=== PATIENT | female | born 1955 | race Caucasian/White ===

== ENCOUNTER → 2018-03-01 08:18 | Outpatient (CLI) | payer OTHER, SELFPAY ==
[2018-03-01 10:29] LABS: AST(SGOT) 24 U/L (15-37); Alanine Aminotransfer ALT/SGPT 36 U/L (13-56); Albumin, Serum 3.8 g/dL (3.2-5.0); Alkaline Phosphatase 94 U/L (45-117); Bilirubin, Direct 0.05 mg/dL (0.00-0.30); Cholesterol 176 mg/dL (200); Globulin 3.2 g/dL (2.2-4.2); High Density Lipoprotein 58 mg/dL; Triglycerides 163 mg/dL; Very Low Density Lipoprotein 33 mg/dL (5-40)
== END ==
PROVIDERS: Internal Medicine Cardiovascular Disease; Family Provider Internal Medicine; PCP Internal Medicine; Visit Provider Internal Medicine
DX: E78.00 Pure hypercholesterolemia, unspecified (principal)
CPT/HCPCS: 36415; 80061; 80076

== ENCOUNTER → 2018-07-09 13:35 | Outpatient (CLI) | payer OTHER, SELFPAY ==
--- NOTE | 2018-07-09 13:37 | BI_ITS ---
MAMMOGRAPHY - BILATERAL SCREENING REASON FOR EXAM: Female, 62 years old. Routine annual screening examination. PERTINENT HISTORY: Non-contributory. TECHNIQUE: Digital bilateral breast landry (3D mammographic acquisition) in the CC and MLO projections. 2-D mediolateral oblique (MLO) and craniocaudad (CC) views of both breasts were obtained. CAD: Full Field Digital Mammography with Computer Added Detection was performed. COMPARISON: Comparison is made with prior study dated July 08, 2017 and February 13, 2015. FINDINGS: Breast Composition: The breasts are almost entirely fatty. There are no dominant masses or suspicious calcifications. Stable appearance of the small bilateral scattered nodular densities. No other significant abnormalities are identified. There has been no significant change since the prior study. BI/SCREENING MAMM (CAD), BILAT IMPRESSION: Stable bilateral screening mammogram. Yearly follow-up mammogram recommended. (A) ASSESSMENT CATEGORY: BIRADS Category 2: Benign. A letter regarding these results will be sent to the patient by the facility within 30 days. Approximately 10% of breast cancers are not detected by mammography. A normal mammogram should not delay biopsy of a clinically suspicious abnormality. [id number] Electronically Signed: Ulysses Gonzalez MD at 15:40 EDT Tel [phone], Service support ,
== END ==
PROVIDERS: Family Provider Internal Medicine; PCP Internal Medicine; Visit Provider Internal Medicine
DX: Z12.31 Encounter for screening mammogram for malignant neoplasm of breast (principal)
CPT/HCPCS: 77063; 77067

== ENCOUNTER → 2019-07-13 07:28 | Outpatient (CLI) | payer OTHER, SELFPAY ==
--- NOTE | 2019-07-13 07:31 | BI_ITS ---
MAMMOGRAPHY - BILATERAL SCREENING REASON FOR EXAM: Female, 63 years old. Routine annual screening examination. PERTINENT HISTORY: Non-contributory. TECHNIQUE: Digital bilateral breast roberto (3D mammographic acquisition) in the CC and MLO projections. 2-D mediolateral oblique (MLO) and craniocaudad (CC) views of both breasts were obtained. CAD: Full Field Digital Mammography with Computer Added Detection was performed. COMPARISON: Comparison is made with prior study dated July 09, 2018 and July 08, 2017. FINDINGS: Breast Composition: The breasts are almost entirely fatty. There are no dominant masses or suspicious calcifications. No other significant abnormalities are identified. There has been no significant change since the prior study. BI/SCREEN MAMM (CAD) W/ROBERTO BILAT IMPRESSION: Stable bilateral screening mammogram. Yearly follow-up mammogram recommended. (A) ASSESSMENT CATEGORY: BIRADS Category 1: Negative. A letter regarding these results will be sent to the patient by the facility within 30 days. Approximately 10% of breast cancers are not detected by mammography. A normal mammogram should not delay biopsy of a clinically suspicious abnormality. [id number] Electronically Signed: Ulysses Gonzalez, at 8:59 EDT , Service support ,
== END ==
PROVIDERS: Family Provider Internal Medicine; PCP Internal Medicine; Referring Provider Internal Medicine; Visit Provider Internal Medicine
DX: Z12.31 Encounter for screening mammogram for malignant neoplasm of breast (principal)
CPT/HCPCS: 77063; 77067

== ENCOUNTER → 2019-08-15 12:16 | Outpatient (CLI) | payer OTHER, SELFPAY ==
[2019-08-15 13:30] LABS: Red Blood Cells-Urine 0 SEEN /hpf (0-5)
[2019-08-15 13:52] LABS: Color, Urine Yellow (Yellow); Glucose, Dipstick Normal (Normal); Ketone-Dipstick 5 mg/dl (Negative); Leukocyte Esterase-Dipstick 25 /ul (Negative); Nitrite-Dipstick Negative (Negative); Occult Blood-Urine Negative /ul (Negative); Protein-Dipstick Negative (Negative); Urine Bilirubin Dipstick Negative (Negative); Urine Clarity Sl. Cloudy (Clear); Urine Urobilinogen Normal (Normal)
[2019-08-15 13:54] LABS: Absolute Lymphocyte Count 1.25 X10^3/uL (0.83-4.51); Basophil# 0.03 X10^3/uL; Basophil% 0.6 % (0-1); Eosinophil# 0.22 X10^3/uL; Eosinophils% 4.3 % (0-5); Hematocrit 41.8 % (37-47); Hemoglobin 13.2 g/dL (12.0-15.0); Lymphocyte # 1.25 X10^3/ul (4.0); Lymphocyte % 24.7 % (19-41); Mean Corp Hgb Conc 31.6 g/dL (32-36); Mean Corpuscular Hgb 27.2 pg (27.0-32.0); Mean Corpuscular Volume 86.2 fL (81-99); Monocyte# 0.53 X10^3/uL; Monocyte% 10.5 % (0-10); NRBC Flagged by Analyzer 0 % (0-5); Neutrophil # 3.01 X10^3/uL (2.7-7.7); Neutrophil % 59.5 % (47-70); Platelet Count 201 K/mm3 (150-450); RBC Distribution Width CV 13.8 % (11.6-14.6); Red Blood Count 4.85 M/mm3 (4.2-5.4); White Blood Count 5.1 K/mm3 (4.4-11.0)
[2019-08-15 14:04] LABS: Bacteria 1+ /hpf (None Seen); Mucous, Urine 1+ /hpf (<or=2+); Squamous Epithelial Cells - UA 0-5 SEEN /hpf (5-10); White Blood Cells 0-5 SEEN /hpf (0-5)
[2019-08-15 14:11] LABS: ALB/GLOB Ratio 1.5 RATIO (0.9-2.4); AST(SGOT) 21 U/L (15-37); Alanine Aminotransfer ALT/SGPT 30 U/L (13-56); Alkaline Phosphatase 91 U/L (45-117); Anion Gap 5 (5-15); BUN 11 mg/dL (7-18); BUN/Creat Ratio 17.2 RATIO (10-20); Calcium,Total 9.5 mg/dL (8.5-10.1); Chloride 107 mmol/L (98-107); Creatinine, Serum 0.64 mg/dL (0.55-1.02); EST Glomerular Filtration Rate 100 mL/min (>60); Est Glom Filt Rate - Afr Amer 120 mL/min (>60); Estradiol < 11.0 pg/mL; Globulin 2.7 g/dL (2.2-4.2); Glucose 86 mg/dL (74-106); Potassium 4.1 mmol/L (3.5-5.1); Protein, Total 6.7 g/dL (6.4-8.2); Sodium Level 141 mmol/L (136-145)
[2019-08-15 14:13] LABS: Progesterone Level 0.16 ng/mL (See Comment)
[2019-08-15 14:16] LABS: Microalbumin,Random Urine 18.6 mg/L (NO RANGE EST.); Microalbumin:Creatinine Ratio 9.7 mg/g CRE (<30 mg/g CRE)
== END ==
PROVIDERS: Family Provider Internal Medicine; PCP Internal Medicine; Referring Provider Internal Medicine; Visit Provider Internal Medicine
DX: R60.0 Localized edema (principal); N95.1 Menopausal and female climacteric states; R73.09 Other abnormal glucose
CPT/HCPCS: 80053; 81001; 82043; 82570; 82670; 84144; 84403; 85025

== ENCOUNTER → 2019-10-25 08:20 | Outpatient (CLI) | payer OTHER, SELFPAY ==
--- NOTE | 2019-10-25 08:30 | BD_ITS ---
STUDY: DUAL ENERGY X-RAY ABSORPTIOMETRY / DXA REASON FOR EXAM: Female, 64 years old. 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 COMPARISON: Comparison is made with prior study dated July 16, 2017. FINDINGS: Lumbar Spine (L1-L4): g/cm2 (0.881) / T-score (-2.7) / Z-score (-1.1) Findings are suggestive of osteoporosis with a high fracture risk. Left Femur Total: g/cm2 (0.966) / T-score (-0.3) / Z-score (0.8) Left Femoral Neck: g/cm2 (0.855) / T-score (-1.3) / Z-score (0.1) Right Femur Total: g/cm2 (0.934) / T-score (-0.6) / Z-score (0.6) Right Femoral Neck: g/cm2 (0.849) / T-score (-1.4) / Z-score (0.1) The T-Scores on the most recent prior examination were: Lumbar Spine (L1-L4): There has been improvement of bone density since the previous examination. Left Femur Total: which represents a worsening of 0.2%. Right Femur Total: which represents a worsening of 3.6%. BD/Dexa Bone Density Study IMPRESSION: The patient is considered osteoporotic as outlined below according to World Joce Organization (WHO) criteria with a high fracture risk. There has been worsening of bone density since the previous examination. Reference Information: The T-score is the number of standard deviations above or below the standard which is normal for young adults at their peak bone mineral density. The World Health Organization (WHO) interprets the T-scores as follows: Above -1 Normal bone density Between -1 and -2.5 Osteopenia Equal to / or below -2.5 Osteoporosis As a practical clinical guideline, osteopenia may be graded as follows: Mild -1 through -1.5 Moderate -1.6 through -2.0 Severe -2.1 through -2.4 The Z-score is the number of standard deviations above or below age-matched controls. A Z-score of less than -1.5 would be considered abnormal. References: 1. NIH Osteoporosis and Related Bone Diseases http://www.osteo.org 2. International Society for Clinical Densitometry http://www.iscd.org 3. National Osteoporosis Foundation http://www.nof.org Electronically Signed: Ulysses Gonzalez, at 14:17 EST , Service support ,
== END ==
PROVIDERS: Family Provider Internal Medicine; PCP Internal Medicine; Referring Provider Internal Medicine; Visit Provider Internal Medicine
DX: Z78.0 Asymptomatic menopausal state (principal)
CPT/HCPCS: 77080

== ENCOUNTER → 2019-11-02 07:44 | Outpatient (CLI) | payer SELFPAY ==
--- NOTE | 2019-11-02 07:48 | CT_ITS ---
STUDY: CARDIAC CALCIUM SCORING - CT CHEST REASON FOR EXAM: Female, 64 years old. CORONARY ARTERY SCREENING- high cholestrol. OVER READ ONLY RADIATION DOSAGE (If Supplied By Facility): CTDIvol = ( 12.19 ) mGy, DLP = ( 219.42 ) mGycm TECHNIQUE: Axial non-enhanced images were acquired through the heart for the sole purpose of measuring coronary artery calcium. Individualized dose optimization techniques were used for this CT. COMPARISON: None. FINDINGS: Visualized surrounding anatomy: Normal. Left Main Coronary Artery: 0 Left Anterior Descending Artery: 1.59 Left Circumflex Artery: 0 Right Coronary Artery: 0 Other: Small posterior right lower lobe calcified granuloma. The lungs are otherwise clear. No focal pulmonary consolidation. Total Calcium Score: 1.59 CT/Limited Chest CT w/CCTA IMPRESSION: A Calcium Score of 1.59 places the patient in the approximate 25-50 percentile, based on the PRICE data calculator. Please go to: www.price-nhlbi.org/Calcium/input.aspx , for a description of the calculator. Electronically Signed: Jennifer Wong, at 14:40 EST Tel , Service support ,
[2019-11-02 07:54] VITALS: BP 130/73; PULSE 72; RESP 16; O2SAT 98; BMI 30.1
--- NOTE | 2019-11-03 17:03 | CA.SCORE ---
Calcium Scoring Date of Study:: 11/02/19 Coronary Calcium Scoring: High-resolution Computed Tomographic imaging of the chest was performed on [ ], with particular attention paid to the coronary arteries. Images from the examination were analyzed for the presence and extent of coronary artery calcification , using coronary calcium quantification software. The patient tolerated the procedure well and there were no complications. The results of the coronary calcification analysis are provided below. - Findings Left Main (LM): 0 Left Anterior Descending (LAD): 1.59 Left Circumflex (LCX): 0 Right Coronary Artery (RCA): 0 Total Agatston Score: 1.59 Percentile Rankin Calcium Scoring Interpretation: 1-10 Minimal Plaque burden. Significant coronary artery disease very unlikely.
== END ==
PROVIDERS: Family Provider Internal Medicine; PCP Internal Medicine; Referring Provider Internal Medicine; Visit Provider Internal Medicine
DX: Z13.6 Encounter for screening for cardiovascular disorders (principal)
CPT/HCPCS: 75571; 76380

== ENCOUNTER → 2019-11-09 08:29 | Outpatient (CLI) | payer OTHER, SELFPAY ==
[2019-11-02 07:54] VITALS: BMI 30.1
--- NOTE | 2019-11-09 09:05 | RAD_ITS ---
STUDY: X-RAY - LEFT KNEE REASON FOR EXAM: Pain and swelling. TECHNIQUE: 4 view(s) of the knee. COMPARISON: None. FINDINGS: Normal visualized distal femur. Normal visualized proximal tibia and fibula. Normal proximal tibiofibular articulation. There is mild joint space narrowing of the medial femorotibial compartment. Normal lateral femorotibial compartment. There are very small marginal osteophytes of the patella without joint space narrowing of the patellofemoral articulation. The soft tissue structures are unremarkable. RAD/Knee 4 or More Views IMPRESSION: Mild arthrosis of the medial femorotibial compartment. Electronically Signed: Laurent Piper MD at 9:57 EST Tel , Service support ,
[2019-11-09 10:23] LABS: PTHIN 38.9 pg/mL (18.4-80.1)
[2019-11-09 10:44] LABS: Alkaline Phosphatase 88 U/L (45-117); Phosphorus 3.6 mg/dL (2.5-4.9); Thyroid Stim Hormone (TSH) 2.18 uIU/mL (0.358-3.74)
[2019-11-10 16:08] LABS: PROEL- A/G Ratio 1.4 (0.7-1.7); PROEL- Albumin 3.7 g/dL (2.9-4.4); PROEL- Alpha-1 Globulin 0.2 g/dL (0.0-0.4); PROEL- Alpha-2 Globulin 0.7 g/dL (0.4-1.0); PROEL- Beta Globulin 1.1 g/dL (0.7-1.3); PROEL- Gamma Globulin 0.6 g/dL (0.4-1.8); PROEL- Globulin, Total 2.6 g/dL (2.2-3.9); PROEL- TOTAL PROTEIN 6.3 g/dL (6.0-8.5)
== END ==
PROVIDERS: PCP Internal Medicine; Referring Provider Internal Medicine; Visit Provider Internal Medicine
DX: M25.562 Pain in left knee (principal)
CPT/HCPCS: 36415; 73564; 83970; 84075; 84100; 84165; 84443

== ENCOUNTER → 2019-11-10 10:45 | Outpatient (CLI) | payer OTHER, SELFPAY ==
[2019-11-02 07:54] VITALS: BMI 30.1
[2019-11-14 10:49] LABS: (24 HR) Urine Calcium 273.6 mg/24 HR (42.0-353.0); 24HR UR TOTAL VOLUME 3600 ml; Calcium Urine pH Range 1; Urine Calcium (Random) 7.6 (Not Estab.)
[2019-11-15 10:24] LABS: PROELU- Albumin, Urine 35.9 % (.); PROELU- Alpha-1-Globulin,Ur 5.1 % (.); PROELU- Alpha-2-Globulin,Ur 14.7 % (.); PROELU- Beta Globulin, Ur 17.8 % (.); PROELU- Gamma Globulin, Ur 26.5 % (.); Total Protein, Ur 5.3 mg/dL (Not Estab.)
== END ==
PROVIDERS: PCP Internal Medicine; Referring Provider Internal Medicine; Visit Provider Internal Medicine
DX: M81.0 Age-related osteoporosis without current pathological fracture (principal)
CPT/HCPCS: 81050; 82340; 84166

== ENCOUNTER → 2020-03-15 09:34 | Outpatient (CLI) | payer OTHER, SELFPAY ==
[2019-11-02 07:54] VITALS: BMI 30.1
--- NOTE | 2020-03-15 09:54 | MRI_ITS ---
STUDY: MRI LEFT KNEE REASON FOR EXAM: Medial left knee pain for 4 months from exercising. TECHNIQUE: Standardized fat and water weighted pulse sequences were obtained in all 3 orthogonal planes. COMPARISON: Radiographs 11/09/2019. FINDINGS: There is a very small superficial tear of the inferior articular surface of the posterior horn of the medial meniscus near the free margin (proton density sagittal images 11, 12). 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 Normal medial collateral ligamentous complex (MCL). Normal distal semimembranosus, gracilis and semitendinosus tendons. Normal lateral meniscus. Normal hyaline cartilage of the lateral femorotibial compartment. Normal lateral femoral condyle and tibial plateau. Normal proximal tibiofibular articulation. Normal lateral collateral (fibular) ligament. Normal popliteus tendon. Normal biceps femoris tendon. Normal anterior cruciate ligament (ACL). Normal posterior cruciate ligament (PCL). Normal congruent patellofemoral articulation. There is low to intermediate grade chondromalacia patellae (T2 axial image 8). Normal medial and lateral patellar retinaculum. Normal visualized quadriceps tendon. Normal patellar tendon. Normal Hoffa''s fat pad. There is a very small joint effusion. There is a ganglion cyst adjacent to the origin of the lateral gastrocnemius (T2 sagittal images 24-28) measuring 1.4 cm in transverse dimension. There is mild edema in the anterior subcutis adipose space. The otherwise visualized osseous structures are unremarkable. MRI/Lower Ext Joint Only (Routine) IMPRESSION: Very small superficial medial meniscal tear. 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 Very small joint effusion. Small ganglion cyst adjacent to the origin of the lateral gastrocnemius. Electronically Signed: Laurent Piper MD at 11:35 EDT Tel , Service support ,
== END ==
PROVIDERS: PCP Internal Medicine; Referring Provider Specialist; Visit Provider Specialist
DX: M25.462 Effusion, left knee (principal)
CPT/HCPCS: 73721

== ENCOUNTER → 2020-07-23 08:15 | Outpatient (CLI) | payer OTHER, SELFPAY ==
[2019-11-02 07:54] VITALS: BMI 30.1
--- NOTE | 2020-07-23 08:16 | BI_ITS ---
MAMMOGRAPHY - BILATERAL SCREENING REASON FOR EXAM: Female, 64 years old. Routine annual screening examination. PERTINENT HISTORY: Non-contributory. TECHNIQUE: Digital bilateral breast roberto (3D mammographic acquisition) in the CC and MLO projections. 2-D mediolateral oblique (MLO) and craniocaudad (CC) views of both breasts were obtained. CAD: Full Field Digital Mammography with Computer Added Detection was performed. COMPARISON: 07/13/2019 and 07/09/2018 FINDINGS: Breast Composition: The breasts are almost entirely fatty. There are no dominant masses or suspicious calcifications. No other significant abnormalities are identified. BI/SCREEN MAMM (CAD) W/ROBERTO BILAT IMPRESSION: Stable bilateral screening mammogram. Yearly follow-up mammogram recommended. (A) ASSESSMENT CATEGORY: BIRADS Category 2: Benign. A letter regarding these results will be sent to the patient by the facility within 30 days. Approximately 10% of breast cancers are not detected by mammography. A normal mammogram should not delay biopsy of a clinically suspicious abnormality. [id number] Electronically Signed: Erica Taylor, at 16:35 EDT Tel , Service support ,
== END ==
PROVIDERS: PCP Internal Medicine; Referring Provider Internal Medicine; Visit Provider Internal Medicine
DX: Z12.31 Encounter for screening mammogram for malignant neoplasm of breast (principal)
CPT/HCPCS: 77063; 77067

== ENCOUNTER → 2020-10-30 13:59 | Outpatient (CLI) | payer MEDICARE, BC, SELFPAY ==
[2019-11-02 07:54] VITALS: BMI 30.1
[2020-10-30 14:42] LABS: Absolute Lymphocyte Count 1.34 X10^3/uL (0.83-4.51); Absolute Neutrophil Count 4.5 X10^3/uL (2.0-7.7); Basophil# 0.04 X10^3/uL; Basophil% 0.6 % (0-1); Eosinophil# 0.15 X10^3/uL; Eosinophils% 2.3 % (0-5); Hemoglobin 13.8 g/dL (12.0-15.0); Lymphocyte # 1.34 X10^3/ul (4.0); Lymphocyte % 20.2 % (19-41); Mean Corp Hgb Conc 30.7 g/dL (32-36); Mean Corpuscular Hgb 26.1 pg (27.0-32.0); Mean Corpuscular Volume 85.2 fL (81-99); Mean Platelet Vol. 10.6 fl (6.2-12.0); Monocyte# 0.55 X10^3/uL; Monocyte% 8.3 % (0-10); NRBC Flagged by Analyzer 0 % (0-5); Neutrophil # 4.53 X10^3/uL (2.7-7.7); Neutrophil % 68.3 % (47-70); Platelet Count 224 K/mm3 (150-450); RBC Distribution Width CV 13.7 % (11.6-14.6); RBC Distribution Width SD 42.5 fl (35.1-43.9); Red Blood Count 5.28 M/mm3 (4.2-5.4); White Blood Count 6.6 K/mm3 (4.4-11.0)
[2020-10-30 14:52] LABS: ALB/GLOB Ratio 1.4 RATIO (0.9-2.4); AST(SGOT) 18 U/L (15-37); Alanine Aminotransfer ALT/SGPT 38 U/L (13-56); Albumin, Serum 4.2 g/dL (3.2-5.0); Alkaline Phosphatase 101 U/L (45-117); Anion Gap 7 (5-15); BUN 12 mg/dL (7-18); BUN/Creat Ratio 19.1 RATIO (10-20); Calcium,Total 9.6 mg/dL (8.5-10.1); Chloride 103 mmol/L (98-107); Creatinine, Serum 0.63 mg/dL (0.55-1.02); EST Glomerular Filtration Rate 101 mL/min (>60); Est Glom Filt Rate - Afr Amer 122 mL/min (>60); Globulin 2.9 g/dL (2.2-4.2); Glucose 88 mg/dL (74-106); Potassium 4.3 mmol/L (3.5-5.1); Protein, Total 7.1 g/dL (6.4-8.2); Sodium Level 139 mmol/L (136-145)
== END ==
PROVIDERS: PCP Internal Medicine; Referring Provider Internal Medicine; Visit Provider Internal Medicine
DX: E78.00 Pure hypercholesterolemia, unspecified (principal)
CPT/HCPCS: 80053; 85025

== ENCOUNTER → 2021-03-05 12:35 | Outpatient (CLI) | payer MEDICARE, BC, SELFPAY ==
[2019-11-02 07:54] VITALS: BMI 30.1
[2021-03-05 13:30] LABS: Absolute Lymphocyte Count 1.55 X10^3/uL (0.83-4.51); Absolute Neutrophil Count 2.3 X10^3/uL (2.0-7.7); Basophil# 0.03 X10^3/uL; Basophil% 0.7 % (0-1); Eosinophil# 0.18 X10^3/uL; Hematocrit 42.6 % (37-47); Hemoglobin 13.7 g/dL (12.0-15.0); Lymphocyte # 1.55 X10^3/ul (0.83-4.51); Lymphocyte % 34.8 % (19-41); Mean Corp Hgb Conc 32.2 g/dL (32-36); Mean Corpuscular Hgb 27.6 pg (27.0-32.0); Mean Corpuscular Volume 85.9 fL (81-99); Mean Platelet Vol. 10.9 fl (6.2-12.0); Monocyte# 0.42 X10^3/uL; Monocyte% 9.4 % (0-10); NRBC Flagged by Analyzer 0 % (0-5); Neutrophil # 2.28 X10^3/uL (2.7-7.7); Neutrophil % 51.1 % (47-70); Platelet Count 192 K/mm3 (150-450); RBC Distribution Width CV 13.8 % (11.6-14.6); Red Blood Count 4.96 M/mm3 (4.2-5.4); White Blood Count 4.5 K/mm3 (4.4-11.0)
[2021-03-05 13:48] LABS: ALB/GLOB Ratio 1.5 RATIO (0.9-2.4); AST(SGOT) 19 U/L (15-37); Alanine Aminotransfer ALT/SGPT 39 U/L (13-56); Albumin, Serum 3.8 g/dL (3.2-5.0); Alkaline Phosphatase 82 U/L (45-117); Anion Gap 2 (5-15); BUN 12 mg/dL (7-18); BUN/Creat Ratio 20.3 RATIO (10-20); Calcium,Total 9.4 mg/dL (8.5-10.1); Chloride 108 mmol/L (98-107); Cholesterol 187 mg/dL (200); Creatinine, Serum 0.59 mg/dL (0.55-1.02); EST Glomerular Filtration Rate 108 mL/min (>60); Est Glom Filt Rate - Afr Amer 131 mL/min (>60); Globulin 2.6 g/dL (2.2-4.2); Glucose 96 mg/dL (74-106); High Density Lipoprotein 61 mg/dL; Protein, Total 6.4 g/dL (6.4-8.2); Sodium Level 141 mmol/L (136-145); Triglycerides 160 mg/dL; Very Low Density Lipoprotein 32 mg/dL (5-40)
[2021-03-05 13:54] LABS: Hemoglobin A1c 5.8 % (3.8-5.6)
== END ==
PROVIDERS: PCP Internal Medicine; Referring Provider Internal Medicine; Visit Provider Internal Medicine
DX: R73.09 Other abnormal glucose (principal); E78.00 Pure hypercholesterolemia, unspecified
CPT/HCPCS: 80053; 80061; 82043; 83036; 85025

== ENCOUNTER → 2021-07-25 07:25 | Outpatient (CLI) | payer MEDICARE, BC, SELFPAY ==
[2021-07-25 10:16] LABS: AST(SGOT) 21 U/L (15-37); Alanine Aminotransfer ALT/SGPT 36 U/L (13-56); Albumin, Serum 3.6 g/dL (3.2-5.0); Alkaline Phosphatase 76 U/L (45-117); Globulin 3.3 g/dL (2.2-4.2); Protein, Total 6.9 g/dL (6.4-8.2)
== END ==
PROVIDERS: PCP Internal Medicine; Referring Provider Internal Medicine; Visit Provider Internal Medicine
DX: Z51.81 Encounter for therapeutic drug level monitoring (principal); Z79.899 Other long term (current) drug therapy
CPT/HCPCS: 36415; 80076

== ENCOUNTER → 2021-08-12 07:17 | Outpatient (CLI) | payer MEDICARE, BC, SELFPAY ==
--- NOTE | 2021-08-12 07:18 | BI_ITS ---
MAMMOGRAPHY - BILATERAL SCREENING REASON FOR EXAM: Female, 65 years old. Routine annual screening examination. PERTINENT HISTORY: Non-contributory. TECHNIQUE: Digital bilateral breast roberto (3D mammographic acquisition) in the CC and MLO projections. 2-D mediolateral oblique (MLO) and craniocaudad (CC) views of both breasts were obtained. CAD: Full Field Digital Mammography with Computer Added Detection was performed. COMPARISON: Comparison is made with prior study dated 07/23/2020 and 07/13/2019. FINDINGS: Breast Composition: The breasts are almost entirely fatty. There are no dominant masses or suspicious calcifications. Stable benign-appearing bilateral axillary lymph nodes. No other significant abnormalities are identified. There has been no significant change since the prior study. BI/SCRN MAMM (CAD)W/ROBERTO BILAT IMPRESSION: Stable bilateral screening mammogram. Yearly follow-up mammogram recommended. (A) ASSESSMENT CATEGORY: BIRADS Category 2: Benign. A letter regarding these results will be sent to the patient by the facility within 30 days. Approximately 10% of breast cancers are not detected by mammography. A normal mammogram should not delay biopsy of a clinically suspicious abnormality. [id number] Electronically Signed: Ulysses Gonzalez MD at 8:53 EDT , Service support ,
== END ==
PROVIDERS: PCP Internal Medicine; Referring Provider Internal Medicine; Visit Provider Internal Medicine
DX: Z12.31 Encounter for screening mammogram for malignant neoplasm of breast (principal)
CPT/HCPCS: 77063; 77067

== ENCOUNTER → 2022-06-05 | Outpatient (CLI) | payer MEDICARE, BC, SELFPAY ==
--- NOTE | 2022-06-05 13:31 | RAD_ITS ---
EXAM: XR RIGHT FOOT COMPLETE, 3 OR MORE VIEWS CLINICAL INDICATION: blunt trauma to right foot, mostly great toe and 2nd toe. Having -- Xray of right foot, attention to great toe and 2nd toe TECHNIQUE: Frontal, lateral and oblique views of the right foot. This report was created using [employer] report generation technology. COMPARISON: None. FINDINGS: BONES/JOINTS: Plantar calcaneal spur noted. There appears to be a small avulsion type fracture involving the tuft of the first distal phalanx. Narrowing and bony spurring of the first MTP joint. SOFT TISSUES: Normal. No soft tissue swelling or gas. No radiopaque foreign body. RAD/Foot min 3 Views IMPRESSION: Small avulsion fracture of the first distal phalanx. Electronically Signed: Raghu Granger MD at 16:15 EDT ,
== END | disposition home or self-care (01) ==
LOC: MTRAD 13:28
PROVIDERS: PCP Internal Medicine; Referring Provider Internal Medicine; Visit Provider Internal Medicine
DX: M79.671 Pain in right foot (principal)
CPT/HCPCS: 73630

== ENCOUNTER → 2022-08-19 | Outpatient (CLI) | payer MEDICARE, BC, SELFPAY ==
--- NOTE | 2022-08-19 13:03 | BI_ITS ---
MAMMOGRAPHY - BILATERAL SCREENING REASON FOR EXAM: Female, 66 years old. Routine annual screening examination. PERTINENT HISTORY: Non-contributory. TECHNIQUE: Digital bilateral breast landry (3D mammographic acquisition) in the CC and MLO projections. 2-D mediolateral oblique (MLO) and craniocaudad (CC) views of both breasts were obtained. CAD: Full Field Digital Mammography with Computer Added Detection was performed. COMPARISON: Comparison is made with prior study dated 08/12/2021 and 07/23/2020. FINDINGS: Breast Composition: The breasts are almost entirely fatty. There are no dominant masses or suspicious calcifications. Stable bilateral fat-containing lymph nodes. No other significant abnormalities are identified. There has been no significant change since the prior study. BI/SCREENING MAMM (CAD), BILAT IMPRESSION: Stable bilateral screening mammogram. Yearly follow-up mammogram recommended. (A) ASSESSMENT CATEGORY: BIRADS Category 2: Benign. A letter regarding these results will be sent to the patient by the facility within 30 days. Approximately 10% of breast cancers are not detected by mammography. A normal mammogram should not delay biopsy of a clinically suspicious abnormality. [id number] Electronically Signed: Ulysses Gonzalez MD at 14:10 EDT ,
--- NOTE | 2022-08-19 13:13 | BD_ITS ---
STUDY: DUAL ENERGY X-RAY ABSORPTIOMETRY / DXA REASON FOR EXAM: Female, 66 years old. [id number] TECHNIQUE: Bone Mineral Density (BMD) measurements of lumbar spine and bilateral hips were obtained. COMPARISON: Comparison is made with prior study dated 10/25/2019. FINDINGS: Lumbar Spine (L1-L4): g/cm2 (0.743) / T-score (-2.8) / Z-score (-0.9) Findings are suggestive of osteoporosis with a high fracture risk. Left Femur Total: g/cm2 (0.899) / T-score (-0.4) / Z-score (1.0) Left Femoral Neck: g/cm2 (0.738) / T-score (-1.0) / Z-score (0.6) Right Femur Total: g/cm2 (0.890) / T-score (-0.4) / Z-score (0.9) Right Femoral Neck: g/cm2 (0.712) / T-score (-1.2) / Z-score (0.4) The T-Scores on the most recent prior examination were: Lumbar Spine (L1-L4): There has been worsening of bone density since the previous examination. Left Femur Total: which represents a worsening of 0.2%. Right Femur Total: which represents an improvement of 2.3%. BD/Dexa Bone Density Study IMPRESSION: The patient is considered osteoporotic as outlined below according to World Joce Organization (WHO) criteria with a high fracture risk. There has been worsening of bone density since the previous examination. Reference Information: The T-score is the number of standard deviations above or below the standard which is normal for young adults at their peak bone mineral density. The World Health Organization (WHO) interprets the T-scores as follows: Above -1 Normal bone density Between -1 and -2.5 Osteopenia Equal to / or below -2.5 Osteoporosis As a practical clinical guideline, osteopenia may be graded as follows: Mild -1 through -1.5 Moderate -1.6 through -2.0 Severe -2.1 through -2.4 The Z-score is the number of standard deviations above or below age-matched controls. A Z-score of less than -1.5 would be considered abnormal. References: 1. NIH Osteoporosis and Related Bone Diseases www osteo.org 2. International Society for Clinical Densitometry www iscd.org 3. National Osteoporosis Foundation www nof.org Electronically Signed: Ulysses Gonzalez MD at 13:21 EDT ,
== END | disposition home or self-care (01) ==
LOC: OPBD 13:02
PROVIDERS: PCP Internal Medicine; Referring Provider Internal Medicine; Visit Provider Internal Medicine
DX: Z12.31 Encounter for screening mammogram for malignant neoplasm of breast (principal); M81.0 Age-related osteoporosis without current pathological fracture
CPT/HCPCS: 77067; 77080

== ENCOUNTER → 2022-09-17 | Outpatient (CLI) | payer MEDICARE, BC, SELFPAY ==
--- NOTE | 2022-09-17 12:56 | RAD_ITS ---
STUDY: X-RAY - RIGHT HAND REASON FOR EXAM: Female, 67 years old. pain received injury to pinky finger on right hand -- TECHNIQUE: 3 view(s) of the hand. COMPARISON: 04/30/2021 FINDINGS: Normal radiocarpal articulation. Normal distal radioulnar joint. Normal visualized carpal bones. Normal carpal articulations Normal carpometacarpal articulation of the thumb. Normal second through fifth carpometacarpal joints. Normal metacarpi. Normal metacarpophalangeal joint of the thumb. Normal interphalangeal joint of the thumb. Normal proximal and distal phalanges of the thumb. Normal metacarpophalangeal joints of the second through fifth fingers. Normal proximal and distal interphalangeal joints of the second through fifth fingers. Normal phalanges of the second through fifth fingers. The soft tissue structures are unremarkable. RAD/Hand Min 3 Views IMPRESSION: Normal x-ray examination of the hand. Electronically Signed: Nixon Gregory MD at 18:26 EST ,
== END | disposition home or self-care (01) ==
LOC: MTRAD 12:56
PROVIDERS: PCP Internal Medicine; Referring Provider Internal Medicine; Visit Provider Internal Medicine
DX: S69.91XA Unspecified injury of right wrist, hand and finger(s), initial encounter (principal); M79.644 Pain in right finger(s)
CPT/HCPCS: 73130

== ENCOUNTER 2022-11-18 14:10 | Outpatient (RCR) | payer MEDICARE, BC, SELFPAY ==
--- NOTE | 2022-11-18 16:04 | HP.OTEVAL ---
Patient's Visit Information QUIANA MEJIA is a 67 year old F, referred to Occupational Therapy by Dr. Diane Michel MD, with a diagnosis of pain in right hand.. Date of Evaluation: 11/18/22 Occupational Therapist: Aria Stout, OTR/L, CHT - Subjective This 67 year old female was seen in OT with dx of right hand pain. pt states she has had a injury of mallet finger in her past and following a year she had no difficulty. Pt than was playing football with her grandson end of Aug. she had x-ray following 1st week of sep. due to swelling. Pt than went to see Dr. Michel on 10/08/22 due to continued soreness and swelling. pt is right hand. pt states this limits her use of right hand with ADLs and IADLS. pt would like to return to using her right hand with all ADLs. - Pain right hand 2 Pain Intensity Range: 3 - ROM MP: right +5/90 left 0/ 90 PIP: right +10/75 left LF +5/95 DIP: right -15/40 left LF+5/ 60 ROM Comments: pt demo with a decrease in right LF ROM - Strength Data Entry Processor: right 60 left 65 Lateral Pinch: right 10# left 12# Tripod Pinch: right 14# left 14# - Edema PIP: right LF 5.5 left 5.0 - Sensation Sensation Comments: numbness on volar at times. varies - Quick DASH-Disab of Arm,Shoulder& Hand Quick DASH Score: 4.5450 - Goals Goal:ROM equal to unaffected hand: Yes Goal:No pain with affected hand use: Yes - Rehabilitation General Assessment: pt has been working on AROM since she did see Dr. Michel 10/08/22. and arrived for her OT eval today- she demo limited ROM of right LF. However following paraffin bath pt demo a increase in PIP flexion at 90* a 5* difference from unaffected hand. pt was ed. on ROM using tendon glides and adduction of LF to increase composite fist- pt agreed to cont. with HEP unless she felt limited progress. Rehabilitation Potential: Good - Anticipated Interventions A/AAROM/PROM, Strengthening, Modalities, Home Program - Visit Plan TEXT: Thank you for the opportunity to evaluate your patient. For Medicare and Medicare HMO plans, please review the plan of care and approve it. It will need to be FAXED BACK to us at [phone] for Medicare purposes. Please let me know if there are questions or concerns regarding this plan of care. Physician Signature: Date:
--- NOTE | 2023-01-28 15:14 | HP.OT.NRP ---
QUIANA MEJIA was seen in my office for initial evaluation on 11/18/22. The following Plan of Care was established for this patient: Anticipated Interventions: A/AAROM/PROM, Strengthening, Modalities, Home Program This patient was last seen in our office 11/18/22. Pertinent comments regarding their Occupational therapy will appear below: pt was seen for OT eval only - pt did not schedule further apts and due to time lapse in services pt d/c. At this point I will be discontinuing this patient from occupational therapy. I would be happy to see this patient again in the future if found appropriate by the physician. Thank you! Aria Stout, OTR/L, CHT
== END 2022-11-18 19:00 | disposition home or self-care (01) ==
LOC: OT 14:10
PROVIDERS: PCP Internal Medicine; Referring Provider Orthopaedic Surgery Hand Surgery; Visit Provider Orthopaedic Surgery Hand Surgery
DX: M79.641 Pain in right hand (principal)
CPT/HCPCS: 97110; 97166

== ENCOUNTER → 2023-01-01 | Outpatient (CLI) | payer MEDICARE, BC, SELFPAY ==
[2023-01-01 10:24] LABS: ALB/GLOB Ratio 1.2 RATIO (0.9-2.4); AST(SGOT) 20 U/L (15-37); Alanine Aminotransfer ALT/SGPT 36 U/L (13-56); Albumin, Serum 3.5 g/dL (3.2-5.0); Alkaline Phosphatase 80 U/L (45-117); Anion Gap 8 (5-15); BUN 19 mg/dL (7-18); BUN/Creat Ratio 33.3 RATIO (10-20); Calcium,Total 9.3 mg/dL (8.5-10.1); Chloride 105 mmol/L (98-107); Creatinine, Serum 0.57 mg/dL (0.55-1.02); EST Glomerular Filtration Rate 112 mL/min (>60); Est Glom Filt Rate - Afr Amer 136 mL/min (>60); Globulin 2.9 g/dL (2.2-4.2); Glucose 95 mg/dL (74-106); Magnesium 2.2 mg/dL (1.6-2.6); Phosphorus 3.6 mg/dL (2.5-4.9); Potassium 3.9 mmol/L (3.5-5.1); Protein, Total 6.4 g/dL (6.4-8.2); Sodium Level 140 mmol/L (136-145); Thyroid Stim Hormone (TSH) 1.69 uIU/mL (0.358-3.74)
== END | disposition home or self-care (01) ==
LOC: MTLAB 08:10
PROVIDERS: PCP Internal Medicine
DX: M81.0 Age-related osteoporosis without current pathological fracture (principal); R53.83 Other fatigue
CPT/HCPCS: 36415; 80053; 82306; 83735; 83970; 84100; 84443

== ENCOUNTER → 2023-08-18 | Outpatient (CLI) | payer MEDICARE, BC, SELFPAY ==
[2023-08-18 10:12] LABS: Bacteria 0 SEEN /hpf (None Seen); Red Blood Cells-Urine 0 SEEN /hpf (0-5); White Blood Cells 0 SEEN /hpf (0-5)
[2023-08-18 10:19] LABS: Absolute Lymphocyte Count 1.41 X10^3/uL (0.83-4.51); Absolute Neutrophil Count 2.8 X10^3/uL (2.0-7.7); Basophil# 0.03 X10^3/uL; Basophil% 0.6 % (0-1); Eosinophil# 0.19 X10^3/uL; Eosinophils% 3.8 % (0-5); Hematocrit 42.9 % (37-47); Hemoglobin 13.7 g/dL (12.0-15.0); Lymphocyte # 1.41 X10^3/ul (0.83-4.51); Lymphocyte % 28.4 % (19-41); Mean Corp Hgb Conc 31.9 g/dL (32-36); Mean Corpuscular Hgb 26.7 pg (27.0-32.0); Mean Corpuscular Volume 83.6 fL (81-99); Mean Platelet Vol. 10.9 fl (6.2-12.0); Monocyte# 0.54 X10^3/uL; Monocyte% 10.9 % (0-10); NRBC Flagged by Analyzer 0 % (0-5); Neutrophil # 2.78 X10^3/uL (2.7-7.7); Neutrophil % 56.1 % (47-70); Platelet Count 207 K/mm3 (150-450); RBC Distribution Width CV 13.8 % (11.6-14.6); RBC Distribution Width SD 42.5 fl (35.1-43.9); Red Blood Count 5.13 M/mm3 (4.2-5.4)
[2023-08-18 10:21] LABS: Color, Urine Yellow (Yellow); Glucose, Dipstick Normal (Normal); Ketone-Dipstick Negative (Negative); Leukocyte Esterase-Dipstick 25 /ul (Negative); Nitrite-Dipstick Negative (Negative); Occult Blood-Urine Negative /ul (Negative); Protein-Dipstick 15 mg/dl (Negative); Urine Bilirubin Dipstick Negative (Negative); Urine Clarity Clear (Clear); Urine Urobilinogen Normal (Normal)
[2023-08-18 10:27] LABS: Mucous, Urine 1+ /hpf (<or=2+); Squamous Epithelial Cells - UA 0-5 SEEN /hpf (5-10)
[2023-08-18 10:30] LABS: ALB/GLOB Ratio 1.3 RATIO (0.9-2.4); AST(SGOT) 17 U/L (15-37); Alanine Aminotransfer ALT/SGPT 37 U/L (13-56); Albumin, Serum 3.7 g/dL (3.2-5.0); Alkaline Phosphatase 91 U/L (45-117); Anion Gap 5 (5-15); BUN 16 mg/dL (7-18); Calcium,Total 9.2 mg/dL (8.5-10.1); Chloride 107 mmol/L (98-107); EST Glomerular Filtration Rate 89 mL/min (>60); Est Glom Filt Rate - Afr Amer 108 mL/min (>60); Globulin 2.9 g/dL (2.2-4.2); Glucose 93 mg/dL (74-106); Potassium 4.1 mmol/L (3.5-5.1); Protein, Total 6.6 g/dL (6.4-8.2); Sodium Level 140 mmol/L (136-145)
== END | disposition home or self-care (01) ==
PROVIDERS: PCP Internal Medicine; Referring Provider Internal Medicine; Visit Provider Internal Medicine
DX: R73.09 Other abnormal glucose (principal)
CPT/HCPCS: 80053; 81001; 85025; 87086

== ENCOUNTER → 2023-08-20 | Outpatient (CLI) | payer MEDICARE, BC, SELFPAY ==
--- NOTE | 2023-08-20 08:12 | BI_ITS ---
MAMMOGRAPHY - BILATERAL SCREENING REASON FOR EXAM: Female, 67 years old. Routine annual screening examination. PERTINENT HISTORY: Non-contributory. TECHNIQUE: Digital bilateral breast roberto (3D mammographic acquisition) in the CC and MLO projections. 2-D mediolateral oblique (MLO) and craniocaudad (CC) views of both breasts were obtained. CAD: Full Field Digital Mammography with Computer Added Detection was performed. COMPARISON: Comparison is made with prior study dated August 19, 2022 and August 12, 2021. FINDINGS: Breast Composition: The breasts are almost entirely fatty. There are no dominant masses or suspicious calcifications. Stable bilateral fat-containing axillary lymph nodes. No other significant abnormalities are identified. There has been no significant change since the prior study. BI/SCRN MAMM (CAD)W/ROBERTO BILAT IMPRESSION: Stable bilateral screening mammogram. Yearly follow-up mammogram recommended. (A) ASSESSMENT CATEGORY: BIRADS Category 2: Benign. A letter regarding these results will be sent to the patient by the facility within 30 days. Approximately 10% of breast cancers are not detected by mammography. A normal mammogram should not delay biopsy of a clinically suspicious abnormality. [id number] Electronically Signed: Ulysses Gonzalez MD at 9:02 EDT ,
== END | disposition home or self-care (01) ==
LOC: OPBI 08:10
PROVIDERS: PCP Internal Medicine; Referring Provider Internal Medicine; Visit Provider Internal Medicine
DX: Z12.31 Encounter for screening mammogram for malignant neoplasm of breast (principal)
CPT/HCPCS: 77063; 77067

== ENCOUNTER → 2023-12-21 | Outpatient (CLI) | payer MEDICARE, BC, SELFPAY ==
--- OUTSIDE RECORDS SUMMARY | 2023-12-21 12:14 | XMS RPT_ITS | CCD ---
Author Name Unknown Address [id number] [place] [address] Organization [facility] Care Team Providers Care Garment Sorter Name Role Phone Martha BAZZI, Anaid Franco Unavailable Unavailable Ann, Penny Unavailable Unavailable MD Lakhwinder, Jaime Kamara Unavailable Fast, Elizabeth A Unavailable Manchak, Melinda Unavailable Unavailable Gravius, Ingrid Unavailable Unavailable Unavailable Unavailable ROSE MARY Mera, Chloe Arreaga Unavailable Unavailabl le Mera RN, Chloe Arreaga Unavailable Unavailabl e Seth Penny Unavailable Unavailable Fast, Elizabeth A Unavailable Manchak, Melinda Unavailable Unavailable Gravius, Ingrid Unavailable Unavailable Unavailable Unavailable Roof CANE CUTTER, Gamaliel Harris Unavailable Ann, Penny Unavailable Unavailable Manchak, Melinda Unavailable Unavailable Gravius, Ingrid Unavailable Unavailable Zeke Mcqueen Unavailable Fast DO, Elizabeth A Unavailable Dr. Zeke Mcqueen Unavailable Manchak IMPREGNATING MACHINE OPERATOR, Melinda Unavailable Unavailable Gravius IMPREGNATING MACHINE OPERATOR, Ingrid Unavailable Unavailable Unavailable Unavailable Manchak, Melinda Unavailable Unavailable Gravius, Ingrid Unavailable Unavailable Fast DO, Elizabeth A Unavailable Sidney PACHECO , Gamaliel Huang Unavailable Katie PACHECO, Zaida Arreaga Unavailable Kelsy Vallecillo LPN Unavailable Unavailable Fast DO, Elizabeth A Attending Unavailable Fast DO, Elizabeth A Referring Unavailable Fast DO, Elizabeth A Consulting Unavailable Fast DO, Elizabeth A Primary Care Provider OLIVIAMEGHANA Attending Unavailable ULISESD, MEGHANA Referring Unavailable FAST, ELIZABETH Primary Care Unavailable HILLAWRENCERAND, MEGHANA Attending Unavailable ULISESD, MEGHANA Referring Unavailable FAST, ELIZABETH Primary Care Unavailable FAST, ELIZABETH Attending Unavailable FAST, ELIZABETH Primary Care Unavailable Allergies Allergy Classification Reported Allergen(s) Allergy Type Date of Onset Reaction(s) Facility NEGATED: Highlighted row has been ruled out! (1 source) allergy to substance [facility] Work Phone: NEGATED: Highlighted row has been ruled out! (1 source) drug allergy 8 [facility] Work Phone: Medications Current Medications Medication Drug Class(es) Dates Sig (Normalized) Sig (Original) alendronic acid 70 mg oral tablet (3 sources) Bisphosphonate Start: 01-16-2023 take 1 tablet by mouth in the morning alendronate (Fosamax) 70 MG tablet Indications: Osteoporosis of lumbar spine , Osteopenia of multiple sites Take 1 tablet (70 mg) by mouth every 7 days. Take in morning with full glass of water on an empty stomach. No food, drink, or meds for 30 minutes after. Do not lie down until after first meal of day (to avoid throat irritation). 4 tablet 2 01/16/2023 Active ascorbic acid 500 mg chewable tablet (4 sources) Vitamin C take 2 tablets by mouth once daily Ascorbic Acid (vitamin C) 500 MG tablet Take 1,000 mg by mouth daily. 0 Active aspirin 81 mg delayed release oral tablet (20 sources) Platelet Aggregation Inhibitor, Nonsteroidal Anti-inflammatory Drug take 1 tablet by mouth once daily aspirin 81 MG EC tablet Take 81 mg by mouth daily. 0 Active Completed/Discontinued Medications Medication Drug Class(es) Dates Sig (Normalized) Sig (Original) biotin (20 sources) Biotin qd Active diclofenac sodium 0.01 mg/mg topical gel (20 sources) Nonsteroidal Anti-inflammatory Drug Start: 11-19-2020 End: 08-20-2022 Voltaren 1 % External Gel apply 4 grams to affected frams area up to 4 x a day for 30 days Refills: 2 Ordered: 20-Aug-2022 Melinda Rendon CMA Start : 19-Nov-2020 End : 20-Aug-2022 Inactive Equate Plus (20 sources) Equate Plus qd Active ibandronic acid 150 mg oral tablet (20 sources) Bisphosphonate Start: 09-04-2022 take 1 tablet by mouth every month Boniva 150 MG Oral Tablet 1 (one) Tablet once a month for 90 days Quantity: 3 {Tablet} Refills: 1 Ordered: 04-Sep-2022 Fast DO, Elizabeth A Fast DO, Elizabeth A Start : 04-Sep-2022 Active Problems Active Problems Problem Classification Problem Date Documented Da te Episodic/Chronic Blindness and vision defects (20 sources) Presence of spectacles and contact lenses; Translations: [Wears glasses] 05-18-2018 Episodic Diabetes mellitus without complication (15 sources) High hemoglobin A1c level; Translations: [Elevated hemoglobin A1c] 05-18-2018 Chronic Past or Other Problems Problem Classification Problem Date Documented Da te Episodic/Chronic Heart valve disorders (9 sources) Heart murmur; Translations: [Cardiac murmur, unspecified] Onset: 07-02-2017 07-02-2017 Episodic Other connective tissue disease (20 sources) Enthesopathy of ankle AND/OR tarsus; Translations: [Calcaneal spur] Onset: 08-19-2013 Resolved: 07-07-2017 10-18-2013 Episodic Other connective tissue disease (11 sources) Achilles tendinitis, unspecified leg; Translations: [Achilles tendinitis, unspecified leg] Onset: 08-19-2013 Resolved: 07-07-2017 07-07-2017 Episodic Other connective tissue disease (11 sources) Calcaneal spur; Translations: [Calcaneal spur, unspecified foot] Onset: 08-19-2013 Resolved: 07-07-2017 07-07-2017 Episodic Other non-traumatic joint disorders (16 sources) Ankle instability; Translations: [Other instability, unspecified ankle] Onset: 08-19-2013 Resolved: 07-07-2017 08-22-2013 Episodic Other non-traumatic joint disorders (10 sources) Pain in left knee; Translations: [Left knee pain] 11-07-2019 Unclassified (20 sources) Need for Tdap vaccination (Renamed from Need for diphtheria-tetanus- pertussis (Tdap) vaccine, adult/adolescent) Unclassified (17 sources) Non-smoker; Translations: [Nonsmoker] 05-18-2018 Unclassified (15 sources) Pregnancies (); Translations: [Pregnancies ()] 05-18-2018 Results Test Name Value Interpretation Reference Range Facil ity Vital Signs Date Time Vital Sign Value Performing Clinician Facility 12-18-2022 14:02-0500 Body height 158.2 cm [facility] Schedule [facility] 12-18-2022 14:02-0500 Body mass index (BMI) [Ratio] 34.44 kg/m2 Sb Schedule [facility] 12-18-2022 14:02-0500 Body weight 86.18 kg Sb Schedule [facility] 12-18-2022 14:02-0500 Diastolic blood pressure 76 mm[Hg] [facility] Schedule [facility] 12-18-2022 14:02-0500 Heart rate 66 /min Sb Schedule [facility] 12-18-2022 14:02-0500 Systolic blood pressure 128 mm[Hg] [facility] Schedule [facility] 08-20-2022 08:09-0400 Body height 159.38 cm Melinda Rendon [facility] Comprehensiv e Internal [facility]; [facility] Work Phone: 08-20-2022 08:09-0400 Body mass index (BMI) [Ratio] 32.85 kg/m2 Melinda Rendon [facility]; [facility] Work Phone: 08-20-2022 08:09-0400 Body surface area Derived from formula 1.86 m2 Melinda Rendon [facility]; [facility] Work Phone: 08-20-2022 08:09-0400 Body temperature 98.2 [degF] MelindaGruvIt [facility] Comprehensi ve Internal Medicine; [facility] Work Phone: Encounters Encounter Date Encounter Type Care Provider Facility Start: 02-12-2023 End: 02-13-2023 ambulatory MEGHANA BAKER [facility] Start: 02-12-2023 End: 02-12-2023 Follow-up encounter Meghana Baker PUSHER OPERATOR - WEIGHT TESTER Work Phone: [facility] Therapy at [facility] Procedures Date Procedure Procedure Detail Performing Clinician Start: 11-18-2022 End: 11-18-2022 OT General Evaluation Procedure Note: See Note; NOTES: [facility] Occupational Therapy [facility] [address] [place] [address] / REHABILITATION SERVICES INITIAL EVALUATION MR#: [id number] Acct: [id number] Name: LETTY MEJIA Rep #: [id number] : 1955 67 From: Aria Stout OTR/L, CHT Referring Dr.: Dr. Diane Michel MD Status: REG RCR Insurance: MEDICARE PART A B Eval Date: ANTHEM Patient's Visit Information LETTY MEJIA is a 67 year old F, referred to Occupational Therapy by Dr. Diane Michel MD, with a diagnosis of pain in right hand.. Date of Evaluation: 11/18/22 Occupational Therapist: Aria Stout, GENEVA/L, CHT - Subjective This 67 year old female was seen in OT with dx of right hand pain. pt states she has had a injury of mallet finger in her past and following a year she had no difficulty. Pt than was playing football with her grandson end of Aug. she had x-ray following 1st week of sep. due to swelling. Pt odin went to see Dr. Michel on 10/08/22 due to continued soreness and swelling. pt is right hand. pt states this limits her use of right hand with ADLs and IADLS. pt would like to return to using her right hand with all ADLs. - Pain right hand 2 Pain Intensity Range: 3 - ROM MP: right +5/90 left 0/ 90 PIP: right +10/75 left LF +5/95 DIP: right -15/40 left LF+5/ 60 ROM Comments: pt demo with a decrease in right LF ROM - Strength Asset Protection Specialist: right 60 left 65 Lateral Pinch: right 10# left 12# Tripod Pinch: right 14# left 14# - Edema PIP: right LF 5.5 left 5.0 - Sensation Sensation Comments: numbness on volar at times. varies - Quick DASH-Disab of Arm,Shoulder Hand Quick DASH Score: 4.5450 - Goals Goal:ROM equal to unaffected hand: Yes Goal:No pain with affected hand use: Yes - Rehabilitation General Assessment: pt has been working on AROM since she did see Dr. Michel 10/08/22. and arrived for her OT eval today- she demo limited ROM of right LF. However following paraffin bath pt demo a i ncrease in PIP flexion at 90* a 5* difference from unaffected hand. pt was ed. on ROM using tendon glides and adduction of LF to increase composite fist- pt agreed to cont. with HEP unless she felt limited progress. Rehabilitation Potential: Good - Anticipated Interventions A/AAROM/PROM, Strengthening, Modalities, Home Program - Visit Plan TEXT: Thank you for the opportunity to evaluate your patient. For Medicare and Medicare HMO plans, please review the plan of care and approve it. It will need to be FAXED BACK to us at [phone] for Medicare purposes. Please let me know if there are questions or concerns regarding this plan of care. Physician Signature: ___Date: <Electronically signed by Aria ELKINS CHT> 11/18/22 0192 CC: Dr. Elizabeth Demarco DO; Dr. Diane Michel MD MK Signed For Medicare only, by signing this I certify the plan of care. Physicians Signature Date Elizabeth Demarco DO Work Phone: Start: 09-17-2022 End: 09-17-2022 Hand Min 3 Views Procedure Note: See Note; NOTES: [facility] Imaging Services [address] [place] [address] Hand Min 3 Views MR#: [id number] Acct: [id number] Name: LETTY MEJIA Rep #: [id number] : 1955 F 67 From: Nixon Gregory MD PCP: Dr. Elizabeth Demarco DO Status: REG CLI Study: Hand Min 3 Views Date of Exam: 09/17/22 Exam# [id number] Ordering Dr: Elizabeth Demarco DO STUDY: X-RAY - RIGHT HAND REASON FOR EXAM: Female, 67 years old. pain received injury to pinky finger on right hand -- TECHNIQUE: 3 view(s) of the hand. COMPARISON: 04/30/2021 FINDINGS: Normal radiocarpal articulation. Normal distal radioulnar joint. Normal visualized carpal bones. Normal carpal articulations Normal carpometacarpal articulation of the thumb. Normal second through fifth carpometacarpal joints. Normal metacarpi. Normal metacarpophalangeal joint of the thumb. Normal interphalangeal joint of the thumb. Normal proximal and distal phalanges of the thumb. Normal metacarpophalangeal joints of the second through fifth fingers. Normal proximal and distal interphalangeal joints of the second through fifth fingers. Normal phalanges of the second through fifth fingers. The soft tissue structures are unremarkable. RAD/Hand Min 3 Views IMPRESSION: Normal x-ray examination of the hand. Electronically Signed: Nixon Gregory MD at 18:26 EST , CC: Dr. Elizabeth Demarco DO Physical Meteorologist: Signed Elizabeth Demarco DO Work Phone: Start: 08-19-2022 End: 08-20-2022 Dexa Bone Density Study Procedure Note: See Note; NOTES: [facility] Imaging Services [address] [place], [place] [address] [address] Dexa Bone Density Study MR#: [id number] Acct: [id number] Name: LETTY MEJIA Rep #: [id number] : 1955 F 66 From: Ulysses frausto MD PCP: Dr. Elizabeth Demarco DO Status: [facility] Study: Dexa Bone Density Study Date of Exam: 08/19/22 Exam# [id number] Ordering Dr: Elizabeth Demarco DO STUDY: DUAL ENERGY X-RAY ABSORPTIOMETRY / DXA REASON FOR EXAM: Female, 66 years old. [id number] TECHNIQUE: Bone Mineral Density (BMD) measurements of lumbar spine and bilateral hips were obtained. COMPARISON: Comparison is made with prior study dated 10/25/2019. FINDINGS: Lumbar Spine (L1-L4): g/cm2 (0.743) / T-score (-2.8) / Z-score (-0.9) Findings are suggestive of osteoporosis with a high fracture risk. Left Femur Total: g/cm2 (0.899) / T-score (-0.4) / Z-score (1.0) Left Femoral Neck: g/cm2 (0.738) / T-score (-1.0) / Z-score (0.6) Right Femur Total: g/cm2 (0.890) / T-score (-0.4) / Z-score (0.9) Right Femoral Neck: g/cm2 (0.712) / T-score (-1.2) / Z-score (0.4) The T-Scores on the most recent prior examination were: Lumbar Spine (L1-L4): There has been worsening of bone density since the previous examination. Left Femur Total: which represents a worsening of 0.2%. Right Femur Total: which represents an improvement of 2.3%. BD/Dexa Bone Density Study IMPRESSION: The patient is considered osteoporotic as outlined below according to World Joce Organization (WHO) criteria with a high fracture risk. There has been worsening of bone density since the previous examination. Reference Information: The T-score is the number of standard deviations above or below the standard which is normal for young adults at their peak bone mineral density. The World Health Organization (WHO) interprets the T-scores as follows: Above -1 Normal bone density Between -1 and -2.5 Osteopenia Equal to / or below -2.5 Osteoporosis As a practical clinical guideline, osteopenia may be graded as follows: Mild -1 through -1.5 Moderate -1.6 through -2.0 Severe -2.1 through -2.4 The Z-score is the number of standard deviations above or below age-matched controls. A Z-score of less than -1.5 would be considered abnormal. References: 1. NIH Osteoporosis and Related Bone Diseases www osteo.org 2. International Society for Clinical Densitometry www iscd.org 3. National Osteoporosis Foundation www nof.org Electronically Signed: Ulysses Gonzalez MD at 13:21 EDT Reading Location ID and State: [address] [place] [address] , Service support , CC: Dr. Elizabeth Demarco DO Physical Meteorologist: Signed Elizabeth Demarco DO Work Phone: Start: 08-19-2022 End: 08-19-2022 SCREENING MAMM (CAD), BILAT Procedure Note: See Note; NOTES: [facility] Imaging Services [address] [place] [address] SCREENING MAMM (CAD), BILAT MR#: [id number] Acct: [id number] Name: LETTY MEJIA Rep #: [id number] : 1955 F 66 From: Ulysses frausto MD PCP: Dr. Elizabeth Demarco DO Status: REG CLI Study: SCREENING MAMM (CAD), BILAT Date of Exam: 11/09 Exam# [id number] Ordering Dr: Elizabeth Demarco DO MAMMOGRAPHY - BILATERAL SCREENING REASON FOR EXAM: Female, 66 years old. Routine annual screening examination. PERTINENT HISTORY: Non-contributory. TECHNIQUE: Digital bilateral breast roberto (3D mammographic acquisition) in the CC and MLO projections. 2-D mediolateral oblique (MLO) and craniocaudad (CC) views of both breasts were obtained. CAD: Full Field Digital Mammography with Computer Added Detection was performed. COMPARISON: Comparison is made with prior study dated 08/12/2021 and 07/23/2020. FINDINGS: Breast Composition: The breasts are almost entirely fatty. There are no dominant masses or suspicious calcifications. Stable bilateral fat-containing lymph nodes. No other significant abnormalities are identified. There has been no significant change since the prior study. BI/SCREENING MAMM (CAD), BILAT IMPRESSION: Stable bilateral screening mammogram. Yearly follow-up mammogram recommended. (A) ASSESSMENT CATEGORY: BIRADS Category 2: Benign. A letter regarding these results will be sent to the patient by the facility within 30 days. Approximately 10% of breast cancers are not detected by mammography. A normal mammogram should not delay biopsy of a clinically suspicious abnormality. [id number] Electronically Signed: Ulysses Gonzalez MD at 14:10 EDT Reading Location ID and State: [facility] / [place] , Service support , CC: Dr. Elizabeth Demarco DO Physical Meteorologist: Signed Elizabeth Demarco DO Work Phone: Start: 06-05-2022 End: 06-05-2022 Foot min 3 Views Procedure Note: See Note; NOTES: [facility] Imaging Services [address] [place] [address] Foot min 3 Views MR#: [id number] Acct: [id number] Name: LETTY MEJIA Rep #: [id number] : 1955 F 66 From: Raghu Granger MD PCP: Dr. Elizabeth Demarco DO Status: REG CLI Study: Foot min 3 Views Date of Exam: 06/05/22 Exam# [id number] Ordering Dr: Elizabeth Demarco DO EXAM: XR RIGHT FOOT COMPLETE, 3 OR MORE VIEWS CLINICAL INDICATION: blunt trauma to right foot, mostly great toe and 2nd toe. Having -- Xray of right foot, attention to great toe and 2nd toe TECHNIQUE: Frontal, lateral and oblique views of the right foot. This report was created using [employer] report generation technology. COMPARISON: None. FINDINGS: BONES/JOINTS: Plantar calcaneal spur noted. There appears to be a small avulsion type fracture involving the tuft of the first distal phalanx. Narrowing and bony spurring of the first MTP joint. SOFT TISSUES: Normal. No soft tissue swelling or gas. No radiopaque foreign body. RAD/Foot min 3 Views IMPRESSION: Small avulsion fracture of the first distal phalanx. Electronically Signed: Raghu Granger MD at 16:15 EDT Reading Location ID and State: [address] [place] [address] Tel , Service support , CC: Dr. Elizabeth Demarco DO Physical Meteorologist: Signed Elizabeth Demarco DO Work Phone: Start: 08-12-2021 End: 08-12-2021 SCRN MAMM (CAD)W/ROBERTO BILAT Comments: See Note; NOTES: [facility] Imaging Services [address] [place] [address] SCRN MAMM (CAD)W/ROBERTO BILAT MR#: [id number] Acct: [id number] Name: LETTY MEJIA Rep #: [id number] : 1955 F 65 From: Ulysses frausto MD PCP: Dr. Elizabeth Demarco DO Status: REG CLI Study: SCRN MAMM (CAD)W/ROBERTO BILAT Date of Exam: 07/20 03/08 Exam# [id number] Ordering Dr: Elizabeth Demarco DO MAMMOGRAPHY - BILATERAL SCREENING REASON FOR EXAM: Female, 65 years old. Routine annual screening examination. PERTINENT HISTORY: Non-contributory. TECHNIQUE: Digital bilateral breast roberto (3D mammographic acquisition) in the CC and MLO projections. 2-D mediolateral oblique (MLO) and craniocaudad (CC) views of both breasts were obtained. CAD: Full Field Digital Mammography with Computer Added Detection was performed. COMPARISON: Comparison is made with prior study dated 07/23/2020 and 07/13/2019. FINDINGS: Breast Composition: The breasts are almost entirely fatty. There are no dominant masses or suspicious calcifications. Stable benign-appearing bilateral axillary lymph nodes. No other significant abnormalities are identified. There has been no significant change since the prior study. BI/SCRN MAMM (CAD)W/ROBERTO BILAT IMPRESSION: Stable bilateral screening mammogram. Yearly follow-up mammogram recommended. (A) ASSESSMENT CATEGORY: BIRADS Category 2: Benign. A letter regarding these results will be sent to the patient by the facility within 30 days. Approximately 10% of breast cancers are not detected by mammography. A normal mammogram should not delay biopsy of a clinically suspicious abnormality. [id number] Electronically Signed: Ulysses Gonzalez MD at 8:53 EDT , Service support , CC: Dr. Elizabeth Demarco DO Physical Meteorologist: Signed Elizabeth Demarco DO Work Phone: Start: 04-30-2021 End: 04-30-2021 Hand Min 3 Views Comments: See Note; NOTES: [facility] Radiology [address] [place] [address] Hand Min 3 Views MR#: [id number] Acct: [id number] Name: LETTY MEJIA Rep #: [id number] : 1955 F 65 From: Ulysses frausto MD PCP: Dr. Elizabeth Demarco DO Status: DEP AMB Study: Hand Min 3 Views Date of Exam: 04/30/21 Exam# [id number] Ordering Dr: Elizabeth Demarco DO STUDY: X-RAY - RIGHT HAND REASON FOR EXAM: Female, 65 years old. Injury to the fifth distal interphalangeal joint. TECHNIQUE: 3 view(s) of the hand. COMPARISON: None. FINDINGS: Normal radiocarpal articulation. Normal distal radioulnar joint. Normal visualized carpal bones. Normal carpal articulations Normal carpometacarpal articulation of the thumb. Normal second through fifth carpometacarpal joints. Normal metacarpi. Normal metacarpophalangeal joint of the thumb. Normal interphalangeal joint of the thumb. Normal proximal and distal phalanges of the thumb. Normal metacarpophalangeal joints of the second through fifth fingers. Normal proximal and distal interphalangeal joints of the second through fifth fingers. Nondisplaced avulsion fracture along the dorsal aspect of the proximal portion of the distal phalanx of the fifth digit. Soft tissue swelling. RAD/Hand Min 3 Views IMPRESSION: Nondisplaced avulsion fracture along the dorsal proximal aspect of the distal phalanx of the fifth digit. Electronically Signed: Ulysses Gonzalez MD at 14:24 EDT , Service support , CC: Dr. Elizabeth Demarco DO Physical Meteorologist: Signed Elizabeth Demarco DO Work Phone: Start: 03-12-2021 End: 03-12-2021 No Known Past Surgical History Melinda Rendon IMPREGNATING MACHINE OPERATOR Start: 07-23-2020 End: 07-23-2020 SCREEN MAMM (CAD) W/ROBERTO BILAT Comments: See Note; NOTES: [facility] Imaging Services [address] [place] [address] SCREEN MAMM (CAD) W/ROBERTO BILAT MR#: [id number] Acct: [id number] Name: LETTY MEJIA Rep #: [id number] : 1955 F 64 From: Erica Collins PCP: Dr. Elizabeth Demarco DO Status: REG CLI Study: SCREEN MAMM (CAD) W/ROBERTO BILAT Date of Exam: Exam# [id number] Ordering Dr: Elizabeth Demarco DO MAMMOGRAPHY - BILATERAL SCREENING REASON FOR EXAM: Female, 64 years old. Routine annual screening examination. PERTINENT HISTORY: Non-contributory. TECHNIQUE: Digital bilateral breast roberto (3D mammographic acquisition) in the CC and MLO projections. 2-D mediolateral oblique (MLO) and craniocaudad (CC) views of both breasts were obtained. CAD: Full Field Digital Mammography with Computer Added Detection was performed. COMPARISON: 07/13/2019 and 07/09/2018 FINDINGS: Breast Composition: The breasts are almost entirely fatty. There are no dominant masses or suspicious calcifications. No other significant abnormalities are identified. BI/SCREEN MAMM (CAD) W/ROBERTO BILAT IMPRESSION: Stable bilateral screening mammogram. Yearly follow-up mammogram recommended. (A) ASSESSMENT CATEGORY: BIRADS Category 2: Benign. A letter regarding these results will be sent to the patient by the facility within 30 days. Approximately 10% of breast cancers are not detected by mammography. A normal mammogram should not delay biopsy of a clinically suspicious abnormality. [id number] Electronically Signed: Erica Taylor, at 16:35 EDT Tel , Service support , CC: Dr. Elizabeth Demarco DO Physical Meteorologist: Signed Elizabeth Demarco Work Phone: Start: 03-15-2020 End: 03-15-2020 Lower Ext Joint Only (Routine) Comments: See Note; NOTES: [facility] Imaging Services [address] [place] [address] Lower Ext Joint Only (Routine) MR#: [id number] Acct: [id number] Name: LETTY MEJIA Rep #: [id number] : 1955 F 64 From: Laurent Collins PCP: Dr. Elizabeth Demarco DO Status: REG CLI Study: Lower Ext Joint Only (Routine) Date of Exam: 0 03/15/20 Exam# [id number] Ordering Dr: Emeka Garcia MD STUDY: MRI LEFT KNEE REASON FOR EXAM: Medial left knee pain for 4 months from exercising. TECHNIQUE: Standardized fat and water weighted pulse sequences were obtained in all 3 orthogonal planes. COMPARISON: Radiographs 11/09/2019. FINDINGS: There is a very small superficial tear of the inferior articular surface of the posterior horn of the medial meniscus near the free margin (proton density sagittal images 11, 12). 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 Normal medial collateral ligamentous complex (MCL). Normal distal semimembranosus, gracilis and semitendinosus tendons. Normal lateral meniscus. Normal hyaline cartilage of the lateral femorotibial compartment. Normal lateral femoral condyle and tibial plateau. Normal proximal tibiofibular articulation. Normal lateral collateral ( fibular ) ligament. Normal popliteus tendon. Normal biceps femoris tendon. Normal anterior cruciate ligament (ACL). Normal posterior cruciate ligament (PCL). Normal congruent patellofemoral articulation. There is low to intermediate grade chondromalacia patellae (T2 axial image 8). Normal medial and lateral patellar retinaculum. Normal visualized quadriceps tendon. Normal patellar tendon. Normal Hoffa''s fat pad. There is a very small joint effusion. There is a ganglion cyst adjacent to the origin of the lateral gastrocnemius (T2 sagittal images 24-28) measuring 1.4 cm in transverse dimension. There is mild edema in the anterior subcutis adipose space. The otherwise visualized osseous structures are unremarkable. MRI/Lower Ext Joint Only (Routine) IMPRESSION: Very small superficial medial meniscal tear. 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 Very small joint effusion. Small ganglion cyst adjacent to the origin of the lateral gastrocnemius. Electronically Signed: Laurent Piper MD at 11:35 EDT Tel , Service support , CC: Dr. Elizabeth Demarco DO; Dr. Emeka Garcia MD Physical Meteorologist: Signed Elizabeth Demarco Start: 11-09-2019 End: 11-10-2019 Knee 4 or More Views Comments: See Note; NOTES: [facility] Imaging Services [address] [place] [address] Knee 4 or More Views MR#: [id number] Acct: [id number] Name: LETTY MEJIA Rep #: [id number] : 1955 F 64 From: Laurent Piper MD PCP: Elizabeth Demarco DO Status: REG CLI Study: Knee 4 or More Views Date of Exam: 11/09/19 Exam# [id number] Ordering Dr: Elizabeth Demarco DO STUDY: X-RAY - LEFT KNEE REASON FOR EXAM: Pain and swelling. TECHNIQUE: 4 view(s) of the knee. COMPARISON: None. FINDINGS: Normal visualized distal femur. Normal visualized proximal tibia and fibula. Normal proximal tibiofibular articulation. There is mild joint space narrowing of the medial femorotibial compartment. Normal lateral femorotibial compartment. There are very small marginal osteophytes of the patella without joint space narrowing of the patellofemoral articulation. The soft tissue structures are unremarkable. RAD/Knee 4 or More Views IMPRESSION: Mild arthrosis of the medial femorotibial compartment. Electronically Signed: Laurent Piper MD at 9:57 EST Tel , Service support , CC: Elizabeth Demarco DO Physical Meteorologist: Signed Elizabeth Demarco Work Phone: Start: 11-02-2019 End: 11-02-[address] w/CCTA Comments: See Note; NOTES: [facility] Imaging Services [address] [place] [address] w/CCTA MR#: [id number] Acct: [id number] Name: LETTY MEJIA Rep #: [id number] : 1955 F 64 From: Jennifer Wong MD PCP: Elizabeth Demarco DO Status: REG CLI Study: Limited Chest CT w/CCTA Date of Exam: 11/02/19 Exam# [id number] Ordering Dr: Elizabeth Demarco DO STUDY: CARDIAC CALCIUM SCORING - CT CHEST REASON FOR EXAM: Female, 64 years old. CORONARY ARTERY SCREENING- high cholestrol. OVER READ ONLY RADIATION DOSAGE (If Supplied By Facility): CTDIvol = ( 12.19 ) mGy, DLP = ( 219.42 ) mGycm TECHNIQUE: Axial non-enhanced images were acquired through the heart for the sole purpose of measuring coronary artery calcium. Individualized dose optimization techniques were used for this CT. COMPARISON: None. FINDINGS: Visualized surrounding anatomy: Normal. Left Main Coronary Artery: 0 Left Anterior Descending Artery: 1.59 Left Circumflex Artery: 0 Right Coronary Artery: 0 Other: Small posterior right lower lobe calcified granuloma. The lungs are otherwise clear. No focal pulmonary consolidation. Total Calcium Score: 1.59 CT/Limited Chest CT w/CCTA IMPRESSION: A Calcium Score of 1.59 places the patient in the approximate 25-50 percentile, based on the PRICE data calculator. Please go to: www.price-nhlbi.org/Calcium/i nput.aspx , for a description of the calculator. Electronically Signed: Jennifer Wong, at 14:40 EST Tel , Service support , CC: Elizabeth Demarco DO Physical Meteorologist: Signed Elizabeth Demarco Work Phone: Start: 10-25-2019 End: 10-26-2019 Dexa Bone Density Study Comments: See Note; NOTES: [facility] Imaging Services [address] [place] [id number] Dexa Bone Density Study MR#: [id number] Acct: [id number] Name: LETTY MEJIA Rep #: [id number] : 1955 F 64 From: Ulysses Gonzalez MD PCP: Elizabeth Demarco DO Status: [facility] Study: Dexa Bone Density Study Date of Exam: 10/25/19 Exam# [id number] Ordering Dr: Elizabeth Demarco DO STUDY: DUAL ENERGY X-RAY ABSORPTIOMETRY / DXA REASON FOR EXAM: Female, 64 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 COMPARISON: Comparison is made with prior study dated July 16, 2017. FINDINGS: Lumbar Spine (L1-L4): g/cm2 (0.881) / T-score (-2.7) / Z-score (-1.1) Findings are suggestive of osteoporosis with a high fracture risk. Left Femur Total: g/cm2 (0.966) / T-score (-0.3) / Z-score (0.8) Left Femoral Neck: g/cm2 (0.855) / T-score (-1.3) / Z-score (0.1) Right Femur Total: g/cm2 (0.934) / T-score (-0.6) / Z-score (0.6) Right Femoral Neck: g/cm2 (0.849) / T-score (-1.4) / Z-score (0.1) The T-Scores on the most recent prior examination were: Lumbar Spine (L1-L4): There has been improvement of bone density since the previous examination. Left Femur Total: which represents a worsening of 0.2%. Right Femur Total: which represents a worsening of 3.6%. BD/Dexa Bone Density Study IMPRESSION: The patient is considered osteoporotic as outlined below according to World Joce Organization (WHO) criteria with a high fracture risk. There has been worsening of bone density since the previous examination. Reference Information: The T-score is the number of standard deviations above or below the standard which is normal for young adults at their peak bone mineral density. The World Health Organization (WHO) interprets the T-scores as follows: Above -1 Normal bone density Between -1 and -2.5 Osteopenia Equal to / or below -2.5 Osteoporosis As a practical clinical guideline, osteopenia may be graded as follows: Mild -1 through -1.5 Moderate -1.6 through -2.0 Severe -2.1 through -2.4 The Z-score is the number of standard deviations above or below age-matched controls. A Z-score of less than -1.5 would be considered abnormal. References: 1. NIH Osteoporosis and Related Bone Diseases http://www.osteo.org 2. International Society for Clinical Densitometry http://www.iscd.org 3. National Osteoporosis Foundation http://www.nof.org Electronically Signed: Ulysses Gonzalez, at 14:17 EST , Service support , CC: Elizabeth Demarco DO Physical Meteorologist: Signed Elizabeth Demarco Work Phone: Start: 07-13-2019 End: 07-17-2019 SCREEN MAMM (CAD) W/ROBERTO BILAT Comments: See Note; NOTES: [facility] Imaging Services [address] [place] [id number] SCREEN MAMM (CAD) W/ROBERTO BILAT MR#: [id number] Acct: [id number] Name: LETTY MEJIA NORMA Rep #: [id number] : 1955 F 63 From: Ulysses Gonzalez MD PCP: Elizabeth Demarco DO Status: REG CLI Study: SCREEN MAMM (CAD) W/ROBERTO BILAT Date of Exam: 07/13/19 Exam# [id number] Ordering Dr: Elizabeth Demarco DO MAMMOGRAPHY - BILATERAL SCREENING REASON FOR EXAM: Female, 63 years old. Routine annual screening examination. PERTINENT HISTORY: Non-contributory. TECHNIQUE: Digital bilateral breast roberto (3D mammographic acquisition) in the CC and MLO projections. 2-D mediolateral oblique (MLO) and craniocaudad (CC) views of both breasts were obtained. CAD: Full Field Digital Mammography with Computer Added Detection was performed. COMPARISON: Comparison is made with prior study dated July 09, 2018 and July 08, 2017. FINDINGS: Breast Composition: The breasts are almost entirely fatty. There are no dominant masses or suspicious calcifications. No other significant abnormalities are identified. There has been no significant change since the prior study. BI/SCREEN MAMM (CAD) W/ROBERTO BILAT IMPRESSION: Stable bilateral screening mammogram. Yearly follow-up mammogram recommended. (A) ASSESSMENT CATEGORY: BIRADS Category 1: Negative. A letter regarding these results will be sent to the patient by the facility within 30 days. Approximately 10% of breast cancers are not detected by mammography. A normal mammogram should not delay biopsy of a clinically suspicious abnormality. [id number] Electronically Signed: Ulysses Gonzalez, at 8:59 EDT , Service support , CC: Elizabeth Demarco DO Physical Meteorologist: Signed Elizabeth Demarco Work Phone: Start: 07-09-2018 End: 07-09-2018 SCREENING MAMM (CAD), BILAT Comments: See Note; NOTES: [facility] Imaging Services [address] [place] [id number] SCREENING MAMM (CAD), BILAT MR#: [id number] Acct: [id number] Name: LETTY MEJIA Rep #: [id number] : 1955 F 62 From: Ulysses Gonzalez MD PCP: Elizabeth Demarco DO Status: REG CLI Study: SCREENING MAMM (CAD), BILAT Date of Exam: 07/09/18 Exam# [id number] Ordering Dr: Elizabeth Demarco DO MAMMOGRAPHY - BILATERAL SCREENING REASON FOR EXAM: Female, 62 years old. Routine annual screening examination. PERTINENT HISTORY: Non-contributory. TECHNIQUE: Digital bilateral breast roberto (3D mammographic acquisition) in the CC and MLO projections. 2-D mediolateral oblique (MLO) and craniocaudad (CC) views of both breasts were obtained. CAD: Full Field Digital Mammography with Computer Added Detection was performed. COMPARISON: Comparison is made with prior study dated July 08, 2017 and February 13, 2015. FINDINGS: Breast Composition: The breasts are almost entirely fatty. There are no dominant masses or suspicious calcifications. Stable appearance of the small bilateral scattered nodular densities. No other significant abnormalities are identified. There has been no significant change since the prior study. BI/SCREENING MAMM (CAD), BILAT IMPRESSION: Stable bilateral screening mammogram. Yearly follow-up mammogram recommended. (A) ASSESSMENT CATEGORY: BIRADS Category 2: Benign. A letter regarding these results will be sent to the patient by the facility within 30 days. Approximately 10% of breast cancers are not detected by mammography. A normal mammogram should not delay biopsy of a clinically suspicious abnormality. [id number] Electronically Signed: Ulysses Gonzalez MD at 15:40 EDT Tel [phone], Service support , CC: Elizabeth Demarco DO Physical Meteorologist: Signed Elizabeth Demarco Work Phone: Start: 03-30-2018 End: 04-01-2018 TXT - Blood Flow Screening Comments: See Note; NOTES: [facility] Cardiovascular Services [address] [place] [address] 03/30/18 0827 MR#: [id number] Acct: [id number] Name: LETTY MEJIA Rep #: [id number] : 1955 62 From: Cullen Hill MD Attending Dr: Elizabeth Demarco DO Status: REG REF Ordering Dr: Date: 03/30/18 Location: [facility] Sex: F C Admitted: Reason For Study: Blood flow screening Carotid Duplex Ultrasound Abdominal Aorta The right maximum ICA velocity is 72.7/31.7 cm/s.The maximal outside diameter of the proximal The right ECA velocity is less than 125 cm/s. aorta measures 1.5 cm in the longitudinal axis. There is no plaque formation noted on the right The maximal outside diameter of the proximal side. aorta measures 1.6 x 1.6 cm in the cross- The left maximum ICA velocity is 77.1/35.2 cm/s. sectional axis. The left ECA velocity is less than 125 cm/s. There is no plaque formation noted on the left side. Ankle Brachial Index The right ankle/ brachial index is 1.1. The left ankle/ brachial index is 1.2. Medical History and Assessment The heart rate is 60 beats per minute. The heart rhythm is regular. The right blood pressure is 130/82. The left blood pressure is 124/80. The assessment was performed by Bonifacio Jurado RVT. Interpretation Summary Normal carotid artery screening (0 to 15% narrowing). Normal aortic ultrasound exam. The ankle/brachial index is normal (1.0 or greater). .rdering Physician: Elizabeth Demarco D.O Performed By: Bre Jurado RVT 03/30/18 6013 Date Cullen Hill MD CC: Elizabeth Demarco DO Date Dictated: 03/30/18 0827 Date Transcribed: 03/30/181718 Physical Meteorologist: Signed Elizabeth Demarco Start: 01-06-2018 End: 01-06-2018 No Known Past Surgical History Melinda Rendon Start: 07-30-2017 End: 07-30-2017 CRISTINA Keane MD Work Phone: Start: 07-30-2017 End: 07-30-2017 Follow Up Appt 6 months Jaime Keane MD Work Phone: Start: 07-30-2017 End: 07-30-2017 Dietary management education, guidance, and counseling Penny Ann Start: 07-07-2017 End: 07-20-2017 *BMP Jaime Keane MD Work Phone: Start: 07-07-2017 End: 07-20-2017 *CBC with Differential Jaime Keane MD Work Phone: Start: 07-07-2017 End: 07-20-2017 *Hepatic Function Panel Jaime Keane MD Work Phone: Start: 07-07-2017 End: 07-07-2017 DJN Jaime Keane MD Work Phone: Start: 07-07-2017 End: 07-07-2017 Ecg routine ecg w/least 12 lds w/i&r Jaime Keane MD Work Phone: Start: 07-07-2017 End: 07-24-2017 Echocardiography Jaime Keane MD Work Phone: Start: 07-07-2017 End: 07-07-2017 Follow Up Appt 1 month Jaime Keane MD Work Phone: Start: 07-07-2017 End: 07-20-2017 Lipid 1996 panel - Serum or Plasma Jaime Keane MD Work Phone: Start: 07-07-2017 End: 07-20-2017 Thyrotropin [Units/volume] in Serum or Plasma Jaime Keane MD Work Phone: Start: 07-07-2017 End: 07-20-2017 Thyroxine (T4) [Mass/volume] in Serum or Plasma Jaime Keane MD Work Phone: Start: 07-07-2017 End: 07-07-2017 Dietary management education, guidance, and counseling Penny Ann Start: 07-07-2017 End: 07-07-2017 CRISTINA Keane MD Work Phone: Start: 07-07-2017 End: 07-07-2017 Ecg routine ecg w/least 12 lds w/i&r Jaime Keane MD Work Phone: Start: 07-07-2017 End: 07-07-2017 Follow Up Appt 1 month Jaime Keane MD Work Phone: Start: 10-19-2015 End: 10-19-2015 Screening colonoscopy Melinda Rendon Plan of Treatment Date Care Activity Detail Author Start: 07-09-2023 End: 07-09-2023 Patient encounter procedure 07/09/2023 Office Visit Osteopathic Medicine [place] [place] Start: 06-19-2023 Influenza vaccination Influenza Vaccine (Season Ended) [facility] Start: 02-12-2023 End: 02-12-2023 Follow-up encounter 02/12/2023 Follow-Up Physical Therapy Joy Henderson, PT [facility] Therapy at [facility] Start: 12-18-2022 End: 06-20-2023 25-hydroxyvitamin D3 [Mass/volume] in Serum or Plasma Vitamin D 25 hydroxy Lab Routine Osteoporosis of lumbar spine Expected: 12/18/2022 (Approximate), Expires: 06/20/2023 [facility] Immunizations Immunization Date Immunization Notes Care Provider Fa cility 08-21-2021 influenza virus vaccine, unspecified formulation Sb Schedule [facility] 12-17-2020 COVID-19 (Pfizer) Elizabeth Fast DO Work Phone: [facility]; [facility] Work Phone: 08-28-2020 influenza, seasonal, injectable Eilzabeth Fast [facility] Work Phone: 07-02-2020 zoster vaccine, live Elizabeth Fast [facility] Work Phone: 07-28-2017 zoster vaccine, live Elizabeth Fast [facility] Work Phone: 07-24-2017 influenza, seasonal, injectable Elizabeth Fast [facility] Work Phone: Payers Date Payer Category Payer Medicare [id number] 2020 Medicare MEDICARE MEDICAR E PART A AND B [id number] 2020-Present [address] [place] [address] Medicare [id number] 2020 Unknown 2020 Unknown [id number] 2019 Unknown [id number] 1955 Unknown [id number] Social History Date Type Detail Facility Start: 12-18-2022 End: 01-14-2023 Alcohol Use Never smoker [facility] Work Phone: Clinical Notes 12-03-2022 to 02-12-2023 Joy Henderson PT - 02/12/2023 2:00 PM KATHIA Davies CNP - 01/16/2023 10:02 AM KATHIA Davies CNP - 12/18/2022 2:00 PM ESTPatient InstructionsAttachments Note Date & Type Note Facility 02-12-2023 History of Presen t illness Narrative Images from the original note were not included. 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 Had some ankles and knee injuries with torn meniscus, did PT a few times and the knees over toes program online which helped a lot her knees. Patient reports that recent Dexa scan showed progression from osteopenia levels into osteporotic levels in her lumbar spine so was referred ot PT from the bone clinic. Precautions/Red Flags: None Patient Preferences: Letty Subjective General Comments: Patient reports that she was traveling the past month so did not do too many of her exs but feeling good. No back or hi pain and has been paying attention to her posture. Pain: No pain Current Level of Function: Good, no difficulties or pain Patient s Stated Goal: Know what exs to do, prevent any complication and fracture from osteoporosis Outcome Measures NT, no pain Objective GENERAL Observation: Improved sitting and standing posture, improved awareness and alignment Gait: No deviation Transfers: Good mechanics and hip hinges control with sit-stand Range of Motion (ROM): WNL, persistent restriction in hip ER but slightly better with initial stretches Strength: Minimal change in MMT at this time, second visit only and patient has not been super compliant with HEP but very good understanding or progression and precautions. Assessment Letty did very well today with good understand of neutral spine correction, improved postural awareness and body mechanics. Needed cueing to reduce lumbar lordosis and paraspinal activation in prone but did well after correction. Patient received copy of all exs from supine to prone, SL, 4ped and standing. Will place therapy on hold for 30 days, continue as needed and DC if patient is able to perform HEP at home without pain or difficulties and feels ready to be DC. Rehab Potential: Excellent Goals Active General/Ortho Patient will be independent with HEP. (Progressing) Start: 01/14/23 Expected End: 03/14/23 Patient will report decreased pain at 0/10 in lumbopelvic region to be able to function fully and pain-free with ADL's and long standing. (Completed) Start: 01/14/23 Expected End: 02/25/23 Met: 02/12/23 Patient will improve Hip flex and ER/ piriformis muscle flexibility to minimal restrictions to improve posture. (Progressing) Start: 01/14/23 Expected End: 03/14/23 Patient will increase core strength to 3+/5 or more to be able to maintain proper lumbar stability and pain-free LB through daily activities. (Progressing) Start: 01/14/23 Expected End: 03/14/23 Gait: Patient will demonstrate no gait deviation and improve hip extension walking to WNL to normalize mobility. (Completed) Start: 01/14/23 Expected End: 02/25/23 Met: 02/12/23 Functional Outcome Measure: Patient will improve Owestry to 1 point max. (Not Addressed) Start: 01/14/23 Expected End: 03/14/23 Patient will demonstrate full Alcorn with Nigel's method exs routine and precautions. (Completed) Start: 01/14/23 Expected End: 02/25/23 Met: 02/12/23 Plan Frequency and Duration: as needed Therapeutic Contents: Client Education, Home Exercise Program, Therapeutic exercises, Therapeutic activities, Neuro-muscular reeducation, Manual therapy and Modalities as needed. Plan for next session: Review exs, monitor neutral spine and progress with standing functional strengthening. Risks and benefits were discussed with the patient and/or family, and the patient and/or family participated with the plan of care and agrees. Treatment Therapeutic Activity Therapeutic Activity 1: Reviewed progression, goals and precautions, finalized and updated HEP to prepare for DC Therapeutic Activity 2: Progressed with prone head lift then scapular stabilization exs with cueing for neutral spine (PPT): I, T, Y, W. Therapeutic Activity 3: Quadruped bird dog progression and introduced 1/2 plank position with neutral spine Therapeutic Activity 4: Clams, high clams and hip Abd + ext in SL for hip strength Therapeutic Activity 5: Standing Bilat wall slides, heel raises + lengthening down for self-elongation Therapeutic Activity 6: Wall angels Therapeutic Activity 7: Sit-stand using hip hinges and core activation Therapeutic Activity 8: Squats and lift/ hip hinges using dowel for neutral spine and proper core stab. Time Entry Total Treatment Time Start Time: 0207 Stop Time: 0304 Time Calculation (min): 57 min PT Therapeutic Procedures Time Entry Therapeutic Activity Time Entry: 56 Joy Henderson PT documented in this encounter [facility] 01-16-2023 History of Presen t illness Narrative Labs stable, OK to start fosamax for better hip and spine protection than Boniva. Pt was on Boniva from Nov 2019 to Aug 2022. Will continue fosamax until ~03/2026 (3.25 years to equal 5 total) before considering a drug holiday. Fosamax ordered. documented in this encounter [facility] 12-18-2022 History of Presen t illness Narrative Images from the original note were not included. [facility] OSTEOPOROSIS [address] [place] [address] [facility] [address] Loc: [phone] Visit type: New patient Reason for Visit: Osteoporosis Assessment and Plan 1. Osteoporosis of lumbar spine - External referral to Physical Therapy - Comprehensive metabolic panel - TSH - Vitamin D 25 hydroxy - PTH, intact - Magnesium - Phosphorus 2. Osteopenia of multiple sites 3. Fatigue, unspecified type - TSH FRAX: 10 year risk of major osteoporotic fracture 8.2% and of hip fracture 0.7%. Osteoporosis Treatment Recommendations: Pt understands that oral bisphosphonates are taken with a full, 8oz glass of plain water on an empty stomach in the morning. Pt should remain upright for at least 30 minutes after taking this medication. Pt will not eat or take other medications for at least 30-60 minutes after taking. Pt understands that side effects of this medication include indigestion/GI upset, if this becomes a problem pt will notify me. Rare risk of ONJ/atypical femur fracture were discussed with the patient as well as benefits of medication. Patient should practice good oral hygiene and have dental exams at least every 6 months during treatment. After five years of taking this medication, a bisphosphonate holiday may be considered. Prolia was discussed as a treatment option for osteoporosis. The patient understands the side effects of this medication including rare side effects of ONJ and atypical femur fracture. Pt understands that this medication is a biologic- practicing good hand hygiene and avoiding sick contacts is important. Patient should practice good oral hygiene and have dental exams at least every 6 months during treatment. Patient understands that this is a long-term medication, and that if the medication is administered late or discontinued, fracture risk can significantly increase. I should be notified if the patient chooses to stop the medication so that another treatment can be initiated. Reclast was discussed as a treatment option for osteoporosis. Pt is aware of rare occurrences of ONJ and atypical femur fracture associated with this medication as well as less serious side effects of flu-like symptoms during or after infusion. Patient understands that labs need to be completed within 4 weeks of infusion to evaluate renal function and serum calcium. Good oral hygiene and dental exams at least every 6 months while on therapy was discussed. A drug holiday may be considered after three years of Reclast therapy. Since there was not a statistically significant decline in most recent dxa from previous we can still consider an oral bisphosphonate to treat. Can consider switching to fosamax since it does show fracture in spine and hip while boniva is more of fracture risk reduction of spine. I did verify that pt had been taking boniva correctly. Physical therapy referral was offered to the patient. Patient understands that physical therapy can be beneficial for osteoporosis to help with posture, balance/fall prevention and strength. Son Method may also be used during therapy to help with muscle strengthening, posture and alignment. Pt accepts external referral. Discussed optimizing ca and vit d. Will wnusre 1200mg ca daily in divided doses, doetary preferred. May adjust D3 dosage based on pending labs. Labs ordered to assess for secondary causes. Decreasing caffeine discussed, regular and safe wt bearing discussed. Safe lifting was discussed with this patient. Patient understands to lift with legs. Pt should avoid activities that cause bending and twisting of the spine such as crunches due to increased risk of vertebral fractures. All questions answers, pt agreeable and we will decide tx pending labs. Advised pt on the following: Adequate dietary calcium intake of 3208-9019 mg per day through diet and/or supplements. Vitamin D3 0322-5028 IU daily. Participate in weight bearing exercises. Optimize home environment to minimize falls. Ensure good vision through regular eye exams. Avoid tobacco use and excessive alcohol consumption. Avoid use of steroids unless clinically necessary. Options for medical therapy discussed. These include bisphosphonates (oral or IV), denusomab, romosozumab, and parathyroid hormone. Discussed pros and cons of each option. Discussed appropriate administration. Discussed possible side effects. Follow up in about 6 months (around 06/20/2023). Subjective The patient is referred for: Osteoporosis Referred by Elizabeth Demarco DO The osteopenia/osteoporosis was first diagnosed on: August 2022, osteoporosis. Osteopenia for several years. Risk factors for osteoporosis in the patient are history of the following postmenopausal estrogen deficiency, race. Fracture history: None, has broken some fingers and toes, no fragility fractures. Family history of OP: Unknown, suspected in mom, height loss Hip fracture in parent: No Rheumatoid arthritis: No Steroid use of at least 3 months: No Current smoking: No Alcohol use: seldom Secondary osteoporosis: None Menopause: ~50yo HRT use: Never DEXA imagin08/19/22 Spine: -2.8 L total femur: -0.4 LFN: -1.0 R total femur: -0.4 RFN: -1.2 Worsening of spine BMD since previous exam L femur total worsening of 0.2% R femur total improvement 2.3% Labs: see below Current treatment: None Calcium supplementation: 750mg daily Vit D supplementation: 5000IU daily, 80mcg daily between multi and calcium combo Dairy intake: Pt eats almonds, broccoli, kale, drinks milk, some almond milk, yogurt occasionally, cheese Medications that the patient has used: Boniva from Nov 2019 to 2021. Side effects of meds: None Kidney disease:No Kidney stones:No Liver disease:No Gastrointestinal issues: No Gastric bypass:No Difficulty swallowing:No Dental issues:No, has had dental implants- last was 4-5 years ago History of radiation: No History of bone disease/HPT: No Review of Systems Constitutional: Negative for appetite change. HENT: Negative for dental problem and trouble swallowing. Gastrointestinal: Negative for constipation, diarrhea, nausea and vomiting. Endocrine: Non DM Musculoskeletal: Negative for back pain and neck pain. Neurological: No recent falls An entire ROS was performed at the time of this encounter. Unless noted above in the HPI, the ROS is negative. No Known Allergies Outpatient Medications Prior to Visit Medication Sig Dispense Refill Ascorbic Acid (vitamin C) 500 MG tablet Take 1,000 mg by mouth daily. aspirin 81 MG EC tablet Take 81 mg by mouth daily. Calcium Carb-Cholecalciferol (Caltrate 600+D3) 600-20 MG-MCG tablet Take by mouth. cholecalciferol (Vitamin D-3) 125 MCG (5000 UT) tablet Take 5,000 Units by mouth daily. coenzyme Q-10 50 MG capsule Take 100 mg by mouth daily. Misc Natural Products (Curcumax Pro) tablet Take 1 g by mouth in the morning and 1 g in the evening. Multiple Vitamins-Minerals (ALIVE WOMENS 50+ GUMMY PO) Take by mouth. Calcium 150mg Vit d3 60 mcg NON FORMULARY 30 mg. ZINC NON FORMULARY SUPER EPA 425mg DHA 270mg rosuvastatin (Crestor) 10 MG tablet 10 mg combined. VITAMIN K, PHYTONADIONE, PO Take 690 mg by mouth. No facility-administered medications prior to visit. Past Medical History: Diagnosis Date Broken finger Broken toe Hypercholesteremia Social History Tobacco Use Smoking status: Never Smokeless tobacco: Never Substance Use Topics Alcohol use: Yes Alcohol/week: 2.0 standard drinks Types: 1 Glasses of wine, 1 Cans of beer per week Comment: seldom History reviewed. No pertinent surgical history. Family History Problem Relation Name Age of Onset Hyperlipidemia Mother Brain cancer Mother Heart disease Father Stroke Father Hyperlipidemia Brother Prostate cancer Brother Ovarian cancer Father's Sister No Known Problems Maternal Grandmother No Known Problems Maternal Grandfather No Known Problems Paternal Grandmother No Known Problems Paternal Grandfather Objective BP 128/76 Pulse 66 Ht 5' 2.28 (1.582 m) Wt 190 lb (86.2 kg) BMI 34.44 kg/m Physical Exam Vitals and nursing note reviewed. Constitutional: Appearance: Normal appearance. HENT: Head: Normocephalic and atraumatic. Mouth/Throat: Lips: [place]. Mouth: Mucous membranes are moist. Dentition: Normal dentition. Neck: Thyroid: No thyroid mass or thyromegaly. Cardiovascular: Rate and Rhythm: Normal rate and regular rhythm. Heart sounds: Normal heart sounds. Pulmonary: Breath sounds: Normal breath sounds. Abdominal: Palpations: Abdomen is soft. Musculoskeletal: Cervical back: Neck supple. No bony tenderness. No spinous process tenderness. Thoracic back: No bony tenderness. Lumbar back: No bony tenderness. Skin: General: Skin is warm and dry. Neurological: Mental Status: She is alert and oriented to person, place, and time. Psychiatric: Mood and Affect: Mood normal. Behavior: Behavior normal. Data Reviewed and Summarized Labs: PTH: 38.9, 11/09/19 Alk phos: 88, 11/09/19 TSH: 2.18, 11/09/19 No results found for: NA, K, CL, CO2, BUN, CREATININE, GLUCOSE, CALCIUM No components found for: [id number] Imaging/Testing: The combined time I spent reviewing previous notes/test results, evaluating the patient, providing counseling on disease process and treatment plan the day of the visit as well as documenting totaled 75 minutes. I have addressed the above chronic illnesses including management, progression, and benefits and side effects of treatment. I have reviewed prior records, interpreted test results and discussed management with the patient. Portions of the information within this encounter were entered using an electronic dictation system. Best attempts were made to edit/proofread the information prior to note completion. Despite the review of information, some errors may remain. If there are questions related to the information contained within the note please contact the signing physician directly. documented in this encounter [facility] 12-18-2022 Instructions KATHIA Escalera CNP - 12/18/2022 2:00 PM EST 1200mg calcium daily in divided doses between diet and supplement Have lab results faxed to . The following attachments cannot be sent through Care Everywhere.Calcium and Vitamin D for Bone Health (Georgian)Weight-Bearing Exercises (Georgian)Osteoporosis (Georgian)Calcium Rich Diet (Georgian)Ibandronate, ADULT ([place]ian)Zoledronic Acid, ADULT ([place]ian)Denosumab, ADULT ([place]ian)documented in this encounter [facility] 12-03-2022 Note Referral was receive d for patient to schedule with [facility]. Left voicemail for patient to return phone call to schedule. [facility]* Diagnosis Osteoporosis of lumbar spine- Primary Osteopenia of multiple sites documented in this encounter [facility]* Diagnosis Osteoporosis of lumbar spine- Primary documented in this encounter [facility]* Diagnosis Osteoporosis of lumbar spine- Primary documented in this encounter [facility]* Name Dates Details Patient Instructions Indication:Elevated hemoglobin A1c Start:12-Mar-2021 Instruction Type:Provider Instructions for Treatment How to Access Health Informa tion Online using Patient Portal and 3rd Republican Apps Indication:Elevated hemoglobin A1c Start:12-Mar-2021 Instruction Type:Patient Education Patient Instructions Indication:[facility] Start:19-Nov-2020 Instruction Type:Provider Instructions for Treatment How to Access Health Informa tion Online using Patient Portal and 3rd Republican Apps Indication:[facility] Start:19-Nov-2020 Instruction Type:Patient Education How to access health informa tion online Indication:Osteoporosis Start:07-Nov-2019 Instruction Type:Patient Education How to access health informa tion online - Detail Indication:Osteoporosis Start:07-Nov-2019 Instruction Type:Patient Education Patient Instructions Indication:Osteoporosis Start:07-Nov-2019 Instruction Type:Provider Instructions for Treatment How to access health informa tion online Indication:[facility] Start:07-Sep-2019 Instruction Type:Patient Education How to access health informa tion online - Detail Indication:[facility] Start:07-Sep-2019 Instruction Type:Patient Education Patient Instructions Indication:[facility] Start:07-Sep-2019 Instruction Type:Provider Instructions for Treatment How to access health informa tion online Indication:Nonsmoker Start:18-May-2018 Instruction Type:Patient Education How to access health informa tion online - Detail Indication:Nonsmoker Start:18-May-2018 Instruction Type:Patient Education Patient Instructions Indication:Nonsmoker Start:18-May-2018 Instruction Type:Provider Instructions for Treatment How to access health informa tion online Indication:BMI 32.0-32.9,adult Start:05-Jan-2018 Instruction Type:Patient Education How to access health informa tion online - Detail Indication:BMI 32.0-32.9,adult Start:05-Jan-2018 Instruction Type:Patient Education Patient Instructions Indication:BMI 32.0-32.9,adult Start:05-Jan-2018 Instruction Type:Provider Instructions for Treatment [facility]; [facility] Work Phone: Instructions* Name Dates Details Patient Instructions Indication:Elevated hemoglobin A1c Start:12-Mar-2021 Instruction Type:Provider Instructions for Treatment How to Access Health Informa tion Online using Patient Portal and 3rd Republican Apps Indication:Elevated hemoglobin A1c Start:12-Mar-2021 Instruction Type:Patient Education Patient Instructions Indication:[facility] Start:19-Nov-2020 Instruction Type:Provider Instructions for Treatment How to Access Health Informa tion Online using Patient Portal and 3rd Republican Apps Indication:[facility] Start:19-Nov-2020 Instruction Type:Patient Education How to access health informa tion online Indication:Osteoporosis Start:07-Nov-2019 Instruction Type:Patient Education How to access health informa tion online - Detail Indication:Osteoporosis Start:07-Nov-2019 Instruction Type:Patient Education Patient Instructions Indication:Osteoporosis Start:07-Nov-2019 Instruction Type:Provider Instructions for Treatment How to access health informa tion online Indication:[facility] Start:07-Sep-2019 Instruction Type:Patient Education How to access health informa tion online - Detail Indication:[facility] Start:07-Sep-2019 Instruction Type:Patient Education Patient Instructions Indication:[facility] Start:07-Sep-2019 Instruction Type:Provider Instructions for Treatment How to access health informa tion online Indication:Nonsmoker Start:18-May-2018 Instruction Type:Patient Education How to access health informa tion online - Detail Indication:Nonsmoker Start:18-May-2018 Instruction Type:Patient Education Patient Instructions Indication:Nonsmoker Start:18-May-2018 Instruction Type:Provider Instructions for Treatment How to access health informa tion online Indication:BMI 32.0-32.9,adult Start:05-Jan-2018 Instruction Type:Patient Education How to access health informa tion online - Detail Indication:BMI 32.0-32.9,adult Start:05-Jan-2018 Instruction Type:Patient Education Patient Instructions Indication:BMI 32.0-32.9,adult Start:05-Jan-2018 Instruction Type:Provider Instructions for Treatment [facility]; [facility] Work Phone: Instructions* Name Dates Details Patient Instructions Indication:Elevated hemoglobin A1c Start:12-Mar-2021 Instruction Type:Provider Instructions for Treatment How to Access Health Informa tion Online using Patient Portal and 3rd Republican Apps Indication:Elevated hemoglobin A1c Start:12-Mar-2021 Instruction Type:Patient Education Patient Instructions Indication:[facility] Start:19-Nov-2020 Instruction Type:Provider Instructions for Treatment How to Access Health Informa tion Online using Patient Portal and 3rd Republican Apps Indication:[facility] Start:19-Nov-2020 Instruction Type:Patient Education How to access health informa tion online Indication:Osteoporosis Start:07-Nov-2019 Instruction Type:Patient Education How to access health informa tion online - Detail Indication:Osteoporosis Start:07-Nov-2019 Instruction Type:Patient Education Patient Instructions Indication:Osteoporosis Start:07-Nov-2019 Instruction Type:Provider Instructions for Treatment How to access health informa tion online Indication:[facility] Start:07-Sep-2019 Instruction Type:Patient Education How to access health informa tion online - Detail Indication:[facility] Start:07-Sep-2019 Instruction Type:Patient Education Patient Instructions Indication:[facility] Start:07-Sep-2019 Instruction Type:Provider Instructions for Treatment How to access health informa tion online Indication:Nonsmoker Start:18-May-2018 Instruction Type:Patient Education How to access health informa tion online - Detail Indication:Nonsmoker Start:18-May-2018 Instruction Type:Patient Education Patient Instructions Indication:Nonsmoker Start:18-May-2018 Instruction Type:Provider Instructions for Treatment How to access health informa tion online Indication:BMI 32.0-32.9,adult Start:05-Jan-2018 Instruction Type:Patient Education How to access health informa tion online - Detail Indication:BMI 32.0-32.9,adult Start:05-Jan-2018 Instruction Type:Patient Education Patient Instructions Indication:BMI 32.0-32.9,adult Start:05-Jan-2018 Instruction Type:Provider Instructions for Treatment [facility]; [facility] Work Phone: instructions* Name Dates Details How to access health informa tion online Indication:Nonsmoker Start:18-May-2018 Instruction Type:Patient Education How to access health informa tion online - Detail Indication:Nonsmoker Start:18-May-2018 Instruction Type:Patient Education Patient Instructions Indication:Nonsmoker Start:18-May-2018 Instruction Type:Provider Instructions for Treatment How to access health informa tion online Indication:BMI 32.0-32.9,adult Start:05-Jan-2018 Instruction Type:Patient Education How to access health informa tion online - Detail Indication:BMI 32.0-32.9,adult Start:05-Jan-2018 Instruction Type:Patient Education Patient Instructions Indication:BMI 32.0-32.9,adult Start:05-Jan-2018 Instruction Type:Provider Instructions for Treatment [facility] Work Phone: Instructions* Name Dates Details Patient Instructions Indication:Elevated hemoglobin A1c Start:12-Mar-2021 Instruction Type:Provider Instructions for Treatment How to Access Health Informa tion Online using Patient Portal and 3rd Republican Apps Indication:Elevated hemoglobin A1c Start:12-Mar-2021 Instruction Type:Patient Education Patient Instructions Indication:[facility] Start:19-Nov-2020 Instruction Type:Provider Instructions for Treatment How to Access Health Informa tion Online using Patient Portal and 3rd Republican Apps Indication:[facility] Start:19-Nov-2020 Instruction Type:Patient Education How to access health informa tion online Indication:Osteoporosis Start:07-Nov-2019 Instruction Type:Patient Education How to access health informa tion online - Detail Indication:Osteoporosis Start:07-Nov-2019 Instruction Type:Patient Education Patient Instructions Indication:Osteoporosis Start:07-Nov-2019 Instruction Type:Provider Instructions for Treatment How to access health informa tion online Indication:[facility] Start:07-Sep-2019 Instruction Type:Patient Education How to access health informa tion online - Detail Indication:[facility] Start:07-Sep-2019 Instruction Type:Patient Education Patient Instructions Indication:[facility] Start:07-Sep-2019 Instruction Type:Provider Instructions for Treatment How to access health informa tion online Indication:Nonsmoker Start:18-May-2018 Instruction Type:Patient Education How to access health informa tion online - Detail Indication:Nonsmoker Start:18-May-2018 Instruction Type:Patient Education Patient Instructions Indication:Nonsmoker Start:18-May-2018 Instruction Type:Provider Instructions for Treatment How to access health informa tion online Indication:BMI 32.0-32.9,adult Start:05-Jan-2018 Instruction Type:Patient Education How to access health informa tion online - Detail Indication:BMI 32.0-32.9,adult Start:05-Jan-2018 Instruction Type:Patient Education Patient Instructions Indication:BMI 32.0-32.9,adult Start:05-Jan-2018 Instruction Type:Provider Instructions for Treatment [facility]; [facility] Work Phone: Instructions* Name Dates Details Patient Instructions Indication:Elevated hemoglobin A1c Start:12-Mar-2021 Instruction Type:Provider Instructions for Treatment How to Access Health Informa tion Online using Patient Portal and 3rd Republican Apps Indication:Elevated hemoglobin A1c Start:12-Mar-2021 Instruction Type:Patient Education Patient Instructions Indication:[facility] Start:19-Nov-2020 Instruction Type:Provider Instructions for Treatment How to Access Health Informa tion Online using Patient Portal and 3rd Republican Apps Indication:[facility] Start:19-Nov-2020 Instruction Type:Patient Education How to access health informa tion online Indication:Osteoporosis Start:07-Nov-2019 Instruction Type:Patient Education How to access health informa tion online - Detail Indication:Osteoporosis Start:07-Nov-2019 Instruction Type:Patient Education Patient Instructions Indication:Osteoporosis Start:07-Nov-2019 Instruction Type:Provider Instructions for Treatment How to access health informa tion online Indication:[facility] Start:07-Sep-2019 Instruction Type:Patient Education How to access health informa tion online - Detail Indication:[facility] Start:07-Sep-2019 Instruction Type:Patient Education Patient Instructions Indication:[facility] Start:07-Sep-2019 Instruction Type:Provider Instructions for Treatment How to access health informa tion online Indication:Nonsmoker Start:18-May-2018 Instruction Type:Patient Education How to access health informa tion online - Detail Indication:Nonsmoker Start:18-May-2018 Instruction Type:Patient Education Patient Instructions Indication:Nonsmoker Start:18-May-2018 Instruction Type:Provider Instructions for Treatment How to access health informa tion online Indication:BMI 32.0-32.9,adult Start:05-Jan-2018 Instruction Type:Patient Education How to access health informa tion online - Detail Indication:BMI 32.0-32.9,adult Start:05-Jan-2018 Instruction Type:Patient Education Patient Instructions Indication:BMI 32.0-32.9,adult Start:05-Jan-2018 Instruction Type:Provider Instructions for Treatment [facility]; [facility] Work Phone: Instructions* Name Dates Details Patient Instructions Indication:Elevated hemoglobin A1c Start:12-Mar-2021 Instruction Type:Provider Instructions for Treatment How to Access Health Informa tion Online using Patient Portal and 3rd Republican Apps Indication:Elevated hemoglobin A1c Start:12-Mar-2021 Instruction Type:Patient Education Patient Instructions Indication:[facility] Start:19-Nov-2020 Instruction Type:Provider Instructions for Treatment How to Access Health Informa tion Online using Patient Portal and 3rd Republican Apps Indication:[facility] Start:19-Nov-2020 Instruction Type:Patient Education How to access health informa tion online Indication:Osteoporosis Start:07-Nov-2019 Instruction Type:Patient Education How to access health informa tion online - Detail Indication:Osteoporosis Start:07-Nov-2019 Instruction Type:Patient Education Patient Instructions Indication:Osteoporosis Start:07-Nov-2019 Instruction Type:Provider Instructions for Treatment How to access health informa tion online Indication:[facility] Start:07-Sep-2019 Instruction Type:Patient Education How to access health informa tion online - Detail Indication:[facility] Start:07-Sep-2019 Instruction Type:Patient Education Patient Instructions Indication:[facility] Start:07-Sep-2019 Instruction Type:Provider Instructions for Treatment How to access health informa tion online Indication:Nonsmoker Start:18-May-2018 Instruction Type:Patient Education How to access health informa tion online - Detail Indication:Nonsmoker Start:18-May-2018 Instruction Type:Patient Education Patient Instructions Indication:Nonsmoker Start:18-May-2018 Instruction Type:Provider Instructions for Treatment How to access health informa tion online Indication:BMI 32.0-32.9,adult Start:05-Jan-2018 Instruction Type:Patient Education How to access health informa tion online - Detail Indication:BMI 32.0-32.9,adult Start:05-Jan-2018 Instruction Type:Patient Education Patient Instructions Indication:BMI 32.0-32.9,adult Start:05-Jan-2018 Instruction Type:Provider Instructions for Treatment [facility]; [facility] Work Phone: Instructions* Name Dates Details Patient Instructions Indication:Elevated hemoglobin A1c Start:12-Mar-2021 Instruction Type:Provider Instructions for Treatment How to Access Health Informa tion Online using Patient Portal and 3rd [employer] Apps Indication:Elevated hemoglobin A1c Start:12-Mar-2021 Instruction Type:Patient Education Patient Instructions Indication:[facility] Start:19-Nov-2020 Instruction Type:Provider Instructions for Treatment How to Access Health Informa tion Online using Patient Portal and 3rd [employer] Apps Indication:[facility] Start:1-Feb-2021 Instruction Type:Patient Education How to access health informa tion online Indication:Osteoporosis Start:07-Nov-2019 Instruction Type:Patient Education How to access health informa tion online - Detail Indication:Osteoporosis Start:07-Nov-2019 Instruction Type:Patient Education Patient Instructions Indication:Osteoporosis Start:07-Nov-2019 Instruction Type:Provider Instructions for Treatment How to access health informa tion online Indication:[facility] Start:07-Sep-2019 Instruction Type:Patient Education How to access health informa tion online - Detail Indication:[facility] Start:07-Sep-2019 Instruction Type:Patient Education Patient Instructions Indication:[facility] Start:07-Sep-2019 Instruction Type:Provider Instructions for Treatment How to access health informa tion online Indication:Nonsmoker Start:18-May-2018 Instruction Type:Patient Education How to access health informa tion online - Detail Indication:Nonsmoker Start:18-May-2018 Instruction Type:Patient Education Patient Instructions Indication:Nonsmoker Start:18-May-2018 Instruction Type:Provider Instructions for Treatment How to access health informa tion online Indication:BMI 32.0-32.9,adult Start:05-Jan-2018 Instruction Type:Patient Education How to access health informa tion online - Detail Indication:BMI 32.0-32.9,adult Start:05-Jan-2018 Instruction Type:Patient Education Patient Instructions Indication:BMI 32.0-32.9,adult Start:05-Jan-2018 Instruction Type:Provider Instructions for Treatment [facility]; [facility] Work Phone: Instructions* Name Dates Details Patient Instructions Indication:Elevated hemoglobin A1c Start:12-Mar-2021 Instruction Type:Provider Instructions for Treatment How to Access Health Informa tion Online using Patient Portal and 3rd [employer] Apps Indication:Elevated hemoglobin A1c Start:12-Mar-2021 Instruction Type:Patient Education Patient Instructions Indication:[facility] Start:19-Nov-2020 Instruction Type:Provider Instructions for Treatment How to Access Health Informa tion Online using Patient Portal and 3rd [employer] Apps Indication:[facility] Start:19-Nov-2020 Instruction Type:Patient Education How to access health informa tion online Indication:Osteoporosis Start:07-Nov-2019 Instruction Type:Patient Education How to access health informa tion online - Detail Indication:Osteoporosis Start:07-Nov-2019 Instruction Type:Patient Education Patient Instructions Indication:Osteoporosis Start:07-Nov-2019 Instruction Type:Provider Instructions for Treatment How to access health informa tion online Indication:[facility] Start:07-Sep-2019 Instruction Type:Patient Education How to access health informa tion online - Detail Indication:[facility] Start:07-Sep-2019 Instruction Type:Patient Education Patient Instructions Indication:[facility] Start:07-Sep-2019 Instruction Type:Provider Instructions for Treatment How to access health informa tion online Indication:Nonsmoker Start:18-May-2018 Instruction Type:Patient Education How to access health informa tion online - Detail Indication:Nonsmoker Start:18-May-2018 Instruction Type:Patient Education Patient Instructions Indication:Nonsmoker Start:18-May-2018 Instruction Type:Provider Instructions for Treatment How to access health informa tion online Indication:BMI 32.0-32.9,adult Start:05-Jan-2018 Instruction Type:Patient Education How to access health informa tion online - Detail Indication:BMI 32.0-32.9,adult Start:05-Jan-2018 Instruction Type:Patient Education Patient Instructions Indication:BMI 32.0-32.9,adult Start:05-Jan-2018 Instruction Type:Provider Instructions for Treatment [facility]; [facility] Work Phone: Instructions* Name Dates Details Patient Instructions Indication:Elevated hemoglobin A1c Start:12-Mar-2021 Instruction Type:Provider Instructions for Treatment How to Access Health Informa tion Online using Patient Portal and 3rd [employer] Apps Indication:Elevated hemoglobin A1c Start:12-Mar-2021 Instruction Type:Patient Education Patient Instructions Indication:[facility] Start:19-Nov-2020 Instruction Type:Provider Instructions for Treatment How to Access Health Informa tion Online using Patient Portal and 3rd [employer] Apps Indication:[facility] Start:19-Nov-2020 Instruction Type:Patient Education How to access health informa tion online Indication:Osteoporosis Start:07-Nov-2019 Instruction Type:Patient Education How to access health informa tion online - Detail Indication:Osteoporosis Start:07-Nov-2019 Instruction Type:Patient Education Patient Instructions Indication:Osteoporosis Start:07-Nov-2019 Instruction Type:Provider Instructions for Treatment How to access health informa tion online Indication:[facility] Start:07-Sep-2019 Instruction Type:Patient Education How to access health informa tion online - Detail Indication:[facility] Start:07-Sep-2019 Instruction Type:Patient Education Patient Instructions Indication:[facility] Start:07-Sep-2019 Instruction Type:Provider Instructions for Treatment How to access health informa tion online Indication:Nonsmoker Start:18-May-2018 Instruction Type:Patient Education How to access health informa tion online - Detail Indication:Nonsmoker Start:18-May-2018 Instruction Type:Patient Education Patient Instructions Indication:Nonsmoker Start:18-May-2018 Instruction Type:Provider Instructions for Treatment How to access health informa tion online Indication:BMI 32.0-32.9,adult Start:05-Jan-2018 Instruction Type:Patient Education How to access health informa tion online - Detail Indication:BMI 32.0-32.9,adult Start:05-Jan-2018 Instruction Type:Patient Education Patient Instructions Indication:BMI 32.0-32.9,adult Start:05-Jan-2018 Instruction Type:Provider Instructions for Treatment [facility]; [facility] Work Phone: Instructions* Name Dates Details Patient Instructions Indication:Elevated hemoglobin A1c Start:12-Mar-2021 Instruction Type:Provider Instructions for Treatment How to Access Health Informa tion Online using Patient Portal and 3rd [employer] Apps Indication:Elevated hemoglobin A1c Start:12-Mar-2021 Instruction Type:Patient Education Patient Instructions Indication:[facility] Start:19-Nov-2020 Instruction Type:Provider Instructions for Treatment How to Access Health Informa tion Online using Patient Portal and 3rd [employer] Apps Indication:[facility] Start:19-Nov-2020 Instruction Type:Patient Education How to access health informa tion online Indication:Osteoporosis Start:07-Nov-2019 Instruction Type:Patient Education How to access health informa tion online - Detail Indication:Osteoporosis Start:07-Nov-2019 Instruction Type:Patient Education Patient Instructions Indication:Osteoporosis Start:07-Nov-2019 Instruction Type:Provider Instructions for Treatment How to access health informa tion online Indication:[facility] Start:07-Sep-2019 Instruction Type:Patient Education How to access health informa tion online - Detail Indication:[facility] Start:07-Sep-2019 Instruction Type:Patient Education Patient Instructions Indication:[facility] Start:07-Sep-2019 Instruction Type:Provider Instructions for Treatment How to access health informa tion online Indication:Nonsmoker Start:18-May-2018 Instruction Type:Patient Education How to access health informa tion online - Detail Indication:Nonsmoker Start:18-May-2018 Instruction Type:Patient Education Patient Instructions Indication:Nonsmoker Start:18-May-2018 Instruction Type:Provider Instructions for Treatment How to access health informa tion online Indication:BMI 32.0-32.9,adult Start:05-Jan-2018 Instruction Type:Patient Education How to access health informa tion online - Detail Indication:BMI 32.0-32.9,adult Start:05-Jan-2018 Instruction Type:Patient Education Patient Instructions Indication:BMI 32.0-32.9,adult Start:05-Jan-2018 Instruction Type:Provider Instructions for Treatment [facility]; [facility] Work Phone: Instructions* Name Dates Details Patient Instructions Indication:BMI 32.0-32.9,adult Start:20-Aug-2022 Instruction Type:Provider Instructions for Treatment How to Access Health Informa tion Online using Patient Portal and 3rd [employer] Apps Indication:BMI 32.0-32.9,adult Start:20-Aug-2022 Instruction Type:Patient Education Patient Instructions Indication:Elevated hemoglobin A1c Start:12-Mar-2021 Instruction Type:Provider Instructions for Treatment How to Access Health Informa tion Online using Patient Portal and 3rd [employer] Apps Indication:Elevated hemoglobin A1c Start:12-Mar-2021 Instruction Type:Patient Education Patient Instructions Indication:[facility] Start:19-Nov-2020 Instruction Type:Provider Instructions for Treatment How to Access Health Informa tion Online using Patient Portal and 3rd [employer] Apps Indication:[facility] Start:19-Nov-2020 Instruction Type:Patient Education How to access health informa tion online Indication:Osteoporosis Start:07-Nov-2019 Instruction Type:Patient Education How to access health informa tion online - Detail Indication:Osteoporosis Start:07-Nov-2019 Instruction Type:Patient Education Patient Instructions Indication:Osteoporosis Start:07-Nov-2019 Instruction Type:Provider Instructions for Treatment How to access health informa tion online Indication:[facility] Start:07-Sep-2019 Instruction Type:Patient Education How to access health informa tion online - Detail Indication:[facility] Start:07-Sep-2019 Instruction Type:Patient Education Patient Instructions Indication:[facility] Start:07-Sep-2019 Instruction Type:Provider Instructions for Treatment How to access health informa tion online Indication:Nonsmoker Start:18-May-2018 Instruction Type:Patient Education How to access health informa tion online - Detail Indication:Nonsmoker Start:18-May-2018 Instruction Type:Patient Education Patient Instructions Indication:Nonsmoker Start:18-May-2018 Instruction Type:Provider Instructions for Treatment How to access health informa tion online Indication:BMI 32.0-32.9,adult Start:05-Jan-2018 Instruction Type:Patient Education How to access health informa tion online - Detail Indication:BMI 32.0-32.9,adult Start:05-Jan-2018 Instruction Type:Patient Education Patient Instructions Indication:BMI 32.0-32.9,adult Start:05-Jan-2018 Instruction Type:Provider Instructions for Treatment [facility]; [facility] Work Phone: Instructions* Name Dates Details Patient Instructions Indication:BMI 32.0-32.9,adult Start:20-Aug-2022 Instruction Type:Provider Instructions for Treatment How to Access Health Informa tion Online using Patient Portal and 3rd [employer] Apps Indication:BMI 32.0-32.9,adult Start:20-Aug-2022 Instruction Type:Patient Education Patient Instructions Indication:Elevated hemoglobin A1c Start:12-Mar-2021 Instruction Type:Provider Instructions for Treatment How to Access Health Informa tion Online using Patient Portal and 3rd [employer] Apps Indication:Elevated hemoglobin A1c Start:12-Mar-2021 Instruction Type:Patient Education Patient Instructions Indication:[facility] Start:19-Nov-2020 Instruction Type:Provider Instructions for Treatment How to Access Health Informa tion Online using Patient Portal and 3rd [employer] Apps Indication:[facility] Start:19-Nov-2020 Instruction Type:Patient Education How to access health informa tion online Indication:Osteoporosis Start:07-Nov-2019 Instruction Type:Patient Education How to access health informa tion online - Detail Indication:Osteoporosis Start:07-Nov-2019 Instruction Type:Patient Education Patient Instructions Indication:Osteoporosis Start:07-Nov-2019 Instruction Type:Provider Instructions for Treatment How to access health informa tion online Indication:[facility] Start:07-Sep-2019 Instruction Type:Patient Education How to access health informa tion online - Detail Indication:[facility] Start:07-Sep-2019 Instruction Type:Patient Education Patient Instructions Indication:[facility] Start:07-Sep-2019 Instruction Type:Provider Instructions for Treatment How to access health informa tion online Indication:Nonsmoker Start:18-May-2018 Instruction Type:Patient Education How to access health informa tion online - Detail Indication:Nonsmoker Start:18-May-2018 Instruction Type:Patient Education Patient Instructions Indication:Nonsmoker Start:18-May-2018 Instruction Type:Provider Instructions for Treatment How to access health informa tion online Indication:BMI 32.0-32.9,adult Start:05-Jan-2018 Instruction Type:Patient Education How to access health informa tion online - Detail Indication:BMI 32.0-32.9,adult Start:05-Jan-2018 Instruction Type:Patient Education Patient Instructions Indication:BMI 32.0-32.9,adult Start:05-Jan-2018 Instruction Type:Provider Instructions for Treatment [facility]; [facility] Work Phone: Instructions* Name Dates Details Patient Instructions Indication:BMI 32.0-32.9,adult Start:20-Aug-2022 Instruction Type:Provider Instructions for Treatment How to Access Health Informa tion Online using Patient Portal and 3rd [employer] Apps Indication:BMI 32.0-32.9,adult Start:20-Aug-2022 Instruction Type:Patient Education Patient Instructions Indication:Elevated hemoglobin A1c Start:12-Mar-2021 Instruction Type:Provider Instructions for Treatment How to Access Health Informa tion Online using Patient Portal and 3rd [employer] Apps Indication:Elevated hemoglobin A1c Start:12-Mar-2021 Instruction Type:Patient Education Patient Instructions Indication:[facility] Start:19-Nov-2020 Instruction Type:Provider Instructions for Treatment How to Access Health Informa tion Online using Patient Portal and 3rd [employer] Apps Indication:[facility] Start:19-Nov-2020 Instruction Type:Patient Education How to access health informa tion online Indication:Osteoporosis Start:07-Nov-2019 Instruction Type:Patient Education How to access health informa tion online - Detail Indication:Osteoporosis Start:07-Nov-2019 Instruction Type:Patient Education Patient Instructions Indication:Osteoporosis Start:07-Nov-2019 Instruction Type:Provider Instructions for Treatment How to access health informa tion online Indication:[facility] Start:07-Sep-2019 Instruction Type:Patient Education How to access health informa tion online - Detail Indication:[facility] Start:07-Sep-2019 Instruction Type:Patient Education Patient Instructions Indication:[facility] Start:07-Sep-2019 Instruction Type:Provider Instructions for Treatment How to access health informa tion online Indication:Nonsmoker Start:18-May-2018 Instruction Type:Patient Education How to access health informa tion online - Detail Indication:Nonsmoker Start:18-May-2018 Instruction Type:Patient Education Patient Instructions Indication:Nonsmoker Start:18-May-2018 Instruction Type:Provider Instructions for Treatment How to access health informa tion online Indication:BMI 32.0-32.9,adult Start:05-Jan-2018 Instruction Type:Patient Education How to access health informa tion online - Detail Indication:BMI 32.0-32.9,adult Start:05-Jan-2018 Instruction Type:Patient Education Patient Instructions Indication:BMI 32.0-32.9,adult Start:05-Jan-2018 Instruction Type:Provider Instructions for Treatment [facility]; [facility] Work Phone: Instructions* Name Dates Details Patient Instructions Indication:BMI 32.0-32.9,adult Start:20-Aug-2022 Instruction Type:Provider Instructions for Treatment How to Access Health Informa tion Online using Patient Portal and 3rd [employer] Apps Indication:BMI 32.0-32.9,adult Start:20-Aug-2022 Instruction Type:Patient Education Patient Instructions Indication:Elevated hemoglobin A1c Start:12-Mar-2021 Instruction Type:Provider Instructions for Treatment How to Access Health Informa tion Online using Patient Portal and 3rd [employer] Apps Indication:Elevated hemoglobin A1c Start:12-Mar-2021 Instruction Type:Patient Education Patient Instructions Indication:[facility] Start:19-Nov-2020 Instruction Type:Provider Instructions for Treatment How to Access Health Informa tion Online using Patient Portal and 3rd [employer] Apps Indication:[facility] Start:19-Nov-2020 Instruction Type:Patient Education How to access health informa tion online Indication:Osteoporosis Start:07-Nov-2019 Instruction Type:Patient Education How to access health informa tion online - Detail Indication:Osteoporosis Start:07-Nov-2019 Instruction Type:Patient Education Patient Instructions Indication:Osteoporosis Start:07-Nov-2019 Instruction Type:Provider Instructions for Treatment How to access health informa tion online Indication:[facility] Start:07-Sep-2019 Instruction Type:Patient Education How to access health informa tion online - Detail Indication:[facility] Start:07-Sep-2019 Instruction Type:Patient Education Patient Instructions Indication:[facility] Start:07-Sep-2019 Instruction Type:Provider Instructions for Treatment How to access health informa tion online Indication:Nonsmoker Start:18-May-2018 Instruction Type:Patient Education How to access health informa tion online - Detail Indication:Nonsmoker Start:18-May-2018 Instruction Type:Patient Education Patient Instructions Indication:Nonsmoker Start:18-May-2018 Instruction Type:Provider Instructions for Treatment How to access health informa tion online Indication:BMI 32.0-32.9,adult Start:05-Jan-2018 Instruction Type:Patient Education How to access health informa tion online - Detail Indication:BMI 32.0-32.9,adult Start:05-Jan-2018 Instruction Type:Patient Education Patient Instructions Indication:BMI 32.0-32.9,adult Start:05-Jan-2018 Instruction Type:Provider Instructions for Treatment [facility]; [facility] Work Phone: Instructions* Name Dates Details Patient Instructions Indication:BMI 32.0-32.9,adult Start:20-Aug-2022 Instruction Type:Provider Instructions for Treatment How to Access Health Informa tion Online using Patient Portal and 3rd [employer] Apps Indication:BMI 32.0-32.9,adult Start:20-Aug-2022 Instruction Type:Patient Education Patient Instructions Indication:Elevated hemoglobin A1c Start:12-Mar-2021 Instruction Type:Provider Instructions for Treatment How to Access Health Informa tion Online using Patient Portal and 3rd [employer] Apps Indication:Elevated hemoglobin A1c Start:12-Mar-2021 Instruction Type:Patient Education Patient Instructions Indication:[facility] Start:19-Nov-2020 Instruction Type:Provider Instructions for Treatment How to Access Health Informa tion Online using Patient Portal and 3rd [employer] Apps Indication:[facility] Start:19-Nov-2020 Instruction Type:Patient Education How to access health informa tion online Indication:Osteoporosis Start:07-Nov-2019 Instruction Type:Patient Education How to access health informa tion online - Detail Indication:Osteoporosis Start:07-Nov-2019 Instruction Type:Patient Education Patient Instructions Indication:Osteoporosis Start:07-Nov-2019 Instruction Type:Provider Instructions for Treatment How to access health informa tion online Indication:[facility] Start:07-Sep-2019 Instruction Type:Patient Education How to access health informa tion online - Detail Indication:[facility] Start:07-Sep-2019 Instruction Type:Patient Education Patient Instructions Indication:[facility] Start:07-Sep-2019 Instruction Type:Provider Instructions for Treatment How to access health informa tion online Indication:Nonsmoker Start:18-May-2018 Instruction Type:Patient Education How to access health informa tion online - Detail Indication:Nonsmoker Start:18-May-2018 Instruction Type:Patient Education Patient Instructions Indication:Nonsmoker Start:18-May-2018 Instruction Type:Provider Instructions for Treatment How to access health informa tion online Indication:BMI 32.0-32.9,adult Start:05-Jan-2018 Instruction Type:Patient Education How to access health informa tion online - Detail Indication:BMI 32.0-32.9,adult Start:05-Jan-2018 Instruction Type:Patient Education Patient Instructions Indication:BMI 32.0-32.9,adult Start:05-Jan-2018 Instruction Type:Provider Instructions for Treatment [facility]; [facility] Work Phone: Instructions* Name Dates Details Patient Instructions Indication:BMI 32.0-32.9,adult Start:20-Aug-2022 Instruction Type:Provider Instructions for Treatment How to Access Health Informa tion Online using Patient Portal and 3rd [employer] Apps Indication:BMI 32.0-32.9,adult Start:20-Aug-2022 Instruction Type:Patient Education Patient Instructions Indication:Elevated hemoglobin A1c Start:12-Mar-2021 Instruction Type:Provider Instructions for Treatment How to Access Health Informa tion Online using Patient Portal and 3rd [employer] Apps Indication:Elevated hemoglobin A1c Start:12-Mar-2021 Instruction Type:Patient Education Patient Instructions Indication:[facility] Start:19-Nov-2020 Instruction Type:Provider Instructions for Treatment How to Access Health Informa tion Online using Patient Portal and 3rd [employer] Apps Indication:[facility] Start:19-Nov-2020 Instruction Type:Patient Education How to access health informa tion online Indication:Osteoporosis Start:07-Nov-2019 Instruction Type:Patient Education How to access health informa tion online - Detail Indication:Osteoporosis Start:07-Nov-2019 Instruction Type:Patient Education Patient Instructions Indication:Osteoporosis Start:07-Nov-2019 Instruction Type:Provider Instructions for Treatment How to access health informa tion online Indication:[facility] Start:07-Sep-2019 Instruction Type:Patient Education How to access health informa tion online - Detail Indication:[facility] Start:07-Sep-2019 Instruction Type:Patient Education Patient Instructions Indication:[facility] Start:07-Sep-2019 Instruction Type:Provider Instructions for Treatment How to access health informa tion online Indication:Nonsmoker Start:18-May-2018 Instruction Type:Patient Education How to access health informa tion online - Detail Indication:Nonsmoker Start:18-May-2018 Instruction Type:Patient Education Patient Instructions Indication:Nonsmoker Start:18-May-2018 Instruction Type:Provider Instructions for Treatment How to access health informa tion online Indication:BMI 32.0-32.9,adult Start:05-Jan-2018 Instruction Type:Patient Education How to access health informa tion online - Detail Indication:BMI 32.0-32.9,adult Start:05-Jan-2018 Instruction Type:Patient Education Patient Instructions Indication:BMI 32.0-32.9,adult Start:05-Jan-2018 Instruction Type:Provider Instructions for Treatment [facility]; [facility] Work Phone: Family History Unknown Family Member Name Dates Details Brother 1 Comments:prostate cancer Status:Active Father Comments:stroke when he was 88 following heart surgery. passed at 90 Status:Active Maternal Grandmother Comments:heart issues, think s passed in 50's Status:Active Mother Comments:brain tumor, high c holestrol. passed at 79 Status:Active Unknown Family Member Name Dates Details Brother 1 Comments:prostate cancer Status:Active Father Comments:stroke when he was 88 following heart surgery. passed at 90 Status:Active Maternal Grandmother Comments:heart issues, think s passed in 50's Status:Active Mother Comments:brain tumor, high c holestrol. passed at 79 Status:Active Unknown Family Member Name Dates Details Brother 1 Comments:prostate cancer Status:Active Father Comments:stroke when he was 88 following heart surgery. passed at 90 Status:Active Maternal Grandmother Comments:heart issues, think s passed in 50's Status:Active Mother Comments:brain tumor, high c holestrol. passed at 79 Status:Active Unknown Family Member Name Dates Details Brother 1 Comments:prostate cancer Status:Active Father Comments:stroke when he was 88 following heart surgery. passed at 89 Status:Active Maternal Grandmother Comments:heart issues, think s passed in 50's Status:Active Mother Comments:brain tumor, high c holestrol. passed at 79 Status:Active Unknown Family Member Name Dates Details Brother 1 Comments:prostate cancer Status:Active Father Comments:stroke when he was 88 following heart surgery. passed at 90 Status:Active Maternal Grandmother Comments:heart issues, think s passed in 50's Status:Active Mother Comments:brain tumor, high c holestrol. passed at 79 Status:Active Unknown Family Member Name Dates Details Brother 1 Comments:prostate cancer Status:Active Father Comments:stroke when he was 88 following heart surgery. passed at 90 Status:Active Maternal Grandmother Comments:heart issues, think s passed in 50's Status:Active Mother Comments:brain tumor, high c holestrol. passed at 79 Status:Active Unknown Family Member Name Dates Details Brother 1 Comments:prostate cancer Status:Active Father Comments:stroke when he was 88 following heart surgery. passed at 90 Status:Active Maternal Grandmother Comments:heart issues, think s passed in 50's Status:Active Mother Comments:brain tumor, high c holestrol. passed at 79 Status:Active Unknown Family Member Name Dates Details Brother 1 Comments:prostate cancer Status:Active Father Comments:stroke when he was 88 following heart surgery. passed at 90 Status:Active Maternal Grandmother Comments:heart issues, think s passed in 50's Status:Active Mother Comments:brain tumor, high c holestrol. passed at 79 Status:Active Unknown Family Member Name Dates Details Brother 1 Comments:prostate cancer Status:Active Father Comments:stroke when he was 88 following heart surgery. passed at 90 Status:Active Maternal Grandmother Comments:heart issues, think s passed in 50's Status:Active Mother Comments:brain tumor, high c holestrol. passed at 79 Status:Active Unknown Family Member Name Dates Details Brother 1 Comments:prostate cancer Status:Active Father Comments:stroke when he was 88 following heart surgery. passed at 90 Status:Active Maternal Grandmother Comments:heart issues, think s passed in 50's Status:Active Mother Comments:brain tumor, high c holestrol. passed at 79 Status:Active Unknown Family Member Name Dates Details Brother 1 Comments:prostate cancer Status:Active Father Comments:stroke when he was 88 following heart surgery. passed at 90 Status:Active Maternal Grandmother Comments:heart issues, think s passed in 50's Status:Active Mother Comments:brain tumor, high c holestrol. passed at 79 Status:Active Unknown Family Member Name Dates Details Brother 1 Comments:prostate cancer Status:Active Father Comments:stroke when he was 88 following heart surgery. passed at 90 Status:Active Maternal Grandmother Comments:heart issues, think s passed in 50's Status:Active Mother Comments:brain tumor, high c holestrol. passed at 79 Status:Active Unknown Family Member Name Dates Details Brother 1 Comments:prostate cancer Status:Active Father Comments:stroke when he was 88 following heart surgery. passed at 90 Status:Active Maternal Grandmother Comments:heart issues, think s passed in 50's Status:Active Mother Comments:brain tumor, high c holestrol. passed at 79 Status:Active Unknown Family Member Name Dates Details Brother 1 Comments:prostate cancer Status:Active Father Comments:stroke when he was 88 following heart surgery. passed at 90 Status:Active Maternal Grandmother Comments:heart issues, think s passed in 50's Status:Active Mother Comments:brain tumor, high c holestrol. passed at 79 Status:Active Unknown Family Member Name Dates Details Brother 1 Comments:prostate cancer Status:Active Father Comments:stroke when he was 88 following heart surgery. passed at 90 Status:Active Maternal Grandmother Comments:heart issues, think s passed in 50's Status:Active Mother Comments:brain tumor, high c holestrol. passed at 79 Status:Active Unknown Family Member Name Dates Details Brother 1 Comments:prostate cancer Status:Active Father Comments:stroke when he was 88 following heart surgery. passed at 90 Status:Active Maternal Grandmother Comments:heart issues, think s passed in 50's Status:Active Mother Comments:brain tumor, high c holestrol. passed at 79 Status:Active Unknown Family Member Name Dates Details Brother 1 Comments:prostate cancer Status:Active Father Comments:stroke when he was 88 following heart surgery. passed at 90 Status:Active Maternal Grandmother Comments:heart issues, think s passed in 50's Status:Active Mother Comments:brain tumor, high c holestrol. passed at 79 Status:Active Unknown Family Member Name Dates Details Brother 1 Comments:prostate cancer Status:Active Father Comments:stroke when he was 88 following heart surgery. passed at 90 Status:Active Maternal Grandmother Comments:heart issues, think s passed in 50's Status:Active Mother Comments:brain tumor, high c holestrol. passed at 79 Status:Active Unknown Family Member Name Dates Details Brother 1 Comments:prostate cancer Status:Active Father Comments:stroke when he was 88 following heart surgery. passed at 90 Status:Active Maternal Grandmother Comments:heart issues, think s passed in 50's Status:Active Mother Comments:brain tumor, high c holestrol. passed at 79 Status:Active Unknown Family Member Name Dates Details Brother 1 Comments:prostate cancer Status:Active Father Comments:stroke when he was 88 following heart surgery. passed at 90 Status:Active Maternal Grandmother Comments:heart issues, think s passed in 50's Status:Active Mother Comments:brain tumor, high c holestrol. passed at 79 Status:Active Unknown Family Member Name Dates Details Brother 1 Comments:prostate cancer Status:Active Father Comments:stroke when he was 88 following heart surgery. passed at 90 Status:Active Maternal Grandmother Comments:heart issues, think s passed in 50's Status:Active Mother Comments:brain tumor, high c holestrol. passed at 79 Status:Active Unknown Family Member Name Dates Details Brother 1 Comments:prostate cancer Status:Active Father Comments:stroke when he was 88 following heart surgery. passed at 90 Status:Active Maternal Grandmother Comments:heart issues, think s passed in 50's Status:Active Mother Comments:brain tumor, high c holestrol. passed at 79 Status:Active Unknown Family Member Name Dates Details Brother 1 Comments:prostate cancer Status:Active Father Comments:stroke when he was 88 following heart surgery. passed at 90 Status:Active Maternal Grandmother Comments:heart issues, think s passed in 50's Status:Active Mother Comments:brain tumor, high c holestrol. passed at 79 Status:Active Unknown Family Member Name Dates Details Brother 1 Comments:prostate cancer Status:Active Father Comments:stroke when he was 88 following heart surgery. passed at 90 Status:Active Maternal Grandmother Comments:heart issues, think s passed in 50's Status:Active Mother Comments:brain tumor, high c holestrol. passed at 79 Status:Active Unknown Family Member Name Dates Details Brother 1 Comments:prostate cancer Status:Active Father Comments:stroke when he was 88 following heart surgery. passed at 90 Status:Active Maternal Grandmother Comments:heart issues, think s passed in 50's Status:Active Mother Comments:brain tumor, high c holestrol. passed at 79 Status:Active Unknown Family Member Name Dates Details Brother 1 Comments:prostate cancer Status:Active Father Comments:stroke when he was 88 following heart surgery. passed at 90 Status:Active Maternal Grandmother Comments:heart issues, think s passed in 50's Status:Active Mother Comments:brain tumor, high c holestrol. passed at 79 Status:Active Unknown Family Member Name Dates Details Brother 1 Comments:prostate cancer Status:Active Father Comments:stroke when he was 88 following heart surgery. passed at 90 Status:Active Maternal Grandmother Comments:heart issues, think s passed in 50's Status:Active Mother Comments:brain tumor, high c holestrol. passed at 79 Status:Active Unknown Family Member Name Dates Details Brother 1 Comments:prostate cancer Status:Active Father Comments:stroke when he was 88 following heart surgery. passed at 90 Status:Active Maternal Grandmother Comments:heart issues, think s passed in 50's Status:Active Mother Comments:brain tumor, high c holestrol. passed at 79 Status:Active Instructions Name Dates Details Nonsmoker : How to access he alth information online Indication:Nonsmoker Nonsmoker : How to access he alth information online - Detail Indication:Nonsmoker Nonsmoker : Patient Instruct ions Indication:Nonsmoker BMI 32.0-32.9,adult : How to access health information online Indication:BMI 32.0-32.9,adult BMI 32.0-32.9,adult : How to access health information online - Detail Indication:BMI 32.0-32.9,adult BMI 32.0-32.9,adult : Patien t Instructions Indication:BMI 32.0-32.9,adult Name Dates Details Nonsmoker : How to access he alth information online Indication:Nonsmoker Nonsmoker : How to access he alth information online - Detail Indication:Nonsmoker Nonsmoker : Patient Instruct ions Indication:Nonsmoker BMI 32.0-32.9,adult : How to access health information online Indication:BMI 32.0-32.9,adult BMI 32.0-32.9,adult : How to access health information online - Detail Indication:BMI 32.0-32.9,adult BMI 32.0-32.9,adult : Patien t Instructions Indication:BMI 32.0-32.9,adult Name Dates Details How to access health informa tion online Indication:Nonsmoker Start:18-May-2018 Instruction Type:Patient Education How to access health informa tion online - Detail Indication:Nonsmoker Start:18-May-2018 Instruction Type:Patient Education Patient Instructions Indication:Nonsmoker Start:18-May-2018 Instruction Type:Provider Instructions for Treatment How to access health informa tion online Indication:BMI 32.0-32.9,adult Start:05-Jan-2018 Instruction Type:Patient Education How to access health informa tion online - Detail Indication:BMI 32.0-32.9,adult Start:05-Jan-2018 Instruction Type:Patient Education Patient Instructions Indication:BMI 32.0-32.9,adult Start:05-Jan-2018 Instruction Type:Provider Instructions for Treatment Name Dates Details How to access health informa tion online Indication:Osteoporosis Start:07-Nov-2019 Instruction Type:Patient Education How to access health informa tion online - Detail Indication:Osteoporosis Start:07-Nov-2019 Instruction Type:Patient Education Patient Instructions Indication:Osteoporosis Start:07-Nov-2019 Instruction Type:Provider Instructions for Treatment How to access health informa tion online Indication:[facility] Start:07-Sep-2019 Instruction Type:Patient Education How to access health informa tion online - Detail Indication:[facility] Start:07-Sep-2019 Instruction Type:Patient Education Patient Instructions Indication:[facility] Start:07-Sep-2019 Instruction Type:Provider Instructions for Treatment How to access health informa tion online Indication:Nonsmoker Start:18-May-2018 Instruction Type:Patient Education How to access health informa tion online - Detail Indication:Nonsmoker Start:18-May-2018 Instruction Type:Patient Education Patient Instructions Indication:Nonsmoker Start:18-May-2018 Instruction Type:Provider Instructions for Treatment How to access health informa tion online Indication:BMI 32.0-32.9,adult Start:05-Jan-2018 Instruction Type:Patient Education How to access health informa tion online - Detail Indication:BMI 32.0-32.9,adult Start:05-Jan-2018 Instruction Type:Patient Education Patient Instructions Indication:BMI 32.0-32.9,adult Start:05-Jan-2018 Instruction Type:Provider Instructions for Treatment Name Dates Details How to access health informa tion online Indication:Osteoporosis Start:07-Nov-2019 Instruction Type:Patient Education How to access health informa tion online - Detail Indication:Osteoporosis Start:07-Nov-2019 Instruction Type:Patient Education Patient Instructions Indication:Osteoporosis Start:07-Nov-2019 Instruction Type:Provider Instructions for Treatment How to access health informa tion online Indication:[facility] Start:07-Sep-2019 Instruction Type:Patient Education How to access health informa tion online - Detail Indication:[facility] Start:07-Sep-2019 Instruction Type:Patient Education Patient Instructions Indication:[facility] Start:07-Sep-2019 Instruction Type:Provider Instructions for Treatment How to access health informa tion online Indication:Nonsmoker Start:18-May-2018 Instruction Type:Patient Education How to access health informa tion online - Detail Indication:Nonsmoker Start:18-May-2018 Instruction Type:Patient Education Patient Instructions Indication:Nonsmoker Start:18-May-2018 Instruction Type:Provider Instructions for Treatment How to access health informa tion online Indication:BMI 32.0-32.9,adult Start:05-Jan-2018 Instruction Type:Patient Education How to access health informa tion online - Detail Indication:BMI 32.0-32.9,adult Start:05-Jan-2018 Instruction Type:Patient Education Patient Instructions Indication:BMI 32.0-32.9,adult Start:05-Jan-2018 Instruction Type:Provider Instructions for Treatment Name Dates Details How to access health informa tion online Indication:Osteoporosis Start:07-Nov-2019 Instruction Type:Patient Education How to access health informa tion online - Detail Indication:Osteoporosis Start:07-Nov-2019 Instruction Type:Patient Education Patient Instructions Indication:Osteoporosis Start:07-Nov-2019 Instruction Type:Provider Instructions for Treatment How to access health informa tion online Indication:[facility] Start:07-Sep-2019 Instruction Type:Patient Education How to access health informa tion online - Detail Indication:[facility] Start:07-Sep-2019 Instruction Type:Patient Education Patient Instructions Indication:[facility] Start:07-Sep-2019 Instruction Type:Provider Instructions for Treatment How to access health informa tion online Indication:Nonsmoker Start:18-May-2018 Instruction Type:Patient Education How to access health informa tion online - Detail Indication:Nonsmoker Start:18-May-2018 Instruction Type:Patient Education Patient Instructions Indication:Nonsmoker Start:18-May-2018 Instruction Type:Provider Instructions for Treatment How to access health informa tion online Indication:BMI 32.0-32.9,adult Start:05-Jan-2018 Instruction Type:Patient Education How to access health informa tion online - Detail Indication:BMI 32.0-32.9,adult Start:05-Jan-2018 Instruction Type:Patient Education Patient Instructions Indication:BMI 32.0-32.9,adult Start:05-Jan-2018 Instruction Type:Provider Instructions for Treatment Name Dates Details How to access health informa tion online Indication:Osteoporosis Start:07-Nov-2019 Instruction Type:Patient Education How to access health informa tion online - Detail Indication:Osteoporosis Start:07-Nov-2019 Instruction Type:Patient Education Patient Instructions Indication:Osteoporosis Start:07-Nov-2019 Instruction Type:Provider Instructions for Treatment How to access health informa tion online Indication:[facility] Start:07-Sep-2019 Instruction Type:Patient Education How to access health informa tion online - Detail Indication:[facility] Start:07-Sep-2019 Instruction Type:Patient Education Patient Instructions Indication:[facility] Start:07-Sep-2019 Instruction Type:Provider Instructions for Treatment How to access health informa tion online Indication:Nonsmoker Start:18-May-2018 Instruction Type:Patient Education How to access health informa tion online - Detail Indication:Nonsmoker Start:18-May-2018 Instruction Type:Patient Education Patient Instructions Indication:Nonsmoker Start:18-May-2018 Instruction Type:Provider Instructions for Treatment How to access health informa tion online Indication:BMI 32.0-32.9,adult Start:05-Jan-2018 Instruction Type:Patient Education How to access health informa tion online - Detail Indication:BMI 32.0-32.9,adult Start:05-Jan-2018 Instruction Type:Patient Education Patient Instructions Indication:BMI 32.0-32.9,adult Start:05-Jan-2018 Instruction Type:Provider Instructions for Treatment Name Dates Details How to access health informa tion online Indication:Nonsmoker Start:18-May-2018 Instruction Type:Patient Education How to access health informa tion online - Detail Indication:Nonsmoker Start:18-May-2018 Instruction Type:Patient Education Patient Instructions Indication:Nonsmoker Start:18-May-2018 Instruction Type:Provider Instructions for Treatment How to access health informa tion online Indication:BMI 32.0-32.9,adult Start:05-Jan-2018 Instruction Type:Patient Education How to access health informa tion online - Detail Indication:BMI 32.0-32.9,adult Start:05-Jan-2018 Instruction Type:Patient Education Patient Instructions Indication:BMI 32.0-32.9,adult Start:05-Jan-2018 Instruction Type:Provider Instructions for Treatment Name Dates Details Patient Instructions Indication:[facility] Start:19-Nov-2020 Instruction Type:Provider Instructions for Treatment How to Access Health Informa tion Online using Patient Portal and [employer]rd [employer] Apps Indication:[facility] Start:19-Nov-2020 Instruction Type:Patient Education How to access health informa tion online Indication:Osteoporosis Start:07-Nov-2019 Instruction Type:Patient Education How to access health informa tion online - Detail Indication:Osteoporosis Start:07-Nov-2019 Instruction Type:Patient Education Patient Instructions Indication:Osteoporosis Start:07-Nov-2019 Instruction Type:Provider Instructions for Treatment How to access health informa tion online Indication:[facility] Start:07-Sep-2019 Instruction Type:Patient Education How to access health informa tion online - Detail Indication:[facility] Start:07-Sep-2019 Instruction Type:Patient Education Patient Instructions Indication:[facility] Start:07-Sep-2019 Instruction Type:Provider Instructions for Treatment How to access health informa tion online Indication:Nonsmoker Start:18-May-2018 Instruction Type:Patient Education How to access health informa tion online - Detail Indication:Nonsmoker Start:18-May-2018 Instruction Type:Patient Education Patient Instructions Indication:Nonsmoker Start:18-May-2018 Instruction Type:Provider Instructions for Treatment How to access health informa tion online Indication:BMI 32.0-32.9,adult Start:05-Jan-2018 Instruction Type:Patient Education How to access health informa tion online - Detail Indication:BMI 32.0-32.9,adult Start:05-Jan-2018 Instruction Type:Patient Education Patient Instructions Indication:BMI 32.0-32.9,adult Start:05-Jan-2018 Instruction Type:Provider Instructions for Treatment Name Dates Details Patient Instructions Indication:[facility] Start:19-Nov-2020 Instruction Type:Provider Instructions for Treatment How to Access Health Informa tion Online using Patient Portal and [employer] Apps Indication:[facility] Start:19-Nov-2020 Instruction Type:Patient Education How to access health informa tion online Indication:Osteoporosis Start:07-Nov-2019 Instruction Type:Patient Education How to access health informa tion online - Detail Indication:Osteoporosis Start:07-Nov-2019 Instruction Type:Patient Education Patient Instructions Indication:Osteoporosis Start:07-Nov-2019 Instruction Type:Provider Instructions for Treatment How to access health informa tion online Indication:[facility] Start:07-Sep-2019 Instruction Type:Patient Education How to access health informa tion online - Detail Indication:[facility] Start:07-Sep-2019 Instruction Type:Patient Education Patient Instructions Indication:[facility] Start:07-Sep-2019 Instruction Type:Provider Instructions for Treatment How to access health informa tion online Indication:Nonsmoker Start:18-May-2018 Instruction Type:Patient Education How to access health informa tion online - Detail Indication:Nonsmoker Start:18-May-2018 Instruction Type:Patient Education Patient Instructions Indication:Nonsmoker Start:18-May-2018 Instruction Type:Provider Instructions for Treatment How to access health informa tion online Indication:BMI 32.0-32.9,adult Start:05-Jan-2018 Instruction Type:Patient Education How to access health informa tion online - Detail Indication:BMI 32.0-32.9,adult Start:05-Jan-2018 Instruction Type:Patient Education Patient Instructions Indication:BMI 32.0-32.9,adult Start:05-Jan-2018 Instruction Type:Provider Instructions for Treatment Name Dates Details How to access health informa tion online Indication:Osteoporosis Start:07-Nov-2019 Instruction Type:Patient Education How to access health informa tion online - Detail Indication:Osteoporosis Start:07-Nov-2019 Instruction Type:Patient Education Patient Instructions Indication:Osteoporosis Start:07-Nov-2019 Instruction Type:Provider Instructions for Treatment How to access health informa tion online Indication:[facility] Start:07-Sep-2019 Instruction Type:Patient Education How to access health informa tion online - Detail Indication:[facility] Start:07-Sep-2019 Instruction Type:Patient Education Patient Instructions Indication:[facility] Start:07-Sep-2019 Instruction Type:Provider Instructions for Treatment How to access health informa tion online Indication:Nonsmoker Start:18-May-2018 Instruction Type:Patient Education How to access health informa tion online - Detail Indication:Nonsmoker Start:18-May-2018 Instruction Type:Patient Education Patient Instructions Indication:Nonsmoker Start:18-May-2018 Instruction Type:Provider Instructions for Treatment How to access health informa tion online Indication:BMI 32.0-32.9,adult Start:05-Jan-2018 Instruction Type:Patient Education How to access health informa tion online - Detail Indication:BMI 32.0-32.9,adult Start:05-Jan-2018 Instruction Type:Patient Education Patient Instructions Indication:BMI 32.0-32.9,adult Start:05-Jan-2018 Instruction Type:Provider Instructions for Treatment Advance Directives Name Dates Details Immunization Registry [place] - Effective on 01/06/2018. Expiration date unspecified Effective:06-Jan-2018 Name Dates Details Immunization Registry [place] - Effective on 01/06/2018. Expiration date unspecified Effective:06-Jan-2018 Name Dates Details Immunization Registry [place] - Effective on 01/06/2018. Expiration date unspecified Effective:06-Jan-2018 Name Dates Details Immunization Registry [place] - Effective on 01/06/2018. Expiration date unspecified Effective:06-Jan-2018 Name Dates Details Immunization Registry [place] - Effective on 01/06/2018. Expiration date unspecified Effective:06-Jan-2018 Name Dates Details Immunization Registry [place] - Effective on 01/06/2018. Expiration date unspecified Effective:06-Jan-2018 Name Dates Details Immunization Registry [place] - Effective on 01/06/2018. Expiration date unspecified Effective:06-Jan-2018 Name Dates Details Immunization Registry [place] - Effective on 01/06/2018. Expiration date unspecified Effective:06-Jan-2018 Name Dates Details Immunization Registry [place] - Effective on 01/06/2018. Expiration date unspecified Effective:06-Jan-2018 Name Dates Details Immunization Registry [place] - Effective on 01/06/2018. Expiration date unspecified Effective:06-Jan-2018 Name Dates Details Immunization Registry [place] - Effective on 01/06/2018. Expiration date unspecified Effective:06-Jan-2018 Name Dates Details Immunization Registry [place] - Effective on 01/06/2018. Expiration date unspecified Effective:06-Jan-2018 Name Dates Details Immunization Registry [place] - Effective on 01/06/2018. Expiration date unspecified Effective:06-Jan-2018 Name Dates Details Immunization Registry [place] - Effective on 01/06/2018. Expiration date unspecified Effective:06-Jan-2018 Name Dates Details Immunization Registry [place] - Effective on 01/06/2018. Expiration date unspecified Effective:06-Jan-2018 Name Dates Details Immunization Registry [place] - Effective on 01/06/2018. Expiration date unspecified Effective:06-Jan-2018 Name Dates Details Immunization Registry [place] [facility] - Effective on 01/06/2018. Expiration date unspecified Effective:06-Jan-2018 Name Dates Details Immunization Registry [place] - Effective on 01/06/2018. Expiration date unspecified Effective:06-Jan-2018 Name Dates Details Immunization Registry [place] - Effective on 01/06/2018. Expiration date unspecified Effective:06-Jan-2018 Name Dates Details Immunization Registry [place] - Effective on 01/06/2018. Expiration date unspecified Effective:06-Jan-2018 Name Dates Details Immunization Registry [place] - Effective on 01/06/2018. Expiration date unspecified Effective:06-Jan-2018 Name Dates Details Immunization Registry [place] - Effective on 01/06/2018. Expiration date unspecified Effective:06-Jan-2018 Name Dates Details Immunization Registry [place] - Effective on 01/06/2018. Expiration date unspecified Effective:06-Jan-2018 Name Dates Details Immunization Registry [place] - Effective on 01/06/2018. Expiration date unspecified Effective:06-Jan-2018 Summary Purpose Reason for Referral Specialty Diagnoses / Procedures Referred By Contac t Referred To Contact Physical Therapy Diagnoses Osteoporosis of lumbar spine Procedures MO OFFICE/OUTPATIENT NEW HIGH MDM 60-74 MINUTES Meghana Baker, PUSHER OPERATOR - WEIGHT TESTER [address] [address] Referral ID Status Reason Start Date Expiration Date Visits Requested Visits Authorized [id number] Authorized Eval and Treat 12/18/2022 06/16/2023 99 99 Additional Source Comments INFORMATION SOURCE (unrecogn ized section and content) DATE CREATED AUTHOR AUTHOR'S ORGANIZ ATION 02/16/2023 [facility] Reason for Visit (unrecogniz ed section and content) Reason Comments PT Re-evaluation Specialty Diagnoses / Procedures Referred By Contac t Referred To Contact Physical Therapy Diagnoses Osteoporosis of lumbar spine Procedures MO OFFICE/OUTPATIENT NEW HIGH MDM 60-74 MINUTES Meghana Baker, PUSHER OPERATOR - WEIGHT TESTER [address] [address] [facility] [address] [address] Referral ID Status Reason Start Date Expiration Date Visits Requested Visits Authorized [id number] Authorized Eval and Treat 12/18/2022 06/16/2023 10 10 Care Teams (unrecognized sec tion and content) Garment Sorter Relationship Specialty Start Date End Date Elizabeth Demarco DO [address] [place] [address] PCP - General Internal Medicine 12/17/22 Garment Sorter Relationship Specialty Start Date End Date Elizabeth Demarco DO [address] [place] [address] PCP - General Internal Medicine 12/17/22 Garment Sorter Relationship Specialty Start Date End Date Elizabeth Demarco DO [address] [place] [address] PCP - General Internal Medicine 12/17/22 FOR RECORDS PERTAINING TO PATIENTS WHO ARE OR HAVE BEEN ENROLLED IN A CHEMICAL DEPENDENCY/SUBSTANCEABUSE PROGRAM, SOME INFORMATION MAY BE OMITTED. This clinical summary was aggregated from multiple sources. Caution should be exercised in using it in the provision of clinical care. This summary normalizes information from multiple sources, and as a consequence, information in this document may materially change the coding, format and clinical context of patient data. In addition, data may be omitted in some cases. CLINICAL DECISIONS SHOULD BE BASED ON THE PRIMARY CLINICAL RECORDS. [employer] [facility] provides no warranty or guarantee of the accuracy or completeness of information in this document.
[2023-12-25 16:09] LABS: HPV APTIMA, High Risk Negative (Negative)
== END | disposition home or self-care (01) ==
LOC: LABSPEC 11:52
PROVIDERS: PCP Internal Medicine; Referring Provider Nurse Practitioner Women's Health; Visit Provider Nurse Practitioner Women's Health
DX: Z12.4 Encounter for screening for malignant neoplasm of cervix (principal)
CPT/HCPCS: 87624; 88175; G0145

== ENCOUNTER 2024-08-19 09:21 | Emergency (ER) | payer MEDICARE, BC, SELFPAY ==
[2024-08-19 09:22] VITALS: BP 151/79; PULSE 69; RESP 18; TEMP 36.6; O2SAT 99; BMI 33.6
--- NOTE | 2024-08-19 09:42 | EX.ED.DYSGE1 ---
HPI History of Present Illness Chief Complaint: Chest Pain Narrative Narrative: Patient is a 60-year-old female who is presenting to the ER today with chief complaint of chest pain, abdominal pain, discomfort in bilateral axilla and intermittent paresthesias to bilateral arms. Patient states that around 8 or 9:00 last night, she started having midepigastric discomfort. Patient took 2 Rolaids with no relief. Patient just recently traveled from [place] back and returned on Thursday. They went to [place] on , they were making frequent stops every 2-3 hours. No history of blood clots. Patient has no shortness of breath at rest or with exertion. No chest heaviness, achiness, tightness. Patient states there is a fullness and swelling to bilateral chest wall, also mild bloating and distention to abdomen. Patient says that she have a normal flatulence along with had normal soft stool this morning as well. No vomiting but mild nausea present at this time. [facility] Medical History (Updated 08/19/24 @ 13:[address] Dylan Caldwell, DO) High cholesterol Home Medications ?Medication ?Instructions ?Recorded ?Last Taken ?Type alendronate 70 mg tablet 70 mg PO QWEEK 12/21/23 Unknown History ascorbic acid (vitamin C) 1,000 mg 1 g PO Q6H 12/21/23 Unknown History capsule aspirin 81 mg tablet,delayed 81 mg PO DAILY 12/21/23 Unknown History release (Adult Low Dose Aspirin) calcium 260 mg (phos,tribasic)-D3 tab PO 12/21/23 Unknown History 25 mcg-herbal 50 mg chewable tablet (Alive Calcium-Vitamin D3) calcium 600 mg (as carbonate)-vit 1 tab PO DAILY 12/21/23 Unknown History D3 20 mcg (800 unit) chewable tablet (Caltrate plus D) cholecalciferol (vitamin D3) 125 125 mcg PO DAILY 12/21/23 Unknown History mcg (5,000 unit) capsule coQ10 (ubiquinol) 100 mg capsule 100 mg PO BID 12/21/23 Unknown History (Qunol Uriel CoQ10) multivitamin 1 tab PO DAILY 12/21/23 Unknown History omega-3 fatty acids 1,250 mg 1,250 mg PO DAILY 12/21/23 Unknown History capsule (Super Twin EPA-DHA) phytonadione (vitamin K1) 5 mg 5 mg PO DAILY 12/21/23 Unknown History tablet rosuvastatin 10 mg tablet 10 mg PO DAILY 12/21/23 Unknown History turmeric (bulk) 95 % powder ea miscellaneous 12/21/23 Unknown History (Curcumin) zinc gluconate 30 mg tablet 30 mg PO DAILY 12/21/23 Unknown History dicyclomine 10 mg capsule 20 mg (2 x 10 mg) PO TIDAC #20 08/19/24 Unknown Rx CAPSULES ondansetron 4 mg disintegrating 4 mg PO Q8H PRN PRN Nausea #10 tabs 08/19/24 Unknown Rx tablet Allergy/AdvReac Type Severity Reaction Status Date / Time No Known Allergies Allergy Verified 08/19/24 09:25 Family History Mother Brain tumor Social History household members: spouse current occupational status: retired 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 current occupational exposures/hazards: No pets and animals: Yes pets and animals: cat(s) history of recent travel: Yes details: [facility] - November out of country: Yes sexually active: Yes Smoking Status: Never smoker alcohol intake: current alcohol intake frequency: holidays/special occasions only substance use type: does not use caffeine: Yes Type: coffee eating out: 1-3 times/week during the past year weight has: remained stable what type of physical activity do you participate in: walking and bicycling frequency: 5-6 times per week duration: 45-60 minutes/day seatbelt use: always do you feel safe at home: Yes additional social history: : [employer] - 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 EXAM Physical Exam Narrative Exam Narrative: Vital signs reviewed and patient is not hypoxic. General: The patient appears well and in no apparent distress. Patient is resting comfortably on cart. Not toxic, lethargic, or listless. is at bedside. Skin: Warm, dry, no pallor noted. There is no rash noted. Head: Normocephalic, atraumatic Eye: Normal conjunctiva, no drainage, EOMI. PERRL. Ears, Nose, Mouth, and Throat: oral mucosa is moist. Nares patent. Mouth without vesicles. Cardiovascular: Regular Rate and Rhythm, no murmurs, gallops, or rubs, patient has mild discomfort with palpation to bilateral chest wall, no severe pain, no rash noted. Respiratory: Patient is in no distress, no accessory muscle use, lungs are clear to auscultation, no wheezing, rales or rhonchi Back: non-tender, no CVA tenderness bilaterally to percussion. NO CTLS midline or paraspinal tenderness to palpation. GI: Soft, no tenderness to palpation, no masses appreciated. No rebound, guarding, or rigidity noted. Midepigastric tenderness to palpation mild, no peritoneal signs, no rash. No suprapubic tenderness palpation. Musculoskeletal: The patient has full range of motion of all extremities and joints with no difficulty. Patient has no motor, no sensory deficits. Neurological: A&O x4, normal speech, no focal neurological deficits. Psychiatric: Cooperative Const Vital Signs: 08/19/24 09:22 08/19/24 10:24 08/19/24 10:24 Temperature 98 F Temperature Source Temporal Pulse Rate 69 Respiratory Rate 18 Respiratory Effort Normal Non-Labored Blood Pressure 151/79 H Blood Pressure Mean 103 Pulse Ox 99 95 Oxygen Delivery Method Room Air Room Air 08/19/24 11:21 Temperature Temperature Source Pulse Rate 70 Respiratory Rate Respiratory Effort Blood Pressure 128/67 H Blood Pressure Mean 87 Pulse Ox Oxygen Delivery Method MDM MDM MDM Narrative Medical decision making narrative: Patient abdominal x-ray and chest x-ray shows no acute cardiopulmonary disease, no infiltrate, no effusion, abdominal x-ray shows no significant finding besides a feces filled colon. a copy of the XRAY report was given to the patient. Troponin, lab work, electrolytes, kidney function, and other testing shows no significant findings. did ask about elevation of neutrophils and absolute neutrophils. Elevation neutrophils were discussed, acute reactant phase was discussed, and if patient has any intractable chest pain or abdominal pain, nausea, vomiting, fever, or any other acute concerns in her symptoms significant worsen next 1 to 2 days patient was told to return back to the ER. Patient and understand this. Patient will use MiraLAX twice a day along with 1 or 2 bottles of magnesium citrate for the next 2 days. Patient will follow-up with PCP. No questions at discharge. Patient does have peace of mind, feels somewhat better at discharge. Patient has a nonsurgical abdomen at discharge. Abdomen is soft, no peritoneal signs, no guarding, rebound, rigidity. Lab Data Attestation: I reviewed the patient's lab results. Lab results narrative: Increase in absolute neutrophils and neutrophils were discussed at bedside with patient and . Labs: Laboratory Results - last 24 hr 08/19/24 08/19/24 10:20 12:25 WBC 12.4 H RBC 5.50 H Hgb 14.7 Hct 45.9 MCV 83.5 MCH 26.7 L MCHC 32.0 RDW Std Deviation 40.8 RDW Coeff of Lester 13.4 Plt Count 209 MPV 10.5 Immature Gran % (Auto) 0.400 Neut % (Auto) 83.5 H Lymph % (Auto) 7.7 L Pike % (Auto) 8.0 Eos % (Auto) 0.2 Baso % (Auto) 0.2 Absolute Neuts (auto) 10.3 H Absolute Lymphs (auto) 0.95 Nucleated RBC % 0 Sodium 136 Potassium 3.8 Chloride 104 Carbon Dioxide 28.0 Anion Gap 4 L BUN 13 Creatinine 0.63 Estim Creat Clear Calc 70.01 Est GFR (MDRD) Af Amer 120 Est GFR (MDRD) Non-Af 99 BUN/Creatinine Ratio 20.5 H Glucose 123 H Calcium 10.3 H Magnesium 2.0 Troponin I High Sens 4 4 Lipase 73 Radiography Chest X-Ray - ED: Read by ED Physician (Abdominal series shows no acute cardiopulmonary disease, no infiltrate, no effusion, no air-fluid levels, no obstruction, fecal stool burden significant.) Diagnostic Testing: Clinical Impression(s) from Imaging Studies Acute Abdomen Series 08/19/24 10:30 IMPRESSION: Large amount of fecal material is seen in the colon. Electronically Signed: Ulysses Gonzalez MD at 11:11 EDT , EKG Initial EKG: Attestation: I personally reviewed and interpreted this EKG as follows: (EKG interpretation. Normal sinus rhythm at 73 beats a minute. Left axis deviation. No acute ST elevation, no acute ectopy. QTc of 4299) Discharge Plan Triage Chief Complaint: Chest Pain ED Provider: Dylan Caldwell Dx/Rx/DC Orders Clinical Impression: Chest discomfort, Abdominal pain, Constipation Instructions: Abdominal Pain, ED Abdominal Pain Unkn Cause Fem, ED Constipation (Adult), ED Chest Pain, Uncertain Cause, ED Pain, Acute, Uncertain Cause Prescriptions: New ondansetron 4 mg tablet,disintegrating 4 mg PO Q8H PRN PRN (Reason: Nausea) Qty: 10 0RF dicyclomine 10 mg capsule 20 mg PO TIDAC Qty: 20 0RF No Action rosuvastatin 10 mg tablet 10 mg PO DAILY aspirin [Adult Low Dose Aspirin] 81 mg tablet,delayed release (DR/EC) 81 mg PO DAILY Caltrate 600 plus D 600 mg-20 mcg (800 unit) tablet,chewable 1 tab PO DAILY coQ10 (ubiquinol) [Qunol Uriel CoQ10] 100 mg capsule 100 mg PO BID cholecalciferol (vitamin D3) 125 mcg (5,000 unit) capsule 125 mcg PO DAILY zinc gluconate 30 mg tablet 30 mg PO DAILY phytonadione (vitamin K1) 5 mg tablet 5 mg PO DAILY Curcumin 95 % powder miscellaneous ascorbic acid (vitamin C) 1,000 mg capsule 1 g PO Q6H Super Twin EPA-DHA 1,250 mg capsule 1,250 mg PO DAILY multivitamin Tablet 1 tab PO DAILY Alive Calcium-Vitamin D3 260 mg calcium- 25 mcg-50 mg tablet,chewable PO alendronate 70 mg tablet 70 mg PO QWEEK Primary Care Provider: Elizabeth Demarco Referrals: Elizabeth Demarco DO [Primary Care Provider] - Activity Restrictions/Additional Instructions: Use MiraLAX twice a day for the next 2 or 3 days, use 1 or 2 bottles of magnesium citrate today and tomorrow to help with stool production. Use Zofran as needed for nausea, Bentyl as needed for abdominal cramping, increase water, Gatorade, Powerade, prune juice and apple juice. Print Language: Austrian Disposition Disposition: Home, Self Care
--- NOTE | 2024-08-19 10:02 | EKG12_ITS ---
Test Reason : Blood Pressure : */* mmHG Vent. Rate : 73 BPM Atrial Rate : 73 BPM P-R Int : 194 ms QRS Dur : 84 ms QT Int : 390 ms P-R-T Axes : 51 -24 23 degrees QTcB Int : 429 ms Normal sinus rhythm Moderate voltage criteria for LVH, may be normal variant ( R in aVL , Homero product ) Borderline ECG Confirmed by PEREZ PACHECO, JAMESON ([id number]), advertising editor ALTAF RATLIFF ([id number]) on 08/22/2024 9:33:23 AM Referred By: Confirmed By: JAMESON TODD MD
[2024-08-19] MEDS: Aspirin 81 MG TAB.CHEW 324 MG PO (10:16)
[2024-08-19 10:24] VITALS: O2SAT 95
--- NOTE | 2024-08-19 10:30 | RAD_ITS ---
STUDY: X-RAY - ACUTE ABDOMINAL SERIES REASON FOR EXAM: Female, 68 years old. Chest pain midepi pain TECHNIQUE: Single view of the chest. Supine, and erect view(s) of the abdomen were obtained. COMPARISON: None. FINDINGS: The lungs are clear and expanded. Scattered calcified granulomas. Normal size heart. Normal mediastinum and laisha. Normal visualized pulmonary arteries. Normal visualized aortic arch and descending thoracic aorta. There is an abundance of fecal material throughout the colon. Calcified phleboliths are seen within the pelvis. Mild degree of bilateral hips osteoarthritis. RAD/Acute Abdomen Inc Chest IMPRESSION: Large amount of fecal material is seen in the colon. Electronically Signed: Ulysses Gonzalez MD at 11:11 EDT ,
[2024-08-19 10:31] LABS: Absolute Lymphocyte Count 0.95 X10^3/uL (0.83-4.51); Absolute Neutrophil Count 10.3 X10^3/uL (2.0-7.7); Basophil# 0.03 X10^3/uL; Basophil% 0.2 % (0-1); Eosinophil# 0.02 X10^3/uL; Eosinophils% 0.2 % (0-5); Hematocrit 45.9 % (37-47); Hemoglobin 14.7 g/dL (12.0-15.0); Lymphocyte # 0.95 X10^3/ul (0.83-4.51); Lymphocyte % 7.7 % (19-41); Mean Corpuscular Hgb 26.7 pg (27.0-32.0); Mean Corpuscular Volume 83.5 fL (81-99); Mean Platelet Vol. 10.5 fl (6.2-12.0); Monocyte# 0.99 X10^3/uL; NRBC Flagged by Analyzer 0 % (0-5); Neutrophil # 10.34 X10^3/uL (2.7-7.7); Neutrophil % 83.5 % (47-70); Platelet Count 209 K/mm3 (150-450); RBC Distribution Width CV 13.4 % (11.6-14.6); RBC Distribution Width SD 40.8 fl (35.1-43.9); White Blood Count 12.4 K/mm3 (4.4-11.0)
[2024-08-19 10:43] LABS: Anion Gap 4 (5-15); BUN 13 mg/dL (7-18); BUN/Creat Ratio 20.5 RATIO (10-20); Calcium,Total 10.3 mg/dL (8.5-10.1); Chloride 104 mmol/L (98-107); Creatinine, Serum 0.63 mg/dL (0.55-1.02); EST Glomerular Filtration Rate 99 mL/min (>60); Est Glom Filt Rate - Afr Amer 120 mL/min (>60); Estimated Creatinine Clearance 70.01 ml/min; Glucose 123 mg/dL (74-106); Lipase 73 U/L (13-75); Potassium 3.8 mmol/L (3.5-5.1); Sodium Level 136 mmol/L (136-145); Troponin-I HS (w/2H Reflex) 4 pg/mL (3.0-54.0)
[2024-08-19 11:21] VITALS: BP 128/67; PULSE 70
[2024-08-19 12:22] LABS: Reflex Troponin-HS? (from REC) Y
[2024-08-19 12:51] LABS: Troponin-I HS 4 pg/mL (3.0-54.0)
[2024-08-19 13:00] VITALS: BP 128/74; PULSE 69; O2SAT 99
[2024-08-19 13:30] VITALS: BP 128/74; PULSE 69; RESP 18; TEMP 36.1; O2SAT 99
== END 2024-08-19 13:34 | disposition home or self-care (01) ==
PROVIDERS: Emergency Provider Emergency Medicine; PCP Internal Medicine; Visit Provider Emergency Medicine
DX: R07.89 Other chest pain (principal); R10.9 Unspecified abdominal pain; K59.00 Constipation, unspecified; R11.0 Nausea; E78.00 Pure hypercholesterolemia, unspecified
CPT/HCPCS: 74022; 80048; 83690; 83735; 84484; 85025; 93005; 99285; A4216

== ENCOUNTER → 2024-09-13 | Outpatient (CLI) | payer MEDICARE, BC, SELFPAY ==
--- NOTE | 2024-09-13 08:13 | BI_ITS ---
MAMMOGRAPHY - BILATERAL SCREENING 3-D TOMOSYNTHESIS REASON FOR EXAM: Female, 69 years old. screening PERTINENT HISTORY: No significant family history. TECHNIQUE: 2-D mammograms and 3-D Tomosynthesis of the breast (s) were performed. CAD was performed. COMPARISON: 08/20/2023 FINDINGS: The breast composition is composed of scattered fibroglandular density. Scattered benign calcifications are seen. No dense spiculated masses or suspicious microcalcifications are identified. No architectural distortion is identified. There is no skin thickening or retraction. There has been no significant change since the prior study. BI/SCRN MAMM (CAD)W/ROBERTO BILAT IMPRESSION: No mammographic signs of malignancy. Routine yearly mammograms recommended. ASSESSMENT CATEGORY: BIRADS Category 1: Negative. A letter regarding these results will be sent to the patient by the facility within 30 days. FOLLOW UP RECOMMENDATION: Yearly follow up mammogram recommended. (A) Approximately 10% of breast cancers are not detected by mammography. A normal mammogram should not delay biopsy of a clinically suspicious abnormality. Electronically Signed: Nxion Gregory MD at 15:38 EST ,
[2024-09-13 09:50] LABS: Red Blood Cells-Urine 0 SEEN /hpf (0-5); Squamous Epithelial Cells - UA 0 SEEN /hpf (5-10)
[2024-09-13 09:52] LABS: Color, Urine Yellow (Yellow); Glucose, Dipstick Normal (Normal); Ketone-Dipstick Negative (Negative); Leukocyte Esterase-Dipstick 25 /ul (Negative); Nitrite-Dipstick Negative (Negative); Occult Blood-Urine Negative /ul (Negative); Protein-Dipstick 15 mg/dl (Negative); Urine Bilirubin Dipstick Negative (Negative); Urine Clarity Clear (Clear); Urine Urobilinogen Normal (Normal)
[2024-09-13 09:55] LABS: Absolute Lymphocyte Count 1.15 X10^3/uL (0.83-4.51); Absolute Neutrophil Count 2.5 X10^3/uL (2.0-7.7); Basophil# 0.04 X10^3/uL; Basophil% 0.9 % (0-1); Eosinophil# 0.28 X10^3/uL; Eosinophils% 6.3 % (0-5); Hematocrit 43.1 % (37-47); Hemoglobin 13.6 g/dL (12.0-15.0); Lymphocyte # 1.15 X10^3/ul (0.83-4.51); Lymphocyte % 25.7 % (19-41); Mean Corp Hgb Conc 31.6 g/dL (32-36); Mean Corpuscular Hgb 26.6 pg (27.0-32.0); Mean Corpuscular Volume 84.2 fL (81-99); Mean Platelet Vol. 10.3 fl (6.2-12.0); Monocyte# 0.45 X10^3/uL; Monocyte% 10.1 % (0-10); NRBC Flagged by Analyzer 0 % (0-5); Neutrophil # 2.53 X10^3/uL (2.7-7.7); Neutrophil % 56.6 % (47-70); Platelet Count 227 K/mm3 (150-450); RBC Distribution Width CV 13.2 % (11.6-14.6); RBC Distribution Width SD 40.8 fl (35.1-43.9); Red Blood Count 5.12 M/mm3 (4.2-5.4); White Blood Count 4.5 K/mm3 (4.4-11.0)
[2024-09-13 10:03] LABS: Bacteria RARE /hpf (None Seen); Mucous, Urine 1+ /hpf (<or=2+); White Blood Cells 0-5 SEEN /hpf (0-5)
[2024-09-13 10:06] LABS: ALB/GLOB Ratio 1.2 RATIO (0.9-2.4); AST(SGOT) 70 U/L (15-37); Alanine Aminotransfer ALT/SGPT 126 U/L (13-56); Albumin, Serum 3.8 g/dL (3.2-5.0); Alkaline Phosphatase 124 U/L (45-117); Anion Gap 3 (5-15); BUN 14 mg/dL (7-18); BUN/Creat Ratio 19.1 RATIO (10-20); Calcium,Total 9.4 mg/dL (8.5-10.1); Chloride 109 mmol/L (98-107); Creatinine, Serum 0.73 mg/dL (0.55-1.02); EST Glomerular Filtration Rate 84 mL/min (>60); Est Glom Filt Rate - Afr Amer 101 mL/min (>60); Globulin 3.3 g/dL (2.2-4.2); Glucose 97 mg/dL (74-106); Potassium 4.1 mmol/L (3.5-5.1); Protein, Total 7.1 g/dL (6.4-8.2); Sodium Level 142 mmol/L (136-145)
== END | disposition home or self-care (01) ==
LOC: OPBI 08:13 → LAB 09:46 → LABSPEC 09:52
PROVIDERS: PCP Internal Medicine; Referring Provider Internal Medicine; Visit Provider Internal Medicine
DX: Z12.31 Encounter for screening mammogram for malignant neoplasm of breast (principal); E78.00 Pure hypercholesterolemia, unspecified
CPT/HCPCS: 77063; 77067; 80053; 81001; 85025

== ENCOUNTER → 2024-09-20 | Outpatient (CLI) | payer MEDICARE, BC, SELFPAY ==
[2024-09-20 12:44] LABS: Red Blood Cells-Urine 0 SEEN /hpf (0-5)
[2024-09-20 12:58] LABS: Color, Urine Yellow (Yellow); Glucose, Dipstick Normal (Normal); Ketone-Dipstick Negative (Negative); Leukocyte Esterase-Dipstick 100 /ul (Negative); Nitrite-Dipstick Negative (Negative); Occult Blood-Urine Negative /ul (Negative); Protein-Dipstick Negative (Negative); Specific Gravity, Urine 1.015 (1.002-1.030); Urine Bilirubin Dipstick Negative (Negative); Urine Clarity Clear (Clear); Urine Urobilinogen Normal (Normal)
[2024-09-20 13:03] LABS: Mucous, Urine 2+ /hpf (<or=2+); Squamous Epithelial Cells - UA 0-5 SEEN /hpf (5-10)
[2024-09-20 13:04] LABS: Bacteria 1+ /hpf (None Seen); White Blood Cells 10-25 SEEN /hpf (0-5)
[2024-09-20 13:05] LABS: AST(SGOT) 18 U/L (15-37); Alanine Aminotransfer ALT/SGPT 40 U/L (13-56); Albumin, Serum 4.1 g/dL (3.2-5.0); Alkaline Phosphatase 100 U/L (45-117); Bilirubin, Direct 0.11 mg/dL (0.00-0.30); Globulin 2.5 g/dL (2.2-4.2); Protein, Total 6.6 g/dL (6.4-8.2)
[2024-09-20 13:07] LABS: Protein, Urine (Random) 7.8 mg/dL (<11.9); Protein:Creat Ratio 60 mg/g CRE (0-200)
== END | disposition home or self-care (01) ==
PROVIDERS: PCP Internal Medicine; Referring Provider Internal Medicine; Visit Provider Internal Medicine
DX: R80.9 Proteinuria, unspecified (principal); R79.89 Other specified abnormal findings of blood chemistry
CPT/HCPCS: 80076; 81001; 82570; 84156; 87086; 87088

== ENCOUNTER → 2024-09-28 | Outpatient (CLI) | payer MEDICARE, BC, SELFPAY ==
--- NOTE | 2024-09-28 09:27 | BD_ITS ---
STUDY: DUAL ENERGY X-RAY ABSORPTIOMETRY / DXA REASON FOR EXAM: Female, 69 years old. [id number] TECHNIQUE: Bone Mineral Density (BMD) measurements of lumbar spine and bilateral hips were obtained. COMPARISON: Comparison is made with prior study dated August 19, 2022. FINDINGS: Lumbar Spine (L1-L4): g/cm2 (0.736) / T-score (-2.8) / Z-score (-0.8) Findings are suggestive of osteoporosis with a high fracture risk. Left Femur Total: g/cm2 (0.888) / T-score (-0.4) / Z-score (1.0) Left Femoral Neck: g/cm2 (0.673) / T-score (-1.6) / Z-score (0.2) Right Femur Total: g/cm2 (0.889) / T-score (-0.4) / Z-score (1.0) Right Femoral Neck: g/cm2 (0.674) / T-score (-1.6) / Z-score (0.2) The T-Scores on the most recent prior examination were: Lumbar Spine (L1-L4): There has been worsening of bone density since the previous examination. Left Femur Total: which represents a worsening of 1.2%. Right Femur Total: which represents a worsening of 0.1%. BD/Dexa Bone Density Study IMPRESSION: The patient is considered osteoporotic as outlined below according to World Joce Organization (WHO) criteria with a high fracture risk. There has been worsening of bone density since the previous examination. Reference Information: The T-score is the number of standard deviations above or below the standard which is normal for young adults at their peak bone mineral density. The World Health Organization (WHO) interprets the T-scores as follows: Above -1 Normal bone density Between -1 and -2.5 Osteopenia Equal to / or below -2.5 Osteoporosis As a practical clinical guideline, osteopenia may be graded as follows: Mild -1 through -1.5 Moderate -1.6 through -2.0 Severe -2.1 through -2.4 The Z-score is the number of standard deviations above or below age-matched controls. A Z-score of less than -1.5 would be considered abnormal. References: 1. NIH Osteoporosis and Related Bone Diseases www osteo.org 2. International Society for Clinical Densitometry www iscd.org 3. National Osteoporosis Foundation www nof.org Electronically Signed: Ulysses Gonzalez MD at 12:38 EST ,
== END | disposition home or self-care (01) ==
LOC: OPBD 09:22
PROVIDERS: PCP Internal Medicine; Referring Provider Internal Medicine; Visit Provider Internal Medicine
DX: Z78.0 Asymptomatic menopausal state (principal)
CPT/HCPCS: 77080

== ENCOUNTER 2024-12-31 14:54 | Emergency (ER) | payer MEDICARE, BC, SELFPAY ==
[2024-12-31 14:55] VITALS: BP 174/92; PULSE 61; RESP 22; TEMP 36.3; O2SAT 100; BMI 33.8
--- NOTE | 2024-12-31 15:07 | CT_ITS ---
PROCEDURE: CT abdomen pelvis without IV contrast REASON FOR EXAM: Pain TECHNIQUE: Multiple contiguous axial images through the abdomen and pelvis were obtained without the administration of intravenous contrast. Two-dimensional coronal and sagittal reformatted images were reconstructed. Low-dose imaging technique was utilized. COMPARISON: None. FINDINGS: Lung bases are clear. Unenhanced liver, spleen, pancreas and adrenal glands are intact. Cholelithiasis without evidence of acute cholecystitis or biliary ductal dilation. Small hiatal hernia. Right- sided obstructive uropathy with a 3 mm calculus at the ureterovesicular junction resulting in mild hydroureteronephrosis and periureteric/peripelvic fat stranding. Punctate nonobstructing left renal calculus. No left hydronephrosis. Urinary bladder is within normal limits. No bowel obstruction, focal bowel wall thickening or significant perienteric inflammation. Normal appendix. No pelvic free fluid. No free air. Calcified nonaneurysmal abdominal aorta. No suspicious adenopathy. Superficial soft tissues are intact. No acute osseous abnormality. 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/Abdomen/Pelvis without Cont IMPRESSION: 1. Right-sided obstructive uropathy as above. 2. Left nephrolithiasis. 3. Cholelithiasis. 4. Hiatal hernia. Reading Location: [facility]
--- NOTE | 2024-12-31 15:08 | ED.VIS.GI ---
HPI HPI - GI History of Present Illness Chief Complaint: Abd Pain Detail of Chief Complaint: Sudden onset right flank and lower quadrant pain today around 1220. Informant: patient and spouse/S.O. Abdominal Pain/Flank Pain Onset: Today Context: Sudden Onset Timing: Continuous Quality: Sharp and Stabbing Location: Right Flank Current Severity: Moderate Maximum Severity: Moderate Worsened by: Nothing Relieved by: Nothing Nausea/Vomiting/Emesis GI Symptom: Positive for Nausea and Vomiting Onset: Today Severity: Mild Diarrhea/Melena/Hematochezia GI Symptom: Negative for Diarrhea, Melena or Hematochezia Associated Symptoms Associated Symptoms: Negative for Dysuria, Frequency, Hematuria or Urgency Narrative Narrative: 69-year-old female no prior abdominal surgeries. History of high cholesterol. States that she had sudden onset of right lower quadrant right flank pain today around 1220. Associated with some mild nausea vomiting. No diarrhea. No dysuria or hematuria. No constipation. No fever. Prior similar symptoms: No Recent Illness/Hospitalization: No PFSH PFSH Medical History High cholesterol Home Medications ?Medication ?Instructions ?Recorded ?Last Taken ?Type alendronate 70 mg tablet 70 mg PO QWEEK 12/21/23 Unknown History ascorbic acid (vitamin C) 1,000 mg 1 g PO Q6H 12/21/23 Unknown History capsule aspirin 81 mg tablet,delayed 81 mg PO DAILY 12/21/23 Unknown History release (Adult Low Dose Aspirin) calcium 260 mg (phos,tribasic)-D3 tab PO 12/21/23 Unknown History 25 mcg-herbal 50 mg chewable tablet (Alive Calcium-Vitamin D3) calcium 600 mg (as carbonate)-vit 1 tab PO DAILY 12/21/23 Unknown History D3 20 mcg (800 unit) chewable tablet (Caltrate plus D) cholecalciferol (vitamin D3) 125 125 mcg PO DAILY 12/21/23 Unknown History mcg (5,000 unit) capsule coQ10 (ubiquinol) 100 mg capsule 100 mg PO BID 12/21/23 Unknown History (Qunol Uriel CoQ10) multivitamin 1 tab PO DAILY 12/21/23 Unknown History omega-3 fatty acids 1,250 mg 1,250 mg PO DAILY 12/21/23 Unknown History capsule (Super Twin EPA-DHA) phytonadione (vitamin K1) 5 mg 5 mg PO DAILY 12/21/23 Unknown History tablet rosuvastatin 10 mg tablet 10 mg PO DAILY 12/21/23 Unknown History turmeric (bulk) 95 % powder ea miscellaneous 12/21/23 Unknown History (Curcumin) zinc gluconate 30 mg tablet 30 mg PO DAILY 12/21/23 Unknown History dicyclomine 10 mg capsule 20 mg (2 x 10 mg) PO TIDAC #20 08/19/24 Unknown Rx CAPSULES ondansetron 4 mg disintegrating 4 mg PO Q8H PRN PRN Nausea #10 tabs 08/19/24 Unknown Rx tablet oxycodone-acetaminophen 5 mg-325 1 tab PO Q4H PRN pain 3 days #12 12/31/24 Unknown Rx mg tablet (Percocet) tabs Allergy/AdvReac Type Severity Reaction Status Date / Time No Known Allergies Allergy Verified 12/31/24 14:55 Family History Mother Brain tumor Social History household members: spouse current occupational status: retired 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 current occupational exposures/hazards: No pets and animals: Yes pets and animals: cat(s) history of recent travel: Yes details: - November out of country: Yes sexually active: Yes Smoking Status: Never smoker alcohol intake: current alcohol intake frequency: holidays/special occasions only substance use type: does not use caffeine: Yes Type: coffee eating out: 1-3 times/week during the past year weight has: remained stable what type of physical activity do you participate in: walking and bicycling frequency: 5-6 times per week duration: 45-60 minutes/day seatbelt use: always do you feel safe at home: Yes additional social history: : [employer] - retired ([employer]) ROS ROS ED ROS Narrative Nausea and vomiting today after the onset of the right flank pain. Otherwise no recent illness. Constitutional Constitutional ED: Denies chills or fever(s) ENT ENT ED: Denies ear pain Cardiovascular Cardiovascular: Denies chest pain Respiratory/Chest Respiratory/Chest: Denies cough or dyspnea Gastrointestinal Gastrointestinal: Reports abdominal pain, nausea and vomiting; Denies constipation, diarrhea or melena Genitourinary Genitourinary ED: Denies dysuria or hematuria Musculoskeletal Musculoskeletal: Denies arthralgias Integumentary Denies abscess or Abrasions Neurologic Neurologic: Denies headache(s) Psychiatric Psychiatric: Denies anxiety Endocrine Endocrinology: Denies polydipsia Hematologic/Lymphatic Hematologic/Lymphatic: Denies easy bleeding Allergic/Immunologic Allergic/Immunologic ED: Denies mouth swelling, tongue swelling or urticaria EXAM Physical Exam Narrative Exam Narrative: 69-year-old female vital signs are stable afebrile does not look septic toxic. Is complaining of right flank pain. present in the room. H EENT exam mildly dry mucous membranes. Pupils round reactive light. Normal speech. Lungs clear to auscultation bilaterally. Heart regular rhythm rate about 60 no murmur. Chest wall and ribs nontender. Abdomen is soft, nontender, nondistended, normal bowel sounds without peritoneal signs. There is no reproducible pain on her abdomen. Both the right upper right lower quadrant unremarkable. No obstruction. No hernia. No pulsatile mass. Back nontender. No rash. Moving all 4 extremities. Nontender no edema. Neurologically she is awake and alert no focal motor deficits. Const Vital Signs: 12/31/24 14:55 12/31/24 16:54 Temperature 97.4 F L Temperature Source Temporal Pulse Rate 61 51 L Respiratory Rate 22 H 16 Blood Pressure 174/92 H 176/88 H Blood Pressure Mean 119 117 Pulse Ox 100 98 Oxygen Delivery Method Room Air Room Air Positive well nourished and well developed; Negative for cachectic, contractures or unkempt General Appearance ED: well developed and NAD; Negative for unkempt, cachectic, contractures or pallor Nutritional Appearance: Negative for cachectic HEENT Reports dry mucous membranes normocephalic and atraumatic; Negative for trauma or tenderness Mouth ED: Yes dry mucous membranes Mouth: dry mucous membranes Eyes PERRL and EOMs intact bilaterally General Eye ED: Negative for pale conjunctiva or scleral icterus Neck no lymphadenopathy, supple and no JVD General: Negative for tenderness Carotids: Negative for other Lymph Lymphatic: Negative for other Resp normal respiratory effort and clear to auscultation bilaterally Effort and Inspection: Negative for respiratory distress Auscultation: Negative for rales, rhonchi or wheezes Cardio regular rate, regular rhythm, S1 normal heart sound, S2 normal heart sound and no murmurs Rate: Negative for bradycardia or tachycardic Rhythm: Negative for abnormal rhythm GI non-distended and no masses Inspection: Negative for abdominal distention Auscultation: normoactive bowel sounds Palpation: soft; Negative for tender, guarding, rigid, hernia, mass, pulsatile mass or rebound tenderness present Back/Spine no CVA tenderness General Back: Negative for CVA tenderness Cervical Spine: Negative for cervical spine tenderness Thoracic Spine / Upper Back: Negative for thoracic spinal tenderness Lumbar Spine / Lower Back: Negative for lumbar spinal tenderness Coccyx: Negative for other Extremity full ROM General Extremety ED: Negative for edema or tenderness General Extremity: Negative for edema Neuro CN's II-XII intact bilaterally and moves all extremities Sensorium / Orientation: alert, oriented to person, oriented to place, oriented to time and orientation impaired; Negative for confused, lethargic or stuporous Psych mental status grossly normal and thought process normal Appearance: Negative for unkempt Attitude: No agitated Mood & Affect: Negative for depressed, anxious or tearful Skin no wounds General Skin Exam: Negative for jaundice or pallor Lesions: no lesions Rashes: no rashes Trauma: Negative for abrasion Nails: Negative for discolored MDM MDM MDM Narrative Medical decision making narrative: 69-year-old female sudden onset of right flank pain earlier today. No prior history. Suspect kidney stone. CAT scan and labs. UA. Morphine for pain and Zofran for nausea. Patient had increased pain with given a second dose of morphine and Zofran. Is feeling better. Pain is resolved. 5 PM she is doing well. She will be discharged to home. Urine strainer. Percocet for pain. Motrin as needed. Follow-up with urology as needed History & Record Review Discussion w/independent historian: Patient Additional record(s) reviewed:: Prior inpatient record, Prior outpatient record, Prior ED visit and Prior labs Lab Data Attestation: I reviewed the patient's lab results. Lab results narrative: CBC shows a white count of 9. H&H is 13 and 42. Platelets 209. Electrolytes show gap of 14. Normal BUN and creatinine. Glucose 124. Liver enzymes are normal. UA shows small amount of occult blood. No white or red cells. 2+ bacteria. CT shows 3 mm stone at the right UVJ with dilated ureter. Also incidental finding of gallstones. But no acute cholecystitis. Labs: Laboratory Results - last 24 hr 12/31/24 12/31/24 15:09 15:20 WBC 9.6 RBC 5.16 Hgb 13.9 Hct 42.9 MCV 83.1 MCH 26.9 L MCHC 32.4 RDW Std Deviation 43.2 RDW Coeff of Lester 14.3 Plt Count 209 MPV 10.7 Immature Gran % (Auto) 0.500 Neut % (Auto) 75.1 H Lymph % (Auto) 16.2 L Leon % (Auto) 6.2 Eos % (Auto) 1.4 Baso % (Auto) 0.6 Absolute Neuts (auto) 7.2 Absolute Lymphs (auto) 1.56 Nucleated RBC % 0 Sodium 136 Potassium 4.0 Chloride 100 Carbon Dioxide 21.5 Anion Gap 14 BUN 14 Creatinine 0.73 Estim Creat Clear Calc 69.23 Est GFR (MDRD) Non-Af 90 BUN/Creatinine Ratio 18.6 Glucose 124 H Calcium 9.7 Total Bilirubin 0.19 Direct Bilirubin < 0.08 AST 30 ALT 26 Alkaline Phosphatase 101 Total Protein 6.9 Albumin 4.4 Globulin 2.5 Urine Color Yellow Urine Clarity Clear Urine pH 6.0 Ur Specific [place] 1.020 Urine Protein Negative Urine Glucose (UA) Normal Urine Ketones 5 H Urine Occult Blood 10 H Urine Nitrite Negative Urine Bilirubin Negative Urine Urobilinogen Normal Ur Leukocyte Esterase 25 H Urine RBC 0 SEEN Urine WBC 0-5 SEEN Ur Squamous Epith Cells 0-5 SEEN Urine Bacteria 2+ Urine Mucus 0 SEEN Radiography Diagnostic Testing: Clinical Impression(s) from Imaging Studies Abdomen/Pelvis CT 12/31/24 15:07 IMPRESSION: 1. Right-sided obstructive uropathy as above. 2. Left nephrolithiasis. 3. Cholelithiasis. 4. Hiatal hernia. Reading Location: [facility] Discharge Plan Triage Chief Complaint: Abd Pain ED Provider: Perfecto Yuan Dx/Rx/DC Orders Clinical Impression: Kidney stone on right side Instructions: ED Kidney Stone with Pain Prescriptions: New oxycodone-acetaminophen [Percocet] 5-325 mg tablet 1 tab PO Q4H PRN (Reason: pain) 3 Days Qty: 12 0RF No Action rosuvastatin 10 mg tablet 10 mg PO DAILY aspirin [Adult Low Dose Aspirin] 81 mg tablet,delayed release (DR/EC) 81 mg PO DAILY Caltrate 600 plus D 600 mg-20 mcg (800 unit) tablet,chewable 1 tab PO DAILY coQ10 (ubiquinol) [Qunol Uriel CoQ10] 100 mg capsule 100 mg PO BID cholecalciferol (vitamin D3) 125 mcg (5,000 unit) capsule 125 mcg PO DAILY zinc gluconate 30 mg tablet 30 mg PO DAILY phytonadione (vitamin K1) 5 mg tablet 5 mg PO DAILY Curcumin 95 % powder miscellaneous ascorbic acid (vitamin C) 1,000 mg capsule 1 g PO Q6H Super Twin EPA-DHA 1,250 mg capsule 1,250 mg PO DAILY multivitamin Tablet 1 tab PO DAILY Alive Calcium-Vitamin D3 260 mg calcium- 25 mcg-50 mg tablet,chewable PO alendronate 70 mg tablet 70 mg PO QWEEK ondansetron 4 mg tablet,disintegrating 4 mg PO Q8H PRN PRN (Reason: Nausea) Qty: 10 0RF dicyclomine 10 mg capsule 20 mg PO TIDAC Qty: 20 0RF Primary Care Provider: Elizabeth Demarco Referrals: Elizabeth Demarco DO [Primary Care Provider] - As Needed Braden Ogden MD [Med Staff - Active Staff] - 3-5 Days if not improving Activity Restrictions/Additional Instructions: 3 mm right-sided kidney stone should pass in the next 24 to 48 hours. Tylenol and Motrin for pain. If you need stronger medication the Percocet. Plenty of fluids, fruits vegetables and fiber to prevent constipation if you use the pain medication. Follow-up with your doctor or the urologist if not improving. Return if intractable pain, fever or intractable vomiting. Strain your urine if you want to see the stone. Print Language: Croatian Disposition Disposition: Home, Self Care
[2024-12-31] MEDS: 0.9% Normal Saline (1000mL) 1,000 ML 999 ML IV (15:18)
[2024-12-31] MEDS: Ondansetron 4 MG/2 ML Vial IV ×2 (15:18→15:45)
[2024-12-31] MEDS: morphine 8 MG/ML Syringe 6 MG IV ×3 (15:18→17:21)
[2024-12-31 15:27] LABS: Absolute Lymphocyte Count 1.56 X10^3/uL (0.83-4.51); Absolute Neutrophil Count 7.2 X10^3/uL (2.0-7.7); Basophil# 0.06 X10^3/uL; Basophil% 0.6 % (0-1); Eosinophil# 0.13 X10^3/uL; Eosinophils% 1.4 % (0-5); Hematocrit 42.9 % (37-47); Hemoglobin 13.9 g/dL (12.0-15.0); Lymphocyte # 1.56 X10^3/ul (0.83-4.51); Lymphocyte % 16.2 % (19-41); Mean Corp Hgb Conc 32.4 g/dL (32-36); Mean Corpuscular Hgb 26.9 pg (27.0-32.0); Mean Corpuscular Volume 83.1 fL (81-99); Mean Platelet Vol. 10.7 fl (6.2-12.0); Monocyte% 6.2 % (0-10); NRBC Flagged by Analyzer 0 % (0-5); Neutrophil # 7.21 X10^3/uL (2.7-7.7); Neutrophil % 75.1 % (47-70); Platelet Count 209 K/mm3 (150-450); RBC Distribution Width CV 14.3 % (11.6-14.6); RBC Distribution Width SD 43.2 fl (35.1-43.9); Red Blood Count 5.16 M/mm3 (4.2-5.4); White Blood Count 9.6 K/mm3 (4.4-11.0)
[2024-12-31 15:28] LABS: Mucous, Urine 0 SEEN /hpf (<or=2+)
[2024-12-31 15:31] LABS: Color, Urine Yellow (Yellow); Glucose, Dipstick Normal (Normal); Ketone-Dipstick 5 mg/dl (Negative); Leukocyte Esterase-Dipstick 25 /ul (Negative); Nitrite-Dipstick Negative (Negative); Occult Blood-Urine 10 /ul (Negative); Protein-Dipstick Negative (Negative); Urine Bilirubin Dipstick Negative (Negative); Urine Clarity Clear (Clear); Urine Urobilinogen Normal (Normal)
[2024-12-31 15:41] LABS: Anion Gap 14 (5-15); BUN 14 mg/dL (4-19); BUN/Creat Ratio 18.6 RATIO (10-20); Calcium,Total 9.7 mg/dL (7.6-11.0); Carbon Dioxide 21.5 mmol/L (21.0-32.0); Chloride 100 mmol/L (98-108); Creatinine, Serum 0.73 mg/dL (0.70-1.20); EST Glomerular Filtration Rate 90 (>60); Estimated Creatinine Clearance 69.23 ml/min (50-250); Glucose 124 mg/dL (70-99); Sodium Level 136 mmol/L (133-145)
[2024-12-31 15:42] LABS: Bacteria 2+ /hpf (None Seen); Red Blood Cells-Urine 0 SEEN /hpf (0-5); Squamous Epithelial Cells - UA 0-5 SEEN /hpf (5-10); White Blood Cells 0-5 SEEN /hpf (0-5)
[2024-12-31 16:50] LABS: AST(SGOT) 30 U/L (<=31); Alanine Aminotransfer ALT/SGPT 26 U/L (<=34); Albumin, Serum 4.4 g/dL (3.4-4.8); Alkaline Phosphatase 101 U/L (35-104); Bilirubin, Direct < 0.08 mg/dL (0.00-0.30); Globulin 2.5 g/dL (2.2-4.2); Protein, Total 6.9 g/dL (5.9-8.4); Total Bilirubin 0.19 mg/dL (0.00-1.30)
[2024-12-31 16:54] VITALS: BP 176/88; PULSE 51; RESP 16; O2SAT 98
[2024-12-31 17:50] VITALS: BP 148/64; PULSE 74; RESP 14; TEMP 36.6; O2SAT 99
== END 2024-12-31 17:51 | disposition home or self-care (01) ==
PROVIDERS: Emergency Provider Emergency Medicine; PCP Internal Medicine; Referring Provider Emergency Medicine; Visit Provider Emergency Medicine
DX: N20.0 Calculus of kidney (principal); E78.00 Pure hypercholesterolemia, unspecified; K44.9 Diaphragmatic hernia without obstruction or gangrene; K80.20 Calculus of gallbladder without cholecystitis without obstruction
CPT/HCPCS: 74176; 80048; 80076; 81001; 85025; 96361; 96374; 96375; 96376; 99282; A4216; J2405

== ENCOUNTER 2025-01-12 08:45 | Outpatient (CLI) | payer MEDICARE, BC, SELFPAY ==
[2025-01-12 09:01] VITALS: BP 148/85; PULSE 81; RESP 16; TEMP 36.1; O2SAT 100; BMI 31.8
[2025-01-12] MEDS: DENOSUMAB 60 MG/ML SC (09:04)
== END 2025-01-12 23:59 | disposition home or self-care (01) ==
LOC: MEDOUTP 08:47
PROVIDERS: PCP Internal Medicine; Referring Provider Internal Medicine; Visit Provider Internal Medicine
DX: M81.0 Age-related osteoporosis without current pathological fracture (principal)
CPT/HCPCS: 96372; J0897

== ENCOUNTER → 2025-04-24 | Outpatient (CLI) | payer MEDICARE, BC, SELFPAY ==
[2025-04-24 07:09] LABS: Mucous, Urine 0 SEEN /hpf (<or=2+); Red Blood Cells-Urine 0 SEEN /hpf (0-5)
[2025-04-24 10:23] LABS: Color, Urine Yellow (Yellow); Glucose, Dipstick Normal (Normal); Ketone-Dipstick Negative (Negative); Leukocyte Esterase-Dipstick Negative /ul (Negative); Nitrite-Dipstick Negative (Negative); Occult Blood-Urine Negative /ul (Negative); Protein-Dipstick 15 mg/dl (Negative); Specific Gravity, Urine 1.010 (1.002-1.030); Urine Bilirubin Dipstick Negative (Negative)
[2025-04-24 10:41] LABS: AST(SGOT) 25 U/L (<=31); Alanine Aminotransfer ALT/SGPT 29 U/L (<=34); Albumin, Serum 4.2 g/dL (3.4-4.8); Alkaline Phosphatase 77 U/L (35-104); Anion Gap 11 (5-15); BUN 15 mg/dL (4-19); BUN/Creat Ratio 23.4 RATIO (10-20); Calcium,Total 9.4 mg/dL (7.6-11.0); Carbon Dioxide 24.3 mmol/L (21.0-32.0); Chloride 105 mmol/L (98-108); Cholesterol 274 mg/dL (<=200); Globulin 2.2 g/dL (2.2-4.2); Glucose 91 mg/dL (70-99); Hematocrit 42.9 % (37-47); Hemoglobin 13.7 g/dL (12.0-15.0); Immature Granulocytes Count 0.010 X10^3/uL (0.0-0.0); Low Density Lipoprotein Calc. 178 mg/dL; Mean Corp Hgb Conc 31.9 g/dL (32-36); Mean Corpuscular Volume 84.1 fL (81-99); Mean Platelet Vol. 10.7 fl (6.2-12.0); NRBC Flagged by Analyzer 0 % (0-5); Platelet Count 195 K/mm3 (150-450); Potassium 4.0 mmol/L (3.3-5.1); RBC Distribution Width CV 13.6 % (11.6-14.6); RBC Distribution Width SD 42.3 fl (35.1-43.9); Red Blood Count 5.10 M/mm3 (4.2-5.4); Triglycerides 205 mg/dL; Very Low Density Lipoprotein 41 mg/dL (5-40); White Blood Count 5.0 K/mm3 (4.4-11.0); cholesterol:hdl ratio screen 4.94
[2025-04-24 10:43] LABS: Creatinine, Urine (random) 86.20 mg/dL (28.00-217.00); Microalbumin,Random Urine < 12.0 mg/L (NO RANGE EST.)
[2025-04-24 11:08] LABS: Squamous Epithelial Cells - UA 0-5 SEEN /hpf (5-10)
== END | disposition home or self-care (01) ==
LOC: MTLAB 07:03
PROVIDERS: PCP Internal Medicine; Referring Provider Internal Medicine; Visit Provider Internal Medicine
DX: R80.9 Proteinuria, unspecified (principal); R73.09 Other abnormal glucose; M81.0 Age-related osteoporosis without current pathological fracture; E78.00 Pure hypercholesterolemia, unspecified
CPT/HCPCS: 36415; 80053; 80061; 81001; 82043; 82570; 83036; 85025

== ENCOUNTER 2025-07-25 09:01 | Outpatient (CLI) | payer MEDICARE, BC, SELFPAY ==
[2025-07-25 09:11] VITALS: BP 134/73; PULSE 86; RESP 16; TEMP 35.9; O2SAT 97; BMI 31.8
[2025-07-25] MEDS: DENOSUMAB 60 MG/ML SC (09:36)
== END 2025-07-25 23:59 | disposition home or self-care (01) ==
LOC: MEDOUTP 09:01
PROVIDERS: PCP Internal Medicine; Referring Provider Internal Medicine; Visit Provider Internal Medicine
DX: M81.0 Age-related osteoporosis without current pathological fracture (principal)
CPT/HCPCS: 96372; J0897

== ENCOUNTER → 2025-09-08 | Outpatient (CLI) | payer MEDICARE, BC, SELFPAY ==
[2025-09-08 10:46] LABS: Mucous, Urine 0 SEEN /hpf (<or=2+); Red Blood Cells-Urine 0 SEEN /hpf (0-5); Squamous Epithelial Cells - UA 0 SEEN /hpf (5-10)
[2025-09-08 10:51] LABS: Color, Urine Yellow (Yellow); Glucose, Dipstick Normal (Normal); Ketone-Dipstick Negative (Negative); Leukocyte Esterase-Dipstick Negative /ul (Negative); Nitrite-Dipstick Negative (Negative); Occult Blood-Urine Negative /ul (Negative); Protein-Dipstick 15 mg/dl (Negative); Specific Gravity, Urine 1.010 (1.002-1.030); Urine Bilirubin Dipstick Negative (Negative)
[2025-09-08 10:53] LABS: Hematocrit 45.2 % (37-47); Hemoglobin 14.5 g/dL (12.0-15.0); Immature Granulocytes Count 0.010 X10^3/uL (0.0-0.0); Mean Corp Hgb Conc 32.1 g/dL (32-36); Mean Corpuscular Volume 85.4 fL (81-99); Mean Platelet Vol. 10.7 fl (6.2-12.0); NRBC Flagged by Analyzer 0 % (0-5); Platelet Count 208 K/mm3 (150-450); RBC Distribution Width CV 13.7 % (11.6-14.6); RBC Distribution Width SD 42.6 fl (35.1-43.9); Red Blood Count 5.29 M/mm3 (4.2-5.4); White Blood Count 5.0 K/mm3 (4.4-11.0)
[2025-09-08 11:27] LABS: AST(SGOT) 25 U/L (<=31); Alanine Aminotransfer ALT/SGPT 33 U/L (<=34); Albumin, Serum 4.5 g/dL (3.4-4.8); Alkaline Phosphatase 75 U/L (35-104); Anion Gap 9 (5-15); BUN 18 mg/dL (4-19); BUN/Creat Ratio 30.5 RATIO (10-20); Calcium,Total 9.9 mg/dL (7.6-11.0); Carbon Dioxide 28.6 mmol/L (21.0-32.0); Chloride 104 mmol/L (98-108); Globulin 2.2 g/dL (2.2-4.2); Glucose 95 mg/dL (70-99); Potassium 5.1 mmol/L (3.3-5.1)
== END | disposition home or self-care (01) ==
LOC: LABSPEC 10:21
PROVIDERS: PCP Internal Medicine; Referring Provider Internal Medicine; Visit Provider Internal Medicine
DX: R73.09 Other abnormal glucose (principal)
CPT/HCPCS: 80053; 81001; 85025

== ENCOUNTER → 2025-09-29 | Outpatient (CLI) | payer MEDICARE, BC, SELFPAY ==
--- NOTE | 2025-09-29 07:30 | BI_ITS ---
EXAM: SCRN MAMM (CAD)W/ROBERTO BILAT DATE: 09/29/2025 CLINICAL HISTORY: F, Age 70 y/o , SCRN MAMM (CAD)W/ROBERTO BILAT TECHNIQUE: Procedure Code: [id number] Modality: MG Procedure: SCRN MAMM (CAD)W/ROBERTO BILAT COMPARISON: Prior exam(s) dated 09/13/2024, 08/20/2023, 08/19/2022. FINDINGS: TISSUE DENSITY: The breasts are almost entirely fatty. Bilateral Breast Mammographic Findings: No significant masses, calcifications or other abnormalities are identified. BI/SCRN MAMM (CAD)W/ROBERTO BILAT IMPRESSION: There is no mammographic evidence of malignancy. OVERALL FINAL ASSESSMENT BI-RADS 1: NEGATIVE. RECOMMENDATION: Routine annual follow-up in 1 Year Additional Recommendation none A letter with findings and recommendations will be mailed to the patient. Reading Location: [id number]
--- OUTSIDE RECORDS SUMMARY | 2025-09-29 07:49 | XMS RPT_ITS | CCD ---
Author Organization [facility] Care Team Providers Care Telephone Clerk Name Role Phone Martha BAZZI, Anaid Salvador Unavailable Unavailable Ann, Penny Unavailable Unavailable MD Lakhwinder, Jaime Kamara Unavailable Fast, Karo A Unavailable Manchak, Melinda Unavailable Unavailable Gravius, Ingrid Unavailable Unavailable Unavailable Unavailable ROSE MARY Mera, Chloe Arreaga Unavailable Unavailabl e ROSE MARY Mera, Chloe Arreaga Unavailable Unavailabl e Ann, Penny Unavailable Unavailable Fast, Karo A Unavailable Manchak, Melinda Unavailable Unavailable Gravius, Ingrid Unavailable Unavailable Unavailable Unavailable Roof PROJECTION CAMERA OPERATOR, Gamaliel Harris Unavailable Ann, Penny Unavailable Unavailable Manchak, Melinda Unavailable Unavailable Gravius, Ingrid Unavailable Unavailable Zeke Mcqueen Unavailable Fast DO, Karo A Unavailable Dr. Zeke Mcqueen Unavailable Manchak SERVER DEVELOPER, Melinda Unavailable Unavailable Gravius SERVER DEVELOPER, Ingrid Unavailable Unavailable Unavailable Unavailable Manchak, Melinda Unavailable Unavailable Gravius, Ingrid Unavailable Unavailable Fast DO, Karo A Unavailable Sidney PACHECO , Gamaliel Huang Unavailable [phone] Katie PACHECO, Zaida Arreaga Unavailable Kelsy Vallecillo LPN Unavailable Unavailable Fast DO, Karo A Attending Unavailable Fast DO, Karo A Referring Unavailable Fast DO, Karo A Consulting Unavailable Fast DO, Karo A Primary Care Provider [phone] ARASH BAKER Attending Unavailable HILTBRAND, ARASH Referring Unavailable FAST, KARO Primary Care Unavailable HILTBRAND, ARASH Attending Unavailable HILTBRAND, ARASH Referring Unavailable FAST, KARO Primary Care Unavailable FAST, KARO Attending Unavailable FAST, KARO Primary Care Unavailable Fast, Dr. Johnson Primary Care Provider [phone] Fast, Dr. Johnson Referring Provider Hamer PROJECTION CAMERA OPERATOR, PROJECTION CAMERA OPERATOR-C Lucy Attending Provider Unavailable Primary Care Provider Unavailabl e Fast DO, Karo Franco Primary Care Provider Fast DO, Dr. Johnson Primary Care Provider [phone] Fast DO, Dr. Johnson Attending Provider [phone] Fast DO, Dr. Johnson Referring Provider [phone] Armando PACHECO, Dr. La Attending Provider [phone] Kwabena PACHECO, Dr. Grove Referring Provider [phone] Kwabena PACHECO, Dr. Grove Emergency Provider Fast DO, Dr. Johnson Primary Care Provider [phone] Fast DO, Dr. Johnson Attending Provider [phone] Fast DO, Dr. Johnson Referring Provider [phone] Kwabena PACHECO, Dr. Grove Attending Provider FAST, KARO A Referring Unavailable FAST, KARO Salvador Primary Care Unavailable Fast DO, Dr. Johnson Primary Care Provider [phone] Fast DO, Dr. Johnson Attending Provider [phone] Fast DO, Dr. Johnson Referring Provider [phone] Fast DO, Dr. Johnson Primary Care Physician Fast DO, Dr. Johnson Attending Physician [phone] Fast DO, Dr. Johnson Referring Provider [phone] Perfecto Yuan Attending Unavailable Perfecto Yuan Referring Unavailable Fast, Karo Primary Care Unavailable Fast, Karo Attending Unavailable Fast, Karo Referring Unavailable Fast, Karo Primary Care Unavailable Fast, Karo Attending Unavailable Fast, Karo Referring Unavailable Fast, Karo Primary Care Unavailable Fast, Karo Attending Unavailable Fast, Karo Referring Unavailable Fast, Karo Primary Care Unavailable Fast, Karo Referring Unavailable Fast, Karo Primary Care Unavailable Fast, Karo Attending Unavailable Fast, Karo Referring Unavailable Fast, Karo Primary Care Unavailable Fast, Karo Attending Unavailable Fast, Karo Referring Unavailable Fast, Karo Primary Care Unavailable Fast, Karo Attending Unavailable Armando, [place] Attending Unavailable Fast, Karo Primary Care Unavailable Fast, Karo Primary Care Unavailable Pay, Dylan Attending Unavailable Allergies Allergy Classification Reported Allergen(s) Allergy Type Date of Onset Reaction(s) Facility (1 source) ALLERGIES NOT ON FILE; Translations: [ALLERGIES NOT ON FILE] Propensity to adverse reactions (disorder) [facility] 2 Repository NEGATED: Highlighted row has been ruled out! (1 source) allergy to substance [facility] Work Phone: NEGATED: Highlighted row has been ruled out! (1 source) drug allergy 8 [facility] Work Phone: Medications Current Medications Medication Drug Class(es) Dates Sig (Normalized) Sig (Original) ascorbic acid 1000 mg oral capsule (10 sources) Vitamin C Start: 12-21-2023 take 1 g by mouth once daily Ascorbic Acid (Vitamin C) 1,000 mg capsule Active 1 g PO DAILY December 21, 2023 1:00am Complies with drug therapy Start: 12-21-2023 take 1 g by mouth every six ho urs Ascorbic Acid (Vitamin C) 1,000 mg capsule Active 1 g PO EVERY 6 HOURS December 21, 2023 1:00am Start: 12-21-2023 take 1 g by mouth every six ho urs Ascorbic Acid (Vitamin C) Active 1 GM PO EVERY 6 HOURS December 21, 2023 12:00am take 2 tablets by mo [facility] once daily Ascorbic Acid (vitamin C) 500 MG tablet Take 1,000 mg by mouth daily. 0 Active aspirin 81 mg delayed release oral tablet (20 sources) Platelet Aggregation Inhibitor, Nonsteroidal Anti-inflammatory Drug Start: 12-21-2023 Aspirin (Adult Lo w Dose Aspirin) 81 mg tablet,delayed release (DR/EC) Active 81 mg PO DAILY December 21, 2023 1:00am Complies with drug therapy take 1 tablet by mouth once hetal y aspirin 81 MG EC tablet Take 81 mg by mouth daily. 0 Active take 1 mg by mouth once daily As pirin 81 MG Oral Tablet qd (81 MG) Active calcium carbonate 1500 mg / cholecalciferol 800 unt chewable tablet (10 sources) Vitamin D Start: 12-21-2023 Calcium Carbon ate-Vitamin D3 (Caltrate 600 Plus D) 600 mg-20 mcg (800 unit) tablet,chewable Active 1 {tbl} PO DAILY December 21, 2023 1:00am Complies with drug therapy Calcium Carb-Cho lecalciferol (Caltrate 600+D3) 600-20 MG-MCG tablet Take by mouth. 0 Active Calcium [id number]-[id number]-Tanypm No.29 3 (Alive Calcium-Vitamin D3) 260 mg calcium- 25 mcg-50 mg tablet,chewable (5 sources) Start: 12-21-2023 Calcium Phos-D 3-Herbal No.293 (Alive Calcium-Vitamin D3) 260 mg calcium- 25 mcg-50 mg tablet,chewable Active 2 {tbl} PO DAILY December 21, 2023 1:00am Complies with drug therapy Start: 12-21-2023 Calcium Phos-D 3-Herbal No.293 (Alive Calcium-Vitamin D3) 260 mg calcium- 25 mcg-50 mg tablet,chewable Active 2 {tbl} PO DAILY December 21, 2023 1:00am Start: 12-21-2023 Calcium Phos-D 3-Herbal No.293 (Alive Calcium-Vitamin D3) 260 mg calcium- 25 mcg-50 mg tablet,chewable Active {tbl} PO December 21, 2023 1:00am Start: 12-21-2023 Calcium Phos-D 3-Herbal No.293 (Alive Calcium-Vitamin D3) 260 mg calcium- 25 mcg-50 mg tablet,chewable Active TABLET PO December 21, 2023 12:00am cholecalciferol 0.125 mg oral capsule (20 sources) Vitamin D Start: 12-21-2023 take 1 capsule by mouth once daily Cholecalciferol (Vitamin D3) 125 mcg (5,000 unit) capsule Active 125 ug PO DAILY December 21, 2023 1:00am Complies with drug therapy take 1 tablet by mouth once hetal y cholecalciferol (Vitamin D-3) 125 MCG (5000 UT) tablet Take 5,000 Units by mouth daily. 0 Active Vitamin D 4000 u nits Active 1 ml denosumab 60 mg/ml prefilled syringe (3 sources) RANK Ligand Inhibitor Start: 03-27-2025 Denosumab (Prolia) 60 mg/mL syringe Active 60 mg SC .[id number] January 12, 2025 12:00am Complies with drug therapy magnesium chloride 598 mg delayed release oral tablet (3 sources) Start: 01-12-2025 take 1 tablet by mouth once daily Magnesium Chloride (Slow-Mag) 71.5 mg tablet,delayed release (DR/EC) Active 71.5 mg PO DAILY January 12, 2025 12:00am Complies with drug therapy Misc Natural Products (Curcumax Pro) tablet (5 sources) take 1 tablet by mouth in the morning Misc Natural Products (Curcumax Pro) tablet Take 1 g by mouth in the morning and 1 g in the evening. 0 Active Multiple Vitamins-Minerals (ALIVE WOMENS 50+ GUMMY PO) (5 sources) Multiple Vitamins-Minerals (ALIVE WOMENS 50+ GUMMY PO) Take by mouth. Calcium 150mg Vit d3 60 mcg 0 Active Multivitamin preparation (1 source) Start: 12-21-2023 take 1 tablet by mouth once daily Multivitamin Active 1 TABLET PO DAILY December 21, 2023 12:00am NON FORMULARY (10 sources) NON FORMULARY 30 mg. ZINC 0 Active NON FORMULARY BHAT PER EPA 425mg DHA 270mg 0 Active Alamo-3 Fatty Acids (5 sources) Start: 12-21-2023 take 1 capsule by mouth once daily Alamo-3 Fatty Acids (Super Twin Epa-Dha) 1,250 mg capsule Active 1250 mg PO DAILY December 21, 2023 1:00am Complies with drug therapy Start: 12-21-2023 take 1 capsule by mo [facility] once daily Alamo-3 Fatty Acids (Super Twin Epa-Dha) 1,250 mg capsule Active 1250 mg PO DAILY December 21, 2023 1:00am Start: 12-21-2023 take 1 capsule by mo [facility] once daily Alamo-3 Fatty Acids (Super Twin Epa-Dha) 1,250 mg capsule Active 1250 MG PO DAILY December 21, 2023 12:00am rosuvastatin calcium 10 mg oral tablet (20 sources) HMG-CoA Reductase Inhibitor Start: 12-21-2023 take 1 tablet by mouth once daily Rosuvastatin 10 mg tablet Active 10 mg PO DAILY December 21, 2023 1:00am On Hold: MD Quinn Complies with drug therapy Start: 11-19-2020 take 1 tablet by sunny once daily rosuvastatin 10 mg oral tablet 1 (one) Tablet qd for 0 days Quantity: 90 {Tablet} Refills: 0 Ordered: 26-Dec-2022 Fast DO, Karo A Fast DO, Karo A Start : 26-Dec-2022 Active Comments: Mail order. Comment on above: Mail order. Turmeric extract (5 sources) Start: 12-21-2023 Start: 12-21-2023 Turmeric (Bulk ) (Curcumin) 95 % powder Active NMA December 21, 2023 1:00am Start: 12-21-2023 Turmeric (Bulk ) (Curcumin) 95 % powder Active EACH December 21, 2023 12:00am ubidecarenone 50 mg oral capsule (5 sources) take 2 capsules by mouth once daily coenzyme Q-10 50 MG capsule Take 100 mg by mouth daily. 0 Active ubiquinol 100 mg oral capsule (5 sources) Start: 4 take 1 capsule by mouth twice daily Coq10 (Ubiquinol) (Qunol Uriel Coq10) 100 mg capsule Active 100 mg PO TWICE A DAY December 21, 2023 1:00am Complies with drug therapy VITAMIN K, PHYTONADIONE, PO (5 sources) VITAMIN K, PHYTONADIONE, PO Take 690 mg by mouth. 0 Active vitamin k1 5 mg oral tablet (5 sources) Warfarin Reversal Agent, Vitamin K Start: 4 take 1 tablet by mouth once daily Phytonadione (Vitamin K1) 5 mg tablet Active 5 mg PO DAILY December 21, 2023 1:00am Complies with drug therapy zinc gluconate 30 mg oral tablet (5 sources) Start: 4 take 1 tablet by mouth once daily Zinc Gluconate 30 mg tablet Active 30 mg PO DAILY December 21, 2023 1:00am Complies with drug therapy Completed/Discontinued Medications Medication Drug Class(es) Dates Sig (Normalized) Sig (Original) acetaminophen 325 mg / oxyCODONE hydrochloride 5 mg oral tablet (4 sources) Opioid Agonist Start: 12-31-2024 End: 01-12-2025 Oxycodone-Acetamino phen (Percocet) 5-325 mg tablet Discontinued 1 {tbl} PO Q4H as needed for pain 12 3 0 December 31, 2024 January 12, 2025 8:57am Calculus of right kidney Calculus of kidney alendronic acid 70 mg oral tablet (8 sources) Bisphosphonate Start: 12-21-2023 End: 01-12-2025 take 1 tablet by mouth every week Alendronate 70 mg tablet Discontinued 70 mg PO EVERY WEEK December 21, 2023 1:00am January 12, 2025 8:54am Start: 01-16-2023 take 1 tablet by sunny th in the morning alendronate (Fosamax) 70 MG [...] throat irritation). 4 tablet 2 01/16/2023 Active biotin (20 sources) Biotin qd Active diclofenac sodium 0.01 mg/mg topical gel (20 sources) Nonsteroidal Anti-inflammatory Drug Start: End: Voltaren 1 % External Gel apply 4 grams to affected frams area up to 4 x a day for 30 days Refills: 2 Ordered: 20-Aug-2022 Melinda Rendon CMA Start : 19-Nov-2020 End : 20-Aug-2022 Inactive dicyclomine hydrochloride 10 mg oral capsule (4 sources) Anticholinergic Start: End: take 2 capsules by mouth three times daily before mealtime Dicyclomine 10 mg capsule Discontinued 20 mg PO THREE TIMES DAILY BEFORE MEALS 20 0 August 19, 2024 12:00am January 12, 2025 8:57am Equate Plus (20 sources) Equate Plus qd Active ibandronic acid 150 mg oral tablet (20 sources) Bisphosphonate Start: take 1 tablet by mouth every month Boniva 150 MG Oral Tablet 1 (one) Tablet once a month for 90 days Quantity: 3 {Tablet} Refills: 1 Ordered: 04-Sep-2022 Fast DO, Karo A Fast DO, Karo A Start : 04-Sep-2022 Active Start: 04-14-2022 take 1 tablet by sunny th every month Boniva 150 MG Oral Tablet 1 (one) Tablet once a month for 90 days Quantity: 3 {Tablet} Refills: 1 Ordered: 14-Apr-2022 Fast DO, Karo A Fast DO, Karo A Start : 14-Apr-2022 Active Start: 08-19-2021 take 1 tablet by sunny th every month Boniva 150 MG Oral Tablet 1 (one) Tablet once a month for 90 days Quantity: 3 {Tablet} Refills: 1 Ordered: 19-Aug-2021 Fast DO, Karo A Fast DO, Karo A Start : 19-Aug-2021 Active Start: 03-01-2021 take 1 tablet by sunny every month Boniva 150 MG Oral Tablet 1 (one) Tablet once a month for 90 days Quantity: 3 {Tablet} Refills: 1 Ordered: 01-Mar-2021 Fast DO, Karo A Fast DO, Karo A Start : 01-Mar-2021 Active Start: 11-23-2019 take 1 tablet by sunny th every month Boniva 150 MG Oral Tablet 1 (one) Tablet once a month for 90 days Quantity: 3 {Tablet} Refills: 3 Ordered: 23-Nov-2019 Melinda Rendon CMA Start : 23-Nov-2019 Active ibuprofen 200 mg oral tablet (7 sources) Nonsteroidal Anti-inflammatory Drug Start: 07-07-2017 IBUPROFEN 200 MG TABS as needed IBUPROFEN [id number] Jaime Keane MD Multivitamin tablet (4 sources) Start: 12-21-2023 End: 01-12-2025 Multivitamin tablet Discontinued 1 {tbl} PO DAILY December 21, 2023 1:00am January 12, 2025 8:57am Start: 12-21-2023 Multivitamin t ablet Active 1 {tbl} PO DAILY December 21, 2023 1:00am nitrofurantoin, macrocrystals 25 mg / nitrofurantoin, monohydrate 75 mg oral capsule (20 sources) Nitrofuran Antibacterial Start: 09-13-2019 End: 09-16-2019 take 1 capsule by mouth twice daily Macrobid 100 MG Oral Capsule 1 (one) Capsule bid for 3 days Quantity: 6 {Capsule} Refills: 0 Ordered: 13-Sep-2019 Melinda Rendon CMA Start : 13-Sep-2019 End : 16-Sep-2019 Inactive ondansetron 4 mg disintegrating oral tablet (8 sources) Serotonin-3 Receptor Antagonist Start: 12-31-2024 End: 01-12-2025 take 1 tablet by mouth every six hours as needed for nausea and vomiting Ondansetron 4 mg tablet,disintegra ting Discontinued 4 mg PO EVERY 6 HOURS as needed for nausea and vomiting 10 December 31, 2024 12:00am January 12, 2025 8:57am Start: 08-19-2024 End: 01-12-2025 take 1 tablet by mouth every eight hours as needed for nausea Ondansetron 4 mg tablet,disintegrating Discontinued 4 mg PO EVERY 8 HOURS NEEDED as needed for Nausea 10 August 19, 2024 12:00am January 12, 2025 8:57am Paxlovid (300/100) 20 x 150 MG & 10 x 100MG Oral Tablet Therapy Pack (3 sources) Start: 03-20-2022 End: 08-20-2022 Paxlovid (300/100) 20 x 150 MG & 10 x 100MG Oral Tablet Therapy Pack use as directed per instructions in pack for 0 days Quantity: 1 {Packet} Refills: 0 Ordered: 20-Aug-2022 Club Venit Melinda Start : 20-Mar-2022 End : 20-Aug-2022 Inactive Comments: hold the crestor while onnormal kidney function GFR over 60 Comment on above: hold the crestor whi le onnormal kidney function GFR over 60 Paxlovid (300/100) 20 x 150 MG & 10 x 100MG Oral Tablet Therapy Pack (8 sources) Start: 03-20-2022 End: 08-20-2022 Paxlovid (300/100) 20 x 150 MG & 10 x 100MG Oral Tablet Therapy Pack use as directed per instructions in pack for 0 days Quantity: 1 {Packet} Refills: 0 Ordered: 20-Aug-2022 Club Venit Melinda Start : 20-Mar-2022 End : 20-Aug-2022 Inactive Comments: hold the crestor while onnormal kidney function GFR over 60 Comment on above: hold the crestor whi le onnormal kidney function GFR over 60 Paxlovid 20 x 150 MG & 10 x 100MG Oral Tablet Therapy Pack (3 sources) Start: 03-20-2022 Paxlovid 20 x 150 MG & 10 x 100MG Oral Tablet Therapy Pack use as directed per instructions in pack for 0 days Quantity: 1 {Packet} Refills: 0 Ordered: 20-Mar-2022 Zaida Wilson MD Start : 20-Mar-2022 Active Comments: hold the crestor while onnormal kidney function GFR over 60 Comment on above: hold the crestor whi le onnormal kidney function GFR over 60 Paxlovid 20 x 150 MG & 10 x 100MG Oral Tablet Therapy Pack (4 sources) Start: 03-20-2022 Paxlovid 20 x 150 MG & 10 x 100MG Oral Tablet Therapy Pack use as directed per instructions in pack for 0 days Quantity: 1 {Packet} Refills: 0 Ordered: 20-Mar-2022 Zaida Wilson MD Start : 20-Mar-2022 Active Comments: hold the crestor while onnormal kidney function GFR over 60 Comment on above: hold the crestor whi le onnormal kidney function GFR over 60 simvastatin 20 mg oral tablet (20 sources) HMG-CoA Reductase Inhibitor Start: 11-19-2020 End: 11-19-2020 take 1 tablet by mouth once daily Simvastatin 20 MG Oral Tablet 1 (one) Tablet qd for 0 days Quantity: 90 {Tablet} Refills: 3 Ordered: 19-Nov-2020 Fast DO, Karo A Fast DO, Karo A Start : 19-Nov-2020 End : 19-Nov-2020 Discontinued Start: 10-22-2020 take 1 tablet by sunny th once daily Simvastatin 20 MG Oral Tablet 1 (one) Tablet qd for 0 days Quantity: 90 {Tablet} Refills: 3 Ordered: 22-Oct-2020 Fast DO, Karo A Fast DO, Karo A Start : 22-Oct-2020 Active Start: 10-18-2019 take 1 tablet by sunny th once daily Simvastatin 20 MG Oral Tablet 1 (one) Tablet qd for 0 days Quantity: 90 {Tablet} Refills: 3 Ordered: 18-Oct-2019 Fast DO, Karo A Fast DO, Karo A Start : 18-Oct-2019 Active Start: 07-15-2019 take 1 tablet by sunny th once daily Simvastatin 20 MG Oral Tablet 1 (one) Tablet qd for 0 days Quantity: 30 {Tablet} Refills: 4 Ordered: 15-Jul-2019 Melinda Rendon CMA Start : 15-Jul-2019 Active Start: 12-17-2018 take 1 tablet by sunny th once daily Simvastatin 20 MG Oral Tablet 1 (one) Tablet qd for 0 days Quantity: 30 {Tablet} Refills: 4 Ordered: 17-Dec-2018 Fast DO, Karo A Fast DO, Karo A Start : 17-Dec-2018 Active Start: 05-18-2018 take 1 tablet by sunny th once daily Simvastatin 20 MG Oral Tablet 1 (one) Tablet qd for 0 days Quantity: 30 {Tablet} Refills: 4 Ordered: 18-May-2018 Melinda Rendon Start : 18-May-2018 Active Start: 07-21-2017 take 1 tablet by sunny th once daily SIMVASTATIN 20 MG TABS One tablet by mouth every night SIMVASTATIN [id number] Jaime Keane MD Vitamin D (6 sources) Vitamin D 4000 u nits Active Problems Active Problems Problem Classification Problem Date Documented Da te Episodic/Chronic Abdominal pain (4 sources) Abdominal pain; Translations: [Unspecified abdominal pain] 08-27-2024 Episodic Blindness and vision defects (20 sources) Presence of spectacles and contact lenses; Translations: [Wears glasses] 05-18-2018 Episodic Calculus of urinary tract (4 sources) Kidney stone; Translations: [Calculus of kidney] 12-31-2024 Episodic Diabetes mellitus without complication (15 sources) High hemoglobin A1c level; Translations: [Elevated hemoglobin A1c] 05-18-2018 Chronic Comment on above: is improving keep wo rking on low processed foods and exercise discussed diet and e x in great detail for sugar and chol and calorie count Disorders of lipid metabolism (20 sources) Hyperlipidemia; Translations: [Hypercholesterolemi a] Onset: 07-30-2017 07-30-2017 Chronic Comment on above: improving with stati n- continue working on low fat diet and ex significant improvem ent much imporved contin ue working on diet and ex which we discussed in detail Immunizations and screening for infectious disease (20 sources) Need for prophylactic vaccination and inoculation against influenza; Translations: [Encounter for immunization] Resolved: 08-20-2022 05-18-2018 Episodic Malaise and fatigue (2 sources) Fatigue; Translations: [Other fatigue] Episodic Menopausal disorders (20 sources) Menopausal symptom; Translations: [Menopausal symptoms] 08-10-2019 Chronic Nonmalignant breast conditions (6 sources) Large breast; Translations: [Hypertrophy of breast] 12-21-2023 Episodic Comment on above: considering reductio n, will call if wants referral Osteoarthritis (20 sources) Arthritis; Translations: [Arthritis] 05-18-2018 Chronic Comment on above: showed in xray of fe et Osteoporosis (20 sources) Osteoporosis; Translations: [Osteoporosis] Onset: 02-12-2023 11-23-2019 Chronic Comment on above: not due for bone den sity tolerating med encourage weight fatou ring exercise and doing boniva tolerating well awaiting bone densit y the computer wont le t me discontinue the boniva- we are going to attempt with her insurance to get her on prolia- weight bearing exercize and he will check with her dentist to make sure ok follows w PCP/weekly alendronate Other aftercare (20 sources) Patient encounter status; Translations: [Therapeutic drug monitoring] 07-17-2021 Episodic Other bone disease and musculoskeletal deformities (3 sources) Osteopenia; Translations: [Other specified disorders of bone density and structure, multiple sites] Episodic Other connective tissue disease (20 sources) Pain in finger of left hand; Translations: [Pain in finger of left hand] 04-30-2021 Episodic Other connective tissue disease (20 sources) Pain in finger of right hand; Translations: [Pain in finger of right hand] 04-30-2021 Episodic Other connective tissue disease (20 sources) Pain in right foot; Translations: [Right foot pain] Resolved: 08-20-2022 06-04-2022 Episodic Other gastrointestinal disorders (4 sources) Constipation; Translations: [Constipation, unspecified] 08-27-2024 Episodic Other injuries and conditions due to external causes (20 sources) Fracture of bone; Translations: [Avulsion fracture] 05-01-2021 Episodic Comment on above: nondisplaced avulsio n fracture along the dorsal proximal aspect of the distal phalanx of the fifth digit on the right hand Other non-traumatic joint disorders (20 sources) Knee pain; Translations: [Pain in left knee] 03-12-2021 Episodic Comment on above: doing therapy and im proving doing better Other nutritional; endocrine; and metabolic disorders (7 sources) Body mass index (BMI) 30.0-30.9, adult; Translations: [Body mass index (BMI) 30.0-30.9, adult] Onset: 07-07-2017 07-07-2017 Chronic Other nutritional; endocrine; and metabolic disorders (20 sources) Body mass index 30+ - obesity; Translations: [BMI 33.0-33.9,adult] Resolved: 08-20-2022 05-18-2018 Chronic Comment on above: discussed in detail ways to loose weight- try to change up forms of exercise and interval training and discussed changing up diet as body gets used to same foods all the time then doesnt respond- also use my fitness pal to count calories should be doing 1200 a day Other upper respiratory disease (20 sources) Vasomotor rhinitis; Translations: [Vasomotor rhinitis] 05-18-2018 Chronic Comment on above: try nasacort aqua Residual codes; unclassified (20 sources) Localized edema; Translations: [Edema of extremity] 05-18-2018 Episodic Residual codes; unclassified (13 sources) Requires diphtheria, tetanus and pertussis vaccination; Translations: [Need for Tdap vaccination (Renamed from Need for [id number]-i ertussis (Tdap) vaccine, adult/adolescent)] 05-18-2018 Episodic Residual codes; unclassified (20 sources) Postmenopausal state; Translations: [Postmenopausal (Renamed from Postmenopausal status)] 11-07-2019 Episodic Residual codes; unclassified (20 sources) Non-smoker; Translations: [Nonsmoker] 03-12-2021 Episodic Unclassified (20 sources) Needs influenza immunization; Translations: [Localized edema] 08-17-2018 Episodic Unclassified (20 sources) Unclassified (20 sources) [facility] EX[facility] 05-18-2018 Unclassified (20 sources) BMI 30.0-30.9,adult Unclassified (20 sources) High cholesterol Unclassified (20 sources) Elevated hemoglobin A1c Unclassified (20 sources) Nonsmoker Unclassified (20 sources) skin screening 09-07-2019 Unclassified (17 sources) Postmenopausal (Renamed from Postmenopausal status) Unclassified (19 sources) BMI 33.0-33.9,adult Urinary tract infections (20 sources) Urinary tract infectious disease; Translations: [UTI (urinary tract infection)] 11-07-2019 Episodic Viral infection (20 sources) Disease caused by 2019-nCoV; Translations: [COVID] Resolved: 08-20-2022 03-20-2022 Episodic Past or Other Problems Problem Classification Problem Date Documented Da te Episodic/Chronic Diabetes mellitus without complication (20 sources) High hemoglobin A1c level; Translations: [Elevated hemoglobin A1c] Onset: 11-16-2024 03-12-2021 Episodic Comment on above: discussed diet and e x in detail use my fitness pal- lean protein lots of veggies low on processed carbs improved working on diet and ex Genitourinary symptoms and ill-defined conditions (20 sources) Abnormal urine; Translations: [Abnormal urine] Onset: 04-27-2025 09-07-2019 Episodic Heart valve disorders (9 sources) Heart murmur; Translations: [Cardiac murmur, unspecified] Onset: 07-02-2017 07-02-2017 Episodic Nausea and vomiting (1 source) Nausea with vomiting, unspecified; Translations: [Nausea with vomiting, unspecified] Onset: 01-10-2025 Episodic Nonspecific chest pain (5 sources) Chest discomfort; Translations: [Other chest pain] Onset: 09-12-2024 08-27-2024 Episodic Other connective tissue disease (20 sources) Enthesopathy of ankle AND/OR tarsus; Translations: [Calcaneal spur] Onset: 08-19-2013 Resolved: 07-07-2017 10-18-2013 Episodic Other connective tissue disease (11 sources) Achilles tendinitis, unspecified leg; Translations: [Achilles tendinitis, unspecified leg] Onset: 08-19-2013 Resolved: 07-07-2017 07-07-2017 Episodic Other connective tissue disease (11 sources) Calcaneal spur; Translations: [Calcaneal spur, unspecified foot] Onset: 08-19-2013 Resolved: 07-07-2017 07-07-2017 Episodic Other lower respiratory disease (1 source) Pleurodynia; Translations: [Pleurodynia] Onset: 09-20-2024 Episodic Other non-traumatic joint disorders (16 sources) Ankle instability; Translations: [Other instability, unspecified ankle] Onset: 08-19-2013 Resolved: 07-07-2017 08-22-2013 Episodic Other non-traumatic joint disorders (10 sources) Pain in left knee; Translations: [Left knee pain] 11-07-2019 Residual codes; unclassified (1 source) Asymptomatic menopausal state; Translations: [Asymptomatic menopausal state] Onset: 11-01-2024 Episodic Unclassified (20 sources) Breast neoplasm screening status; Translations: [Patient encounter status] Onset: 10-14-2024 05-18-2018 Episodic Unclassified (20 sources) Need for Tdap vaccination (Renamed from Need for diphtheria-tetanus- pertussis (Tdap) vaccine, adult/adolescent) Unclassified (17 sources) Non-smoker; Translations: [Nonsmoker] 05-18-2018 Unclassified (15 sources) Pregnancies (); Translations: [Pregnancies ()] 05-18-2018 Comment on above: 3 Unclassified (20 sources) Edema extremities Unclassified (20 sources) Encounter for screening mammogram for breast cancer (Renamed from Encounter for screening mammogram for malignant neoplasm of breast) Unclassified (20 sources) BMI 32.0-32.9,adult Unclassified (15 sources) Deliveries (Parity); Translations: [Deliveries (Parity)] 05-18-2018 Comment on above: 3 Unclassified (14 sources) Patient encounter status; Translations: [Encounter for screening mammogram for breast cancer (Renamed from Encounter for screening mammogram for malignant neoplasm of breast)] 05-18-2018 Unclassified (20 sources) Menopausal symptoms Unclassified (20 sources) Deliveries (Parity); Translations: [Deliveries (Parity)] 03-12-2021 Comment on above: 3 Unclassified (20 sources) Pregnancies (); Translations: [Pregnancies ()] 03-12-2021 Comment on above: 3 Unclassified (6 sources) Pain in finger of left hand Unclassified (5 sources) Pain in finger of right hand Unclassified (4 sources) Therapeutic drug monitoring Unclassified (4 sources) Avulsion fracture Viral infection (3 sources) Disease caused by 2019-nCoV Results Test Name Value Interpretation Reference Range Facility Absolute lymphocyte countOrd ered By: Karo Patel on 04-24-2025 Lymphocytes Auto (Unsp spec) [#/Vol] 1.70 10*3/uL 0.83-4.51 [facility] Absolute neutrophil countOrd ered By: Karo Patel on 04-24-2025 Neutrophils (Bld) [#/Vol] 2.5 10*3/uL 2.0-7.7 [facility] Anion gap in Serum or Plasma Ordered By: Karo Fast on 04-24-2025 Anion gap [Moles/Vol] 11 mmol/L 5-15 [facility] Automated lymphocyte count a s percentage of total leukocytesOrdered By: Karo on 04-24-2025 Lymphocytes/100 WBC Auto (Unsp spec) 33.7 % 19-41 [facility] BUN/creatinine ratioOrdered By: Karo on 04-24-2025 Urea nitrogen/Creatinine [Mass ratio] 23.4 mg/mg High 10-20 [facility] Basophil percentageOrdered B y: Karo on 04-24-2025 Basophils/100 WBC (Bld) 0.4 % 0-1 [facility] Bilirubin Test strip Ql (U)O rdered By: Karo on 04-24-2025 Bilirubin Ql (U) Negative Negative [facility] Bilirubin, totalOrdered By: Karo on 04-24-2025 Bilirubin [Mass/Vol] 0.32 mg/dL 0.00-1.30 [facility] CBC W/Diff, Automatedon Absolute Lymph 1.70 X10 3/uL Normal 0.83-4.51 [facility] Comment on above: Performed By: #### L 501.9985, L500.4100, L100.0100, L502.0250, L500.4050, L400.0001 ####[facility] [address] [place], [address] Absolute Neut 2.5 X10 3/uL Normal 2.0-7.7 [facility] Comment on above: Performed By: #### L 501.9985, L500.4100, L100.0100, L502.0250, L500.4050, L400.0001 ####[facility] [address] [place], [address] Basophils/100 WBC (Bld) 0.4 % Normal 0-1 [facility] Comment on above: Performed By: #### L 501.9985, L500.4100, L100.0100, L502.0250, L500.4050, L400.0001 ####[facility] [address] [place], [address] Eosinophils/100 WBC (Bld) 4.4 % Normal 0-5 [facility] Comment on above: Performed By: #### L 501.9985, L500.4100, L100.0100, L502.0250, L500.4050, L400.0001 ####[facility] [address] [place], [address] Erythrocyte distribution width (RBC) [Ratio] 13.6 % Normal 11.6-14.6 [facility] Comment on above: Performed By: #### L 501.9985, L500.4100, L100.0100, L502.0250, L500.4050, L400.0001 ####[facility] [address] [place], [address] Hematocrit (Bld) [Volume fraction] 42.9 % Normal 37-47 [facility] Comment on above: Performed By: #### L 501.9985, L500.4100, L100.0100, L502.0250, L500.4050, L400.0001 ####[facility] [address] [place], [address] Hemoglobin (Bld) [Mass/Vol] 13.7 g/dL Normal 12.0-15.0 [facility] Comment on above: Performed By: #### L 501.9985, L500.4100, L100.0100, L502.0250, L500.4050, L400.0001 ####[facility] [address] [place], [address] IG% 0.200 Normal 0.0-0.9 [facility] Comment on above: Result Comment: IG% - Immature Granulocytes (promyelocytes, myelocytes and metamyelocytes) > 1% indicates that a LEFT SHIFT is Present. Performed By: #### L 501.9985, L500.4100, L100.0100, L502.0250, L500.4050, L400.0001 ####[facility] [address] [place], [address] Lymphocytes/100 WBC (Bld) 33.7 % Normal 19-41 [facility] Comment on above: Performed By: #### L 501.9985, L500.4100, L100.0100, L502.0250, L500.4050, L400.0001 ####[facility] [address] [place], [address] MCH (RBC) [Entitic mass] 26.9 pg Low 27.0-32.0 [facility] Comment on above: Performed By: #### L 501.9985, L500.4100, L100.0100, L502.0250, L500.4050, L400.0001 ####[facility] [address] [place], [address] MCHC (RBC) [Mass/Vol] 31.9 g/dL Low 32-36 [facility] Comment on above: Performed By: #### L 501.9985, L500.4100, L100.0100, L502.0250, L500.4050, L400.0001 ####[facility] [address] [place], [address] MCV (RBC) [Entitic vol] 84.1 fL Normal 81-99 [facility] Comment on above: Performed By: #### L 501.9985, L500.4100, L100.0100, L502.0250, L500.4050, L400.0001 ####[facility] [address] [place], [address] Monocytes/100 WBC (Bld) 11.9 % High 0-10 [facility] Comment on above: Performed By: #### L 501.9985, L500.4100, L100.0100, L502.0250, L500.4050, L400.0001 ####[facility] [address] [place], [address] Neutrophils/100 WBC (Bld) 49.4 % Normal 47-70 [facility] Comment on above: Performed By: #### L 501.9985, L500.4100, L100.0100, L502.0250, L500.4050, L400.0001 ####[facility] [address] [place], [address] Nucleated RBC (Bld) [#/Vol] 0 10*3/uL Normal 0-5 [facility] Comment on above: Performed By: #### L 501.9985, L500.4100, L100.0100, L502.0250, L500.4050, L400.0001 ####[facility] [address] [place], [address] Platelet mean volume (Bld) [Entitic vol] 10.7 fL Normal 6.2-12.0 [facility] Comment on above: Performed By: #### L 501.9985, L500.4100, L100.0100, L502.0250, L500.4050, L400.0001 ####[facility] [address] [place], [address] Platelets (Bld) [#/Vol] 195 10*3/uL Normal 150-450 [facility] Comment on above: Performed By: #### L 501.9985, L500.4100, L100.0100, L502.0250, L500.4050, L400.0001 ####[facility] [address] [place], [address] RBC (Bld) [#/Vol] 5.10 10*6/uL Normal 4.2-5.4 [facility] Comment on above: Performed By: #### L 501.9985, L500.4100, L100.0100, L502.0250, L500.4050, L400.0001 ####[facility] [address] [place], [address] RDW SD 42.3 fl Normal 35.1-43.9 [facility] Comment on above: Performed By: #### L 501.9985, L500.4100, L100.0100, L502.0250, L500.4050, L400.0001 ####[facility] [address] [place], [address] WBC (Bld) [#/Vol] 5.0 10*3/uL Normal 4.4-11.0 [facility] Comment on above: Performed By: #### L 501.9985, L500.4100, L100.0100, L502.0250, L500.4050, L400.0001 ####[facility] [address] [place], [address] Calculated very low density lipoprotein (VLDL) cholesterol measurementOrdered By: Karo Fast on 04-24-2025 Calculated very low density lipoprotein (VLDL) cholesterol measurement 41 mg/dL High 5-40 [facility] Carbon dioxide, total [Moles /volume] in Central venous bloodOrdered By: Karo Fast on 04-24-2025 CO2 [Moles/Vol] 24.3 mmol/L 21.0-32.0 [facility] Chloride assayOrdered By: De bra Fast on 04-24-2025 Chloride [Moles/Vol] 105 mmol/L 98-108 [facility] Comprehensive Metabolic Prof ilon 04-24-2025 Albumin [Mass/Vol] 4.2 g/dL Normal 3.4-4.8 [facility] Comment on above: Performed By: #### L 100.0100 #### [facility] [address] [place], [address] Albumin/Globulin [Mass ratio] 2.0 {ratio} Normal 0.9-2.4 [facility] Comment on above: Performed By: #### L 100.0100 #### [facility] [address] [place], [address] ALK PHOS 77 U/L Normal 35-104 [facility] Comment on above: Performed By: #### L 100.0100 #### [facility] [address] [place], [address] ALT [Catalytic activity/Vol] 29 U/L Normal <=34 [facility] Comment on above: Performed By: #### L 100.0100 #### [facility] [address] [place], [address] AST [Catalytic activity/Vol] 25 U/L Normal <=31 [facility] Comment on above: Performed By: #### L 100.0100 #### [facility] [address] [place], [address] Bilirubin [Mass/Vol] 0.32 mg/dL Normal 0.00-1.30 [facility] Comment on above: Performed By: #### L 100.0100 #### [facility] [address] [place], [address] BUN/CRE 23.4 RATIO High 10-20 [facility] Comment on above: Performed By: #### L 100.0100 #### [facility] [address] [place], [address] Calcium [Mass/Vol] 9.4 mg/dL Normal 7.6-11.0 [facility] Comment on above: Performed By: #### L 100.0100 #### [facility] [address] [place], [address] Chloride [Moles/Vol] 105 mmol/L Normal 98-108 [facility] Comment on above: Performed By: #### L 100.0100 #### [facility] [address] [place], [address] CO2 [Moles/Vol] 24.3 mmol/L Normal 21.0-32.0 [facility] Comment on above: Performed By: #### L 100.0100 #### [facility] [address] [place], [address] Creatinine [Mass/Vol] 0.65 mg/dL Low 0.70-1.20 [facility] Comment on above: Performed By: #### L 100.0100 #### [facility] [address] [place], [address] GAP 11 Normal 5-15 [facility] Comment on above: Performed By: #### L 100.0100 #### [facility] [address] [place], [address] GFR/1.73 sq M.predicted among non-blacks MDRD (S/P/Bld) [Vol rate/Area] 95 mL/min/{1.73_m2} Normal >60 [facility] Comment on above: Result Comment: mL/m in/1.73m2 CKD-EPI Creatinine Equation (2020) Performed By: #### L 100.0100 #### [facility] [address] [place], [address] Globulin (S) [Mass/Vol] 2.2 g/dL Normal 2.2-4.2 [facility] Comment on above: Performed By: #### L 100.0100 #### [facility] [address] [place], [address] Glucose [Mass/Vol] 91 mg/dL Normal 70-99 [facility] Comment on above: Performed By: #### L 100.0100 #### [facility] [address] [place], [address] Potassium [Moles/Vol] 4.0 mmol/L Normal 3.3-5.1 [facility] Comment on above: Performed By: #### L 100.0100 #### [facility] [address] [place], [place], [id number] Sodium [Moles/Vol] 140 mmol/L Normal 133-145 [facility] Comment on above: Performed By: #### L 100.0100 #### [facility] [address] [place], [place], [address] T PROT 6.4 g/dL Normal 5.9-8.4 [facility] Comment on above: Performed By: #### L 100.0100 #### [facility] [address] [place], [place], [address] Urea nitrogen [Mass/Vol] 15 mg/dL Normal 4-19 [facility] Comment on above: Performed By: #### L 100.0100 #### [facility] [address] [place], [place], [id number] Eosinophil percentageOrdered By: Karo Fast on 04-24-2025 Eosinophils/100 WBC (Bld) 4.4 % 0-5 [facility] Erythrocyte distribution wid th ratioOrdered By: Karo Fast on 04-24-2025 Erythrocyte distribution width (RBC) [Ratio] 13.6 % 11.6-14.6 [facility] Erythrocyte distribution wid th standard deviationOrdered By: Karo Fast on 04-24-2025 Erythrocyte distribution width (RBC) [Ratio] 42.3 fl 35.1-43.9 [facility] Glomerular filtration rate ( GFR) estimation/1.73 sq m using serum, plasma, or whole bOrdered By: Karo Fast on 04-24-2025 GFR/1.73 sq M.predicted among non-blacks MDRD (S/P/Bld) [Vol rate/Area] 95 mL/min/{1.73_m2} >60 [facility] Comment on above: mL/min/1.73m2 CKD-EP I Creatinine Equation (2020) Hematocrit Auto (Bld) [Volum e fraction]Ordered By: Karo Fast on 04-24-2025 Hematocrit (Bld) [Volume fraction] 42.9 % 37-47 [facility] Hemoglobin A1con 04-24-2025 HbA1c (Bld) [Mass fraction] 5.8 % High <=5.6 [facility] Comment on above: Result Comment: Norm al < 5.7 % Prediabetic 5.7 - 6.4 % Diabetic >or= 6.5 % Please note range changes. Performed By: #### L 100.0100 #### [facility] [address] [place], [address] Hemoglobin A1c percentageOrd ered By: Karo on 04-24-2025 HbA1c (Bld) [Mass fraction] 5.8 % High <5.7 [facility] Comment on above: Normal < 5.7 % Predi abetic 5.7 - 6.4 % Diabetic >or= 6.5 % Please note range changes. Hemoglobin measurementOrdere d By: Karo Fast on 04-24-2025 Hemoglobin (Bld) [Mass/Vol] 13.7 g/dL 12.0-15.0 [facility] Immature granulocytes/100 WB C Auto (Bld)Ordered By: Karo on 04-24-2025 Immature granulocytes/100 WBC (Bld) 0.200 % 0.0-0.9 [facility] Comment on above: IG% - Immature Granu locytes (promyelocytes, myelocytes and metamyelocytes) > 1% indicates that a LEFT SHIFT is Present. Ketones Test strip Ql (U)Ord ered By: Karo Fast on 04-24-2025 Ketones Ql (U) Negative Negative [facility] LDL calc ser/plasOrdered By: Karo Fast on 04-24-2025 Cholesterol in LDL [Mass/Vol] 178 mg/dL [facility] Comment on above: Nmfplpzrmp=436-194 m g/dL & Higher Szgj=438 mg/dL or greater Laboratory - Chemistry and C hemistry - challengeOrdered By: Karo Fast on 04-24-2025 AST [Catalytic activity/Vol] 25 U/L <32 [facility] Lipid Profileon 04-24-2025 CHOL:HDL 4.94 Normal [facility] Comment on above: Performed By: #### L 100.0100 #### [facility] [address] [place], [address] Cholesterol [Mass/Vol] 274 mg/dL High <=200 [facility] Comment on above: Result Comment: Chol esterol level, Desirable <200 mg/dL Borderline high cholesterol 200-239 mg/dL High cholesterol >=240 mg/dL Recommendations of the NCEP Adult Treatment Panel for the following risk-cutoff thresholds for the [place] population. Performed By: #### L 100.0100 #### [facility] [address] [place], [address] Cholesterol in HDL [Mass/Vol] 56 mg/dL Normal [facility] Comment on above: Result Comment: Emma onal Cholesterol Education Program (NCEP) guidelines: <40 mg/dL: Low HDL-cholesterol (major risk factor for CHD) >= 60 mg/dL: High HDL-cholesterol (negative risk factor for CHD) HDL-cholesterol is affected by a number of factors, e.g. smoking, exercise, hormones, sex and age. Performed By: #### L 100.0100 #### [facility] [address] [place], [address] Cholesterol in LDL [Mass/Vol] 178 mg/dL Normal [facility] Comment on above: Result Comment: Bord jhteek=473-100 mg/dL Higher Dojs=518 mg/dL or greater Performed By: #### L 100.0100 #### [facility] [address] [place], [address] Cholesterol in VLDL [Mass/Vol] 41 mg/dL High 5-40 [facility] Comment on above: Performed By: #### L 100.0100 #### [facility] [address] [place], [address] Triglyceride [Mass/Vol] 205 mg/dL High [facility] Comment on above: Result Comment: The drugs N-Acetylcysteine and Metamizole may falsely depress this assay. Normal range: <150 mg/dL Borderline High: 150-199 mg/dL High: 200-499 mg/dL Very High: >500 mg/dL Performed By: #### L 100.0100 #### [facility] [address] [place], [address] MCV (mean corpuscular volume ) determinationOrdered By: Karo Fast on 04-24-2025 MCV (RBC) [Entitic vol] 84.1 fL 81-99 [facility] Mean corpuscular hemoglobin (MCH) determinationOrdered By: Karo Fast on 04-24-2025 MCH (RBC) [Entitic mass] 26.9 pg Low 27.0-32.0 [facility] Mean corpuscular hemoglobin concentration (MCHC) determinationOrdered By: Karo Fast on 04-24-2025 MCHC (RBC) [Mass/Vol] 31.9 g/dL Low 32-36 [facility] Mean platelet volume determi nationOrdered By: Karo Fast on 04-24-2025 Platelet mean volume (Bld) [Entitic vol] 10.7 fL 6.2-12.0 [facility] Microalb:Creat Ratio,Random URon 04-24-2025 Creatinine [Mass/Vol] 86.20 mg/dL Normal 28.00- 217. 00 [facility] Comment on above: Performed By: #### L 100.0100 #### [facility] [address] [place], [place], [id number] MALB:CREAT UNABLE TO CALCULATE Normal [facility] Comment on above: Performed By: #### L 100.0100 #### [facility] [address] [place], [place], [id number] MICROALBUMIN,UR < 12.0 Normal NO RANGE EST. [facility] Comment on above: Performed By: #### L 100.0100 #### [facility] [address] [place], [place], [id number] Microalbumin/creat ratio urO rdered By: Karo Fast on 04-24-2025 Urine microalbumin/creatinin e ratio measurement UNABLE TO CALCULATE mg/g CRE [facility] Microscopic analysis of urin e for red blood cells (RBC)Ordered By: Karo on 04-24-2025 Microscopic analysis of urine for red blood cells (RBC) 0 SEEN /hpf 0-5 [facility] Monocyte percentageOrdered B y: Karo on 04-24-2025 Monocytes/100 WBC (Bld) 11.9 % High 0-10 [facility] Mucus LM Ql (Urine sed)Order ed By: Karo on 04-24-2025 Mucus Ql (Urine sed) 0 SEEN /hpf [facility] Neutrophil percentageOrdered By: on 04-24-2025 Neutrophils/100 WBC (Bld) 49.4 % 47-70 [facility] Nitrite Test strip Ql (U)Ord ered By: Karo on 04-24-2025 Nitrite Ql (U) Negative Negative [facility] Nucleated red blood cell per centageOrdered By: Karo on 04-24-2025 Nucleated RBC/100 WBC (Bld) [Ratio] 0 % 0-5 [facility] Platelet countOrdered By: Potter on 04-24-2025 Platelets (Bld) [#/Vol] 195 10*3/uL 150-450 [facility] Potassium measurement (mass/ volume)Ordered By: Karo on 04-24-2025 Potassium (Unsp spec) [Mass/Vol] 4.0 mmol/L 3.3-5.1 [facility] Protein Test strip Ql (U)Ord ered By: Karo on 04-24-2025 Protein Ql (U) 15 mg/dl High Negative [facility] RBC Auto (Bld) [#/Vol]Ordere d By: Karo on 04-24-2025 RBC (Bld) [#/Vol] 5.10 10*6/uL 4.2-5.4 [facility] Random urine creatinine [place] urement (mass/volume)Ordered By: Karo on 04-24-2025 Creatinine Unsp time (U) [Mass/Vol] 86.20 mg/dL 28.00-217. 00 [facility] Screening total cholesterol/ high density lipoprotein (HDL) cholesterol ratioOrdered By: Karo on 04-24-2025 Cholesterol.total/Chol esterol in HDL [Mass ratio] 4.94 {ratio} [facility] Serum creatinine measurement (mass/volume)Ordered By: on 04-24-2025 Creatinine [Mass/Vol] 0.65 mg/dL Low 0.70-1.20 [facility] Serum globulin measurementOr dered By: on 04-24-2025 Globulin (S) [Mass/Vol] 2.2 g/dL 2.2-4.2 [facility] Serum glucose measurement (m ass/volume)Ordered By: on 04-24-2025 Glucose [Mass/Vol] 91 mg/dL 70-99 [facility] Serum or plasma alanine jorge otransferase (ALT) measurementOrdered By: on 04-24-2025 ALT [Catalytic activity/Vol] 29 U/L <35 [facility] Serum or plasma albumin [place] urement (mass/volume)Ordered By: on 04-24-2025 Albumin [Mass/Vol] 4.2 g/dL 3.4-4.8 [facility] Serum or plasma albumin/glob ulin mass ratioOrdered By: on 04-24-2025 Albumin/Globulin [Mass ratio] 2.0 {ratio} 0.9-2.4 [facility] Serum or plasma alkaline zoie sphatase measurementOrdered By: on 04-24-2025 ALP [Catalytic activity/Vol] 77 U/L 35-104 [facility] Serum or plasma calcium [place] urement (mass/volume)Ordered By: 04-24-2025 Calcium [Mass/Vol] 9.4 mg/dL 7.6-11.0 [facility] Serum or plasma cholesterol in HDL measurement (mass/volume)Ordered By: on 04-24-2025 Cholesterol in HDL [Mass/Vol] 56 mg/dL >40 [facility] Comment on above: National Cholesterol Education Program (NCEP) guidelines:<40 mg/dL: Low HDL-cholesterol (major risk factor for CHD)>= 60 mg/dL: High HDL-cholesterol (negative risk factor for CHD)HDL-cholesterol is affected by a number of factors, e.g. smoking, exercise, hormones, sex and age. Serum or plasma cholesterol measurement (mass/volume)Ordered By: Karo Fast on 04-24-2025 Cholesterol [Mass/Vol] 274 mg/dL High <201 [facility] Comment on above: Cholesterol level, D esirable <200 mg/dLBorderline high cholesterol 200-239 mg/dLHigh cholesterol >=240 mg/dLRecommendations of the NCEP Adult Treatment Panel for the following risk-cutoff thresholds for the [place] population. Serum or plasma urea nitroge n measurement (mass/volume)Ordered By: Karo Fast on 04-24-2025 Urea nitrogen [Mass/Vol] 15 mg/dL 4-19 [facility] Sodium levelOrdered By: a Fast on 04-24-2025 Sodium [Moles/Vol] 140 mmol/L 133-145 [facility] Squamous epithelial cells de tection in urine sediment by light microscopyOrdered By: Karo Fast on 04-24-2025 Epithelial cells.squamous LM Ql (Urine sed) 0-5 SEEN /hpf 5-10 [facility] Total proteinOrdered By: Ana ra Fast on 04-24-2025 Protein [Mass/Vol] 6.4 g/dL 5.9-8.4 [facility] Triglycerides measurementOrd ered By: Karo on 04-24-2025 Triglyceride [Mass/Vol] 205 mg/dL High <199 [facility] Comment on above: The drugs N-Acetylcy steine and Metamizole may falsely depress this assay. Normal range: <150 mg/dLBorderline High: 150-199 mg/dLHigh: 200-499 mg/dLVery High: >500 mg/dL Urinalysis, Completeon 04-24 EPI,SQUAMOUS 0-5 SEEN Normal 5-10 [facility] Comment on above: Order Comment: Urine , Random Performed By: #### L 100.0100 #### [facility] [address] [place] [place], [address] WBC 0-5 SEEN Normal 0-5 [facility] Comment on above: Order Comment: Urine , Random Performed By: #### L 100.0100 #### [facility] [address] [place] [place], [address] BACTERIA 0 SEEN Normal None Seen [facility] Comment on above: Order Comment: Urine , Random Performed By: #### L 100.0100 #### [facility] [address] [place], [place], [id number] Mucus Ql (Urine sed) 0 SEEN Normal [facility] Comment on above: Order Comment: Urine , Random Performed By: #### L 100.0100 #### [facility] [address] [place], [address] RBC 0 SEEN Normal 0-5 [facility] Comment on above: Order Comment: Urine , Random Performed By: #### L 100.0100 #### [facility] [address] [place], [place], [id number] Urine albumin measurement wi detection limit of 20 mg/L or less (mass/volume)Ordered By: Karo Fast on 04-24-2025 Albumin DL <= 20 mg/L (U) [Mass/Vol] < 12.0 mg/L NO RANGE EST. [facility] Urine clarityOrdered By: Ana ra Fast on 04-24-2025 Clarity (U) Clear Clear [facility] Urine color determinationOrd ered By: Karo Fast on 04-24-2025 Color (U) Yellow Yellow [facility] Urine glucose detectionOrder ed By: Karo Fast on 04-24-2025 Glucose Ql (U) Normal mg/dl Normal [facility] Urine leukocyte esterase det ection by dipstickOrdered By: Karo Fast on 04-24-2025 Leukocyte esterase Test strip Ql (U) Negative Negative [facility] Urine pHOrdered By: Karo Fa st on 04-24-2025 pH (U) 7.0 [pH] 5.0 - 8.0 [facility] Urine sediment bacteria coun t by microscopy (number/high power field)Ordered By: Karo Fast on 04-24-2025 Bacteria LM.HPF (Urine sed) [#/Area] 0 /[HPF] None Seen [facility] Urine specific gravity measu rementOrdered By: Karo Fast on 04-24-2025 Specific gravity (U) [Rel density] 1.010 1.002-1.03 0 [facility] Urine urobilinogen measureme ntOrdered By: Karo Patel on 04-24-2025 Urobilinogen Ql (U) Normal mg/dl Normal [facility] White blood cell (WBC) count Ordered By: Karo Patel on 04-24-2025 WBC (Bld) [#/Vol] 5.0 10*3/uL 4.4-11.0 [facility] White blood cell countOrdere d By: Karo Patel on 04-24-2025 White blood cell count 0-5 SEEN /hpf 0-5 [facility] Abdomen/Pelvis without Conto n 12-31-2024 Abdomen/Pelvis without Cont [facility] Services [address] [place], [place] [address] Abdomen/Pelvis without Cont MR#: [id number] Acct: [id number] Name: QUIANA MEJIA Rep #: [id number] : 1955 F 69 From: Darell Fuentes PCP: Dr. Karo Patel, DO Status: REG ER Study: Abdomen/Pelvis without Cont Date of Exam: 12/17 03/12 Exam# [id number] Ordering Dr: Perfecto Yuan MD PROCEDURE: CT abdomen pelvis without IV contrast REASON FOR EXAM: Pain TECHNIQUE: Multiple contiguous axial images through the abdomen and pelvis were obtained without the administration of intravenous contrast. Two-dimensional coronal and sagittal reformatted images were reconstructed. Low-dose imaging technique was utilized. COMPARISON: None. FINDINGS: Lung bases are clear. Unenhanced liver, spleen, pancreas and adrenal glands are intact. Cholelithiasis without evidence of acute cholecystitis or biliary ductal dilation. Small hiatal hernia. Right-sided obstructive uropathy with a 3 mm calculus at the ureterovesicular junction resulting in mild hydroureteronephrosis and periureteric/peripelvic fat stranding. Punctate nonobstructing left renal calculus. No left hydronephrosis. Urinary bladder is within normal limits. No bowel obstruction, focal bowel wall thickening or significant perienteric inflammation. Normal appendix. No pelvic free fluid. No free air. Calcified nonaneurysmal abdominal aorta. No suspicious adenopathy. Superficial soft tissues are intact. No acute osseous abnormality. 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/Abdomen/Pelvis without Cont IMPRESSION: 1. Right-sided obstructive uropathy as above. 2. Left nephrolithiasis. 3. Cholelithiasis. 4. Hiatal hernia. Reading Location: [facility] CC: Dr. Karo Patel DO; Dr. Perfecto Yuan MD [employer] Operator: Signed Normal [facility] Absolute lymphocyte countOrd ered By: Perfecto Yuan on 12-31-2024 Lymphocytes Auto (Unsp spec) [#/Vol] 1.56 10*3/uL 0.83-4.51 [facility] Absolute neutrophil countOrd ered By: Perfecto Yuan on 12-31-2024 Neutrophils (Bld) [#/Vol] 7.2 10*3/uL 2.0-7.7 [facility] Anion gap in Serum or Plasma Ordered By: Perfecto Yuan on 12-31-2024 Anion gap [Moles/Vol] 14 mmol/L - [facility] Automated lymphocyte count a s percentage of total leukocytesOrdered By: Perfecto Yuan on 12-31-2024 Lymphocytes/100 WBC Auto (Unsp spec) 16.2 % Low 19-41 [facility] BUN/creatinine ratioOrdered By: Perfecto Yuan on 12-31-2024 Urea nitrogen/Creatinine [Mass ratio] 18.6 mg/mg - [facility] Basic Metabolic Profile (BMP )on 12-31-2024 BUN/CRE 18.6 RATIO Normal - [facility] Comment on above: Performed By: #### L 100.0100, L500.2500 #### [facility] [address] [place], [address] Calcium [Mass/Vol] 9.7 mg/dL Normal 7.6-11.0 [facility] Comment on above: Performed By: #### L 100.0100, L500.2500 #### [facility] [address] [place], [address] Chloride [Moles/Vol] 100 mmol/L Normal 98-108 [facility] Comment on above: Performed By: #### L 100.0100, L500.2500 #### [facility] [address] [place], [address] CO2 [Moles/Vol] 21.5 mmol/L Normal 21.0-32.0 [facility] Comment on above: Performed By: #### L 100.0100, L500.2500 #### [facility] [address] [place], [address] Creatinine [Mass/Vol] 0.73 mg/dL Normal 0.70-1.20 [facility] Comment on above: Performed By: #### L 100.0100, L500.2500 #### [facility] [address] [place], [address] ECRCL 69.23 ml/min Normal 50-250 [facility] Comment on above: Performed By: #### L 100.0100, L500.2500 #### [facility] [address] [place], [address] GAP 14 Normal 5-15 [facility] Comment on above: Performed By: #### L 100.0100, L500.2500 #### [facility] [address] [place], [address] GFR/1.73 sq M.predicted among non-blacks MDRD (S/P/Bld) [Vol rate/Area] 90 mL/min/{1.73_m2} Normal >60 [facility] Comment on above: Result Comment: mL/m in/1.73m2 CKD-EPI Creatinine Equation (2020) Performed By: #### L 100.0100, L500.2500 #### [facility] [address] [place], [address] Glucose [Mass/Vol] 124 mg/dL High 70-99 [facility] Comment on above: Performed By: #### L 100.0100, L500.2500 #### [facility] [address] [place], [address] Potassium [Moles/Vol] 4.0 mmol/L Normal 3.3-5.1 [facility] Comment on above: Performed By: #### L 100.0100, L500.2500 #### [facility] [address] [place], [address] Sodium [Moles/Vol] 136 mmol/L Normal 133-145 [facility] Comment on above: Performed By: #### L 100.0100, L500.2500 #### [facility] [address] [place], [address] Urea nitrogen [Mass/Vol] 14 mg/dL Normal 4-19 [facility] Comment on above: Performed By: #### L 100.0100, L500.2500 #### [facility] [address] [place], [address] Basophil percentageOrdered B y: Perfecto Yuan on 12-31-2024 Basophils/100 WBC (Bld) 0.6 % 0-1 [facility] Bilirubin Test strip Ql (U)O rdered By: Perfecto Yuan on 12-31-2024 Bilirubin Ql (U) Negative Negative [facility] Bilirubin directOrdered By: Perfecto Yuan on 12-31-2024 Bilirubin.direct [Mass/Vol] mg/dL 0.00-0.30 [facility] Bilirubin, totalOrdered By: Perfecto Yuan on 12-31-2024 Bilirubin [Mass/Vol] 0.19 mg/dL 0.00-1.30 [facility] Bilirubin.direct [Mass/Vol]O rdered By: Perfecto Yuan on 12-31-2024 Direct Bilirubin < 0.08 mg/dL 0.00-0.30 [facility] CBC W/Diff, Automatedon 12-17 Absolute Lymph 1.56 X10 3/uL Normal 0.83-4.51 [facility] Comment on above: Performed By: #### L 100.0100, L500.2500 #### [facility] [address] [place], [address] Absolute Neut 7.2 X10 3/uL Normal 2.0-7.7 [facility] Comment on above: Performed By: #### L 100.0100, L500.2500 #### [facility] [address] [place], [address] Basophils/100 WBC (Bld) 0.6 % Normal 0-1 [facility] Comment on above: Performed By: #### L 100.0100, L500.2500 #### [facility] [address] [place], [address] Eosinophils/100 WBC (Bld) 1.4 % Normal 0-5 [facility] Comment on above: Performed By: #### L 100.0100, L500.2500 #### [facility] [address] [place], [address] Erythrocyte distribution width (RBC) [Ratio] 14.3 % Normal 11.6-14.6 [facility] Comment on above: Performed By: #### L 100.0100, L500.2500 #### [facility] [address] [place], [address] Hematocrit (Bld) [Volume fraction] 42.9 % Normal 37-47 [facility] Comment on above: Performed By: #### L 100.0100, L500.2500 #### [facility] [address] [place], [address] Hemoglobin (Bld) [Mass/Vol] 13.9 g/dL Normal 12.0-15.0 [facility] Comment on above: Performed By: #### L 100.0100, L500.2500 #### [facility] [address] [place], [address] IG% 0.500 Normal 0.0-0.9 [facility] Comment on above: Result Comment: IG% - Immature Granulocytes (promyelocytes, myelocytes and metamyelocytes) > 1% indicates that a LEFT SHIFT is Present. Performed By: #### L 100.0100, L500.2500 #### [facility] [address] [place], [address] Lymphocytes/100 WBC (Bld) 16.2 % Low 19-41 [facility] Comment on above: Performed By: #### L 100.0100, L500.2500 #### [facility] [address] [place], [address] MCH (RBC) [Entitic mass] 26.9 pg Low 27.0-32.0 [facility] Comment on above: Performed By: #### L 100.0100, L500.2500 #### [facility] [address] [place], [address] MCHC (RBC) [Mass/Vol] 32.4 g/dL Normal 32-36 [facility] Comment on above: Performed By: #### L 100.0100, L500.2500 #### [facility] [address] [place], [address] MCV (RBC) [Entitic vol] 83.1 fL Normal 81-99 [facility] Comment on above: Performed By: #### L 100.0100, L500.2500 #### [facility] [address] [place], [address] Monocytes/100 WBC (Bld) 6.2 % Normal 0-10 [facility] Comment on above: Performed By: #### L 100.0100, L500.2500 #### [facility] [address] [place], [address] Neutrophils/100 WBC (Bld) 75.1 % High 47-70 [facility] Comment on above: Performed By: #### L 100.0100, L500.2500 #### [facility] [address] [place], [address] Nucleated RBC (Bld) [#/Vol] 0 10*3/uL Normal 0-5 [facility] Comment on above: Performed By: #### L 100.0100, L500.2500 #### [facility] [address] [place], [address] Platelet mean volume (Bld) [Entitic vol] 10.7 fL Normal 6.2-12.0 [facility] Comment on above: Performed By: #### L 100.0100, L500.2500 #### [facility] [address] [place], [address] Platelets (Bld) [#/Vol] 209 10*3/uL Normal 150-450 [facility] Comment on above: Performed By: #### L 100.0100, L500.2500 #### [facility] [address] [place], [address] RBC (Bld) [#/Vol] 5.16 10*6/uL Normal 4.2-5.4 [facility] Comment on above: Performed By: #### L 100.0100, L500.2500 #### [facility] [address] [place], [address] RDW SD 43.2 fl Normal 35.1-43.9 [facility] Comment on above: Performed By: #### L 100.0100, L500.2500 #### [facility] [address] [place], [address] WBC (Bld) [#/Vol] 9.6 10*3/uL Normal 4.4-11.0 [facility] Comment on above: Performed By: #### L 100.0100, L500.2500 #### [facility] [address] [place], [address] Carbon dioxide, total [Moles /volume] in Central venous bloodOrdered By: Perfecto Yuan on 12-31-2024 CO2 [Moles/Vol] 21.5 mmol/L 21.0-32.0 [facility] Chloride assayOrdered By: Azeem Yuan on 12-31-2024 Chloride [Moles/Vol] 100 mmol/L 98-108 [facility] Emergency Department Summary on 12-31-2024 Emergency Department Summary [facility] Medical Records Department [address] [place] [address] Emergency Department Summary 12/31/24 MR#: [id number] Acct: [id number] Name: QUIANA MEJIA Rep #: [id number] : 1955 69 From: Perfecto Yuan MD PCP: Dr. Karo Patel, DO Status:REG ER Location: ED HPI HPI - GI History of Present Illness Chief Complaint: Abd Pain Detail of Chief Complaint: Sudden onset right flank and lower quadrant pain today around 1220. Informant: patient and spouse/S.O. Abdominal Pain/Flank Pain Onset: Today Context: Sudden Onset Timing: Continuous Quality: Sharp and Stabbing Location: Right Flank Current Severity: Moderate Maximum Severity: Moderate Worsened by: Nothing Relieved by: Nothing Nausea/Vomiting/Emesis GI Symptom: Positive for Nausea and Vomiting Onset: Today Severity: Mild Diarrhea/Melena/Hematoc hezia GI Symptom: Negative for Diarrhea, Melena or Hematochezia Associated Symptoms Associated Symptoms: Negative for Dysuria, Frequency, Hematuria or Urgency Narrative Narrative: 69-year-old female no prior abdominal surgeries. History of high cholesterol. States that she had sudden onset of right lower quadrant right flank pain today around 1220. Associated with some mild nausea vomiting. No diarrhea. No dysuria or hematuria. No constipation. No fever. Prior similar symptoms: No Recent Illness/Hospitalization : No PFSH PFSH Medical History High cholesterol Home Medications ???Medication ???Instructions ???Recorded ???Last Taken ???Type alendronate 70 mg tablet 70 mg PO QWEEK 12/21/23 Unknown Hi story ascorbic acid (vitamin C) 1,000 mg 1 g PO Q6H 12/21/23 Unknown Hist ory capsule aspirin 81 mg tablet,delayed 81 mg PO DAILY 12/21/23 Unknown Hi story release (Adult Low Dose Aspirin) calcium 260 mg (phos,tribasic)-D3 tab PO 12/21/23 Unknown History 25 mcg-herbal 50 mg chewable tablet (Alive Calcium-Vitamin D3) calcium 600 mg (as carbonate)-vit 1 tab PO DAILY 12/21/23 Unknown H istory D3 20 mcg (800 unit) chewable tablet (Caltrate plus D) cholecalciferol (vitamin D3) 125 125 mcg PO DAILY 12/21/23 Unknown History mcg (5,000 unit) capsule coQ10 (ubiquinol) 100 mg capsule 100 mg PO BID 12/21/23 Unknown His tory (Qunol Uriel CoQ10) multivitamin 1 tab PO DAILY 12/21/23 Unknown Hi story omega-3 fatty acids 1,250 mg 1,250 mg PO DAILY 12/21/23 Unknown History capsule (Super Twin EPA-DHA) phytonadione (vitamin K1) 5 mg 5 mg PO DAILY 12/21/23 Unknown His tory tablet rosuvastatin 10 mg tablet 10 mg PO DAILY 12/21/23 Unknown Hi story turmeric (bulk) 95 % powder ea miscellaneous 12/21/23 Unknown History (Curcumin) zinc gluconate 30 mg tablet 30 mg PO DAILY 12/21/23 Unknown Hi story dicyclomine 10 mg capsule 20 mg (2 x 10 mg) PO TIDAC #20 11/11 Unknown Rx CAPSULES ondansetron 4 mg disintegrating 4 mg PO Q8H PRN PRN Nausea #10 tab s 08/19/24 Unknown Rx tablet oxycodone-acetaminophen 5 mg-325 1 tab PO Q4H PRN pain 3 days #12 0 12/31/24 Unknown Rx mg tablet (Percocet) tabs Allergy/AdvReac Type Severity Reaction Status Date / Time No Known Allergies Allergy Verified 12/31/24 14:55 Family History Mother Brain tumor Social History household members: spouse current occupational status: retired 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 current occupational exposures/hazards: No pets and animals: Yes pets and animals: cat(s) history of recent travel: Yes details: [place] [employer] - November out of country: Yes sexually active: Yes Smoking Status: Never smoker alcohol intake: current alcohol intake frequency: holidays/special occasions only substance use type: does not use caffeine: Yes Type: coffee eating out: 1-3 times/week during the past year weight has: remained stable what type of physical activity do you participate in: walking and bicycling frequency: 5-6 times per week duration: 45-60 minutes/day seatbelt use: always do you feel safe at home: Yes additional social history: : [employer] - retired ([employer]) ROS ROS ED ROS Narrative Nausea and vomiting today after the onset of the right flank pain. Otherwise no recent illness. Constitutional Constitutional ED: Denies chills or fever(s) ENT ENT ED: Denies ear pain Cardiovascular Cardiovascular: Denies chest pain Respiratory/Chest Respiratory/Chest: Denies cough or dyspnea Gastrointestinal Gastrointestinal: Reports abdominal pain, nausea and vomiting; Denies constipation, diarrhea or melena Genitourinary Genitourinary ED: Denies dysuria or hematuria Musculoskeletal Musculoskeletal: Denies (more content not included)... Normal [facility] Eosinophil percentageOrdered By: Perfecto Yuan on 12-31-2024 Eosinophils/100 WBC (Bld) 1.4 % 0-5 [facility] Epithelial cells.squamous LM Ql (Urine sed)Ordered By: Perfecto Yuan on 12-31-2024 Epithelial cells.squamous LM.HPF (Urine sed) [#/Area] 0 /[HPF] 5-10 [facility] Erythrocyte distribution wid th ratioOrdered By: Perfecto Yuan on 12-31-2024 Erythrocyte distribution width (RBC) [Ratio] 14.3 % 11.6-14.6 [facility] Erythrocyte distribution wid th standard deviationOrdered By: Perfecto Yuan on 12-31-2024 Erythrocyte distribution width (RBC) [Entitic vol] 43.2 fL 35.1-43.9 [facility] Erythrocyte distribution width (RBC) [Ratio] 43.2 fl 35.1-43.9 [facility] Estimation of creatinine haseeb aranceOrdered By: Perfecto Yuan on 12-31-2024 Estimated Creatinine Clearance Calc 69.23 ml/min 50-250 [facility] GFR/1.73 sq M.predicted jennyfer g non-blacks MDRD (S/P/Bld) [Vol rate/Area]Ordered By: Perfecto Yuan on 12-31-2024 Estimated GFR (MDRD) Non-Af Amer 90 >60 [facility] Comment on above: mL/min/1.73m2 CKD-EP I Creatinine Equation (2020) Glomerular filtration rate ( GFR) estimation/1.73 sq m using serum, plasma, or whole bOrdered By: Perfecto Yuan on 12-31-2024 GFR/1.73 sq M.predicted among non-blacks MDRD (S/P/Bld) [Vol rate/Area] 90 mL/min/{1.73_m2} >60 [facility] Comment on above: mL/min/1.73m2 CKD-EP I Creatinine Equation (2020) Glucose Ql (U)Ordered By: Azeem Yuan on 12-31-2024 Urine Glucose (UA) Normal mg/dl Normal [facility] Hematocrit Auto (Bld) [Volum e fraction]Ordered By: Perfecto Yuan on 12-31-2024 Hematocrit (Bld) [Volume fraction] 42.9 % 37-47 [facility] Hemoglobin measurementOrdere d By: Perfecto Yuan on 12-31-2024 Hemoglobin (Bld) [Mass/Vol] 13.9 g/dL 12.0-15.0 [facility] Immature granulocytes/100 WB C Auto (Bld)Ordered By: Perfecto Yuan on 12-31-2024 Immature granulocytes/100 WBC (Bld) 0.500 % 0.0-0.9 [facility] Comment on above: IG% - Immature Granu locytes (promyelocytes, myelocytes and metamyelocytes) > 1% indicates that a LEFT SHIFT is Present. Ketones Test strip Ql (U)Ord ered By: Perfecto Yuan on 12-31-2024 Ketones Ql (U) 5 mg/dl High Negative [facility] - Chemistry and C hemistry - challengeOrdered By: Perfecto Yuan on 12-31-2024 AST [Catalytic activity/Vol] 30 U/L <32 [facility] Liver Profileon 12-31-2024 Albumin [Mass/Vol] 4.4 g/dL Normal 3.4-4.8 [facility] Comment on above: Performed By: #### L 500.2545 ####[facility] [address] [place], [address] ALK PHOS 101 U/L Normal 35-104 [facility] Comment on above: Performed By: #### L 500.3400 ####[facility] [address] [place], [address] ALT [Catalytic activity/Vol] 26 U/L Normal <=34 [facility] Comment on above: Performed By: #### L 500.3400 ####[facility] [address] [place], [address] AST [Catalytic activity/Vol] 30 U/L Normal <=31 [facility] Comment on above: Performed By: #### L 500.3400 ####[facility] [address] [place], [address] Bilirubin [Mass/Vol] 0.19 mg/dL Normal 0.00-1.30 [facility] Comment on above: Performed By: #### L 500.3400 ####[facility] [address] [place], [address] D BILI < 0.08 Normal 0.00-0.30 [facility] Comment on above: Performed By: #### L 500.3400 ####[facility] [address] [place], [address] Globulin (S) [Mass/Vol] 2.5 g/dL Normal 2.2-4.2 [facility] Comment on above: Performed By: #### L 500.3400 ####[facility] [address] [place], [address] T PROT 6.9 g/dL Normal 5.9-8.4 [facility] Comment on above: Performed By: #### L 500.3400 ####[facility] [address] [place], [address] Lymphocytes Auto (Unsp spec) [#/Vol]Ordered By: Perfecto Yuan on 12-31-2024 Lymphocytes (Bld) [#/Vol] 1.56 10*3/uL 0.83-4.51 [facility] Lymphocytes/100 WBC Auto (Un sp spec)Ordered By: Perfecto Yuan on 12-31-2024 Lymphocytes/100 WBC (Bld) 16.2 % Low 19-41 [facility] MCV (mean corpuscular volume ) determinationOrdered By: Perfecto Yuan on 12-31-2024 MCV (RBC) [Entitic vol] 83.1 fL 81-99 [facility] Mean corpuscular hemoglobin (MCH) determinationOrdered By: Perfecto Yuan on 12-31-2024 MCH (RBC) [Entitic mass] 26.9 pg Low 27.0-32.0 [facility] Mean corpuscular hemoglobin concentration (MCHC) determinationOrdered By: Perfecto Yuan on 12-31-2024 MCHC (RBC) [Mass/Vol] 32.4 g/dL 32-36 [facility] Mean platelet volume determi nationOrdered By: Perfecto Yuan on 12-31-2024 Platelet mean volume (Bld) [Entitic vol] 10.7 fL 6.2-12.0 [facility] Microscopic analysis of urin e for red blood cells (RBC)Ordered By: Perfecto Yuan on 12-31-2024 Microscopic analysis of urine for red blood cells (RBC) 0 SEEN /hpf 0-5 [facility] Urine RBC 0 SEEN /hpf 0-5 [facility] Monocyte percentageOrdered B y: Perfecto Yuan on 12-31-2024 Monocytes/100 WBC (Bld) 6.2 % 0-10 [facility] Mucus LM Ql (Urine sed)Order ed By: Perfecto Yuan on 12-31-2024 Mucus Ql (Urine sed) 0 SEEN /hpf [facility] Neutrophil percentageOrdered By: Perfecto Yuan on 12-31-2024 Neutrophils/100 WBC (Bld) 75.1 % High 47-70 [facility] Nitrite Test strip Ql (U)Ord ered By: Perfecto Yuan on 12-31-2024 Nitrite Ql (U) Negative Negative [facility] Nucleated red blood cell per centageOrdered By: Perfecto Yuan on 12-31-2024 Nucleated RBC/100 WBC (Bld) [Ratio] 0 % 0-5 [facility] Platelet countOrdered By: Azeem Yuan on 12-31-2024 Platelets (Bld) [#/Vol] 209 10*3/uL 150-450 [facility] Potassium (Unsp spec) [Mass/ Vol]Ordered By: Perfecto Yuan on 12-31-2024 Potassium [Moles/Vol] 4.0 mmol/L 3.3-5.1 [facility] Potassium measurement (mass/ volume)Ordered By: Perfecto Yuan on 12-31-2024 Potassium (Unsp spec) [Mass/Vol] 4.0 mmol/L 3.3-5.1 [facility] Protein Test strip Ql (U)Ord ered By: Perfecto Yuan on 12-31-2024 Protein Ql (U) Negative Negative [facility] RBC Auto (Bld) [#/Vol]Ordere d By: Perfecto Yuan on 12-31-2024 RBC (Bld) [#/Vol] 5.16 10*6/uL 4.2-5.4 [facility] Serum creatinine measurement (mass/volume)Ordered By: Perfecto Yuan on 12-31-2024 Creatinine [Mass/Vol] 0.73 mg/dL 0.70-1.20 [facility] Serum globulin measurementOr dered By: Perfecto Yuan on 12-31-2024 Globulin (S) [Mass/Vol] 2.5 g/dL 2.2-4.2 [facility] Serum glucose measurement (m ass/volume)Ordered By: Perfecto Yuan on 12-31-2024 Glucose [Mass/Vol] 124 mg/dL High 70-99 [facility] Serum or plasma alanine jorge otransferase (ALT) measurementOrdered By: Perfecto Yuan on 12-31-2024 ALT [Catalytic activity/Vol] 26 U/L <35 [facility] Serum or plasma albumin [place] urement (mass/volume)Ordered By: Perfecto Yuan on 12-31-2024 Albumin [Mass/Vol] 4.4 g/dL 3.4-4.8 [facility] Serum or plasma alkaline zoie sphatase measurementOrdered By: Perfecto Yuan on 12-31-2024 ALP [Catalytic activity/Vol] 101 U/L 35-104 [facility] Serum or plasma calcium [place] urement (mass/volume)Ordered By: Perfecto Yuan on 12-31-2024 Calcium [Mass/Vol] 9.7 mg/dL 7.6-11.0 [facility] Serum or plasma urea nitroge n measurement (mass/volume)Ordered By: Perfecto Yuan on 12-31-2024 Urea nitrogen [Mass/Vol] 14 mg/dL 4-19 [facility] Sodium levelOrdered By: Perfecto Yuan on 12-31-2024 Sodium [Moles/Vol] 136 mmol/L 133-145 [facility] Squamous epithelial cells de tection in urine sediment by light microscopyOrdered By: Perfecto Yuan on 12-31-2024 Epithelial cells.squamous LM Ql (Urine sed) 0-5 SEEN /hpf 5-10 [facility] Total proteinOrdered By: Angel Yuan on 12-31-2024 Protein [Mass/Vol] 6.9 g/dL 5.9-8.4 [facility] Urinalysis, Completeon 12-31 BACTERIA 2+ /hpf Normal None Seen [facility] Comment on above: Order Comment: CLEAN CATCH Performed By: #### L 400.0001 #### [facility] [address] [place], [address] EPI,SQUAMOUS 0-5 SEEN Normal 5-10 [facility] Comment on above: Order Comment: CLEAN CATCH Performed By: #### L 400.0001 #### [facility] [address] [place], [address] RBC 0 SEEN Normal 0-5 [facility] Comment on above: Order Comment: CLEAN CATCH Performed By: #### L 400.0001 #### [facility] [address] [place], [address] WBC 0-5 SEEN Normal 0-5 [facility] Comment on above: Order Comment: CLEAN CATCH Performed By: #### L 400.0001 #### [facility] [address] [place], [address] Mucus Ql (Urine sed) 0 SEEN Normal [facility] Comment on above: Order Comment: CLEAN CATCH Performed By: #### L 400.0001 #### [facility] [place], [address] Urine blood detectionOrdered By: Perfecto Yuan on 12-31-2024 Urine Occult Blood 10 /ul High Negative [facility] Urine clarityOrdered By: Angel Yuan on 12-31-2024 Clarity (U) Clear Clear [facility] Urine color determinationOrd ered By: Perfecto Yuan on 12-31-2024 Color (U) Yellow Yellow [facility] Urine glucose detectionOrder ed By: Perfecto Yuan on 12-31-2024 Glucose Ql (U) Normal mg/dl Normal [facility] Urine leukocyte esterase det ection by dipstickOrdered By: Perfecto Yuan on 12-31-2024 Leukocyte esterase Test strip Ql (U) 25 /ul High Negative [facility] Urine pHOrdered By: Perfecto Carreon ght on 12-31-2024 pH (U) 6.0 [pH] 5.0 - 8.0 [facility] Urine sediment bacteria coun t by microscopy (number/high power field)Ordered By: Perfecto Yuan on 12-31-2024 Bacteria LM.HPF (Urine sed) [#/Area] 2 /[HPF] None Seen [facility] Urine specific gravity measu rementOrdered By: Perfecto Yuan on 12-31-2024 Specific gravity (U) [Rel density] 1.020 1.002-1.03 0 [facility] Urine urobilinogen measureme ntOrdered By: Perfecto Yuan on 12-31-2024 Urobilinogen Ql (U) Normal mg/dl Normal [facility] Urobilinogen Ql (U)Ordered B y: Perfecto Yuan on 12-31-2024 Urine Urobilinogen Normal mg/dl Normal [facility] White blood cell (WBC) count Ordered By: Perfecto Yuan on 12-31-2024 WBC (Bld) [#/Vol] 9.6 10*3/uL 4.4-11.0 [facility] White blood cell countOrdere d By: Perfecto Yuan on 12-31-2024 Urine WBC 0-5 SEEN /hpf 0-5 [facility] White blood cell count 0-5 SEEN /hpf 0-5 [facility] Dexa Bone Density Studyon Dexa Bone Density Study [facility] [address] [place], [place] [address] Dexa Bone Density Study MR#: [id number] Acct: [id number] Name: QUIANA MEJIA Rep #: [id number] : 1955 F 69 From: Ulysses frausto MD PCP: Dr. Karo Patel DO Status: REG CLI Study: Dexa Bone Density Study Date of Exam: 09/28/24 Exam# [id number] Ordering [place]: [place] [id number] STUDY: DUAL ENERGY X-RAY ABSORPTIOMETRY / DXA REASON FOR EXAM: Female, 69 years old. Z780 TECHNIQUE: Bone Mineral Density (BMD) measurements of lumbar spine and bilateral hips were obtained. COMPARISON: Comparison is made with prior study dated August 19, 2022. FINDINGS: Lumbar Spine (L1-L4): g/cm2 (0.736) / T-score (-2.8) / Z-score (-0.8) Findings are suggestive of osteoporosis with a high fracture risk. Left Femur Total: g/cm2 (0.888) / T-score (-0.4) / Z-score (1.0) Left Femoral Neck: g/cm2 (0.673) / T-score (-1.6) / Z-score (0.2) Right Femur Total: g/cm2 (0.889) / T-score (-0.4) / Z-score (1.0) Right Femoral Neck: g/cm2 (0.674) / T-score (-1.6) / Z-score (0.2) The T-Scores on the most recent prior examination were: Lumbar Spine (L1-L4): There has been worsening of bone density since the previous examination. Left Femur Total: which represents a worsening of 1.2%. Right Femur Total: which represents a worsening of 0.1%. BD/Dexa Bone Density Study IMPRESSION: The patient [...] [email or web address] Electronically Signed: Ulysses Gonzalez MD at 12:38 EST Reading Location ID and State: [address] [place] [address] , Service support , CC: Dr. Karo Patel, [employer] Operator: Signed Normal [facility] Urine Cultureon 09-23-2024 URC Mixed Gram Positive Organisms [place] Count 11,000-25,000 MIX[facility] Mixed contaminants. Submit a new specimen if indicated. Normal [facility] Comment on above: Performed By: #### L 501.0900, L400.0001, M100.2200, L500.3400 #### [facility] [address] [place], [address] Bilirubin Test strip Ql (U)O rdered By: Karo Patel on 09-20-2024 Bilirubin Ql (U) Negative Negative [facility] Bilirubin directOrdered By: Karo on 09-20-2024 Bilirubin.direct [Mass/Vol] 0.11 mg/dL 0.00-0.30 [facility] Bilirubin, totalOrdered By: on 09-20-2024 Bilirubin [Mass/Vol] 0.40 mg/dL 0.20-1.00 [facility] Comment on above: For patients on eltr ombopag therapy, use of Dimension [place] TBIL is not recommended. Epithelial cells.squamous LM Ql (Urine sed)Ordered By: Karo Fast on 09-20-2024 Epithelial cells.squamous LM.HPF (Urine sed) [#/Area] 0 /[HPF] 5-10 [facility] Glucose Ql (U)Ordered By: Potter on 09-20-2024 Urine Glucose (UA) Normal mg/dl Normal [facility] Ketones Test strip Ql (U)Ord ered By: Karo on 09-20-2024 Ketones Ql (U) Negative Negative [facility] - Chemistry and C hemistry - challengeOrdered By: Karo on 09-20-2024 AST [Catalytic activity/Vol] 18 U/L 15-37 [facility] Liver Profileon 09-20-2024 Albumin [Mass/Vol] 4.1 g/dL Normal 3.2-5.0 [facility] Comment on above: Performed By: #### L 501.0900, L400.0001, M100.2200, L500.3400 #### [facility] [address] [place], [address] ALK P 100 U/L Normal 45-117 [facility] Comment on above: Performed By: #### L 501.0900, L400.0001, M100.2200, L500.3400 #### [facility] [address] [place], [address] ALT [Catalytic activity/Vol] 40 U/L Normal 13-56 [facility] Comment on above: Performed By: #### L 501.0900, L400.0001, M100.2200, L500.3400 #### [facility] [address] [place], [address] AST [Catalytic activity/Vol] 18 U/L Normal 15-37 [facility] Comment on above: Performed By: #### L 501.0900, L400.0001, M100.2200, L500.3400 #### [facility] [address], [address] Bilirubin [Mass/Vol] 0.40 mg/dL Normal 0.20-1.00 [facility] Comment on above: Result Comment: For patients on eltrombopag therapy, use of Dimension [place] TBIL is not recommended. Performed By: #### L 501.0900, L400.0001, M100.2200, L500.3400 #### [facility] [address] [place], [address] Bilirubin.direct [Mass/Vol] 0.11 mg/dL Normal 0.00-0.30 [facility] Comment on above: Performed By: #### L 501.0900, L400.0001, M100.2200, L500.3400 #### [facility] [address] [place], [address] Globulin (S) [Mass/Vol] 2.5 g/dL Normal 2.2-4.2 [facility] Comment on above: Performed By: #### L 501.0900, L400.0001, M100.2200, L500.3400 #### [facility] [address] [place], [address] T PROT 6.6 g/dL Normal 6.4-8.2 [facility] Comment on above: Performed By: #### L 501.0900, L400.0001, M100.2200, L500.3400 #### [facility] [address] [place], [address] Microscopic analysis of urin e for red blood cells (RBC)Ordered By: Karo Fast on 09-20-2024 Urine RBC 0 SEEN /hpf 0-5 [facility] Mucus LM Ql (Urine sed)Order ed By: Karo Fast on 09-20-2024 Mucus Ql (Urine sed) 2+ /hpf [facility] Nitrite Test strip Ql (U)Ord ered By: Karo Fast on 09-20-2024 Nitrite Ql (U) Negative Negative [facility] Protein Test strip Ql (U)Ord ered By: Karo Fast on 09-20-2024 Protein Ql (U) Negative Negative [facility] Protein+Creatinine Ratio,Uri neon 09-20-2024 PROT:CRE RATIO 60 mg/g CRE Normal 0-200 [facility] Comment on above: Performed By: #### L 501.0900, L400.0001, M100.2200, L500.3400 #### [facility] [address] [place], [address] Protein (U) [Mass/Vol] 7.8 mg/dL Normal <11.9 [facility] Comment on above: Performed By: #### L 501.0900, L400.0001, M100.2200, L500.3400 #### [facility] [address] [place], [address] UR CREAT 131.00 mg/dL Normal NO RANGE EST. [facility] Comment on above: Performed By: #### L 501.0900, L400.0001, M100.2200, L500.3400 #### [facility] [address] [place], [address] Protein/Creatinine (U) [Mass ratio]Ordered By: Karo Fast on 09-20-2024 Urine Protein/Creatinine Ratio 60 mg/g CRE 0-200 [facility] Random urine protein measure mentOrdered By: Karo Fast on 09-20-2024 Protein (U) [Mass/Vol] 7.8 mg/dL 0.0-11.8 [facility] Ribs Unil 2V No CXRon 2023 Ribs Unil 2V No CXR [facility] [address] [place] [address] Ribs Unil 2V No CXR MR#: [id number] Acct: [id number] Name: QUIANA MEJIA Rep #: [id number] : 1955 F 69 From: Ulysses frausto MD PCP: Dr. Karo Patel DO Status: DEP AMB Study: Ribs Unil 2V No CXR Date of Exam: 09/20/24 Exam# [id number] Ordering [place]: [place] [id number] STUDY: X-RAY - UNILATERAL RIBS ( LEFT ) REASON FOR EXAM: Female, 69 years old. Rib pain of left side TECHNIQUE: 4 view(s) of the ribs. COMPARISON: None. FINDINGS: Normal visualized ribs without a demonstrated fracture. The visualized lung is clear and expanded. RAD/Ribs Unil 2V No CXR IMPRESSION: Normal x-ray examination of the ribs. Electronically Signed: Ulysses Gonzalez MD at 15:20 EST , CC: Dr. Karo Patel DO [employer] Operator: Signed Normal [facility] Serum globulin measurementOr dered By: Karo Patel on 09-20-2024 Globulin (S) [Mass/Vol] 2.5 g/dL 2.2-4.2 [facility] Serum or plasma alanine jorge otransferase (ALT) measurementOrdered By: Karo Patel on 09-20-2024 ALT [Catalytic activity/Vol] 40 U/L 13-56 [facility] Serum or plasma albumin [place] urement (mass/volume)Ordered By: Karo Patel on 09-20-2024 Albumin [Mass/Vol] 4.1 g/dL 3.2-5.0 [facility] Serum or plasma alkaline zoie sphatase measurementOrdered By: Karo Patel on 09-20-2024 ALP [Catalytic activity/Vol] 100 U/L 45-117 [facility] Thoracic Spine 3 Viewson Thoracic Spine 3 Views [facility] [address] [place] [address] Thoracic Spine 3 Views MR#: [id number] Acct: [id number] Name: QUIANA MEJIA Rep #: [id number] : 1955 F 69 From: Ulysses frausto MD PCP: Dr. Karo Patel DO Status: DEP AMB Study: Thoracic Spine 3 Views Date of Exam: 09/20/24 Exam# [id number] Ordering [place]: [place] [id number] STUDY: X-RAY - THORACIC SPINE REASON FOR EXAM: Female, 69 years old. rib pain left side TECHNIQUE: 2 view(s) of the thoracic spine were obtained. COMPARISON: None. FINDINGS: There is an increase in the normal thoracic kyphosis. There is no substantial scoliosis. There is multilevel endplate spondylosis of the thoracic vertebrae. There is multilevel disc space narrowing of the thoracic spine. The soft tissue structures are unremarkable. RAD/Thoracic Spine 3 Views IMPRESSION: Multilevel spondylosis and disc space narrowing. Increased kyphosis. Electronically Signed: Ulysses Gonzalez MD at 15:20 EST , CC: Dr. Karo Patel, [employer] Operator: Signed Normal [facility] Total proteinOrdered By: Ana Patel on 09-20-2024 Protein [Mass/Vol] 6.6 g/dL 6.4-8.2 [facility] Urinalysis, Completeon 09-20 BACTERIA 1+ /hpf Normal None Seen [facility] Comment on above: Order Comment: Urine , Random Performed By: #### L 501.0900, L400.0001, M100.2200, L500.3400 #### [facility] [address] [place], [address] WBC 10-25 SEEN Normal 0-5 [facility] Comment on above: Order Comment: Urine , Random Performed By: #### L 501.0900, L400.0001, M100.2200, L500.3400 #### [facility] [address] [place], [address] EPI,SQUAMOUS 0-5 SEEN Normal 5-10 [facility] Comment on above: Order Comment: Urine , Random Performed By: #### L 501.0900, L400.0001, M100.2200, L500.3400 #### [facility] [address] [place], [address] Mucus Ql (Urine sed) 2+ /hpf Normal [facility] Comment on above: Order Comment: Urine , Random Performed By: #### L 501.0900, L400.0001, M100.2200, L500.3400 #### [facility] [address] [place], [address] RBC 0 SEEN Normal 0-5 [facility] Comment on above: Order Comment: Urine , Random Performed By: #### L 501.0900, L400.0001, M100.2200, L500.3400 #### [facility] [address] [place], [address] Urine blood detectionOrdered By: Karo on 09-20-2024 Urine Occult Blood Negative Negative [facility] Urine clarityOrdered By: Ana garcia on 09-20-2024 Clarity (U) Clear Clear [facility] Urine color determinationOrd ered By: Karo Fast on 09-20-2024 Color (U) Yellow Yellow [facility] Urine creatinine measurement (mass/volume)Ordered By: Karo on 09-20-2024 Creatinine (U) [Mass/Vol] 131.00 mg/dL NO RANGE EST. [facility] Urine cultureOrdered By: Ana garcia on 09-20-2024 Bacteria identified Cx Nom (U) Positive Abnormal [facility] Urine leukocyte esterase det ection by dipstickOrdered By: Karo on 09-20-2024 Leukocyte esterase Test strip Ql (U) 100 /ul High Negative [facility] Urine pHOrdered By: Karo Fa st on 09-20-2024 pH (U) 6.0 [pH] 5.0 - 8.0 [facility] Urine sediment bacteria coun t by microscopy (number/high power field)Ordered By: Karo on 09-20-2024 Bacteria LM.HPF (Urine sed) [#/Area] 1 /[HPF] None Seen [facility] Urine specific gravity measu rementOrdered By: Karo on 09-20-2024 Specific gravity (U) [Rel density] 1.015 1.002-1.03 0 [facility] Urobilinogen Ql (U)Ordered B y: on 09-20-2024 Urine Urobilinogen Normal mg/dl Normal [facility] White blood cell countOrdere d By: Karo Fast on 09-20-2024 Urine WBC 10-25 SEEN /hpf 0-5 [facility] Absolute neutrophil countOrd ered By: Karo on 09-13-2024 Neutrophils (Bld) [#/Vol] 2.5 10*3/uL 2.0-7.7 [facility] Albumin to globulin ratioOrd ered By: Karo Fast on 09-13-2024 Albumin/Globulin [Mass ratio] 1.2 {ratio} 0.9-2.4 [facility] Bacteria LM.HPF (Urine sed) [#/Area]Ordered By: Karo on 09-13-2024 Urine Bacteria RARE /hpf None Seen [facility] Basophil percentageOrdered B y: Karo on 09-13-2024 Basophils/100 WBC (Bld) 0.9 % 0-1 [facility] Bilirubin Test strip Ql (U)O rdered By: Karo on 09-13-2024 Bilirubin Ql (U) Negative Negative [facility] Bilirubin, totalOrdered By: Karo on 09-13-2024 Bilirubin [Mass/Vol] 0.50 mg/dL 0.20-1.00 [facility] Comment on above: For patients on eltr ombopag therapy, use of Dimension [place] TBIL is not recommended. Blood urea nitrogen (BUN)/cr eatinine ratioOrdered By: Karo on 09-13-2024 Urea nitrogen/Creatinine [Mass ratio] 19.1 mg/mg 10- [facility] CBC W/Diff, Automatedon 08-20 Absolute Lymph 1.15 X10 3/uL Normal 0.83-4.51 [facility] Comment on above: Performed By: #### L 400.0001, L500.4050, L100.0100 ####[facility] [address] [place], [address] Absolute Neut 2.5 X10 3/uL Normal 2.0-7.7 [facility] Comment on above: Performed By: #### L 400.0001, L500.4050, L100.0100 ####[facility] [address] [place], [address] Basophils/100 WBC (Bld) 0.9 % Normal 0-1 [facility] Comment on above: Performed By: #### L 400.0001, L500.4050, L100.0100 ####[facility] [address] [place], [address] Eosinophils/100 WBC (Bld) 6.3 % High 0-5 [facility] Comment on above: Performed By: #### L 400.0001, L500.4050, L100.0100 ####[facility] [address] [place], [address] Erythrocyte distribution width (RBC) [Ratio] 13.2 % Normal 11.6-14.6 [facility] Comment on above: Performed By: #### L 400.0001, L500.4050, L100.0100 ####[facility] [address] [place], [address] Hematocrit (Bld) [Volume fraction] 43.1 % Normal 37-47 [facility] Comment on above: Performed By: #### L 400.0001, L500.4050, L100.0100 ####[facility] [address] [place], [address] Hemoglobin (Bld) [Mass/Vol] 13.6 g/dL Normal 12.0-15.0 [facility] Comment on above: Performed By: #### L 400.0001, L500.4050, L100.0100 ####[facility] [address] [place], [address] IG% 0.400 Normal 0.0-0.9 [facility] Comment on above: Result Comment: IG% - Immature Granulocytes (promyelocytes, myelocytes and metamyelocytes) > 1% indicates that a LEFT SHIFT is Present. Performed By: #### L 400.0001, L500.4050, L100.0100 ####[facility] [address] [place], [address] Lymphocytes/100 WBC (Bld) 25.7 % Normal 19-41 [facility] Comment on above: Performed By: #### L 400.0001, L500.4050, L100.0100 ####[facility] [address] [place], [address] MCH (RBC) [Entitic mass] 26.6 pg Low 27.0-32.0 [facility] Comment on above: Performed By: #### L 400.0001, L500.4050, L100.0100 ####[facility] [address] [place], [address] MCHC (RBC) [Mass/Vol] 31.6 g/dL Low 32-36 [facility] Comment on above: Performed By: #### L 400.0001, L500.4050, L100.0100 ####[facility] [address] [place], [address] MCV (RBC) [Entitic vol] 84.2 fL Normal 81-99 [facility] Comment on above: Performed By: #### L 400.0001, L500.4050, L100.0100 ####[facility] [address] [place], [address] Monocytes/100 WBC (Bld) 10.1 % High 0-10 [facility] Comment on above: Performed By: #### L 400.0001, L500.4050, L100.0100 ####[facility] [address] [place], [address] Neutrophils/100 WBC (Bld) 56.6 % Normal 47-70 [facility] Comment on above: Performed By: #### L 400.0001, L500.4050, L100.0100 ####[facility] [address] [place], [address] Nucleated RBC (Bld) [#/Vol] 0 10*3/uL Normal 0-5 [facility] Comment on above: Performed By: #### L 400.0001, L500.4050, L100.0100 ####[facility] [address] [place], [address] Platelet mean volume (Bld) [Entitic vol] 10.3 fL Normal 6.2-12.0 [facility] Comment on above: Performed By: #### L 400.0001, L500.4050, L100.0100 ####[facility] [address] [place], [address] Platelets (Bld) [#/Vol] 227 10*3/uL Normal 150-450 [facility] Comment on above: Performed By: #### L 400.0001, L500.4050, L100.0100 ####[facility] [address] [place], [address] RBC (Bld) [#/Vol] 5.12 10*6/uL Normal 4.2-5.4 [facility] Comment on above: Performed By: #### L 400.0001, L500.4050, L100.0100 ####[facility] [address] [place], [address] RDW SD 40.8 fl Normal 35.1-43.9 [facility] Comment on above: Performed By: #### L 400.0001, L500.4050, L100.0100 ####[facility] [address] [place], [address] WBC (Bld) [#/Vol] 4.5 10*3/uL Normal 4.4-11.0 [facility] Comment on above: Performed By: #### L 400.0001, L500.4050, L100.0100 ####[facility] [address] [place], [address] Carbon dioxide measurementOr dered By: Karo Fast on 09-13-2024 CO2 [Moles/Vol] 30.0 mmol/L 21.0-32.0 [facility] Chloride measurementOrdered By: Karo Fast on 09-13-2024 Chloride [Moles/Vol] 109 mmol/L High 98-107 [facility] Comprehensive Metabolic Prof ilon 09-13-2024 Albumin [Mass/Vol] 3.8 g/dL Normal 3.2-5.0 [facility] Comment on above: Performed By: #### L 400.0001, L500.4050, L100.0100 ####[facility] [address], [address] Albumin/Globulin [Mass ratio] 1.2 {ratio} Normal 0.9-2.4 [facility] Comment on above: Performed By: #### L 400.0001, L500.4050, L100.0100 ####[facility] [address] [place], [address] ALK P 124 U/L High 45-117 [facility] Comment on above: Performed By: #### L 400.0001, L500.4050, L100.0100 ####[facility] [address] [place], [address] ALT [Catalytic activity/Vol] 126 U/L High 13-56 [facility] Comment on above: Performed By: #### L 400.0001, L500.4050, L100.0100 ####[facility] [address] [place], [address] AST [Catalytic activity/Vol] 70 U/L High 15-37 [facility] Comment on above: Performed By: #### L 400.0001, L500.4050, L100.0100 ####[facility] [address] [place], [address] Bilirubin [Mass/Vol] 0.50 mg/dL Normal 0.20-1.00 [facility] Comment on above: Result Comment: For patients on eltrombopag therapy, use of Dimension [place] TBIL is not recommended. Performed By: #### L 400.0001, L500.4050, L100.0100 ####[facility] [address] [place], [address] BUN/CRE 19.1 RATIO Normal 10-20 [facility] Comment on above: Performed By: #### L 400.0001, L500.4050, L100.0100 ####[facility] [address] [place], [address] CA,Total 9.4 mg/dL Normal 8.5-10.1 [facility] Comment on above: Performed By: #### L 400.0001, L500.4050, L100.0100 ####[facility] [address] [place], [address] Chloride [Moles/Vol] 109 mmol/L High 98-107 [facility] Comment on above: Performed By: #### L 400.0001, L500.4050, L100.0100 ####[facility] [address] [place], [address] CO2 [Moles/Vol] 30.0 mmol/L Normal 21.0-32.0 [facility] Comment on above: Performed By: #### L 400.0001, L500.4050, L100.0100 ####[facility] [address] [place], [address] Creatinine [Mass/Vol] 0.73 mg/dL Normal 0.55-1.02 [facility] Comment on above: Result Comment: The validity of the calculated GFR GFRAA in patients over 70 years has not been determined. Clinical correlation is essential. Performed By: #### L 400.0001, L500.4050, L100.0100 ####[facility] [address] [place], [address] EST GFR - AA 101 mL/min Normal >60 [facility] Comment on above: Result Comment: Afri can Zimbabwean GFR Calc Performed By: #### L 400.0001, L500.4050, L100.0100 ####[facility] [address] [place], [address] GAP 3 Low 5-15 [facility] Comment on above: Performed By: #### L 400.0001, L500.4050, L100.0100 ####[facility] [address] [place], [address] GFR/1.73 sq M.predicted among non-blacks MDRD (S/P/Bld) [Vol rate/Area] 84 mL/min/{1.73_m2} Normal >60 [facility] Comment on above: Result Comment: Non- GFR Calc Performed By: #### L 400.0001, L500.4050, L100.0100 ####[facility] [address] [place], [address] Globulin (S) [Mass/Vol] 3.3 g/dL Normal 2.2-4.2 [facility] Comment on above: Performed By: #### L 400.0001, L500.4050, L100.0100 ####[facility] [address] [place], [address] Glucose [Mass/Vol] 97 mg/dL Normal 74-106 [facility] Comment on above: Performed By: #### L 400.0001, L500.4050, L100.0100 ####[facility] [address] [place], [address] Potassium [Moles/Vol] 4.1 mmol/L Normal 3.5-5.1 [facility] Comment on above: Performed By: #### L 400.0001, L500.4050, L100.0100 ####[facility] [address] [place], [address] Sodium [Moles/Vol] 142 mmol/L Normal 136-145 [facility] Comment on above: Performed By: #### L 400.0001, L500.4050, L100.0100 ####[facility] [address] [place], [address] T PROT 7.1 g/dL Normal 6.4-8.2 [facility] Comment on above: Performed By: #### L 400.0001, L500.4050, L100.0100 ####[facility] [address] [place], [address] Urea nitrogen [Mass/Vol] 14 mg/dL Normal 7-18 [facility] Comment on above: Performed By: #### L 400.0001, L500.4050, L100.0100 ####[facility] [address] [place], [address] Eosinophil percentageOrdered By: Karo Fast on 09-13-2024 Eosinophils/100 WBC (Bld) 6.3 % High 0-5 [facility] Epithelial cells.squamous LM Ql (Urine sed)Ordered By: Karo Fast on 09-13-2024 Epithelial cells.squamous LM.HPF (Urine sed) [#/Area] 0 /[HPF] 5-10 [facility] Erythrocyte distribution wid th ratioOrdered By: Karo Fast on 09-13-2024 Erythrocyte distribution width (RBC) [Ratio] 13.2 % 11.6-14.6 [facility] Erythrocyte distribution wid th standard deviationOrdered By: Karo Fast on 09-13-2024 Erythrocyte distribution width (RBC) [Entitic vol] 40.8 fL 35.1-43.9 [facility] Estimated glomerular filtrat ion rate (GFR) AmericanOrdered By: Karo Fast on 09-13-2024 Estimated GFR (MDRD) Amer 101 mL/min >60 [facility] Comment on above: GFR Calc Glomerular filtration rate ( GFR) estimationOrdered By: Karo Fast on 09-13-2024 Estimated GFR (MDRD) Non-Af Amer 84 mL/min >60 [facility] Comment on above: Non- GFR Calc Glucose Ql (U)Ordered By: De bra Fast on 09-13-2024 Urine Glucose (UA) Normal mg/dl Normal [facility] Glucose measurementOrdered B y: Karo Fast on 09-13-2024 Glucose [Mass/Vol] 97 mg/dL 74-106 [facility] Hematocrit Auto (Bld) [Volum e fraction]Ordered By: Karo Fast on 09-13-2024 Hematocrit (Bld) [Volume fraction] 43.1 % 37-47 [facility] Hemoglobin measurementOrdere d By: 09-13-2024 Hemoglobin (Bld) [Mass/Vol] 13.6 g/dL 12.0-15.0 [facility] Immature granulocytes/100 WB C Auto (Bld)Ordered By: 09-13-2024 Immature granulocytes/100 WBC (Bld) 0.400 % 0.0-0.9 [facility] Comment on above: IG% - Immature Granu locytes (promyelocytes, myelocytes and metamyelocytes) > 1% indicates that a LEFT SHIFT is Present. Ketones Test strip Ql (U)Ord ered By: 09-13-2024 Ketones Ql (U) Negative Negative [facility] Laboratory - Chemistry and C hemistry - challengeOrdered By: 09-13-2024 AST [Catalytic activity/Vol] 70 U/L High 15-37 [facility] Lymphocytes Auto (Unsp spec) [#/Vol]Ordered By: 09-13-2024 Lymphocytes (Bld) [#/Vol] 1.15 10*3/uL 0.83-4.51 [facility] Lymphocytes/100 WBC Auto (Un sp spec)Ordered By: 09-13-2024 Lymphocytes/100 WBC (Bld) 25.7 % 19-41 [facility] MCV (mean corpuscular volume ) determinationOrdered By: 09-13-2024 MCV (RBC) [Entitic vol] 84.2 fL 81-99 [facility] Mean corpuscular hemoglobin (MCH) determinationOrdered By: 09-13-2024 MCH (RBC) [Entitic mass] 26.6 pg Low 27.0-32.0 [facility] Mean corpuscular hemoglobin concentration (MCHC) determinationOrdered By: 09-13-2024 MCHC (RBC) [Mass/Vol] 31.6 g/dL Low 32-36 [facility] Mean platelet volume determi nationOrdered By: 09-13-2024 Platelet mean volume (Bld) [Entitic vol] 10.3 fL 6.2-12.0 [facility] Microscopic analysis of urin e for red blood cells (RBC)Ordered By: Karo Fast on 09-13-2024 Urine RBC 0 SEEN /hpf 0-5 [facility] Monocyte percentageOrdered B y: Karo Fast on 09-13-2024 Monocytes/100 WBC (Bld) 10.1 % High 0-10 [facility] Mucus LM Ql (Urine sed)Order ed By: Karo Fast on 09-13-2024 Mucus Ql (Urine sed) 1+ /hpf [facility] Neutrophil percentageOrdered By: Karo Fast on 09-13-2024 Neutrophils/100 WBC (Bld) 56.6 % 47-70 [facility] Nitrite Test strip Ql (U)Ord ered By: Karo Fast on 09-13-2024 Nitrite Ql (U) Negative Negative [facility] Nucleated red blood cell per centageOrdered By: Karo Fast on 09-13-2024 Nucleated RBC/100 WBC (Bld) [Ratio] 0 % 0-5 [facility] Platelet countOrdered By: Potter Fast on 09-13-2024 Platelets (Bld) [#/Vol] 227 10*3/uL 150-450 [facility] Potassium measurementOrdered By: Karo Fast on 09-13-2024 Potassium [Moles/Vol] 4.1 mmol/L 3.5-5.1 [facility] Protein Test strip Ql (U)Ord ered By: Karo Fast on 09-13-2024 Protein Ql (U) 15 mg/dl High Negative [facility] RBC Auto (Bld) [#/Vol]Ordere d By: Karo Fast on 09-13-2024 RBC (Bld) [#/Vol] 5.12 10*6/uL 4.2-5.4 [facility] SCRN MAMM (CAD)W/ROBERTO Ortiz n 09-13-2024 SCRN MAMM (CAD)W/ROBERTO BLAINEAT [facility] Imaging Services [address] [place] [address] SCRN MAMM (CAD)W/ROBERTO OQUENDO MR#: [id number] Acct: [id number] Name: QUIANA MEJIA Rep #: [id number] : 1955 F 69 From: Nixon Gregory MD PCP: Dr. Karo Patel DO Status: REG CLI Study: SCRN MAMM (CAD)W/ROBERTO BILAT Date of Exam: 08/20 04/11 Exam# [id number] Ordering [place]: [place] [id number] MAMMOGRAPHY - BILATERAL SCREENING 3-D TOMOSYNTHESIS REASON FOR EXAM: Female, 69 years old. screening PERTINENT HISTORY: No significant family history. TECHNIQUE: 2-D mammograms and 3-D Tomosynthesis of the breast (s) were performed. CAD was performed. COMPARISON: 08/20/2023 FINDINGS: The breast composition is composed of scattered fibroglandular density. Scattered benign calcifications are seen. No dense spiculated masses or suspicious microcalcifications are identified. No architectural distortion is identified. There is no skin thickening or retraction. There has been no significant change since the prior study. BI/SCRN MAMM (CAD)W/ROBERTO BILAT IMPRESSION: No mammographic signs of malignancy. Routine yearly mammograms recommended. ASSESSMENT CATEGORY: BIRADS Category 1: Negative. A letter regarding these results will be sent to the patient by the facility within 30 days. FOLLOW UP RECOMMENDATION: Yearly follow up mammogram recommended. (A) Approximately 10% of breast cancers are not detected by mammography. A normal mammogram should not delay biopsy of a clinically suspicious abnormality. Electronically Signed: Nixon Gregory MD at 15:38 EST , CC: Dr. Karo Patel DO [employer] Operator: Signed Normal [facility] Serum anion gap measurementO rdered By: Karo Patel on 09-13-2024 Anion gap [Moles/Vol] 3 mmol/L Low 5-15 [facility] Serum globulin measurementOr dered By: Karo Patel on 09-13-2024 Globulin (S) [Mass/Vol] 3.3 g/dL 2.2-4.2 [facility] Serum or plasma alanine jorge otransferase (ALT) measurementOrdered By: Karo Fast on 09-13-2024 ALT [Catalytic activity/Vol] 126 U/L High 13-56 [facility] Serum or plasma albumin orlando urement (mass/volume)Ordered By: Karo Fast on 09-13-2024 Albumin [Mass/Vol] 3.8 g/dL 3.2-5.0 [facility] Serum or plasma alkaline zoie sphatase measurementOrdered By: Karo Fast on 09-13-2024 ALP [Catalytic activity/Vol] 124 U/L High 45-117 [facility] Serum or plasma calcium orlando urement (mass/volume)Ordered By: Karo Fast on 09-13-2024 Calcium [Mass/Vol] 9.4 mg/dL 8.5-10.1 [facility] Serum or plasma creatinine m easurement (mass/volume)Ordered By: Karo on 09-13-2024 Creatinine [Mass/Vol] 0.73 mg/dL 0.55-1.02 [facility] Comment on above: The validity of the calculated GFR & GFRAA in patients over 70 years has not been determined. Clinical correlation is essential. Serum or plasma urea nitroge n measurement (mass/volume)Ordered By: Karo on 09-13-2024 Urea nitrogen [Mass/Vol] 14 mg/dL 7-18 [facility] Sodium levelOrdered By: Debr a Fast on 09-13-2024 Sodium [Moles/Vol] 142 mmol/L 136-145 [facility] Total proteinOrdered By: Ana ra Fast on 09-13-2024 Protein [Mass/Vol] 7.1 g/dL 6.4-8.2 [facility] Urinalysis, Completeon 09-13 BACTERIA RARE Normal None Seen [facility] Comment on above: Order Comment: Urine , Random Performed By: #### L 400.0001, L500.4050, L100.0100 ####[facility] [address] [place], [address] Mucus Ql (Urine sed) 1+ /hpf Normal [facility] Comment on above: Order Comment: Urine , Random Performed By: #### L 400.0001, L500.4050, L100.0100 ####[facility] [address] [place], [address] WBC 0-5 SEEN Normal 0-5 [facility] Comment on above: Order Comment: Urine , Random Performed By: #### L 400.0001, L500.4050, L100.0100 ####[facility] [address] [place], [address] EPI,SQUAMOUS 0 SEEN Normal 5-10 [facility] Comment on above: Order Comment: Urine , Random Performed By: #### L 400.0001, L500.4050, L100.0100 ####[facility] [address] [place], [address] RBC 0 SEEN Normal 0-5 [facility] Comment on above: Order Comment: Urine , Random Performed By: #### L 400.0001, L500.4050, L100.0100 ####[facility] [address] [place], [address] Urine blood detectionOrdered By: Karo Fast on 09-13-2024 Urine Occult Blood Negative Negative [facility] Urine clarityOrdered By: Ana ra Fast on 09-13-2024 Clarity (U) Clear Clear [facility] Urine color determinationOrd ered By: Karo Fast on 09-13-2024 Color (U) Yellow Yellow [facility] Urine leukocyte esterase det ection by dipstickOrdered By: Karo Fast on 09-13-2024 Leukocyte esterase Test strip Ql (U) 25 /ul High Negative [facility] Urine pHOrdered By: Karo Fa st on 09-13-2024 pH (U) 6.0 [pH] 5.0 - 8.0 [facility] Urine specific gravity measu rementOrdered By: Karo Fast on 09-13-2024 Specific gravity (U) [Rel density] 1.020 1.002-1.03 0 [facility] Urobilinogen Ql (U)Ordered B y: Karo Fast on 09-13-2024 Urine Urobilinogen Normal mg/dl Normal [facility] White blood cell (WBC) count Ordered By: Karo Patel on 09-13-2024 WBC (Bld) [#/Vol] 4.5 10*3/uL 4.4-11.0 [facility] White blood cell countOrdere d By: Karo Patel on 09-13-2024 Urine WBC 0-5 SEEN /hpf 0-5 [facility] 12 Lead EKGon 08-19-2024 12 Lead EKG [facility] Cardiovascular Services [address] [place] [address] 12 Lead EKG 08/19/24 09 MR#: [id number] Acct: [id number] Name: QUIANA MEJIA Rep #: [id number] : 1955 68 From: Abhinav Roberts MD Attending Dr: Status: DEP ER Ordering Dr: Dylan Caldwell DO Date: 08/19/24 Location: ED Sex: F C Admitted: Test Reason : Blood Pressure : */* mmHG Vent. Rate : 73 BPM Atrial Rate : 73 BPM P-R Int : 194 ms QRS Dur : 84 ms QT Int : 390 ms P-R-T Axes : 51 -24 23 degrees QTcB Int : 429 ms Normal sinus rhythm Moderate voltage criteria for LVH, may be normal variant ( R in aVL , [place] product ) Borderline ECG Confirmed by ABHINAV ROBERTS MD ([id number]), market editor ALTAF RATLIFF ([id number]) on 08/22/2024 9:33:23 AM Referred By: Confirmed By: ABHINAV ROBERTS MD 08/22/24 0933 Date Abhinav Roberts MD CC: Dr. Karo Patel DO; Dr. Dylan Caldwell DO Signed Normal [facility] Acute Abdomen Inc Cheston Acute Abdomen Inc Chest [facility] Imaging Services [address] [facility] [place] [address] Acute Abdomen Inc Chest MR#: [id number] Acct: [id number] Name: QUIANA MEJIA Rep #: [id number] : 1955 F 68 From: Ulysses frausto MD PCP: Dr. Karo Patel DO Status: REG ER Study: Acute Abdomen Inc Chest Date of Exam: 08/19/24 Exam# [id number] Ordering Dr: [place] [id number] STUDY: X-RAY - ACUTE ABDOMINAL SERIES REASON FOR EXAM: Female, 68 years old. Chest pain midepi pain TECHNIQUE: Single view of the chest. Supine, and erect view(s) of the abdomen were obtained. COMPARISON: None. FINDINGS: The lungs are clear and expanded. Scattered calcified granulomas. Normal size heart. Normal mediastinum and laisha. Normal visualized pulmonary arteries. Normal visualized aortic arch and descending thoracic aorta. There is an abundance of fecal material throughout the colon. Calcified phleboliths are seen within the pelvis. Mild degree of bilateral hips osteoarthritis. RAD/Acute Abdomen Inc Chest IMPRESSION: Large amount of fecal material is seen in the colon. Electronically Signed: Ulysses Gonzalez MD at 11:11 EDT , CC: Dr. Karo Patel DO; Dr. Dylan Caldwell DO [employer] Operator: Signed Normal [facility] Basic Metabolic Profile (BMP )on 08-19-2024 BUN/CRE 20.5 RATIO High 10-20 [facility] Comment on above: Order Comment: 1Y Performed By: #### L 501.5433, L500.2500, L501.5200, L501.2450 ####[facility] [address] [place], [address] CA,Total 10.3 mg/dL High 8.5-10.1 [facility] Comment on above: Order Comment: 1Y Performed By: #### L 501.5425, L500.2500, L501.5200, L501.2450 ####[facility] [address] [place], [address] Chloride [Moles/Vol] 104 mmol/L Normal 98-107 [facility] Comment on above: Order Comment: 1Y Performed By: #### L 501.5425, L500.2500, L501.5200, L501.2450 ####[facility] [address] [place], [address] CO2 [Moles/Vol] 28.0 mmol/L Normal 21.0-32.0 [facility] Comment on above: Order Comment: 1Y Performed By: #### L 501.5425, L500.2500, L501.5200, L501.2450 ####[facility] [address] [place], [address] Creatinine [Mass/Vol] 0.63 mg/dL Normal 0.55-1.02 [facility] Comment on above: Order Comment: 1Y Result Comment: The validity of the calculated GFR GFRAA in patients over 70 years has not been determined. Clinical correlation is essential. Performed By: #### L 501.5425, L500.2500, L501.5200, L501.2450 ####[facility] [address] [place], [address] ECRCL 70.01 ml/min Normal [facility] Comment on above: Order Comment: 1Y Performed By: #### L 501.5425, L500.2500, L501.5200, L501.2450 ####[facility] [address] [place], [address] EST GFR - AA 120 mL/min Normal >60 [facility] Comment on above: Order Comment: 1Y Result Comment: Afri can Zimbabwean GFR Calc Performed By: #### L 501.5425, L500.2500, L501.5200, L501.2450 ####[facility] [address] [place], [address] GAP 4 Low 5-15 [facility] Comment on above: Order Comment: 1Y Performed By: #### L 501.5425, L500.2500, L501.5200, L501.2450 ####[facility] [address] [place], [address] GFR/1.73 sq M.predicted among non-blacks MDRD (S/P/Bld) [Vol rate/Area] 99 mL/min/{1.73_m2} Normal >60 [facility] Comment on above: Order Comment: 1Y Result Comment: Non- GFR Calc Performed By: #### L 501.5425, L500.2500, L501.5200, L501.2450 ####[facility] [address] [place], [address] Glucose [Mass/Vol] 123 mg/dL High 74-106 [facility] Comment on above: Order Comment: 1Y Result Comment: Fast ing Glucose result from 100 to 125 mg/dL suggests IMPAIRED HOMEOSTASIS per A.D.A. criteria. Performed By: #### L 501.5425, L500.2500, L501.5200, L501.2450 ####[facility] [address] [place], [address] Potassium [Moles/Vol] 3.8 mmol/L Normal 3.5-5.1 [facility] Comment on above: Order Comment: 1Y Performed By: #### L 501.5425, L500.2500, L501.5200, L501.2450 ####[facility] [address] [place], [address] Sodium [Moles/Vol] 136 mmol/L Normal 136-145 [facility] Comment on above: Order Comment: 1Y Performed By: #### L 501.5425, L500.2500, L501.5200, L501.2450 ####[facility] [address] [place], [address] Urea nitrogen [Mass/Vol] 13 mg/dL Normal 7-18 [facility] Comment on above: Order Comment: 1Y Performed By: #### L 501.5425, L500.2500, L501.5200, L501.2450 ####[facility] [address] [place], [address] CBC W/Diff, Automatedon 11-0 1-2023 Absolute Lymph 0.95 X10 3/uL Normal 0.83-4.51 [facility] Comment on above: Performed By: #### L 100.0100 #### [facility] [address] [place], [address] Absolute Neut 10.3 X10 3/uL High 2.0-7.7 [facility] Comment on above: Performed By: #### L 100.0100 #### [facility] [address] [place], [address] Basophils/100 WBC (Bld) 0.2 % Normal 0-1 [facility] Comment on above: Performed By: #### L 100.0100 #### [facility] [address] [place], [address] Eosinophils/100 WBC (Bld) 0.2 % Normal 0-5 [facility] Comment on above: Performed By: #### L 100.0100 #### [facility] [address] [place], [address] Erythrocyte distribution width (RBC) [Ratio] 13.4 % Normal 11.6-14.6 [facility] Comment on above: Performed By: #### L 100.0100 #### [facility] [address] [place], [address] Hematocrit (Bld) [Volume fraction] 45.9 % Normal 37-47 [facility] Comment on above: Performed By: #### L 100.0100 #### [facility] [address] [place], [address] Hemoglobin (Bld) [Mass/Vol] 14.7 g/dL Normal 12.0-15.0 [facility] Comment on above: Performed By: #### L 100.0100 #### [facility] [address] [place], [address] IG% 0.400 Normal 0.0-0.9 [facility] Comment on above: Result Comment: IG% - Immature Granulocytes (promyelocytes, myelocytes and metamyelocytes) > 1% indicates that a LEFT SHIFT is Present. Performed By: #### L 100.0100 #### [facility] [address] [place], [address] Lymphocytes/100 WBC (Bld) 7.7 % Low 19-41 [facility] Comment on above: Performed By: #### L 100.0100 #### [facility] [address] [place], [address] MCH (RBC) [Entitic mass] 26.7 pg Low 27.0-32.0 [facility] Comment on above: Performed By: #### L 100.0100 #### [facility] [address] [place], [address] MCHC (RBC) [Mass/Vol] 32.0 g/dL Normal 32-36 [facility] Comment on above: Performed By: #### L 100.0100 #### [facility] [address] [place], [address] MCV (RBC) [Entitic vol] 83.5 fL Normal 81-99 [facility] Comment on above: Performed By: #### L 100.0100 #### [facility] [address] [place], [address] Monocytes/100 WBC (Bld) 8.0 % Normal 0-10 [facility] Comment on above: Performed By: #### L 100.0100 #### [facility] [address] [place], [address] Neutrophils/100 WBC (Bld) 83.5 % High 47-70 [facility] Comment on above: Performed By: #### L 100.0100 #### [facility] [address] [place], [address] Nucleated RBC (Bld) [#/Vol] 0 10*3/uL Normal 0-5 [facility] Comment on above: Performed By: #### L 100.0100 #### [facility] [address] [place], [address] Platelet mean volume (Bld) [Entitic vol] 10.5 fL Normal 6.2-12.0 [facility] Comment on above: Performed By: #### L 100.0100 #### [facility] [address] [place], [address] Platelets (Bld) [#/Vol] 209 10*3/uL Normal 150-450 [facility] Comment on above: Performed By: #### L 100.0100 #### [facility] [address] [place], [address] RBC (Bld) [#/Vol] 5.50 10*6/uL High 4.2-5.4 [facility] Comment on above: Performed By: #### L 100.0100 #### [facility] [address] [place], [address] RDW SD 40.8 fl Normal 35.1-43.9 [facility] Comment on above: Performed By: #### L 100.0100 #### [facility] [address] [place], [address] WBC (Bld) [#/Vol] 12.4 10*3/uL High 4.4-11.0 [facility] Comment on above: Performed By: #### L 100.0100 #### [facility] [address] [place], [address] Emergency Department Summary on 08-19-2024 Emergency Department Summary [facility] Medical Records Department [address] [place] [address] Emergency Department Summary 08/19/24 MR#: [id number] Acct: [id number] Name: QUIANA MEJIA Rep #: [id number] : 1955 68 From: Dylan Caldwell DO PCP: Dr. Karo Patel DO Status:REG ER Location: ED HPI History of Present Illness Chief Complaint: Chest Pain Narrative Narrative: Patient is a 60-year-old female who is presenting to the ER today with chief complaint of chest pain, abdominal pain, discomfort in bilateral axilla and intermittent paresthesias to bilateral arms. Patient states that around 8 or 9:00 last night, she started having midepigastric discomfort. Patient took 2 Rolaids with no relief. Patient just recently traveled from [place] back and returned on Thursday. They went to [place] on , they were making frequent stops every 2- 3 hours. No history of blood clots. Patient has no shortness of breath at rest or with exertion. No chest heaviness, achiness, tightness. Patient states there is a fullness and swelling to bilateral chest wall, also mild bloating and distention to abdomen. Patient says that she have a normal flatulence along with had normal soft stool this morning as well. No vomiting but mild nausea present at this time. [facility] Medical History (Updated 08/19/24 @ 13:[address] Dylan Caldwell, DO) High cholesterol Home Medications ???Medication ???Instructions ???Recorded ???Last Taken ???Type alendronate 70 mg tablet 70 mg PO QWEEK 12/21/23 Unknown History ascorbic acid (vitamin C) 1,000 mg 1 g PO Q6H 12/21/23 Unknown History capsule aspirin 81 mg tablet,delayed 81 mg PO DAILY 12/21/23 Unknown History release (Adult Low Dose Aspirin) calcium 260 mg (phos,tribasic)-D3 tab PO 12/21/23 Unknown History 25 mcg-herbal 50 mg chewable tablet (Alive Calcium-Vitamin D3) calcium 600 mg (as carbonate)-vit 1 tab PO DAILY 12/21/23 Unknown History D3 20 mcg (800 unit) chewable tablet (Caltrate plus D) cholecalciferol (vitamin D3) 125 125 mcg PO DAILY 12/21/23 Unknown History mcg (5,000 unit) capsule coQ10 (ubiquinol) 100 mg capsule 100 mg PO BID 12/21/23 Unknown History (Qunol Uriel CoQ10) multivitamin 1 tab PO DAILY 12/21/23 Unknown History omega-3 fatty acids 1,250 mg 1,250 mg PO DAILY 12/21/23 Unknown History capsule (Super Twin EPA-DHA) phytonadione (vitamin K1) 5 mg 5 mg PO DAILY 12/21/23 Unknown History tablet rosuvastatin 10 mg tablet 10 mg PO DAILY 12/21/23 Unknown History turmeric (bulk) 95 % powder ea miscellaneous 12/21/23 Unknown History (Curcumin) zinc gluconate 30 mg tablet 30 mg PO DAILY 12/21/23 Unknown History dicyclomine 10 mg capsule 20 mg (2 x 10 mg) PO TIDAC #20 08/19/24 Unknown Rx CAPSULES ondansetron 4 mg disintegrating 4 mg PO Q8H PRN PRN Nausea #10 tabs 08/19/24 Unknown Rx tablet Allergy/AdvReac Type Severity Reaction Status Date / Time No Known Allergies Allergy Verified 08/19/24 09:25 Family History Mother Brain tumor Social History household members: spouse current occupational status: retired 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 current occupational exposures/hazards: No pets and animals: Yes pets and animals: cat(s) history of recent travel: Yes details: [place] [facility] - November out of country: Yes sexually active: Yes Smoking Status: Never smoker alcohol intake: current alcohol intake frequency: holidays/special occasions only substance use type: does not use caffeine: Yes Type: coffee eating out: 1-3 times/week during the past year weight has: remained stable what type of physical activity do you participate in: walking and bicycling frequency: 5-6 times per week duration: 45-60 minutes/day seatbelt use: always do you feel safe at home: Yes additional social history: : [employer] - 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 EXAM Physical Exam Narrative Exam Narrative: Vital signs reviewed and patient is not hypoxic. General: The patient appears well and in no apparent distress. Patient is resting comfortably on cart. Not toxic, lethargic, or listless. is at bedside. Skin: Warm, dry, no pallor noted. There is no rash noted. Head: Normocephalic (more content not included)... Normal [facility] L501.4020on 08-19-2024 TROPONIN-I HS 4 pg/mL Normal 3.0-54.0 [facility] Comment on above: Result Comment: Plesalvador amaral Note: New Test Units and Gender Specific Reference Ranges. For more information see Policy Stat Procedure [place] High Sensitivity Troponin (TNIH) and attachments. Performed By: #### L 501.4020 ####[facility] [id number] [place], [address] L501.5425on 08-19-2024 TROPONIN-I HS 4 pg/mL Normal 3.0-54.0 [facility] Comment on above: Order Comment: 1Y Result Comment: Plesalvador se Note: New Test Units and Gender Specific Reference Ranges. For more information see Policy Stat Procedure [place] High Sensitivity Troponin (TNIH) and attachments. Performed By: #### L 501.5425, L500.2500, L501.5200, L501.2450 ####[facility] [id number] [place], [address] Lipaseon 08-19-2024 Lipase [Catalytic activity/Vol] 73 U/L Normal 13-75 [facility] Comment on above: Order Comment: 1Y Result Comment: Sheyla amaral note: LIPASE revised reference range effective 23. New Lipase methodology. Expected to produce lower values than the previous assay method. NEW Reference Range: 13 - 75 U/L Performed By: #### L 501.5425, L500.2500, L501.5200, L501.2450 ####[facility] [id number] [place], [address] Magnesiumon 08-19-2024 Magnesium [Mass/Vol] 2.0 mg/dL Normal 1.6-2.6 [facility] Comment on above: Order Comment: 1Y Performed By: #### L 501.5425, L500.2500, L501.5200, L501.2450 ####[facility] [id number] [place], [place], [address] Absolute lymphocyte countOrd ered By: Karo Fast on 08-18-2023 Lymphocytes Auto (Unsp spec) [#/Vol] 1.41 10*3/uL 0.83-4.51 [facility] Basophil percentageOrdered B y: Karo Fast on 08-18-2023 Basophil percentage 0 SEEN /hpf 0-5 [facility] Basophils/100 WBC (Bld) 0.6 % 0-1 [facility] Bilirubin [Mass/Vol] 0.40 mg/dL 0.20-1.00 [facility] Comment on above: For patients on eltr ombopag therapy, use of Dimension [place] TBIL is not recommended. Chloride [Moles/Vol] 107 mmol/L 98-107 [facility] Eosinophils/100 WBC (Bld) 3.8 % 0-5 [facility] Glucose [Mass/Vol] 93 mg/dL 74-106 [facility] Neutrophils (Bld) [#/Vol] 2.8 10*3/uL 2.0-7.7 [facility] Neutrophils/100 WBC (Bld) 56.1 % 47-70 [facility] Potassium [Moles/Vol] 4.1 mmol/L 3.5-5.1 [facility] Protein [Mass/Vol] 6.6 g/dL 6.4-8.2 [facility] Sodium [Moles/Vol] 140 mmol/L 136-145 [facility] WBC (Bld) [#/Vol] 5.0 10*3/uL 4.4-11.0 [facility] Bilirubin Test strip Ql (U)O rdered By: Karo on 08-18-2023 Bilirubin Ql (U) Negative Negative [facility] Blood erythrocytes count (nu mber/volume)Ordered By: Karo on 08-18-2023 RBC (Bld) [#/Vol] 5.13 10*6/uL 4.2-5.4 [facility] Blood hemoglobin measurement (mass/volume)Ordered By: Karo on 08-18-2023 Hemoglobin (Bld) [Mass/Vol] 13.7 g/dL 12.0-15.0 [facility] Blood lymphocytes/100 leukoc ytesOrdered By: Karo Fast on 08-18-2023 Lymphocytes/100 WBC (Bld) 28.4 % 19-41 [facility] Blood monocytes/100 leukocyt esOrdered By: Karo Fast on 08-18-2023 Monocytes/100 WBC (Bld) 10.9 % 0-10 [facility] Blood platelet mean volumeOr dered By: Karo Fast on 08-18-2023 Platelet mean volume (Bld) [Entitic vol] 10.9 fL 6.2-12.0 [facility] Culture, urineOrdered By: Potter on 08-18-2023 Bacteria identified Cx Nom (U) Culture exhibits no growth. [facility] Bacteria identified Cx Nom (U) Culture exhibits no growth. [facility] Determination of erythrocyte mean corpuscular volume (MCV)Ordered By: Karo Fast on 08-18-2023 MCV (RBC) [Entitic vol] 83.6 fL 81-99 [facility] Hematocrit Auto (Bld) [Volum e fraction]Ordered By: Karo on 08-18-2023 Hematocrit (Bld) [Volume fraction] 42.9 % 37-47 [facility] Ketones Test strip Ql (U)Ord ered By: Karo on 08-18-2023 Ketones Ql (U) Negative Negative [facility] - Chemistry and C hemistry - challengeOrdered By: [facility] on 08-18-2023 ALP [Catalytic activity/Vol] 91 U/L 45-117 [facility] ALT [Catalytic activity/Vol] 37 U/L 13-56 [facility] CO2 [Moles/Vol] 28.0 mmol/L 21.0-32.0 [facility] Globulin (S) [Mass/Vol] 2.9 g/dL 2.2-4.2 [facility] Urea nitrogen/Creatinine [Mass ratio] 23.0 mg/mg 10-20 [facility] - Hematology and Cell countsOrdered By: [facility] on 08-18-2023 Erythrocyte distribution width (RBC) [Entitic vol] 42.5 fL 35.1-43.9 [facility] Erythrocyte distribution width (RBC) [Ratio] 13.8 % 11.6-14.6 [facility] Immature granulocytes/100 WBC (Bld) 0.200 % 0.0-0.9 [facility] Comment on above: IG% - Immature Granu locytes (promyelocytes, myelocytes and metamyelocytes) > 1% indicates that a LEFT SHIFT is Present. MCH (RBC) [Entitic mass] 26.7 pg 27.0-32.0 [facility] Nucleated RBC/100 WBC (Bld) [Ratio] 0 % 0-5 [facility] MCHC Auto (RBC) [Mass/Vol]Or dered By: Karo on 08-18-2023 MCHC (RBC) [Mass/Vol] 31.9 g/dL 32-36 [facility] Mucus LM Ql (Urine sed)Order ed By: Karo on 08-18-2023 Mucus Ql (Urine sed) 1+ /hpf [facility] Nitrite Test strip Ql (U)Ord ered By: Karo on 08-18-2023 Nitrite Ql (U) Negative Negative [facility] No Panel InformationOrdered By: Karo Fast on 08-18-2023 Estimated GFR (MDRD) Amer 108 mL/min >60 [facility] Comment on above: GFR Calc Estimated GFR (MDRD) Non-Af Amer 89 mL/min >60 [facility] Comment on above: Non- GFR Calc Platelets bldOrdered By: Ana garcia Fast on 08-18-2023 Platelets (Bld) [#/Vol] 207 10*3/uL 150-450 [facility] Protein Test strip Ql (U)Ord ered By: Karo on 08-18-2023 Protein Ql (U) 15 mg/dl Negative [facility] Serum or plasma albumin [place] urement (mass/volume)Ordered By: Karo on 08-18-2023 Albumin [Mass/Vol] 3.7 g/dL 3.2-5.0 [facility] Serum or plasma albumin/glob ulin mass ratioOrdered By: Karo on 08-18-2023 Albumin/Globulin [Mass ratio] 1.3 {ratio} 0.9-2.4 [facility] Serum or plasma calcium [place] urement (mass/volume)Ordered By: Karo on 08-18-2023 Calcium [Mass/Vol] 9.2 mg/dL 8.5-10.1 [facility] Serum or plasma creatinine m easurement (mass/volume)Ordered By: Karo on 08-18-2023 Creatinine [Mass/Vol] 0.70 mg/dL 0.55-1.02 [facility] Comment on above: The validity of the calculated GFR & GFRAA in patients over 70 years has not been determined. Clinical correlation is essential. Serum or plasma urea nitroge n measurement (mass/volume)Ordered By: Karo on 08-18-2023 Urea nitrogen [Mass/Vol] 16 mg/dL 7-18 [facility] Squamous epithelial cells de tection in urine sediment by light microscopyOrdered By: Karo on 08-18-2023 Epithelial cells.squamous LM Ql (Urine sed) 0-5 SEEN /hpf 5-10 [facility] Thin prep Papanicolaou smear with manual screeningOrdered By: Karo on 08-18-2023 Thin prep Papanicolaou smear with manual screening 17 U/L 15-37 [facility] Thin prep Papanicolaou smear with manual screening 5 5-15 [facility] Urine blood detectionOrdered By: Karo on 08-18-2023 RBC Ql (U) Negative Negative [facility] RBC Ql (U) 0 SEEN /hpf 0-5 [facility] Urine clarityOrdered By: Ana garcia Fast on 08-18-2023 Clarity (U) Clear Clear [facility] Urine color determinationOrd ered By: Karo Fast on 08-18-2023 Color (U) Yellow Yellow [facility] Urine glucose detectionOrder ed By: Karo on 08-18-2023 Glucose Ql (U) Normal mg/dl Normal [facility] Urine leukocyte esterase det ection by dipstickOrdered By: Karo on 08-18-2023 Leukocyte esterase Test strip Ql (U) 25 /ul Negative [facility] Urine pHOrdered By: Karo Fa st on 08-18-2023 pH (U) 6.0 [pH] 5.0 - 8.0 [facility] Urine sediment bacteria coun t by microscopy (number/high power field)Ordered By: Karo on 08-18-2023 Bacteria LM.HPF (Urine sed) [#/Area] 0 /[HPF] None Seen [facility] Urine specific gravity measu rementOrdered By: Karo on 08-18-2023 Specific gravity (U) [Rel density] 1.020 1.002-1.03 0 [facility] Urobilinogen Auto test strip Ql (U)Ordered By: Karo on 08-18-2023 Urobilinogen Ql (U) Normal mg/dl Normal [facility] Progress Noteon 02-12-2023 Progress Note [facility] [address] [facility] [address] Dept: [phone] Dept PHYSICAL THERAPY RE-EVALUATION Patient Name: Quiana Mejia : 1955 Date of Service: 02/12/2023 Referring Provider: Arash Baker, * Diagnosis: Osteoporosis of lumbar spine [...] bone clinic. Precautions/Red Flags: None Patient Preferences: Quiana Subjective General Comments: Patient reports that she was traveling the past month so did not do too many of her exs but feeling good. No back or hi pain and has been paying attention to her posture. Pain: No pain Current Level of Function: Good, no difficulties or pain Patient?s Stated Goal: Know what exs to do, [...] good understanding or progression and precautions. Assessment Quiana did very well today with good understand [...] Expected End: 03/14/23 Patient will demonstrate full Traer with Felipa's method exs routine and precautions. (Completed) Start: [...] Time Entry Total Treatment Time Start Time: 206 Stop Time: 303 Time Calculation (more content not included)... Normal [facility] Progress Noteon 01-16-2023 Progress Note Labs stable, OK to start fosamax for better hip and spine protection than Boniva. Pt was on Boniva from Nov 2019 to Aug 2022. Will continue fosamax until ~03/2026 (3.25 years to equal 5 total) before considering a drug holiday. Fosamax ordered. Normal [facility] Progress Noteon 01-14-2023 Progress Note [facility] [address] [facility] [address] Dept: [phone] Dept PHYSICAL THERAPY EVALUATION Patient Name: Quiana Mejia : 1955 Date of Service: 01/14/2023 Referring Provider: Arash Baker, * Diagnosis: Osteoporosis of lumbar spine General Information Fall Risk: No Precautions/Red Flags: None Patient Preferences: Albin Work status: retired Home Setup: House, 3 levels, no trouble with stairs PMHX: Quiana has a past medical history of Broken finger, Broken toe, and Hypercholesteremia. PSHX: Quiana has no past surgical history on file. Have you experienced any anxiety, depression, thoughts of self-harm or suicidal thoughts?: No Physician follow-up appointment?: Yes, yearly check up Subjective Reason for referral/Mechanism of Injury: Occasional hip joint pain, bilateral (pain located [...] referred ot PT from the bone clinic. Chief Complaint: occasional hip/ LB pain but is referred by the bone clinic to be trianed in the Felipa's method for osteoporosis and fracture prevention Pain: Current: 0/10 Best: 0/10 Worst: 2-3/10 occasional pain in the LB or Bilateral hips Symptoms Aggravated by: Walking on uneven grounds (beach), standing and working in the kitchen, ironing or cooking > 1 h. Symptoms Relieved by: resting Prior Level of Function: no limitation or pain Current Level of Function: Osteoporosis aggravation Patient?s Stated Goal: Learn the felipa's method and be safe for my back Outcome Measures Oswestry Low Back Disability: score 3 = 6% Objective GENERAL Observation: posture WN, mild lumbar hyperlordosis and forward head Gait: Normal, no gait deviation, decreased hip extension noted Transfers: WNL, no difficulties Range of Motion (ROM): Lumbar and hip AROM WNL, UE AROM WNL. UE Strength: Gross assessment 5/5 Lower Extremity Strength (*pain) Date 01/14/2023 R L Hip Flexion 5/5 5/5 Hip IR 5-/5 5-/5 Hip ER 5-/5 5-/5 Hip Abd 5/5 5/5 Hip Ext 5-/5 5-/5 Knee Ext 5/5 5/5 Knee Flex 5/5 5/5 CORE 3+/5 3+/5 NT = not tested Flexibility: HS: WNL Piriformis, hip ER: restricted Bilateral Hip flexors: restricted bilateral Assessment Quiana Mejia is a 67 y.o. patient with chief complaint of intermittent low back pain and recent diagnosis of osteoporosis who presents with increased risk of fracture and complication. The patient would benefit from skilled physical therapy to address decreased strength, pain, impaired gait, impaired functional activities, and risk of fracture that can be prevented through proper exs program and education . Evaluation complexity is low secondary to: patient has 1-2 personal factors and/or comorbidities that will affect plan of care, therapy will be addressing 1-2 elements, and clinical presentation is stable. Body Systems Affected: musculoskeletal Rehab Potential: Good Learning Preferences: demonstration, explanation, performance, and printed materials Barriers to Rehab: none Goals General/Ortho Patient will be independent with HEP. Start: 01/14/23 Expected End: 02/25/23 Patient will report decreased pain at 0/10 in lumbopelvic region to be able to function fully and pain-free with ADL's and long standing. Start: 01/14/23 Expected End: 02/25/23 Patient will improve Hip flex and ER/ piriformis muscle flexibility to minimal restrictions to improve posture. Start: 01/14/23 Expected End: 02/25/23 Patient will increase core strength to 3+/5 or more to be able to maintain proper lumbar stability and pain-free LB through daily activities. Start: 01/14/23 Expected End: 02/25/23 Gait: Patient will demonstrate no gait deviation and improve hip extension walking to WNL to normalize mobility. Start: 01/14/23 Expected End: 02/25/23 Functional Outcome Measure: Patient will improve Owestry to 1 point max. Start: 01/14/23 Expected End: 02/25/23 Patient will demonstrate full Traer with Felipa's method exs routine and precautions. Start: 01/14/23 Expected End: 02/25/23 Plan Frequency and Duration: 1/wk for 4-6 weeks Therapeutic Contents: Client Education, Home Exercise Program, Therapeutic exercises, Therapeutic activities, Neuro-muscular reeducation, Manual therapy and Modalities as needed. Plan for next session: Progress with Felipa's method level 2 and 3 with prone, SL, 4 ped and standing exs and progress with body mechanics +++ Risks and benefits were discussed with the patient and/or family, (more content not included)... Normal [facility] Basophil percentageon 2022 Basophil percentage 3.6 mg/dL 2.5-4.9 [facility] Bilirubin [Mass/Vol] 0.30 mg/dL 0.20-1.00 [facility] Comment on above: For patients on eltr ombopag therapy, use of Dimension [place] TBIL is not recommended. Chloride [Moles/Vol] 105 mmol/L 98-107 [facility] Glucose [Mass/Vol] 95 mg/dL 74-106 [facility] Potassium [Moles/Vol] 3.9 mmol/L 3.5-5.1 [facility] Protein [Mass/Vol] 6.4 g/dL 6.4-8.2 [facility] Sodium [Moles/Vol] 140 mmol/L 136-145 [facility] Laboratory - Chemistry and C hemistry - challengeon 01-01-2023 ALP [Catalytic activity/Vol] 80 U/L 45-117 [facility] ALT [Catalytic activity/Vol] 36 U/L 13-56 [facility] CO2 [Moles/Vol] 27.0 mmol/L 21.0-32.0 [facility] Globulin (S) [Mass/Vol] 2.9 g/dL 2.2-4.2 [facility] Magnesium [Mass/Vol] 2.2 mg/dL 1.6-2.6 [facility] Urea nitrogen/Creatinine [Mass ratio] 33.3 mg/mg 10-20 [facility] No Panel Informationon 01-01 Estimated GFR (MDRD) Amer 136 mL/min >60 [facility] Comment on above: GFR Calc Estimated GFR (MDRD) Non-Af Amer 112 mL/min >60 [facility] Comment on above: Non- GFR Calc Parathyroid Hormone (Intact) 38.0 pg/mL 18.4-80.1 [facility] Thyroid Stimulating Hormone (TSH) 1.69 uIU/mL 0.358-3.74 [facility] Vitamin D 25-Hydroxy 68.0 ng/mL [facility] Comment on above: Vitamin D 25(OH) Sta tus Range Deficiency <20 ng/mL (50nmol/L) Insufficiency 20 - 30 ng/mL (50 - 75 nmol/L) Sufficiency 30 - 100 ng/mL (75 - 250 nmol/L) Toxicity >100 ng/mL (>250 nmol/L) Serum or plasma albumin [place] urement (mass/volume)on 01-01-2023 Albumin [Mass/Vol] 3.5 g/dL 3.2-5.0 [facility] Serum or plasma albumin/glob ulin mass ratioon 01-01-2023 Albumin/Globulin [Mass ratio] 1.2 {ratio} 0.9-2.4 [facility] Serum or plasma calcium [place] urement (mass/volume)on 01-01-2023 Calcium [Mass/Vol] 9.3 mg/dL 8.5-10.1 [facility] Serum or plasma creatinine m easurement (mass/volume)on 01-01-2023 Creatinine [Mass/Vol] 0.57 mg/dL 0.55-1.02 [facility] Comment on above: The validity of the calculated GFR & GFRAA in patients over 70 years has not been determined. Clinical correlation is essential. Serum or plasma urea nitroge n measurement (mass/volume)on 01-01-2023 Urea nitrogen [Mass/Vol] 19 mg/dL 7-18 [facility] Thin prep Papanicolaou smear with manual screeningon 01-01-2023 Thin prep Papanicolaou smear with manual screening 20 U/L 15-37 [facility] Thin prep Papanicolaou smear with manual screening 8 5-15 [facility] [facility] Visiton 12-18-2022 Follow-up visit [id number] Quiana Mejia 1955 F Date Provider Department Center 12/18/2022 [id number], SB [facility] None Family History Problem Relation Age of Onset Hyperlipidemia Mother Brain cancer Mother Heart disease Father Stroke Father Hyperlipidemia Brother Prostate cancer Brother Ovarian cancer Father's Sister No Known Problems Maternal Grandmother No Known Problems Maternal Grandfather No Known Problems Paternal Grandmother No Known Problems Paternal Grandfather Family Status - Relation Status Age at Mother Father Brother Alive Father's Sister Maternal Grandmother Maternal Grandfather Paternal Grandmother Paternal Grandfather Level of Service:63467 MS OFFICE/OUTPATIENT NEW HIGH [facility] 60-74 MINUTES Reason for Visit and Comments: Osteoporosis [[id number]] Normal [facility] PATINSon 12-18-2022 PATINS 1200mg calcium daily in divided doses between diet and supplement Have lab results faxed to . Normal [facility] Progress Noteon 12-18-2022 Progress Note [facility] OSTEOPOROSIS [address] [facility] [address] Loc: [phone] Visit type: New patient Reason for Visit: [...] the following: Adequate dietary calcium intake of 8990-9103 mg per day through diet and/or supplements. Vitamin D3 2024-5185 IU daily. Participate in weight bearing exercises. [...] patient is referred for: Osteoporosis Referred by Karo Patel DO The osteopenia/osteoporosis was first diagnosed on: August 2022, osteoporosis. Osteopenia for several years. Risk factors for osteoporosis in the patient are history of the following postmenopausal estrogen deficiency, race. Fracture history: None, has broken some fingers and toes, no fragility fractures. Family history of OP: U (more content not included)... Normal [facility] 36on 12-05-2022 36 Patient scheduled on 12/18/22 @ 2:00 PM. Normal [facility] CBC, PLATELETS & MANUAL DIFF ([id number])Ordered By: Aerospace Medicine Physician on 08-05-2022 Basophils (Bld) [#/Vol] 0.0 10*3/uL Normal 0.0-0.2 [facility]; [facility] Work Phone: Comment on above: PATIENT WAS FASTINGP ERFORMED BY: [employer] [place] [employer] Screenie Piper MIOTtechUNC Health [facility] [id number] Information: NURSE DRAW; appt 08/20 wellness Basophils/100 WBC (Bld) 1 % Normal [facility]; [facility] Work Phone: Comment on above: PATIENT WAS FASTINGP ERFORMED BY: [employer] [place] [employer] Oybera9297 [facility] [id number] Information: NURSE DRAW; appt 08/20 wellness Eosinophils (Bld) [#/Vol] 0.2 10*3/uL Normal 0.0-0.4 [facility]; [facility] Work Phone: Comment on above: PATIENT WAS FASTINGP ERFORMED BY: [employer] [place] [employer] Screenie [place] MIOTtechUNC Health [facility] [id number] Information: NURSE DRAW; appt 08/20 wellness Eosinophils/100 WBC (Bld) 5 % Normal [facility]; [facility] Work Phone: Comment on above: PATIENT WAS FASTINGP ERFORMED BY: FRANKIE Alfredaesther Nlfxuo8298 [facility] [id number] Information: NURSE DRAW; appt 08/20 wellness Erythrocyte distribution width (RBC) [Ratio] 13.4 % Normal 11.7-15.4 [facility]; [facility] Work Phone: Comment on above: PATIENT WAS FASTINGP ERFORMED BY: FRANKIE [address] [id number] Information: NURSE DRAW; appt 08/20 wellness Hematocrit (Bld) [Volume fraction] 43.4 % Normal 34.0-46.6 [facility]; [facility] Work Phone: Comment on above: PATIENT WAS FASTINGP ERFORMED BY: FRANKIE Alfredaesther AntonioApvxdw[address] [id number] Information: NURSE DRAW; appt 08/20 wellness Hemoglobin (Bld) [Mass/Vol] 14.1 g/dL Normal 11.1-15.9 [facility]; [facility] Work Phone: Comment on above: PATIENT WAS FASTINGP ERFORMED BY: FRANKIE [facility] Hospitalesther [address] [id number] Information: NURSE DRAW; appt 08/20 wellness Immature granulocytes (Bld) [#/Vol] 0.0 10*3/uL Normal 0.0-0.1 [facility]; [facility] Work Phone: Comment on above: PATIENT WAS FASTINGP ERFORMED BY: FRANKIE [facility] Hospitalyumiko[address] [id number] Information: NURSE DRAW; appt 08/20 wellness Immature granulocytes/100 WBC (Bld) 0 % Normal [facility]; [facility] Work Phone: Comment on above: PATIENT WAS FASTINGP ERFORMED BY: FRANKIE [address] [place] [id number] Information: NURSE DRAW; appt 08/20 wellness Lymphocytes (Bld) [#/Vol] 1.3 10*3/uL Normal 0.7-3.1 [facility]; [facility] Work Phone: Comment on above: PATIENT WAS FASTINGP ERFORMED BY: FRANKIE [address] [id number] Information: NURSE DRAW; appt 08/20 wellness Lymphocytes/100 WBC (Bld) 30 % Normal [facility]; [facility] Work Phone: Comment on above: PATIENT WAS FASTINGP ERFORMED BY: FRANKIE [address] [id number] Information: NURSE DRAW; appt 08/20 wellness MCH (RBC) [Entitic mass] 27.1 pg Normal 26.6-33.0 [facility]; [facility] Work Phone: Comment on above: PATIENT WAS FASTINGP ERFORMED BY: FRANKIE [address] [id number] Information: NURSE DRAW; appt 08/20 wellness MCHC (RBC) [Mass/Vol] 32.5 g/dL Normal 31.5-35.7 [facility] prehensive Internal Medicine; [facility] Work Phone: Comment on above: PATIENT WAS FASTINGP ERFORMED BY: FRANKIE [place] [id number] [facility] [id number] Information: NURSE DRAW; appt 08/20 wellness MCV (RBC) [Entitic vol] 83 fL Normal 79-97 [facility]; [facility] Work Phone: Comment on above: PATIENT WAS FASTINGP ERFORMED BY: FRANKIE [address] [id number] Information: NURSE DRAW; appt 08/20 wellness Monocytes (Bld) [#/Vol] 0.4 10*3/uL Normal 0.1-0.9 [facility]; [facility] Work Phone: Comment on above: PATIENT WAS FASTINGP ERFORMED BY: FRANKIE Samaniego Oouogb4084 [facility] [id number] Information: NURSE DRAW; appt 08/20 wellness Monocytes/100 WBC (Bld) 10 % Normal [facility]; [facility] Work Phone: Comment on above: PATIENT WAS FASTINGP ERFORMED BY: FRANKIE Samaniego Jyauyf[address] [id number] Information: NURSE DRAW; appt 08/20 wellness Neutrophils (Bld) [#/Vol] 2.5 10*3/uL Normal 1.4-7.0 [facility]; [facility] Work Phone: Comment on above: PATIENT WAS FASTINGP ERFORMED BY: FRANKIE Antoniolin6370 [facility] [id number] Information: NURSE DRAW; appt 08/20 wellness Neutrophils/100 WBC (Bld) 54 % Normal [facility]; [facility] Work Phone: Comment on above: PATIENT WAS FASTINGP ERFORMED BY: FRANKIE Danette Eadstd4023 [facility] [id number] Information: NURSE DRAW; appt 08/20 wellness Platelets (Bld) [#/Vol] 184 10*3/uL Normal 150-450 [facility]; [facility] Work Phone: Comment on above: PATIENT WAS FASTINGP ERFORMED BY: FRANKIE Danette[address] [id number] Information: NURSE DRAW; appt 08/20 wellness RBC (Bld) [#/Vol] 5.21 10*6/uL Normal 3.77-5.28 Compr ehensive Internal Medicine; [facility] Work Phone: Comment on above: PATIENT WAS FASTINGP ERFORMED BY: FRANKIE Samaniego Bnsvfm4747 [facility] [id number] Information: NURSE DRAW; appt 08/20 wellness WBC (Bld) [#/Vol] 4.4 10*3/uL Normal 3.4-10.8 Compre hensive Internal Medicine; [facility] Work Phone: Comment on above: PATIENT WAS FASTINGP ERFORMED BY: FRANKIE [facility] Jcmhtv7311 [address] RoadDublin [place] [id number] Information: NURSE DRAW; appt 08/20 wellness HEPATIC FUNCTION PANEL ([id number])Ordered By: Aerospace Medicine Physician on 08-05-2022 Bilirubin.direct [Mass/Vol] 0.11 mg/dL Normal 0.00-0.40 [facility]; [facility] Work Phone: Comment on above: PATIENT WAS FASTINGP ERFORMED BY: FRANKIE [facility] Tnztfh7608 [address]per RoadDublin [place] [id number] METABOLIC PANEL, COMPREHENSI VE ([id number])Ordered By: Aerospace Medicine Physician on 08-05-2022 Albumin [Mass/Vol] 4.4 g/dL Normal 3.8-4.8 [facility] Internal Medicine; [facility] Work Phone: Comment on above: PATIENT WAS FASTINGP ERFORMED BY: FRANKIE [facility] Sktxtk5757 [address] RoadDublin [place] [id number] Albumin/Globulin [Mass ratio] 2.6 {ratio} Abnormal 1.2-2.2 [facility]; [facility] Work Phone: Comment on above: PATIENT WAS FASTINGP ERFORMED BY: CB [facility] Hpqnep1382 [address] RoadDublin [place] [id number] ALP [Catalytic activity/Vol] 88 U/L Normal 44-121 [facility]; [facility] Work Phone: Comment on above: PATIENT WAS FASTINGP ERFORMED BY: CB [facility] Mgoeus1136 [address] RoadDublin [place] [id number] ALT [Catalytic activity/Vol] 22 U/L Normal 0-32 [facility]; [facility] Work Phone: Comment on above: PATIENT WAS FASTINGP ERFORMED BY: CB [facility] Xwdpvs0434 [address] RoadDublin [place] [id number] AST [Catalytic activity/Vol] 19 U/L Normal 0-40 [facility]; [facility] Work Phone: Comment on above: PATIENT WAS FASTINGP ERFORMED BY: [facility] Xrliee0495 [address] RoadDublin [place] [id number] Bilirubin [Mass/Vol] 0.2 mg/dL Normal 0.0-1.2 Comp rehensive Internal Medicine; [facility] Work Phone: Comment on above: PATIENT WAS FASTINGP ERFORMED BY: CB [facility] Inkaam2710 [address] RoadDublin [place] [id number] Calcium [Mass/Vol] 9.5 mg/dL Normal 8.7-10.3 [facility] Internal Medicine; [facility] Work Phone: Comment on above: PATIENT WAS FASTINGP ERFORMED BY: CB [facility] Kjlarb6867 [address] RoadDublin [place] [id number] Chloride [Moles/Vol] 104 mmol/L Normal 96-106 Comp rehensive Internal Medicine; [facility] Work Phone: Comment on above: PATIENT WAS FASTINGP ERFORMED BY: [facility] Gqrncu8606 [address] RoadDublin [place] [id number] CO2 [Moles/Vol] 24 mmol/L Normal 20-[address] [facility] [address] Internal [facility]; [facility] Work Phone: Comment on above: PATIENT WAS FASTINGP ERFORMED BY: [facility] Azlhns6497 [address] RoadDublin [place] [id number] Creatinine [Mass/Vol] 0.67 mg/dL Normal 0.57-1.00 [facility] prehensive Internal Medicine; [facility] Work Phone: Comment on above: PATIENT WAS FASTINGP ERFORMED BY: [facility] Cisymk9769 [address] RoadDublin [place] [id number] GFR/1.73 sq M.predicted among non-blacks MDRD (S/P/Bld) [Vol rate/Area] 96 mL/min/{1.73_m2} Normal Comprehensiv e Internal Medicine; [facility] Work Phone: Comment on above: PATIENT WAS FASTINGP ERFORMED BY: [facility] Alpdgb4562 [address] RoadDublin [place] [id number] Globulin (S) [Mass/Vol] 1.7 g/dL Normal 1.5-4.5 [facility] Internal Medicine; [facility] Work Phone: Comment on above: PATIENT WAS FASTINGP ERFORMED BY: FRANKIE Jacinto Paris6370 [address]blin [place] [id number] Glucose [Mass/Vol] 89 mg/dL Normal 70-99 [facility] Internal Medicine; [facility] Work Phone: Comment on above: PATIENT WAS FASTINGP ERFORMED BY: FRANKIE [facility] Xashdv7813 [address]per RoadCritical Access Hospitalin [place] [id number] Potassium [Moles/Vol] 4.4 mmol/L Normal 3.5-5.2 [facility] Internal Medicine; [facility] Work Phone: Comment on above: PATIENT WAS FASTINGP ERFORMED BY: FRANKIE Alfredacrossroads [facility] Yinitk4737 Piper RoadCritical Access Hospitalin [place] [id number] Protein [Mass/Vol] 6.1 g/dL Normal 6.0-8.5 [facility] Internal Medicine; [facility] Work Phone: Comment on above: PATIENT WAS FASTINGP ERFORMED BY: FRANKIE Labyumiko Mxaofk[address] [facility] Hospitalblin [place] [id number] Sodium [Moles/Vol] 141 mmol/L Normal 134-144 [facility] Internal Medicine; [facility] Work Phone: Comment on above: PATIENT WAS FASTINGP ERFORMED BY: [facility] Jcfkpi8364 Piper RoadCritical Access Hospitalin [place] [id number] Urea nitrogen [Mass/Vol] 14 mg/dL Normal 8-27 [facility] Internal Medicine; [facility] Work Phone: Comment on above: PATIENT WAS FASTINGP ERFORMED BY: FRANKIE [facility] Pbxcrh[address] [facility] Hospitalblin [place] [id number] Urea nitrogen/Creatinine [Mass ratio] 21 mg/mg Normal 12-28 [facility]; [facility] Work Phone: Comment on above: PATIENT WAS FASTINGP ERFORMED BY: FRANKIE [facility] Xohgwi7096 [facility] [id number] URINE MONIQUE CULTURE (JERRI COL COUNT) ([id number])Ordered By: Aerospace Medicine Physician on 09-07-2019 Bacteria identified Cx Nom (U) CNSNSS Abnormal [facility] Work Phone: Comment on above: Coagulase negative S taphylococcus species, not Staphylococcussaprophyticus.200 Colonies/mL .Based on susceptibility to oxacillin this isolate would besusceptible to:*Penicillinase-stable penicillins, such as: Cloxacillin, Dicloxacillin, Nafcillin*Beta-lactam combination agents, such as: Amoxicillin-clavulanic acid, Ampicillin-sulbactam, Piperacillin-tazobactam*Oral cephems, such as: Cefaclor, Cefdinir, Cefpodoxime, Cefprozil, Cefuroxime, Cephalexin, Loracarbef*Parenteral cephems, such as: Cefazolin, Cefepime, Cefotaxime, Cefotetan, Ceftaroline, Ceftizoxime, Ceftriaxone, Cefuroxime*Carbapenems, such as: Doripenem, Ertapenem, Imipenem, Meropenem S = Susceptible; I = Intermediate; R = Resistant P = Positive; N = Negative MICS are expressed in micrograms per mL Antibiotic RSLT#1 RSLT#2 RSLT#3 RSLT#4Ciprofloxacin SGentamicin SLevofloxacin SLinezolid SNitrofurantoin SOxacillin SPenicillin RQuinupristin/Dalfopristin SRifampin STetracycline STrimethoprim/Sulfa RVancomycin S PATIENT NOT FASTINGP ERFORMED BY: Shortlist Dabcog8965 [facility] [id number] Information: SRC:JJ Bacteria identified Cx Nom (U) Final report Abnormal [facility] Work Phone: Comment on above: PATIENT NOT FASTINGP ERFORMED BY: [employer] Taoxck0079 [facility] [id number] Information: SRC:JJ Lipid Profileon 03-01-2018 Cholesterol in HDL mass conc 58 mg/dL Normal [facility] Work Phone: Comment on above: The drugs N-Acetylcy steine and Metamizole may falselydepress this assay. Reference Range HDL <40 mg/dL Low HDL Cholesterol HDL >or= 60 mg/dL High HDL Cholesterol Order Date: 07/24/17 Order Info: 0788-1 - *Hepatic Function PanelOrder Info: [id number] - *Lipid Profile CC PCPComments: 12 hours fasting, may have water.[facility] [address] [place], [address] Cholesterol in LDL mass conc 85 mg/dL Normal 0-130 [facility] Work Phone: Cholesterol in LDL mass conc 85 mg/dL Normal 0-130 [facility] Work Phone: Comment on above: Order Date: 07/24/17 Order Info: 0788-1 - *Hepatic Function PanelOrder Info: [id number] - *Lipid Profile CC PCPComments: 12 hours fasting, may have water.[facility] [address] [place], [place], [address](763) Cholesterol in VLDL mass conc 33 mg/dL Normal 5-40 [facility] Work Phone: Comment on above: Order Date: 07/24/17 Order Info: 0788-1 - *Hepatic Function PanelOrder Info: [id number] - *Lipid Profile CC PCPComments: 12 hours fasting, may have water.[facility] [address] [place], [place], [address](864) Cholesterol mass conc 176 mg/dL Normal [facility]erensive Internal [facility] Work Phone: Comment on above: <200 mg/dL Desirable 200-240 mg/dL Borderline >240 mg/dL High Risk Order Date: 07/24/17 Order Info: 0788-1 - *Hepatic Function PanelOrder Info: [id number] - *Lipid Profile CC PCPComments: 12 hours fasting, may have water.[facility] [address] [place], [place], [address](406) Triglyceride mass conc 163 mg/dL Normal [facility] servicesensive Internal Medicine Work Phone: Comment on above: The drugs N-Acetylcy steine and Metamizole may falselydepress this assay.Serum Triglycerides Reference Interval Normal <150 mg/dL Borderline high 150 - 199 mg/dL High 200 - 499 mg/dL Very High > or = 500 mg/dL Order Date: 07/24/17 Order Info: 0788-1 - *Hepatic Function PanelOrder Info: [id number] - *Lipid Profile CC PCPComments: 12 hours fasting, may have water.[facility] [address] [place], [address] Liver Profileon 03-01-2018 Albumin mass conc 3.8 g/dL Normal 3.2-5.0 [facility] Internal Medicine Work Phone: Comment on above: Order Date: 07/24/17 Order Info: 0788-1 - *Hepatic Function PanelOrder Info: [id number] - *Lipid Profile CC PCPComments: 12 hours fasting, may have water.[facility] [address] [place], [address] ALP enzyme act/vol 94 U/L Normal 45-117 [facility] Internal Medicine Work Phone: Comment on above: Order Date: 07/24/17 Order Info: 0788-1 - *Hepatic Function PanelOrder Info: [id number] - *Lipid Profile CC PCPComments: 12 hours fasting, may have water.[facility] [address] [place], [address] ALT enzyme act/vol 36 U/L Normal 13-56 [facility] Internal Medicine Work Phone: Comment on above: Order Date: 07/24/17 Order Info: 0788-1 - *Hepatic Function PanelOrder Info: [id number] - *Lipid Profile CC PCPComments: 12 hours fasting, may have water.[facility] [address] [place], [address] AST enzyme act/vol 24 U/L Normal 15-37 [facility] Internal Medicine Work Phone: Comment on above: Order Date: 07/24/17 Order Info: 0788-1 - *Hepatic Function PanelOrder Info: 86889-5 - *Lipid Profile CC PCPComments: 12 hours fasting, may have water.[facility] [address] [place], [place], [address](275) Bilirubin mass conc 0.20 mg/dL Normal 0.20-1.00 [facility] Internal Medicine Work Phone: Comment on above: Order Date: 07/24/17 Order Info: 0788-1 - *Hepatic Function PanelOrder Info: [id number] - *Lipid Profile CC PCPComments: 12 hours fasting, may have water.[facility] [address] [place], [place], [id number] Bilirubin.direct mass conc 0.05 mg/dL Normal 0.00-0.30 [facility] Internal Medicine Work Phone: Comment on above: Order Date: 07/24/17 Order Info: 0788-1 - *Hepatic Function PanelOrder Info: [id number] - *Lipid Profile CC PCPComments: 12 hours fasting, may have water.[facility] [address] [place], [place], [address] Globulin Calculated mass conc (S) 3.2 g/dL Normal 2.2-4.2 [facility] Internal Medicine Work Phone: Globulin mass conc (S) 3.2 g/dL Normal 2.2-4.2 [facility] Internal Medicine Work Phone: Comment on above: Order Date: 07/24/17 Order Info: 0788-1 - *Hepatic Function PanelOrder Info: [id number] - *Lipid Profile CC PCPComments: 12 hours fasting, may have water.[facility] [address] [place], [place], [address] Protein mass conc 7.0 g/dL Normal 6.4-8.2 [facility] Internal Medicine Work Phone: Comment on above: Order Date: 07/24/17 Order Info: 0788-1 - *Hepatic Function PanelOrder Info: [id number] - *Lipid Profile CC PCPComments: 12 hours fasting, may have water.[facility] [address] [place], [address] Office Visiton 07-30-2017 Dietary management education, guidance, and counseling (procedure) yes Invalid Interpretation Code [place] [employer] Work Phone: Documentation of current medications (procedure) Done Invalid Interpretation Code [place] [employer] Phone: Protein mass conc Done Invalid Interpretation Code [employer] Phone: Lab Report: Basic Metabolic Profile (BMP)on 07-20-2017 Anion gap 7 mmol/L Invalid Interpretation Code 5-15 [place] [employer] Work Phone: Anion gap 4 molar conc 7 Invalid Interpretation Code 5-15 [employer] Work Phone: Calcium mass conc 9.2 mg/dL Invalid Interpretation Code 8.5-10.1 [employer] Work Phone: Chloride molar conc 103 mmol/L Invalid Interpretation Code 98-107 [employer] Work Phone: CO2 29.0 mmol/L Invalid Interpretation Code 21.0-32.0 [employer] Work Phone: CO2 ppres (BldV) 29.0 mmol/L Invalid Interpretation Code 21.0-32.0 [employer] Phone: Creatinine mass conc 0.71 mg/dL Invalid Interpretation Code 0.55-1.02 [employer] Phone: eGFR (non-black) 107 mL/min/{1.73_m2} Invalid Interpretation Code >60 [employer] Work Phone: EST GFR - AA 107 mL/min Invalid Interpretation Code >60 [employer] Phone: GFR/1.73 sq M predicted among non-blacks MDRD vol rate/area (S/P/Bld) 88 mL/min/{1.73_m2} Invalid Interpretation Code >60 [employer] Phone: Glucose mass conc 88 mg/dL Invalid Interpretation Code 70-110 [employer] Work Phone: Potassium molar conc 4.0 mmol/L Invalid Interpretation Code 3.5-5.1 [employer] Work Phone: Sodium molar conc 139 mmol/L Invalid Interpretation Code 136-145 [place] [employer] Work Phone: Urea nitrogen mass conc 13 mg/dL Invalid Interpretation Code 7-18 [place] Work Phone: Urea nitrogen/Creatinine mass ratio 18.3 RATIO Invalid Interpretation Code 10-20 [place] [employer] Work Phone: Lab Report: Lipid Profileon 07-20-2017 Cholesterol in HDL mass conc 62 mg/dL Invalid Interpretation Code [place] Work Phone: Cholesterol in LDL mass conc 158 mg/dL High 0-130 [place] [employer] Work Phone: Cholesterol mass conc 250 mg/dL High 200 [facility] [employer] Work Phone: Lipoprotein.pre-beta mass conc 30 mg/dL Invalid Interpretation Code 5-40 [employer] Work Phone: Triglyceride mass conc 152 mg/dL Invalid Interpretation Code [place] Work Phone: Lab Report: Liver Profileon 07-20-2017 Albumin mass conc 3.8 g/dL Invalid Interpretation Code 3.4-5.0 [employer] Work Phone: Alkaline phosphatase (ALP) 106 U/L Invalid Interpretation Code 45-117 [employer] Work Phone: ALP enzyme act/vol (Bld) 106 U/L Invalid Interpretation Code 45-117 [place] [employer] Work Phone: ALT enzyme act/vol 31 U/L Invalid Interpretation Code 12-78 [employer] Work Phone: AST enzyme act/vol 18 U/L Invalid Interpretation Code 15-37 [employer] Work Phone: Bilirubin mass conc 0.40 mg/dL Invalid Interpretation Code 0.20-1.00 [employer] Work Phone: Bilirubin.direct mass conc 0.13 mg/dL Invalid Interpretation Code 0.00-0.30 [employer] Work Phone: Globulin Calculated mass conc (S) 3.2 g/dL Invalid Interpretation Code 2.3-3.5 [employer] Work Phone: Protein mass conc 7.0 g/dL Invalid Interpretation Code 6.4-8.2 [employer] Work Phone: Lab Report: T4 Total, Thyrox inon 07-20-2017 T4 mass conc 8.8 ug/dL Invalid Interpretation Code 4.8-13.9 [employer] Work Phone: Lab Report: Thyroid Stim Hor ann (TSH)on 07-20-2017 Thyrotropin Qn 1.57 u[iU]/mL Invalid Interpretation Code 0.358-3.74 [employer] Work Phone: Replaced Document: CBC W/Dif f, Automatedon 07-20-2017 Absolute Neut 2.8 X10 3/UL Invalid Interpretation Code 2.0-7.7 [employer] Work Phone: Basophils/100 WBC Auto (Bld) 0.4 % Invalid Interpretation Code 0-1 [employer] Work Phone: Eosinophils/100 WBC Auto (Bld) 3.3 % Invalid Interpretation Code 0-5 [employer] Work Phone: Erythrocyte distribution width Auto Ratio (RBC) 14.3 % Invalid Interpretation Code 11.6-14.6 [employer] Work Phone: Erythrocyte distribution width Auto Ratio (RBC) 44.2 fL High 35.1-43.9 [employer] Work Phone: Hematocrit Auto Volume Fraction (Bld) 43.1 % Invalid Interpretation Code 37-47 [employer] Work Phone: Hemoglobin mass conc (Bld) 13.5 g/dL Invalid Interpretation Code 12.0-15.0 [employer] Work Phone: Immature granulocytes #/vol (Bld) 0.200 % Invalid Interpretation Code 0.0-0.9 [employer] Work Phone: Immature granulocytes/100 WBC (Bld) 0.200 % Invalid Interpretation Code 0.0-0.9 [employer] Work Phone: Lymphocytes Auto #/vol (Bld) 1.37 X10 3/UL Invalid Interpretation Code 0.83-4.51 [employer] Work Phone: Lymphocytes/100 WBC Auto (Bld) 28.2 % Invalid Interpretation Code 19-41 [employer] Work Phone: MCH Auto Entitic mass (RBC) 26.4 pg Low 27.0-32.0 [employer] Work Phone: MCHC Auto mass conc (RBC) 31.3 G/GL Low 32-36 [employer] Work Phone: MCV Auto Entitic volume (RBC) 84.2 fL Invalid Interpretation Code 81-99 [employer] Work Phone: Monocytes/100 WBC Auto (Bld) 9.9 % Invalid Interpretation Code 0-10 [employer] Work Phone: Neutrophils Auto #/vol (Bld) 2.8 X10 3/UL Invalid Interpretation Code 2.0-7.7 [employer] Work Phone: Neutrophils/100 WBC Auto (Bld) 58.0 % Invalid Interpretation Code 47-70 [employer] Work Phone: Platelet mean volume Michele-Parisa Entitic volume (Bld) 10.4 fL Invalid Interpretation Code 6.2-12.0 [employer] Phone: Platelets Auto #/vol (Bld) 180 10*3/mm3 Invalid Interpretation Code 150-450 [employer] Work Phone: RBC Auto #/vol (Bld) 5.12 10*6/uL Invalid Interpretation Code 4.2-5.4 [employer] Work Phone: RDW SD 44.2 fL High 35.1-43.9 [employer] Work Phone: WBC Auto #/vol (Bld) 4.9 10*3/uL Invalid Interpretation Code 4.4-11.0 [employer] Phone: Office Visiton 07-07-2017 Dietary management education, guidance, and counseling (procedure) yes Invalid Interpretation Code [facility] Work Phone: Documentation of current medications (procedure) Done Invalid Interpretation Code [facility] Work Phone: Fall risk assessment No Invalid Interpretation Code [facility] Work Phone: Protein mass conc Done Invalid Interpretation Code [facility] Work Phone: Replaced Document: Huan BELL Observationson 07-07-2017 EKG QRS axis -20 deg Invalid Interpretation Code [facility] Work Phone: Interpretation Sinus Rhythm -Left atrial enlargement. BORDERLINE Invalid Interpretation Code [employer] Work Phone: P [place] 44 deg Invalid Interpretation Code [facility] Work Phone: MS Interval 174 ms Invalid Interpretation Code [facility] Work Phone: Pulse (Heart Rate) 73 /min Invalid Interpretation Code [facility] Work Phone: QRS Duration 92 ms Invalid Interpretation Code [facility] Work Phone: QT Interval new path ms Invalid Interpretation Code [facility] Work Phone: QTc Gonzáles 406 ms Invalid Interpretation Code [facility] Work Phone: T [place] 12 deg Invalid Interpretation Code [facility] Work Phone: 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 Tobacco smoking status NHIS Never smoker Invalid Interpretation Code [facility] Work Phone: Tobacco use CPHS Never smoker Invalid Interpretation Code [facility] Work Phone: Office Visiton 12-12-2013 Documentation of current medications (procedure) T Invalid Interpretation Code [facility] Work Phone: Documentation of current medications (procedure) Done Invalid Interpretation Code [facility] Work Phone: Protein mass conc T [facility] Work Phone: Protein mass conc Done [facility] Work Phone: Vital Signs Date Time Vital Sign Value Performing Clinician Facility 07-25-2025 09:11-0400 Body height 160.[address] Karo Patel DO Work Phone: [facility] 07-25-2025 09:11-0400 Body mass index (BMI) [Ratio] 31.8 kg/m2 Dr. Karo Patel DO Work Phone: [facility] 07-25-2025 09:11-0400 Body temperature 96.6 [degF] Dr. Karo Patel DO Work Phone: [facility] 07-25-2025 09:11-0400 Body weight 81.[address] Karo Patel DO Work Phone: [facility] 07-25-2025 09:11-0400 Diastolic blood pressure 73 mm[Hg] Dr. Karo Patel DO Work Phone: [phone] [place] [address] 07-25-2025 09:11-0400 Heart rate 86 /min Dr. Karo Patel DO Work Phone: 5([phone] [place] [address] 07-25-2025 09:11-0400 Respiratory rate 16 /min Dr. Karo Patel DO Work Phone: [phone] [place] [address] 07-25-2025 09:11-0400 SaO2% (BldA) [Mass fraction] 97 % Dr. Karo Patel DO Work Phone: [facility] 07-25-2025 09:11-0400 Systolic blood pressure 134 mm[Hg] Dr. Karo Patel DO Work Phone: [facility] 01-12-2025 09:01-0400 Body height 160.[address] Karo Patel DO Work Phone: [facility] 01-12-2025 09:01-0400 Body mass index (BMI) [Ratio] 31.8 kg/m2 Dr. Karo Patel DO Work Phone: [facility] 01-12-2025 09:01-0400 Body temperature 97 [degF] Dr. Karo Patel DO Work Phone: [facility] 01-12-2025 09:01-0400 Body weight 81.[address] Karo Patel DO Work Phone: [facility] 01-12-2025 09:01-0400 Diastolic blood pressure 85 mm[Hg] Dr. Karo Patel DO Work Phone: [facility] 01-12-2025 09:01-0400 Heart rate 81 /min Dr. Karo Patel DO Work Phone: [facility] 01-12-2025 09:01-0400 Respiratory rate 16 /min Dr. Karo Patel DO Work Phone: [facility] 01-12-2025 09:01-0400 SaO2% (BldA) [Mass fraction] 100 % Dr. Karo Patel DO Work Phone: [facility] 01-12-2025 09:01-0400 Systolic blood pressure 148 mm[Hg] Dr. Karo Patel DO Work Phone: [facility] 12-31-2024 17:50-0400 Body temperature 98 [degF] Dr. Karo Patel DO Work Phone: [facility] 12-31-2024 17:50-0400 Diastolic blood pressure 64 mm[Hg] Dr. Karo Patel DO Work Phone: [facility] 12-31-2024 17:50-0400 Heart rate 74 /min Dr. Karo Patel DO Work Phone: [facility] 12-31-2024 17:50-0400 Respiratory rate 14 /min Dr. Karo Patel DO Work Phone: [facility] 12-31-2024 17:50-0400 SaO2% (BldA) [Mass fraction] 99 % Dr. Karo Patel DO Work Phone: [facility] 12-31-2024 17:50-0400 Systolic blood pressure 148 mm[Hg] Dr. Karo Patel DO Work Phone: [facility] 12-31-2024 14:55-0400 Body height 160.[address] Johnson Fast DO Work Phone: [facility] 12-31-2024 14:55-0400 Body mass index (BMI) [Ratio] 33.8 kg/m2 Dr. Karo Patel DO Work Phone: [facility] 12-31-2024 14:55-0400 Body weight 86.[address] Karo Patel DO Work Phone: [facility] 12-21-2023 10:27-0500 Body height 160.[address] Johnson Fast Work Phone: [facility] 12-18-2022 14:02-0500 Body height 158.2 cm Sbh Schedule [facility] 12-18-2022 14:02-0500 Body mass index (BMI) [Ratio] 34.44 kg/m2 Sbh Schedule [facility] 12-18-2022 14:02-0500 Body weight 86.18 kg Sbh Schedule [facility] 12-18-2022 14:02-0500 Diastolic blood pressure 76 mm[Hg] Sbh Schedule [facility] 12-18-2022 14:02-0500 Heart rate 66 /min Sbh Schedule [facility] 12-18-2022 14:02-0500 Systolic blood pressure 128 mm[Hg] Sbh Schedule [facility] 08-20-2022 08:09-0400 Body height 159.38 cm Melinda Rendon [facility] Work Phone: 08-20-2022 08:09-0400 Body mass index (BMI) [Ratio] 32.85 kg/m2 Melinda Rendon [facility] Work Phone: 08-20-2022 08:09-0400 Body surface area Derived from formula 1.86 m2 Melinda Rendon [facility] Work Phone: 08-20-2022 08:09-0400 Body temperature 98.2 [degF] Melinda Rendon [facility] Work Phone: Comment on above: Method: Thermal Scan 08-20-2022 08:09-0400 Body weight 83.46 kg Melinda Rendon [facility] Work Phone: 08-20-2022 08:09-0400 Diastolic blood pressure 72 mm[Hg] Melinda Rendon [facility] Work Phone: Comment on above: Patient Position: Sitting; Cuff Location : Left Arm; Cuff Size: Standard 08-20-2022 08:09-0400 Heart rate 75 /min Melinda Rendon [facility] Work Phone: Comment on above: Pattern: Regular 08-20-2022 08:09-0400 Respiratory rate 16 /min Melinda Rendon [facility] Work Phone: Comment on above: Pattern: Unlabored 08-20-2022 08:09-0400 Systolic blood pressure 132 mm[Hg] Melinda Rendon [facility] Work Phone: Comment on above: Patient Position: Sitting; Cuff Location : Left Arm; Cuff Size: Standard 08-19-2022 13:12-0400 Body height 160.02 cm [facility] Work Phone: 03-20-2022 12:56-0400 SaO2% (BldA) [Mass fraction] 97 % Zaida Wilson MD Work Phone: [facility] Work Phone: Comment on above: Room air 03-12-2021 08:05-0400 Body height 159.38 cm Melindazander Rendon [facility] Work Phone: 03-12-2021 08:05-0400 Body mass index (BMI) [Ratio] 33.93 kg/m2 [facility] Work Phone: 03-12-2021 08:05-0400 Body surface area Derived from formula 1.89 m2 [facility] Work Phone: 03-12-2021 08:05-0400 Body temperature 97.3 [degF] Melinda Rendon [facility] Work Phone: Comment on above: Method: Thermal Scan 03-12-2021 08:05-0400 Body weight 86.18 kg Melinda Rendon [facility] Work Phone: 03-12-2021 08:05-0400 Diastolic blood pressure 70 mm[Hg] Melinda Rendon [facility] Work Phone: Comment on above: Patient Position: Sitting; Cuff Location : Left Arm; Cuff Size: Standard 03-12-2021 08:05-0400 Heart rate 70 /min Melinda Rendon [facility] Work Phone: Comment on above: Pattern: Regular 03-12-2021 08:05-0400 Respiratory rate 16 /min Melinda Rendon [facility] Work Phone: Comment on above: Pattern: Unlabored 03-12-2021 08:05-0400 Systolic blood pressure 116 mm[Hg] Melinda Rendon [facility] Work Phone: Comment on above: Patient Position: Sitting; Cuff Location : Left Arm; Cuff Size: Standard 11-19-2020 13:10-0500 BMI (Body Mass Index) 33.39 kg/m2 Melinda Rendon [facility] Work Phone: 11-19-2020 13:10-0500 Body Temperature 97.1 [degF] Melinda Rendon [facility] Work Phone: Comment on above: Method: Thermal Scan 11-19-2020 13:10-0500 Body weight 84.82 kg Melinda Rendon [facility] Work Phone: 11-19-2020 13:10-0500 BP Diastolic 70 mm[Hg] Melinda Rendon [facility] Work Phone: Comment on above: Patient Position: Sitting; Cuff Location : Left Arm; Cuff Size: Standard 11-19-2020 13:10-0500 BP Systolic 120 mm[Hg] Melinda Rendon [facility] Work Phone: Comment on above: Patient Position: Sitting; Cuff Location : Left Arm; Cuff Size: Standard 11-19-2020 13:10-0500 BSA (Body Surface Area) 1.87 m2 Melinda Rendon [facility] Work Phone: 11-19-2020 13:10-0500 Height 159.38 cm Melinda Rendon [facility] Work Phone: 11-19-2020 13:10-0500 Pulse (Heart Rate) 95 /min Melinda Rendon [facility] Work Phone: Comment on above: Pattern: Regular 11-19-2020 13:10-0500 Respiratory Rate 16 /min Melinda Rendon [facility] Work Phone: Comment on above: Pattern: Unlabored 11-07-2019 10:14-0500 BMI (Body Mass Index) 31.25 kg/m2 Melinda Rendon [facility] Work Phone: 11-07-2019 10:14-0500 Body Temperature 97.5 [degF] Melinda Rendon [facility] Work Phone: Comment on above: Method: Temporal 11-07-2019 10:14-0500 Body weight 79.38 kg Melinda Rendon [facility] Work Phone: 11-07-2019 10:14-0500 BP Diastolic 70 mm[Hg] Melinda Rendon [facility] Work Phone: Comment on above: Patient Position: Sitting; Cuff Location : Left Arm; Cuff Size: Standard 11-07-2019 10:14-0500 BP Systolic 122 mm[Hg] Melinda Rendon [facility] Work Phone: Comment on above: Patient Position: Sitting; Cuff Location : Left Arm; Cuff Size: Standard 11-07-2019 10:14-0500 BSA (Body Surface Area) 1.82 m2 Melinda Rendon [facility] Work Phone: 11-07-2019 10:14-0500 Height 159.38 cm Melinda Rendon [facility] Work Phone: 11-07-2019 10:14-0500 Pulse (Heart Rate) 71 /min Melinda Rendon [facility] Work Phone: Comment on above: Pattern: Regular 11-07-2019 10:14-0500 Respiratory Rate 16 /min Melinda Rendon [facility] Work Phone: Comment on above: Pattern: Unlabored 09-07-2019 08:01-0500 BMI (Body Mass Index) 31.25 kg/m2 Melinda Rendon [facility] Work Phone: 09-07-2019 08:01-0500 Body Temperature 97.4 [degF] Melinda Rendon [facility] Work Phone: Comment on above: Method: Temporal 09-07-2019 08:01-0500 Body weight 79.38 kg Melinda Rendon [facility] Work Phone: 09-07-2019 08:01-0500 BP Diastolic 68 mm[Hg] Melinda Rendon [facility] Work Phone: Comment on above: Patient Position: Sitting; Cuff Location : Left Arm; Cuff Size: Standard 09-07-2019 08:01-0500 BP Systolic 118 mm[Hg] Melinda Rendon [facility] Work Phone: Comment on above: Patient Position: Sitting; Cuff Location : Left Arm; Cuff Size: Standard 09-07-2019 08:01-0500 BSA (Body Surface Area) 1.82 m2 Melinda Rendon [facility] Work Phone: 09-07-2019 08:01-0500 Height 159.38 cm Melinda Rendon [facility] Work Phone: 09-07-2019 08:01-0500 Pulse (Heart Rate) 70 /min Melinda Rendon [facility] Work Phone: Comment on above: Pattern: Regular 09-07-2019 08:01-0500 Respiratory Rate 16 /min Melinda Rendon [facility] Work Phone: Comment on above: Pattern: Unlabored 05-18-2018 08:47-0400 BMI (Body Mass Index) 30.89 kg/m2 Melinda Rendon [facility] Work Phone: 05-18-2018 08:47-0400 Body Temperature 98.4 [degF] Melinda Rendon [facility] Work Phone: Comment on above: Method: Temporal 05-18-2018 08:47-0400 Body weight 78.47 kg Melinda Rendon [facility] Work Phone: 05-18-2018 08:47-0400 BP Diastolic 78 mm[Hg] Melinda Rendon [facility] Work Phone: Comment on above: Patient Position: Sitting; Cuff Location : Left Arm; Cuff Size: Standard 05-18-2018 08:47-0400 BP Systolic 122 mm[Hg] Melinda Rendon [facility] Work Phone: Comment on above: Patient Position: Sitting; Cuff Location : Left Arm; Cuff Size: Standard 05-18-2018 08:47-0400 BSA (Body Surface Area) 1.81 m2 Melinda Rendon [facility] Work Phone: 05-18-2018 08:47-0400 Height 159.38 cm Melinda Rendon [facility] Work Phone: 05-18-2018 08:47-0400 Pulse (Heart Rate) 77 /min Melinda Rendon [facility] Work Phone: Comment on above: Pattern: Regular 05-18-2018 08:47-0400 Respiratory Rate 16 /min Melinda Rendon [facility] Work Phone: Comment on above: Pattern: Unlabored 05-18-2018 08:47-0400 Weight 78.47 kg Karo Patel [facility] Work Phone: 01-05-2018 10:59-0400 BMI (Body Mass Index) 32.32 kg/m2 Melinda Rendon [facility] Work Phone: 01-05-2018 10:59-0400 Body Temperature 97.2 [degF] Melinda Rendon [facility] Work Phone: Comment on above: Method: Temporal 01-05-2018 10:59-0400 Body weight 82.1 kg Melinda Rendon [facility] Work Phone: 01-05-2018 10:59-0400 BP Diastolic 78 mm[Hg] Melinda Rendon [facility] Work Phone: Comment on above: Patient Position: Sitting; Cuff Location : Left Arm; Cuff Size: Standard 01-05-2018 10:59-0400 BP Systolic 122 mm[Hg] Melinda Rendon [facility] Work Phone: Comment on above: Patient Position: Sitting; Cuff Location : Left Arm; Cuff Size: Standard 01-05-2018 10:59-0400 BSA (Body Surface Area) 1.85 m2 Melinda Rendon [facility] Work Phone: 01-05-2018 10:59-0400 Height 159.38 cm Melinda Rendon [facility] Work Phone: 01-05-2018 10:59-0400 Pulse (Heart Rate) 87 /min Melinda Rendon [facility] Work Phone: Comment on above: Pattern: Regular 01-05-2018 10:59-0400 Respiratory Rate 16 /min Melinda Rendon [facility] Work Phone: Comment on above: Pattern: Unlabored 01-05-2018 10:59-0400 Weight 82.1 kg Karo Patel [facility] Work Phone: 07-30-2017 12:56-0400 BMI (Body Mass Index) 31.07 kg/m2 [facility] Work Phone: 07-30-2017 12:56-0400 BP Diastolic 78 mm[Hg] [facility] Work Phone: 07-30-2017 12:56-0400 BP Systolic 122 mm[Hg] [facility] Work Phone: 07-30-2017 12:56-0400 Height 162.56 cm Penny [facility] Work Phone: 07-30-2017 12:56-0400 Pulse (Heart Rate) 74 /min [facility] Work Phone: 07-30-2017 12:56-0400 Respiratory Rate 18 /min [facility] Work Phone: 07-30-2017 12:56-0400 Weight 82.1 kg [facility] Work Phone: 07-07-2017 15:50-0400 Heart rate 73 /min [facility] Work Phone: 07-07-2017 12:49-0400 BMI (Body Mass Index) 30.89 kg/m2 [facility] Work Phone: 07-07-2017 12:49-0400 BP Diastolic 74 mm[Hg] [facility] Work Phone: 07-07-2017 12:49-0400 BP Systolic 118 mm[Hg] [facility] Work Phone: 07-07-2017 12:49-0400 Height 162.56 cm [facility] Work Phone: 07-07-2017 12:49-0400 Pulse (Heart Rate) 80 /min [facility] Work Phone: 07-07-2017 12:49-0400 Respiratory Rate 16 /min [facility] Work Phone: 07-07-2017 12:49-0400 Weight 81.65 kg [facility] Work Phone: 12-12-2013 14:33-0500 BP Diastolic 67 mm[Hg] Gamaliel Davis [employer] Work Phone: 12-12-2013 14:33-0500 BP Systolic 112 mm[Hg] Gamaliel Davis [employer] [facility] Work Phone: 12-12-2013 14:33-0500 Weight 88.45 kg Gamaliel Davis [employer] [facility] Work Phone: 10-17-2013 14:11-0500 Pulse (Heart Rate) 69 /min Gamaliel Davis [employer] [facility] Work Phone: 08-19-2013 08:59-0400 Height 162.56 cm Gamaliel Davis [employer] [facility] Work Phone: Encounters Encounter Date Encounter Type Care Provider Facility Start: 07-25-2025 End: 07-25-[address] Karo Patel DO Work Phone: -Medical Out Start: 07-25-2025 End: 07-25-[address] Karo Patel DO -[facility] Out Work Phone: Start: 04-24-2025 End: 04-24-[address] Karo Patel DO Work Phone: -[facility] [place] Start: 04-24-2025 End: 04-24-[address] Karo Patel DO -[facility] [place] Work Phone: Start: 04-24-2025 End: 04-24-2025 ambulatory Karo Patel Facility:[facility] Start: 01-12-2025 End: 01-12-[address] Karo Patel DO -Medical Out Work Phone: Start: 01-12-2025 End: 01-12-[address] Karo Patel DO Work Phone: [facility] Work Phone: Start: 12-31-2024 End: 12-31-2024 Emergency department patient visit Dr. Karo Patel DO Work Phone: -Emergency Department Work Phone: Start: 11-16-2024 End: 11-16-2024 Subsequent hospital visit by physician [address] Comment on above: Other abnormal gluco se Start: 11-16-2024 End: 11-16-2024 ambulatory KARO PATEL [facility] Start: 09-28-2024 End: 09-28-[address] Karo Patel DO -Outpatient Bone Densitometry Work Phone: Start: 09-28-2024 End: 09-28-2024 ambulatory Karo Fast Facility:[facility] Start: 09-20-2024 End: 09-20-[address] Karo Patel DO -Laboratory, Specimen Work Phone: Start: 09-20-2024 End: 09-20-[address] Abhinav Roberts MD -[facility] Start: 09-20-2024 End: 09-20-2024 ambulatory Abhinav Roberts Facility:[facility] Start: 09-20-2024 End: 09-20-2024 ambulatory Karo Fast Facility:[facility] Start: 09-13-2024 End: 09-13-[address] Karo Patel DO -Laboratory, Specimen Work Phone: Start: 09-13-2024 End: 09-13-2024 ambulatory Karo Fast Facility:[facility] Start: 08-19-2024 End: 08-19-2024 Emergency department patient visit Karo Fast Facility:[facility] Start: 12-21-2023 End: 12-21-[address] Karo Patel Work Phone: [facility] Work Phone: Start: 12-21-2023 End: 12-21-[address] Karo Patel Work Phone: [facility]-Laboratory, Specimen Work Phone: Start: 12-21-2023 End: 12-21-[address] Karo Patel Work Phone: [facility] Work Phone: Start: 08-20-2023 End: 08-20-2023 ambulatory [facility] Work Phone: Start: 08-20-2023 End: 08-20-2023 Patient encounter procedure [facility]-Outpatient Breast Imaging Work Phone: Start: 08-18-2023 End: 08-18-2023 ambulatory [facility] Work Phone: Start: 08-18-2023 End: 08-18-2023 [facility] Start: 02-12-2023 End: 02-13-2023 [facility] Start: 02-12-2023 End: 02-12-2023 Follow-up encounter Arash Baker BANQUET CAPTAIN - SLURRY BLENDER Work Phone: [facility] Therapy at [facility] Comment on above: Osteoporosis of lumb ar spine (Primary Dx) Start: 01-16-2023 Documentation procedure Toya Baker BANQUET CAPTAIN - SLURRY BLENDER Work Phone: [facility] [place] Start: 01-14-2023 End: 01-15-2023 [facility] Start: 01-01-2023 End: 01-01-2023 ambulatory [facility] Work Phone: Start: 01-01-2023 End: 01-01-2023 Patient encounter procedure [facility] Start: 12-18-2022 End: 12-18-2022 ambulatory KARO FAST [facility] Start: 12-18-2022 End: 12-18-2022 Office outpatient new 60 minutes Karo A Fast DO Work Phone: [facility] Osteoporosis Jenny Comment on above: Osteoporosis of lumb ar spine (Primary Dx); Osteopenia of multiple sites; Fatigue, unspecified type Start: 12-03-2022 Telephone encounter Arash Baker BANQUET CAPTAIN - SLURRY BLENDER Work Phone: [facility]oporosis Philip Comment on above: Appointment Request Start: 11-18-2022 End: 11-18-2022 ambulatory [facility] Work Phone: Start: 11-18-2022 End: 11-18-2022 Discharged Recurring [facility]-Occupational Therapy Start: 11-18-2022 Registered [facility]Occ[facility]ational [facility] Start: 09-17-2022 End: 09-17-2022 ambulatory [facility] Work Phone: Start: 09-17-2022 End: 09-17-2022 Patient encounter procedure [facility] Start: 09-16-2022 End: 09-16-2022 Phone Encounter Karo Fast DO Work Phone: [facility] Start: 09-03-2022 End: 09-04-2022 Office outpatient visit 10 minutes Karo Fast DO Work Phone: [facility] Start: 2022 ambulatory Karo A Fast DO [facility] Start: 08-20-2022 End: 08-21-2022 Patient encounter procedure Karo Fast DO Work Phone: [facility] Start: 08-20-2022 Review Karo Fast DO Work Phone: [facility] Start: 08-19-2022 End: 08-19-2022 Annotation/Addendum Karo Fast DO Work Phone: [facility] Start: 08-19-2022 End: 08-19-2022 ambulatory [facility] Work Phone: Start: 08-19-2022 End: 08-19-2022 Patient encounter procedure [facility]-Outpatient Bone Densitometry Start: 08-05-2022 End: 08-01-2022 Phone Encounter Karo Fast DO Work Phone: [facility] Start: 07-25-2022 End: 07-25-2022 Phone Encounter Karo Fast DO Work Phone: [facility] Start: 06-05-2022 End: 06-05-2022 ambulatory [facility] Work Phone: Start: 06-05-2022 End: 06-05-2022 Patient encounter procedure [facility] Start: 06-04-2022 End: 06-06-2022 Phone Encounter Karo Fast DO Work Phone: [facility] Start: 03-20-2022 End: 03-20-2022 Office outpatient visit 25 minutes Karo Fast DO Work Phone: [facility] Start: 07-17-2021 End: 07-23-2021 Phone Encounter Karo Fast DO Work Phone: [facility] Start: 05-01-2021 End: 05-14-2021 Phone Encounter Karo Fast DO Work Phone: [facility] Start: 04-30-2021 End: 04-30-2021 Phone Encounter Karo Fast DO Work Phone: [facility] Start: 04-30-2021 End: 04-30-2021 Phone Encounter Karo Fast DO Work Phone: [facility] Start: 03-12-2021 End: 03-12-2021 Office outpatient visit 25 minutes Karo Fast DO Work Phone: [facility] Start: 11-19-2020 End: 11-20-2020 Office outpatient visit 25 minutes Karo Fast [facility] Start: 10-30-2020 End: 11-12-2020 Phone Encounter Karo Fast [facility] Start: 10-30-2020 Review Karo Fast [facility] Start: 06-29-2020 End: 06-29-2020 Phone Encounter Karo Patel [facility] Start: 11-23-2019 End: 11-23-2019 Phone Encounter Karo Patel [facility] Start: 11-07-2019 End: 11-07-2019 Office outpatient visit 25 minutes Karo Patel [facility] Start: 09-13-2019 End: 09-13-2019 Phone Encounter Karo Patel [facility] Start: 09-07-2019 End: 02-01-2020 Office outpatient visit 40 minutes Karo Patel [facility] Start: 08-15-2019 End: 08-15-2019 Office outpatient visit 10 minutes Karo Patel [facility] Start: 08-10-2019 End: 08-11-2019 Office outpatient visit 5 minutes Karo Patel DO Work Phone: [facility] Start: 08-17-2018 End: 08-17-2018 Office outpatient visit 5 minutes Karo Patel [facility] Start: 05-18-2018 End: 07-18-2018 Office outpatient visit 15 minutes Karo Patel [facility] Start: 01-11-2018 End: 01-11-2018 Phone Encounter Karo Patel [facility] Start: 01-06-2018 End: 01-06-2018 Phone Encounter Karo Patel [facility] Start: 01-05-2018 End: 01-07-2018 Office outpatient visit 25 minutes Karo Patel [facility] Start: 11-16-2017 End: 11-17-2017 Office outpatient visit 5 minutes Karo Patel [facility] Procedures Date Procedure Procedure Detail Performing Clinician Start: 04-24-2025 Urnls dip stick/tablet reagent auto microscopy Dr. Karo Patel DO Work Phone: Start: 12-31-2024 Urnls dip stick/tablet reagent auto microscopy Dr. Karo Patel DO Work Phone: Start: 12-31-[address] Karo Patel DO Work Phone: Start: 12-31-2024 CT of abdomen and pelvis without contrast Dr. Karo Patel DO Work Phone: Start: 09-28-2024 Dual energy X-ray absorptiometry Dr. Karo Patel DO Work Phone: Start: 09-20-[address] Karo Patel DO Work Phone: Start: 09-20-2024 X-ray of thoracic spine, three views Dr. Karo Patel DO Work Phone: Start: 09-20-2024 X-ray of unilateral ribs, two views without x-ray of chest Dr. Karo Patel DO Work Phone: Start: 09-13-[address] Karo Patel DO Work Phone: Start: 08-20-2023 Screening mammography Start: 08-18-2023 Urine culture Start: 11-18-2022 End: 11-18-2022 OT General Evaluation Procedure Note: See Note; NOTES: [facility] Occupational Therapy [facility] [address] [facility] [facility] [address] [address] [place] [address] / REHABILITATION SERVICES INITIAL EVALUATION MR#: [id number] Acct: [id number] Name: QUIANA MEJIA Rep #: [id number] : 1955 67 From: Aria BEAN/Domenic, CHT Referring Dr.: Dr. Diane Michel MD Status: REG RCR Insurance: MEDICARE PART A B Eval Date: ANTH Patient's Visit Information QUIANA MEJIA is a 67 year old F, referred to Occupational Therapy by Dr. Diane Michel MD, with a diagnosis of pain in right hand.. Date of Evaluation: 11/18/22 Occupational Therapist: GENEVA Mckeon/Domenic, CHT - Subjective This 67 year old female was seen in OT with dx of right hand pain. pt states she has had a injury of mallet finger in her past and following a year she had no difficulty. Pt than was playing football with her grandson end of Aug. she had x-ray following 1st week of due to swelling. Pt than went to see Dr. 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 Please let me know if there are questions or concerns regarding this plan of care. Physician Signature: Date: <Electronically signed by Aria BEAN/MARICARMEN Sheth> 11/18/22 1604 CC: Dr. Karo Patel DO; Dr. Diane Michel MD OUMAR Signed For Medicare only, by signing this I certify the plan of care. _ Physicians Signature Date Karo Patel DO Work Phone: Start: 09-17-2022 Plain x-ray of hand Start: 09-17-2022 End: 09-17-2022 Hand Min 3 Views Procedure Note: See Note; NOTES: [facility] Imaging Services [address] [place] [address] Hand Min 3 Views MR#: [id number] Acct: [id number] Name: QUIANA MEJIA Rep #: [id number] : 1955 F 67 From: Nixon Gregory MD PCP: Dr. Karo Patel DO Status: REG CLI Study: Hand Min 3 Views Date of Exam: 09/17/22 Exam# [id number] Ordering Dr: Karo Patel DO STUDY: X-RAY - RIGHT HAND REASON [...] MD at 18:26 EST , CC: Dr. Karo Patel DO Water Reclamation Systems Operator: Signed Karo Patel DO Work Phone: Start: 08-19-2022 End: 08-20-2022 Dexa Bone Density Study Procedure Note: See Note; NOTES: [facility] Imaging Services [address] [place] [address] Dexa Bone Density Study MR#: [id number] Acct: [id number] Name: QUIANA MEJIA Rep #: [id number] : 1955 F 66 From: Ulysses frausto MD PCP: Dr. Karo Patel DO Status: REG CLI Study: Dexa Bone Density Study Date of Exam: 08/19/22 Exam# [id number] Ordering Dr: Karo Patel DO STUDY: DUAL ENERGY X-RAY ABSORPTIOMETRY / [...] Signed: Ulysses Gonzalez MD at 13:21 EDT , CC: Dr. Karo Patel DO Water Reclamation Systems Operator: Signed Karo Patel DO Work Phone: Start: 08-19-2022 Dual energy X-ray absorptiometry Start: 08-19-2022 Screening mammography of bilateral breasts Start: 08-19-2022 End: 11-01-2022 SCREENING MAMM (CAD), BILAT Procedure Note: See Note; NOTES: [facility] Imaging Services [address] [place] [address] SCREENING MAMM (CAD), BILAT MR#: [id number] Acct: [id number] Name: QUIANA MEJIA Rep #: [id number] : 1955 F 66 From: Ulysses frausto MD PCP: Dr. Karo Patel, Status: REG CLI Study: SCREENING MAMM (CAD), BILAT Date of Exam: 11/09 Exam# [id number] Ordering Dr: Karo Patel DO MAMMOGRAPHY - BILATERAL SCREENING REASON FOR [...] delay biopsy of a clinically suspicious abnormality. [id number] Electronically Signed: Ulysses Gonzalez MD at 14:10 EDT , CC: Dr. Karo Patel DO Water Reclamation Systems Operator: Signed Karo Patel DO Work Phone: Start: 06-05-2022 End: 06-05-2022 Foot min 3 Views Procedure Note: See Note; NOTES: [facility] Imaging Services [address] [address] Foot min 3 Views MR#: [id number] Acct: [id number] Name: QUIANA MEJIA Rep #: [id number] : 1955 F 66 From: Raghu Granger MD PCP: Dr. Karo Patel DO Status: REG CLI Study: Foot min 3 Views Date of Exam: 06/05/22 Exam# [id number] Ordering Dr: Karo Patel DO EXAM: XR RIGHT FOOT COMPLETE, 3 OR MORE VIEWS CLINICAL INDICATION: blunt trauma to right foot, mostly great toe and 2nd toe. Having -- Xray of right foot, attention to great toe and 2nd toe TECHNIQUE: Frontal, lateral and oblique views of the right foot. This report was created using EZ4U report generation technology. COMPARISON: None. FINDINGS: BONES/JOINTS: [...] Signed: Raghu Granger MD at 16:15 EDT , CC: Dr. Karo Patel DO Water Reclamation Systems Operator: Signed Karo Patel DO Work Phone: Start: 06-05-2022 X-ray of both feet Start: 08-12-2021 End: 08-12-2021 SCRN MAMM (CAD)W/ROBERTO BILAT Comments: See Note; NOTES: [facility] Imaging Services [address] [place] [address] SCRN MAMM (CAD)W/ROBERTO BILAT MR#: [id number] Acct: [id number] Name: QUIANA MEJIA Rep #: [id number] : 1955 F 65 From: Ulysses frausto MD PCP: Dr. Karo Patel DO Status: REG CL Study: SCRN MAMM (CAD)W/ROBERTO BILAT Date of Exam: 07/20 03/08 Exam# [id number] Ordering Dr: Karo Patel DO MAMMOGRAPHY - BILATERAL SCREENING REASON FOR [...] delay biopsy of a clinically suspicious abnormality. [id number] Electronically Signed: Ulysses Gonzalez MD at 8:53 EDT , Service support , CC: Dr. Karo Patel DO Water Reclamation Systems Operator: Signed Karo Patel DO Work Phone: Start: 04-30-2021 End: 04-30-2021 Hand Min 3 Views Comments: See Note; NOTES: [facility] Radiology [address] [place] [address] Hand Min 3 Views MR#: [id number] Acct: [id number] Name: QUIANA MEJIA Rep #: [id number] : 1955 F 65 From: Ulysses frausto MD PCP: Dr. Karo Patel DO Status: DEP AMB Study: Hand Min 3 Views Date of Exam: 04/30/21 Exam# [id number] Ordering Dr: Karo Patel DO STUDY: X-RAY - RIGHT HAND REASON [...] EDT , Service support , CC: Dr. Karo Patel DO Water Reclamation Systems Operator: Signed Karo Patel DO Work Phone: Start: 03-12-2021 End: 03-12-2021 No Known Past Surgical History Melinda Slaterluhaubrey SARAH Start: 07-23-2020 End: 07-23-2020 SCREEN MAMM (CAD) W/ROBERTO BILAT Comments: See Note; NOTES: [facility] Imaging Services [address] [place] [address] SCREEN MAMM (CAD) W/ROBERTO BILAT MR#: [id number] Acct: [id number] Name: QUIANA MEJIA Rep #: [id number] : 1955 F 64 From: Erica Collins PCP: Dr. Karo Patel DO Status: REG CLI Study: SCREEN MAMM (CAD) W/ROBERTO BILAT Date of Exam: Exam# [id number] Ordering Dr: Karo Patel DO MAMMOGRAPHY - BILATERAL SCREENING REASON FOR [...] delay biopsy of a clinically suspicious abnormality. [id number] Electronically Signed: Maldonado Brandon, at 16:35 EDT Tel , Service support , CC: Dr. Karo Patel DO Water Reclamation Systems Operator: Signed Karo Patel Work Phone: Start: 03-15-2020 End: 03-15-2020 Lower Ext Joint Only (Routine) Comments: See Note; NOTES: [facility] Imaging Services [address] [place] [address] Lower Ext Joint Only (Routine) MR#: [id number] Acct: [id number] Name: QUIANA MEJIA Rep #: [id number] : 1955 F 64 From: Laurent Collins PCP: Dr. Karo Patel DO Status: REG CLI Study: Lower Ext Joint Only (Routine) Date of Exam: 0 03/15/20 Exam# [id number] Ordering Dr: Emeka Garcia MD STUDY: MRI [...] Normal proximal tibiofibular articulation. Normal lateral collateral (fibular) ligament. Normal popliteus tendon. Normal biceps femoris [...] Tel , Service support , CC: Dr. Karo Patel DO; Dr. Emeka Garcia MD Water Reclamation Systems Operator: Signed Karo Patel Start: 11-09-2019 End: 11-10-2019 Knee 4 or More Views Comments: See Note; NOTES: [facility] Imaging Services [address] [place] [address] Knee 4 or More Views MR#: [id number] Acct: [id number] Name: QUIANA MEJIA Rep #: [id number] : 1955 F 64 From: Laurent Piper MD PCP: Karo Patel DO Status: REG CLI Study: Knee 4 or More Views Date of Exam: 11/09/19 Exam# [id number] Ordering Dr: Karo Patle DO STUDY: X-RAY - LEFT KNEE REASON [...] EST Tel , Service support , CC: Karo Patel DO Water Reclamation Systems Operator: Signed Karo Soriano Phone: Start: 11-02-2019 End: 11-02-[address] w/CCTA Comments: See Note; NOTES: [facility] Imaging Services [address] [place] [address] w/CCTA MR#: [id number] Acct: [id number] Name: QUIANA MEJIAEN Rep #: [id number] : 1955 F 64 From: Jennifer Wong MD PCP: Karo Patel DO Status: REG CLI Study: Limited Chest CT w/CCTA Date of Exam: 11/02/19 Exam# [id number] Ordering Dr: Karo Patel DO STUDY: CARDIAC CALCIUM SCORING - CT [...] the PRICE data calculator. Please go to: www.price-nhlbi.org/Calcium/ input.aspx , for a description of the calculator. Electronically Signed: Jennifer Wong, at 14:40 EST Tel , Service support , CC: Karo Patel DO Water Reclamation Systems Operator: Signed Karo Patel Work Phone: Start: 10-25-2019 End: 10-26-2019 Dexa Bone Density Study Comments: See Note; NOTES: [facility] Imaging Services [address] [place] [address] Dexa Bone Density Study MR#: [id number] Acct: [id number] Name: ROBERTOQUIANA NORMA Rep #: [id number] : 1955 F 64 From: Ulysses Gonzalez MD PCP: Karo Patel DO Status: REG CLI Study: Dexa Bone Density Study Date of Exam: 10/25/19 Exam# [id number] Ordering Dr: Karo Patel DO STUDY: DUAL ENERGY X-RAY ABSORPTIOMETRY / DXA REASON FOR EXAM: Female, 64 years old. 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 -- [...] 14:17 EST , Service support , CC: Karo Patel DO Water Reclamation Systems Operator: Signed Karo Patel Work Phone: Start: 07-13-2019 End: 07-17-2019 SCREEN MAMM (CAD) W/ROBERTO BILAT Comments: See Note; NOTES: [facility] Imaging Services [address] [place] [address] SCREEN MAMM (CAD) W/ROBERTO BILAT MR#: [id number] Acct: [id number] Name: QUIANA MEJIA [facility] Rep #: [id number] : 1955 F 63 From: Ulysses Gonzalez MD PCP: Karo Patel DO Status: [facility] Study: SCREEN MAMM (CAD) W/ROBERTO BILAT Date of Exam: 07/13/19 Exam# [id number] Ordering Dr: Karo Patel DO MAMMOGRAPHY - BILATERAL SCREENING REASON FOR [...] delay biopsy of a clinically suspicious abnormality. [id number] Electronically Signed: Ulysses Gonzalez, at 8:59 EDT , Service support , CC: Karo Patel DO Water Reclamation Systems Operator: Signed Karo Patel Work Phone: Start: 07-09-2018 End: 07-09-2018 SCREENING MAMM (CAD), BILAT Comments: See Note; NOTES: [facility] Imaging Services [address] [place] [address] SCREENING MAMM (CAD), BILAT MR#: [id number] Acct: [id number] Name: QUIANA MEJIA Rep #: [id number] : 1955 F 62 From: Ulysses Gonzalez MD PCP: Karo Patel DO Status: REG CLI Study: SCREENING MAMM (CAD), BILAT Date of Exam: 07/09/18 Exam# [id number] Ordering Dr: Karo Patel DO MAMMOGRAPHY - BILATERAL SCREENING REASON FOR [...] delay biopsy of a clinically suspicious abnormality. [id number] Electronically Signed: Ulysses Gonzalez MD at 15:40 EDT Tel [phone], Service support , CC: Karo Patel DO Water Reclamation Systems Operator: Signed Karo Patel Work Phone: Start: 03-30-2018 End: 04-01-2018 TXT - Blood Flow Screening Comments: See Note; NOTES: [facility] Cardiovascular Services [address] [place] [address] 03/30/18 0827 MR#: [id number] Acct: [id number] Name: QUIANA MEJIA Rep #: [id number] : 1955 62 From: Cullen Hill MD Attending Dr: Karo Patel DO Status: REG REF Ordering Dr: Date: 03/30/18 Location: [facility] Sex: F C Admitted: Reason For Study: [...] is normal (1.0 or greater). .rdering Physician: Karo Patel D.O Performed By: Bre Jurado RVT 03/30/181718 Date Cullen Hill MD CC: Karo Patel DO Date Dictated: 03/30/18826 Date Transcribed: 03/30/181718 Water Reclamation Systems Operator: Signed Karo Fast Start: 01-06-2018 End: 01-06-2018 No Known Past [...] MD Work Phone: Start: 07-07-2017 End: 07-07-2017 CRISTINA Keane MD [...] counseling Penny Ann Start: 07-07-2017 End: 07-20-2017 Lipid 1996 panel [...] 10-19-2015 End: 10-19-2015 Screening colonoscopy Melinda Rendon Comment on above: Dr. Peralta Call Center Receptionist Melinda Rendon Comment on above: Dr. Jaime Keane Call Center Receptionist Melinda Rendon Comment on above: Dr. Jaime Keane Call Center Receptionist Melinda Rendon Comment on above: Dr. Jaime Keane Call Center Receptionist Melinda Rendon [facility] Comment on above: Dr. Jaime Keane Call Center Receptionist Zaida Wilson MD Work Phone: Comment on above: Dr. Jaime Keane Call Center Receptionist Melinda Rendon [facility] Comment on above: Dr. Jaime Keane Call Center Receptionist Karo Patel DO Work Phone: Comment on above: Dr. Jaime Keane Cataract extraction and insertion of intraocular lens Karo Patel Work Phone: Comment on above: bialteral 2019 Cataract extraction and insertion of intraocular lens Melinda Rendon [facility] Comment on above: bialteral 2019 Cataract extraction and insertion of intraocular lens Zaida Wilson MD Work Phone: Comment on above: l 2019 Cataract extraction and insertion of intraocular lens Melinda Rendon CMA Comment on above: 2019 Cataract extraction and insertion of intraocular lens Karo Patel DO Work Phone: Comment on above: biall 2019 Medical Center Representative Melinda burgos Comment on above: [facility] Melinda burgos Comment on above: [facility] Melinda burgos Comment on above: [facility] Representative Melinda burgos [facility] Comment on above: [facility] Zaida Wilson MD Work Phone: Comment on above: [facility] Representative Melinda burgos SERVER DEVELOPER Comment on above: [facility] Karo Patel D O Work Phone: Comment on above: Dr. Zeke Louis Plan of Treatment Date Care Activity Detail Author Start: 2030 RSV High Risk: (Elderly (60+) or Population) (1 - 1-dose 75+ series) RSV High Risk: (Elderly (60+) or Population) (1 - 1-dose 75+ series) [facility] Start: 12-31-2024 End: 12-31-2024 [facility] Start: 06-19-2024 COVID-19 Vaccine ( season) COVID-19 Vaccine ( season) [facility] Start: 06-19-2024 Influenza vaccination Influenza Vaccine (#1) [facility] Start: 12-21-2023 Liquid based cervical cytology screening [facility] Start: 07-09-2023 End: 07-09-2023 Patient encounter procedure 07/09/2023 Office Visit Osteopathic Medicine [facility] Start: 06-19-2023 Influenza vaccination Influenza Vaccine (Season Ended) [facility] Start: 02-12-2023 End: 02-12-2023 Follow-up encounter 02/12/2023 Follow-Up Physical Therapy Joy Henderson PT [facility] Therapy at [facility] Start: 12-18-2022 End: 06-20-2023 25-hydroxyvitamin D3 [Mass/volume] in Serum or Plasma Vitamin D 25 hydroxy Lab Routine Osteoporosis of lumbar spine Expected: 12/18/2022 (Approximate), Expires: 06/20/2023 [facility] Comment on above: Expected: 12/18/2022 (Approximate), Expi res: 06/20/2023 Start: 12-18-2022 End: 06-20-2023 Comprehensive metabolic 1998 panel - Serum or Plasma Comprehensive metabolic panel Lab Routine Osteoporosis of lumbar spine Expected: 12/18/2022 (Approximate), Expires: 06/20/2023 [facility] Work Phone: Comment on above: Expected: 12/18/2022 (Approximate), Expi res: 06/20/2023 Start: 12-18-2022 End: 06-20-2023 Magnesium [Mass/volume] in Serum or Plasma Magnesium Lab Routine Osteoporosis of lumbar spine Expected: 12/18/2022 (Approximate), Expires: 06/20/2023 [facility] Comment on above: Expected: 12/18/2022 (Approximate), Expi res: 06/20/2023 Start: 12-18-2022 End: 06-20-2023 Parathyrin.intact [Mass/volume] in Serum or Plasma PTH, intact Lab Routine Osteoporosis of lumbar spine Expected: 12/18/2022 (Approximate), Expires: 06/20/2023 [facility] Comment on above: Expected: 12/18/2022 (Approximate), Expi res: 06/20/2023 Start: 12-18-2022 End: 12-18-2022 Patient encounter procedure 12/18/2022 Office Visit Osteopathic Medicine [facility] Osteoporosis Jenny Start: 12-18-2022 End: 06-20-2023 Phosphate [Moles/volume] in Serum or Plasma Phosphorus Lab Routine Osteoporosis of lumbar spine Expected: 12/18/2022 (Approximate), Expires: 06/20/2023 [facility] Comment on above: Expected: 12/18/2022 (Approximate), Expi res: 06/20/2023 Start: 12-18-2022 End: 06-20-2023 Thyrotropin [Units/volume] in Serum or Plasma TSH Lab Routine Osteoporosis of lumbar spine Fatigue, unspecified type Expected: 12/18/2022 (Approximate), Expires: 06/20/2023 [facility] Comment on above: Expected: 12/18/2022 (Approximate), Expi res: 06/20/2023 Start: 08-20-2022 Procedure Education Eprescribed prescriptions (G8553) [facility] Work Phone: Start: 08-20-2022 Hemoglobin glycosylated a1c HGB A1C (73363) [facility]; [facility] Work Phone: Start: 08-20-2022 Comprehensive metabolic panel METABOLIC PANEL, COMPREHENSIVE (00961) [facility]; [facility] Work Phone: Start: 08-20-2022 Lipid panel LIPID PANEL (45616) [facility]; [facility] Work Phone: Start: 07-07-2022 Lipid panel Lipid Panel [facility] Start: 06-19-2022 Influenza vaccination Influenza Vaccine (#1) [facility] Start: 05-01-2022 COVID-19 Vaccine (4 - Booster for Pfizer series) COVID-19 Vaccine (4 - Booster for Pfizer series) [facility] Start: 07-17-2021 Hepatic function panel HEPATIC FUNCTION PANEL (08170) [facility]; [facility] Work Phone: Start: 03-12-2021 Procedure Education Eprescribed prescriptions (G8553) [facility]; [facility] Work Phone: Start: 03-12-2021 25 hydroxy includes fractions if performed Vitamin D Hydroxy (56330) [facility]; [facility] Work Phone: Start: 03-12-2021 Hemoglobin glycosylated a1c HGB A1C (75066) [facility]; [facility] Work Phone: Start: 03-12-2021 Lipid panel LIPID PANEL (54213) [facility]; [facility] Work Phone: Start: 03-12-2021 Comprehensive metabolic panel METABOLIC PANEL, COMPREHENSIVE (93176) [facility]; [facility] Work Phone: Start: 03-12-2021 Blood count complete auto&auto difrntl wbc CBC W/AUTO DIFF WBC (77382) [facility]; [facility] Work Phone: Start: 11-20-2020 Provider Instructions for Treatment *Cholesterol - Medication Side Effects [facility]; [facility] Work Phone: Start: 11-19-2020 Lipid panel LIPID PANEL (37957) [facility]; [facility] Work Phone: Start: 11-19-2020 Blood count complete auto&auto difrntl wbc CBC with auto diff (75801) [facility]; [facility] Work Phone: Start: 11-19-2020 Urine albumin quantitative MICROALBUMIN: CREATININE RATIO (89971) AND (49196) [facility]; [facility] Work Phone: Start: 11-19-2020 Comprehensive metabolic panel METABOLIC PANEL, COMPREHENSIVE (25571) [facility]; [facility] Work Phone: Start: 11-19-2020 HbA1c (Bld) [Mass fraction] HGB A1C (40244) [facility]; [facility] Work Phone: Start: 11-19-2020 Hemoglobin glycosylated a1c HGB A1C (06484) [facility]; [facility] Work Phone: Start: 11-19-2020 Procedure Education Eprescribed prescriptions (G8553) [facility]; [facility] Work Phone: Start: 10-30-2020 CBC, PLATELETS & MANUAL DIFF (00979) CBC, PLATELETS & MANUAL DIFF (31279) [facility]; [facility] Work Phone: Start: 10-30-2020 Comprehensive metabolic panel METABOLIC PANEL, COMPREHENSIVE (07381) [facility]; [facility] Work Phone: Start: 2020 Pneumococcal Vaccine: 65+ Years (1 - PCV) Pneumococcal Vaccine: 65+ Years (1 - PCV) [facility] Start: 02-17-2020 Blood count complete auto&auto difrntl wbc CBC with auto diff (07407) [facility] Work Phone: Start: 02-17-2020 Comprehensive metabolic panel METABOLIC PANEL, COMPREHENSIVE (12798) [facility] Work Phone: Start: 02-17-2020 HbA1c (Bld) [Mass fraction] HGB A1C (39033) [facility] Work Phone: Start: 02-17-2020 Hemoglobin glycosylated a1c HGB A1C (76338) [facility]; [facility] Work Phone: Start: 02-17-2020 Lipid panel LIPID PANEL (91131) [facility] Work Phone: Start: 02-01-2020 Lipid panel LIPID PANEL (36306) [facility] Work Phone: Start: 02-01-2020 Blood count complete auto&auto difrntl wbc CBC with auto diff (73207) [facility] Work Phone: Start: 02-01-2020 Comprehensive metabolic panel METABOLIC PANEL, COMPREHENSIVE (07038) [facility] Work Phone: Start: 02-01-2020 HbA1c (Bld) [Mass fraction] HGB A1C (61061) [facility] Work Phone: Start: 02-01-2020 Hemoglobin glycosylated a1c HGB A1C (79318) [facility]; [facility] Work Phone: Start: 11-07-2019 Procedure Education Eprescribed prescriptions (G8553) [facility] Work Phone: Start: 11-07-2019 Protein electrophoretic fractj&quantj serum [facility] Work Phone: Start: 11-07-2019 Calcium urine quantitative timed specimen URINE CALCIUM JERRI TIMED 24 Hour (09778) [facility] Work Phone: Start: 11-07-2019 Assay of thyroid stimulating hormone tsh TSH (23111) [facility]; [facility] Work Phone: Start: 11-07-2019 TSH Qn TSH (16338) [facility] Work Phone: Start: 11-07-2019 Assay of phosphorus inorganic PHOSPHORUS (25634) [facility]; [facility] Work Phone: Start: 11-07-2019 Phosphate [Mass/Vol] PHOSPHORUS (70731) [facility] Work Phone: Start: 11-07-2019 Assay of parathormone PARATHORMONE (34509) [facility] Work Phone: Start: 11-07-2019 ALP [Catalytic activity/Vol] ALKALINE PHOSPHATASE (02249) [facility] Work Phone: Start: 11-07-2019 Assay of phosphatase alkaline ALKALINE PHOSPHATASE (33750) [facility]; [facility] Work Phone: Start: 09-07-2019 Procedure Education Eprescribed prescriptions (G8553) [facility] Work Phone: Start: 08-10-2019 Assay of estradiol ESTRADIOL (94700) [facility] Work Phone: Start: 08-10-2019 Assay of progesterone PROGESTERONE (37275) [facility] Work Phone: Start: 08-10-2019 Urine albumin quantitative MICROALBUMIN: CREATININE RATIO (99208) AND (64546) [facility] Work Phone: Start: 08-10-2019 Comprehensive metabolic panel METABOLIC PANEL, COMPREHENSIVE (74750) [facility] Work Phone: Start: 08-10-2019 Assay of testosterone total TESTOSTERONE TOTAL (17835) [facility] Work Phone: Start: 08-10-2019 Testosterone [Mass/Vol] TESTOSTERONE TOTAL (50652) [facility] Work Phone: Start: 08-10-2019 Urnls dip stick/tablet reagent auto microscopy URINALYSIS, W/ MICRO (53174) [facility] Work Phone: Start: 08-10-2019 Blood count complete auto&auto difrntl wbc CBC with auto diff (38241) [facility] Work Phone: Start: 05-18-2018 Procedure Education Eprescribed prescriptions (G8553) [facility] Work Phone: Start: 05-18-2018 Urine albumin quantitative MICROALBUMIN: CREATININE RATIO (89487) AND (55313) [facility] Work Phone: Start: 05-18-2018 Hemoglobin A1c/Hemoglobin.total mass fraction (Bld) HGB A1C (26826) [facility] Work Phone: Start: 05-18-2018 Hemoglobin glycosylated a1c HGB A1C (83910) [facility] Work Phone: Start: 05-18-2018 Urnls dip stick/tablet reagent auto microscopy URINALYSIS, W/ MICRO (94556) [facility] Work Phone: Start: 05-18-2018 Blood count complete auto&auto difrntl wbc CBC W/AUTO DIFF WBC (55008) [facility] Work Phone: Start: 05-18-2018 Comprehensive metabolic panel METABOLIC PANEL, COMPREHENSIVE (28834) [facility] Work Phone: Start: 05-18-2018 Lipid panel LIPID PANEL (97959) [facility] Work Phone: Start: 02-22-2018 End: 02-22-2018 Appointment Appointment [facility] Work Phone: Start: 01-05-2018 Procedure Education Eprescribed prescriptions (G8553) [facility] Work Phone: Start: 01-05-2018 Hepatic function panel HEPATIC FUNCTION PANEL (20011) [facility] Work Phone: Start: 01-05-2018 Lipid panel LIPID PANEL (25350) [facility] Work Phone: Start: 09-02-2017 End: 07-24-2017 *Hepatic Function Panel *Hepatic Function Panel [facility] Work Phone: Start: 09-02-2017 End: 07-24-2017 Lipid panel [AGGREGATE] *Lipid Profile CC PCP [facility] Work Phone: Start: 07-30-2017 End: 07-30-2017 ALECIAN ALECIAN [facility] Work Phone: Start: 07-30-2017 End: 07-30-2017 Follow Up Appt 6 months Follow Up Appt 6 months [facility] Work Phone: Start: 07-30-2017 End: 07-30-2017 Appointment Appointment [facility] Work Phone: Start: 07-07-2017 End: 07-07-2017 Appointment Appointment [facility] Work Phone: Start: 07-07-2017 End: 07-20-2017 *BMP *BMP [facility] Work Phone: Start: 07-07-2017 End: 07-20-2017 *CBC with Differential *CBC with Differential [facility] Work Phone: Start: 07-07-2017 End: 07-20-2017 *Hepatic Function Panel *Hepatic Function Panel [facility] Work Phone: Start: 07-07-2017 End: 07-07-2017 DJN DJN [facility] Work Phone: Start: 07-07-2017 End: 07-20-2017 Echocardiography Echocardiogram (complete) [facility] Work Phone: Start: 07-07-2017 End: 07-07-2017 Follow Up Appt 1 month Follow Up Appt 1 month [facility] Work Phone: Start: 07-07-2017 End: 07-20-2017 Lipid panel [AGGREGATE] *Lipid Profile CC PCP [facility] Work Phone: Start: 07-07-2017 End: 07-20-2017 Thyroid stimulating hormone (TSH) *TSH [facility] Work Phone: Start: 07-07-2017 End: 07-20-2017 Thyroxine (T4) *T4 (Total) [facility] Work Phone: Start: 07-07-2017 End: 07-07-2017 *BMP *BMP [facility] Work Phone: Start: 07-07-2017 End: 07-07-2017 *CBC with Differential *CBC with Differential [facility] Work Phone: Start: 07-07-2017 End: 07-07-2017 *Hepatic Function Panel *Hepatic Function Panel [facility] Work Phone: Start: 07-07-2017 End: 07-07-2017 CRISTINA EVANS [facility] Work Phone: Start: 07-07-2017 End: 07-07-2017 Echocardiography Echocardiogram (complete) [facility] Work Phone: Start: 07-07-2017 End: 07-07-2017 Follow Up Appt 1 month Follow Up Appt 1 month [facility] Work Phone: Start: 07-07-2017 End: 07-07-2017 Lipid 1996 panel *Lipid Profile CC PCP [facility] Work Phone: Start: 07-07-2017 End: 07-07-2017 T4 mass conc *T4 (Total) [facility] Work Phone: Start: 07-07-2017 End: 07-07-2017 Thyrotropin Qn *TSH [facility] Work Phone: Start: 2005 Pneumococcal vaccination Pneumococcal Vaccine (1 of 1 - PCV) [facility] Start: 1995 Screening for malignant neoplasm of breast Mammogram [facility] Start: 1977 DTaP/Tdap/Td Vaccines (1 - Tdap) DTaP/Tdap/Td Vaccines (1 - Tdap) [facility] Start: 1974 DTaP/Tdap/Td Vaccines (1 - Tdap) DTaP/Tdap/Td Vaccines (1 - Tdap) [facility] Start: 1973 Hepatitis C screening Hepatitis C Screening [facility] Start: 1967 Depression Screening Depression Screening [facility] Start: 1955 Hepatitis B Vaccines (1 of 3 - 3-dose series) Hepatitis B Vaccines (1 of 3 - 3-dose series) [facility] Start: 1955 Medicare Annual Wellness (AWV) Medicare Annual Wellness (AWV) [facility] Start: 1955 Medicare Annual Wellness Visit Medicare Annual Wellness Visit (AWV) [facility] Start: 1955 Screening for malignant neoplasm of colon [facility] Start: 1955 Screening for osteoporosis Bone Density Scan [facility] End: 11-16-2024 CT for calcium scoring WO contrast and CTA W contrast IV Heart and coronary arteries [facility] Service [facility] Work Phone: Comment on above: Once for 1 Occurrences starting 11/16/19 25 until 11/16/2024 Path report.final Dx Spec [facility] Patient Education ED Kidney Ston e with Pain [facility] Work Phone: Patient referral [facility] Work Phone: [facility] Work Phone: [facility] Work Phone: [facility] Work Phone: [facility] Work Phone: [facility] Work Phone: [facility] Work Phone[facility] Work Phone[facility] Work Phone: [facility] Work Phone: [facility] Work Phone: [facility] Work Phone: [facility] Work Phone[facility]; [facility] Work Phone: [facility] Work Phone: [facility] Work Phone: [facility] Work Phone: [facility]; [facility] Work Phone: [facility] Work Phone: [facility] Work Phone: [facility]; [facility] Work Phone: [facility] Immunizations Immunization Date Immunization Notes Care Provider Scot cabrera 08-21-2021 influenza virus vaccine, unspecified formulation Arash Baker [employer] [facility] COVID-19 (Pfizer) Karo Fast DO Work Phone: [facility] Work Phone: 08-28-2020 influenza, seasonal, injectable Karo Fast [facility] Work Phone: 07-02-2020 zoster vaccine, live [facility] Work Phone: 07-28-2017 zoster vaccine, live [facility] Work Phone: 07-24-2017 influenza, seasonal, injectable [facility]o Fast [facility] Work Phone: Payers Date Payer Category Payer Self-pay [id number] 2020 Medicare [id number] 2020 Medicare supplementa l policy (as second payer) [employer] MEDICARE SELECT SUPPLEMENT [id number] 2020 Unknown 2020 Medicare [id number] 2019 Unknown [id number] 2016 Unknown [id number] 1955 Unknown [id number] 1955 Unknown [id number] Unknown [id number] Unknown [id number] Unknown [id number] Unknown [id number] Unknown [id number] Unknown [id number] .[id number] Unknown [id number] Unknown [id number] Unknown [id number] Unknown [id number] Social History Date Type Detail Facility Start: 12-18-2022 End: 01-14-2023 Alcohol Use Never smoker [facility] Work Phone: Comment on above: 2-3 drinks a month several cups of coff ee a day Exercise History: Exercises regularly. [facility] Work Phone: Comment on above: walks an hour every day Living Situation: Lives with spouse. [facility] Work Phone: Tobacco use: Never smoker. [facility] Work Phone: Exercise History: Exercise History: [facility] Work Phone: Comment on above: walks an hour every day Living Situation: Living Situation: [facility] Work Phone: Tobacco use: Tobacco use: [facility] Work Phone: Start: 1955 Sex Assigned At Female [facility] Start: 12-18-2022 End: 12-31-2024 Tobacco smoking status NHIS Never smoked tobacco [facility] Start: 12-18-2022 Tobacco use and exposure Smokeless tobacco non-user [facility] Start: 12-18-2022 End: 01-14-2023 Alcohol intake Current drinker of alcohol (finding) [facility] Start: 12-18-2022 Alcohol Comment seldom [facility] Start: 12-08-2022 End: 11-16-2024 Exposure to SARS-CoV-2 (event) Not sure [facility] Start: 12-21-2023 Tobacco smoking stat us NHIS Unknown if ever smoked [facility] Start: 1955 Sex Assigned At Not on file [facility] Start: 09-21-2024 Gender identity Identifies as female gender (finding) [facility] Work Phone: Start: 09-21-2024 Sexual orientation Heterosexual (fin ding) [facility] Work Phone: Start: 12-31-2024 End: 01-13-2025 Sex Female (finding) [facility] Sex Female [facility] Mental Status Date Assessment Result Facility 07-25-2025 Cognitive function Voice/Name [facility] Work Phone: 01-12-2025 Cognitive function Awake;Alert;A ppropriate;Fol lows Commands [facility] Work Phone: Clinical Notes 12-03-2022 to 12-31-2024 Note Date & Type Note Facility 12-31-2024 Discharge summary [facility] 12-31-2024 Radiology Diagnostic study note [facility] Imaging Services [address] [place] [address] Abdomen/Pelvis without Cont MR#: [id number] Acct: [id number] Name: QUIANA MEJIA Rep #: [id number] : 1955 F 69 From: Natan Varma DO PCP: Dr. Karo Patel DO Status: REG ER Study:Abdomen/Pelvis without Cont Date of Exa m: 12/31/24 Exam# [id number] Ordering Dr: Anh Yuan MD PROCEDURE: CT abdomen pelvis without IV contrast REASON FOR EXAM: Pain TECHNIQUE: Multiple contiguous axial images through the abdomen and pelvis were obtained without the administration of intravenous contrast. Two-dimensional coronal and sagittal reformatted images were reconstructed. Low-dose imaging technique was utilized. COMPARISON: None. FINDINGS: Lung bases are clear. Unenhanced liver, spleen, pancreas and adrenal glands areintact. Cholelithiasis without evidence of acute cholecystitis or biliary ductal dilation. Small hiatal hernia. Right-sided obstructive uropathy with a 3 mm calculus at the ureterovesicular junction resulting in mild hydroureteronephrosis and periureteric/peripelvic fat stranding. Punctate nonobstructing left renal calculus. No left hydronephrosis. Urinary bladder iswithin normal limits. No bowel obstruction, focal bowel wall thickening or significant perienteric inflammation. Normal appendix. No pelvic free fluid. No free air. Calcified nonaneurysmal abdominal aorta. No suspicious adenopathy. Superficialsoft tissues are intact. No acute osseous abnormality. 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/Abdomen/Pelvis without Cont IMPRESSION: 1. Right-sided obstructive uropathy as above. 2. Left nephrolithiasis. 3. Cholelithiasis. 4. Hiatal hernia. Reading Location: [facility] CC: Dr. Karo Patel DO; Dr. Perfecto Yuan MD ~ [employer] Operator: Signed [facility] 12-31-2024 Discharge summary Note Date/Time December 31, 2024 5:19pm [facility] Medical Records Department [address] [place] [address] Emergency Department Summary 12/31/24 MR#: [id number] Acct: [id number] Name: QUIANA MEJIA Rep #:[id number] : 1955 69 From: Perfecto Yuan MD PCP: Dr. Karo Patel, DO Status:REG ER Location: ED HPI HPI - GI History of Present Illness Chief Complaint: Abd Pain Detail of Chief Complaint: Sudden onset right flank and lower quadrant pain today around 1220. Informant: patient and spouse/S.O. Abdominal Pain/Flank Pain Onset: Today Context: Sudden Onset Timing: Continuous Quality: Sharp and Stabbing Location: Right Flank Current Severity: Moderate Maximum Severity: Moderate Worsened by: Nothing Relieved by: Nothing Nausea/Vomiting/Emesis GI Symptom: Positive for Nausea and Vomiting Onset: Today Severity: Mild Diarrhea/Melena/Hematochezia GI Symptom: Negative for Diarrhea, Melena or Hematochezia Associated Symptoms Associated Symptoms: Negative for Dysuria, Frequency, Hematuria or Urgency Narrative Narrative: 69-year-old female no prior abdominal surgeries. History of high cholesterol. States that she had sudden onset of right lower quadrant right flank pain today around 1220. Associated with some mild nausea vomiting. No diarrhea. No dysuria or hematuria. No constipation. No fever. Prior similar symptoms: No Recent Illness/Hospitalization: [facility] Medical History High cholesterol Home Medications ?Medication ?Instructions ?Recorded ?Last Taken ?Type alendronate 70 mg tablet 70 mg PO QWEEK 12/21/23 Unkn own History ascorbic acid (vitamin C) 1,000 mg 1 g PO Q6H 12/21/23 Unknown History capsule aspirin 81 mg tablet,delayed 81 mg PO DAILY 12/21/23 U nknown History release (Adult Low Dose Aspirin) calcium 260 mg (phos,tribasic)-D3 tab PO 12/21/23 Unkn own History 25 mcg-herbal 50 mg chewable tablet (Alive Calcium-Vitamin D3) calcium 600 mg (as carbonate)-vit 1 tab PO DAILY 12/20 Unknown History D3 20 mcg (800 unit) chewable tablet (Caltrate plus D) cholecalciferol (vitamin D3) 125 125 mcg PO DAILY 02/09 Unknown History mcg (5,000 unit) capsule coQ10 (ubiquinol) 100 mg capsule 100 mg PO BID 4 Unknown History (Qunol Uriel CoQ10) multivitamin 1 tab PO DAILY 12/21/23 Unkn own History omega-3 fatty acids 1,250 mg 1,250 mg PO DAILY 4 Unknown History capsule (Super Twin EPA-DHA) phytonadione (vitamin K1) 5 mg 5 mg PO DAILY 12/21/23 Unknown History tablet rosuvastatin 10 mg tablet 10 mg PO DAILY 12/21/23 Unkn own History turmeric (bulk) 95 % powder ea miscellaneous 12/21/23 Unknown History (Curcumin) zinc gluconate 30 mg tablet 30 mg PO DAILY 12/21/23 Un known History dicyclomine 10 mg capsule 20 mg (2 x 10 mg) PO TIDAC # 20 08/19/24 Unknown Rx CAPSULES ondansetron 4 mg disintegrating 4 mg PO Q8H PRN PRN Na usea #10 tabs 08/19/24 Unknown Rx tablet oxycodone-acetaminophen 5 mg-325 1 tab PO Q4H PRN pain 3 days #12 12/31/24 Unknown Rx mg tablet (Percocet) tabs Allergy/AdvReac Type Severity Reaction Status Date / Time No Known Allergies Allergy Verified 12/31/24 14:55 Family History Mother Brain tumor Social History household members: spouse current occupational status: retired 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 current occupational exposures/hazards: No pets and animals: Yes pets and animals: cat(s) history of recent travel: Yes details: [place] [facility] - November out of country: Yes sexually active: Yes Smoking Status: Never smoker alcohol intake: current alcohol intake frequency: holidays/special occasions only substance use type: does not use caffeine: Yes Type: coffee eating out: 1-3 times/week during the past year weight has: remained stable what type of physical activity do you participate in: walking and bicycling frequency: 5-6 times per week duration: 45-60 minutes/day seatbelt use: always do you feel safe at home: Yes additional social history: : [employer] - retired ([employer]) ROS ROS ED ROS Narrative Nausea and vomiting today after the onset of the right flank pain. Otherwise norecent illness. Constitutional Constitutional ED: Denies chills or fever(s) ENT ENT ED: Denies ear pain Cardiovascular Cardiovascular: Denies chest pain Respiratory/Chest Respiratory/Chest: Denies cough or dyspnea Gastrointestinal Gastrointestinal: Reports abdominal pain, nausea and vomiting; Denies constipation, diarrhea or melena Genitourinary Genitourinary ED: Denies dysuria or hematuria Musculoskeletal Musculoskeletal: Denies arthralgias Integumentary Denies abscess or Abrasions Neurologic Neurologic: Denies headache(s) Psychiatric Psychiatric: Denies anxiety Endocrine Endocrinology: Denies polydipsia Hematologic/Lymphatic Hematologic/Lymphatic: Denies easy bleeding Allergic/Immunologic Allergic/Immunologic ED: Denies mouth swelling, tongue swelling or urticaria EXAM Physical Exam Narrative Exam Narrative: 69-year-old female vital signs are stable afebrile does not look septic toxic. Is complaining of right flank pain. present in the room. H EENT exam mildly dry mucous membranes. Pupils round reactive light. Normal speech. Lungs clear to auscultation bilaterally. Heart regular rhythm rate about 60 no murmur. Chest wall and ribs nontender. Abdomen is soft, nontender, nondistended, normal bowel sounds without peritoneal signs. There is no reproducible pain on her abdomen. Both the right upper right lower quadrant unremarkable. No obstruction. No hernia. No pulsatile mass. Back nontender. No rash. Moving all 4 extremities. Nontender no edema. Neurologically she is awake and alert no focal motor deficits. Const Vital Signs: 12/31/24 14:55 12/31/24 16:54 Temperature 97.4 F L Temperature Source Temporal Pulse Rate 61 51 L Respiratory Rate 22 H 16 Blood Pressure 174/92 H 176/88 H Blood Pressure Mean 119 117 Pulse Ox 100 98 Oxygen Delivery Method Room Air Room Air Positive well nourished and well developed; Negative for cachectic, contracturesor unkempt General Appearance ED: well developed and NAD; Negative for unkempt, cachectic, contractures or pallor Nutritional Appearance: Negative for cachectic HEENT Reports dry mucous membranes normocephalic and atraumatic; Negative for trauma or tenderness Mouth ED: Yes dry mucous membranes Mouth: dry mucous membranes Eyes PERRL and EOMs intact bilaterally General Eye ED: Negative for pale conjunctiva or scleral icterus Neck no lymphadenopathy, supple and no JVD General: Negative for tenderness Carotids: Negative for other Lymph Lymphatic: Negative for other Resp normal respiratory effort and clear to auscultation bilaterally Effort and Inspection: Negative for respiratory distress Auscultation: Negative for rales, rhonchi or wheezes Cardio regular rate, regular rhythm, S1 normal heart sound, S2 normal heart sound and no murmurs Rate: Negative for bradycardia or tachycardic Rhythm: Negative for abnormal rhythm GI non-distended and no masses Inspection: Negative for abdominal distention Auscultation: normoactive bowel sounds Palpation: soft; Negative for tender, guarding, rigid, hernia, mass, pulsatile mass or rebound tenderness present Back/Spine no CVA tenderness General Back: Negative for CVA tenderness Cervical Spine: Negative for cervical spine tenderness Thoracic Spine / Upper Back: Negative for thoracic spinal tenderness Lumbar Spine / Lower Back: Negative for lumbar spinal tenderness Coccyx: Negative for other Extremity full ROM General Extremety ED: Negative for edema or tenderness General Extremity: Negative for edema Neuro CN's II-XII intact bilaterally and moves all extremities Sensorium / Orientation: alert, oriented to person, oriented to place, oriented to time and orientation impaired; Negative for confused, lethargic or stuporous Psych mental status grossly normal and thought process normal Appearance: Negative for unkempt Attitude: No agitated Mood & Affect: Negative for depressed, anxious or tearful Skin no wounds General Skin Exam: Negative for jaundice or pallor Lesions: no lesions Rashes: no rashes Trauma: Negative for abrasion Nails: Negative for discolored MDM MDM MDM Narrative Medical decision making narrative: 69-year-old female sudden onset of right flank pain earlier today. No prior history. Suspect kidney stone. CAT scan and labs. UA. Morphine for pain and Zofran for nausea. Patient had increased pain with given a second dose of morphine and Zofran. Is feeling better. Pain is resolved. 5 PM she is doing well. She will be discharged to home. Urine strainer. Percocet for pain. Motrin as needed. Follow-up with urology as needed History & Record Review Discussion w/independent historian: Patient Additional record(s) reviewed:: Prior inpatient record, Prior outpatient record,Prior ED visit and Prior labs Lab Data Attestation: I reviewed the patient's lab results. Lab results narrative: CBC shows a white count of 9. H&H is 13 and 42. Platelets 209. Electrolytes show gap of 14. Normal BUN and creatinine. Glucose 124. Liver enzymes are normal. UA shows small amount of occult blood. No white or red cells. 2+ bacteria. CT shows 3 mm stone at the right UVJ with dilated ureter. Also incidental finding of gallstones. But no acute cholecystitis. Labs: Laboratory Results - last 24 hr 12/31/24 12/31/24 15:09 15:20 WBC 9.6 RBC 5.16 Hgb 13.9 Hct 42.9 MCV 83.1 MCH 26.9 L MCHC 32.4 RDW Std Deviation 43.2 RDW Coeff of Lester 14.3 Plt Count 209 MPV 10.7 Immature Gran % (Auto) 0.500 Neut % (Auto) 75.1 H Lymph % (Auto) 16.2 L Hall % (Auto) 6.2 Eos % (Auto) 1.4 Baso % (Auto) 0.6 Absolute Neuts (auto) 7.2 Absolute Lymphs (auto) 1.56 Nucleated RBC % 0 Sodium 136 Potassium 4.0 Chloride 100 Carbon Dioxide 21.5 Anion Gap 14 BUN 14 Creatinine 0.73 Estim Creat Clear Calc 69.23 Est GFR (MDRD) Non-Af 90 BUN/Creatinine Ratio 18.6 Glucose 124 H Calcium 9.7 Total Bilirubin 0.19 Direct Bilirubin < 0.08 AST 30 ALT 26 Alkaline Phosphatase 101 Total Protein 6.9 Albumin 4.4 Globulin 2.5 Urine Color Yellow Urine Clarity Clear Urine pH 6.0 Ur Specific [place] 1.020 Urine Protein Negative Urine Glucose (UA) Normal Urine Ketones 5 H Urine Occult Blood 10 H Urine Nitrite Negative Urine Bilirubin Negative Urine Urobilinogen Normal Ur Leukocyte Esterase 25 H Urine RBC 0 SEEN Urine WBC 0-5 SEEN Ur Squamous Epith Cells 0-5 SEEN Urine Bacteria 2+ Urine Mucus 0 SEEN Radiography Diagnostic Testing: Clinical Impression(s) from Imaging Studies Abdomen/Pelvis CT 12/31/24 15:07 IMPRESSION: 1. Right-sided obstructive uropathy as above. 2. Left nephrolithiasis. 3. Cholelithiasis. 4. Hiatal hernia. Reading Location: [facility] Discharge Plan Triage Chief Complaint: Abd Pain ED Provider: Perfecto Yuan Dx/Rx/DC Orders Clinical Impression: Kidney stone on right side Instructions: ED Kidney Stone with Pain Prescriptions: New oxycodone-acetaminophen [Percocet] 5-325 mg tablet 1 tab PO Q4H PRN (Reason: pain) 3 Days Qty: 12 0RF No Action rosuvastatin 10 mg tablet 10 mg PO DAILY aspirin [Adult Low Dose Aspirin] 81 mg tablet,delayed release (DR/EC) 81 mg PO DAILY Caltrate 600 plus D 600 mg-20 mcg (800 unit) tablet,chewable 1 tab PO DAILY coQ10 (ubiquinol) [Qunol Uriel CoQ10] 100 mg capsule 100 mg PO BID cholecalciferol (vitamin D3) 125 mcg (5,000 unit) capsule 125 mcg PO DAILY zinc gluconate 30 mg tablet 30 mg PO DAILY phytonadione (vitamin K1) 5 mg tablet 5 mg PO DAILY Curcumin 95 % powder miscellaneous ascorbic acid (vitamin C) 1,000 mg capsule 1 g PO Q6H Super Twin EPA-DHA 1,250 mg capsule 1,250 mg PO DAILY multivitamin Tablet 1 tab PO DAILY Alive Calcium-Vitamin D3 260 mg calcium- 25 mcg-50 mg tablet,chewable PO alendronate 70 mg tablet 70 mg PO QWEEK ondansetron 4 mg tablet,disintegrating 4 mg PO Q8H PRN PRN (Reason: Nausea) Qty: 10 0RF dicyclomine 10 mg capsule 20 mg PO TIDAC Qty: 20 0RF Primary Care Provider: Karo Patel Referrals: Karo Patel DO [Primary Care Provider] - As Needed Braden Ogden MD [Med Staff - Active Staff] - 3-5 Days if not improving Activity Restrictions/Additional Instructions: 3 mm right-sided kidney stone should pass in the next 24 to 48 hours. Tylenol and Motrin for pain. If you need stronger medication the Percocet. Plenty of fluids, fruits vegetables and fiber to prevent constipation if you usethe pain medication. Follow-up with your doctor or the urologist if not improving. Return if intractable pain, fever or intractable vomiting. Strain your urine if you want to see the stone. Print Language: Libyan Disposition Disposition: Home, Self Care What to do if you have Problems For any increased pain, shortness of breath, bleeding, nausea or vomiting, chestpain, or any unexpected problems, contact your Primary Care Provider. Call [facility] ([phone]) or report to the closest Emergency Room. Call 911 if necessary. 12/31/24 [id number] <Electronically signed by Perfecto Yuan MD> Cosigner Signature (if applicable): CC: Dr. Karo Patel, DO ~ Signed [facility] Work Phone: [phone] 149-780304-27-2023 History of Present illness Narrative* Joy Henderson, PT - 02/12/2023 2:00 PM EDT Images from the original note were not included. [facility] [address] [facility] [address] Dept: [phone] Dept PHYSICAL THERAPY RE-EVALUATION Patient Name: Quiana Mejia : 1955 Date of Service: 02/12/2023 Referring Provider: Arash Baker, * Diagnosis: Osteoporosis of lumbar spine [...] reports that recent Dexa scan showed progression fromosteopenia levels into osteporotic levels in her lumbar spine so was referred ot PT from the bone clinic. Precautions/Red Flags: None Patient Preferences: Quiana Subjective General Comments: Patient reports that she [...] good understanding or progression and precautions. Assessment Quiana did very well today with good understand of neutral spine correction, improved postural awareness and body mechanics. Needed cueing to reduce lumbar lordosis and paraspinal activation in prone but did well after correction. Patient received copy of all exs from supine to prone, SL, 4ped andstanding. Will place therapy on hold for 30 [...] Expected End: 03/14/23 Patient will demonstrate full Traer with Felipa's method exs routine and precautions. (Completed) Start: [...] head lift then scapular stabilization exs with cueingfor neutral spine (PPT): I, T, Y, W. [...] Time Entry Total Treatment Time Start Time: 206 Stop Time: 303 Time Calculation (min): 57 min PT Therapeutic Procedures Time Entry Therapeutic Activity Time Entry: 56 Joy Henderson PT documented in this [facility]03-31-2023 History of Present illness Narrative* KATHIA Escalera CNP - 01/16/2023 10:02 AM EDT Labs stable, OK to start fosamax for better hip and spine protection than Boniva. Pt was on Boniva from Nov 2019 to Aug 2022. Will continue fosamax until ~03/2026 (3.25 years to equal 5 total) before considering a drug holiday. Fosamax ordered. documented in this [facility]03-02-2023 History of Present illness Narrative* KATHIA Escalera CNP - 12/18/2022 2:00 PM EST Images from the original note were not included. [facility] OSTEOPOROSIS [place] [address] [facility] [address] Loc: [phone] Visit type: New patient Reason for Visit: [...] of ONJ and atypical femur fracture. Pt understandsthat this medication is a biologic- practicing good hand hygiene and avoiding sick contacts is important. Patient should practice good oral hygiene and have dental exams at least every 6 months during treatment. Patient understands that this is a long-term medication, and that if the medication is administered late or discontinued, fracture risk can significantly increase. I should be notified ifthe patient chooses to stop the medication so [...] the patient. Patient understands that physical therapy canbe beneficial for osteoporosis to help with posture, balance/fall prevention and strength. Son Method may also be used during therapy to help with muscle strengthening, posture and alignment. Pt accepts external referral. Discussed optimizing ca and vit d. Will wnusre 1200mg ca daily in divided doses, doetary preferred.May adjust D3 dosage based on pending labs. [...] the following: Adequate dietary calcium intake of 1461-1544 mg per day through diet and/or supplements. Vitamin D3 9822-1442 IU daily. Participate in weight bearing exercises. [...] patient is referred for: Osteoporosis Referred by Karo Patel DO The osteopenia/osteoporosis was first diagnosed on: [...] HENT: Head: Normocephalic and atraumatic. Mouth/Throat: Lips: [place]. Mouth: Mucous membranes are moist. Dentition: Normal [...] CREATININE, GLUCOSE, CALCIUM No components found for: [id number] Imaging/Testing: The combined time I spent reviewing previous notes/test results, evaluating the patient, providing counseling on disease process and treatment plan the day of the visit as well as documenting cylahhq12 minutes. I have addressed the above chronic [...] the signing physician directly. documented in this encounterSumma [id number] Instructions* Patient Instructions* KATHIA Escalera CNP - 12/18/2022 2:00 PM EST 1200mg calcium daily in divided doses between diet and supplement Have lab results faxed to . * Attachments The following attachments cannot be sent through Care Everywhere. * Calcium and Vitamin D for Bone Health (Libyan) * Weight-Bearing Exercises (Libyan) * Osteoporosis (Libyan) * Calcium Rich Diet (Libyan) * Ibandronate, ADULT (Libyan) * Zoledronic Acid, ADULT (Libyan) * Denosumab, ADULT (Libyan) documented in this [facility]02-17-2023 Telephone encounter Note* Telephone Encounter - Maribell Sandoval - 12/05/2022 12:24 PM EST Patient scheduled on 12/18/22 @ 2:00 PM. [id number] Miscellaneous Notes* Telephone Encounter - Maribell Sandoval - 12/05/2022 12:24 PM EST Patient scheduled on 12/18/22 @ 2:00 PM. * Telephone Encounter - Maribell Sandoval - 12/03/2022 3:52 PM EST Referral was received for patient to schedule with [facility]. Left voicemail for patient toreturn phone call to schedule. documented in this [facility]02-15-2023 NoteReferral was received for patient to schedule with [facility]. Left voicemail for patient to return phone call to schedule.[facility] 12-03-2022 Telephone encounter Note* Telephone Encounter - Maribell Sandoval - 12/03/2022 3:52 PM EST Referral was received for patient to schedule with [facility]. Left voicemail for patient toreturn phone call to schedule. [facility] noteNo assessment information availableWThe [facility] Work Phone: Evaluation note* Diagnosis Osteoporosis of lumbar spine- Primary Osteopenia of multiple sites Fatigue, unspecified type [facility]* Diagnosis Osteoporosis of lumbar spine- Primary Osteopenia of multiple sites [facility]* Diagnosis Osteoporosis of lumbar spine- Primary [facility]* Diagnosis Osteoporosis of lumbar spine- Primary [facility]* Diagnosis Onset Date Resolution Status Large breasts acute Osteoporosis acute [facility] Work Phone: Evaluation note* Diagnosis Osteoporosis of lumbar spine- Primary Osteopenia of multiple sites Fatigue, unspecified type [facility]* Diagnosis Other abnormal glucose documented in this encounter [facility] Work Phone: Hospital Discharge instructions Additional Instructions 3 mm right-sided kidney stone should pass in the next 24 to 48 hours. Tylenol and Motrin for pain. If you need stronger medication the Percocet. Plenty of fluids, fruits vegetables and fiber to prevent constipation if you use the pain medication. Follow-up with your doctor or the urologist if not improving. Return if intractable pain, fever or intractable vomiting. Strain your urine if you want to see the stone.[facility] Work Phone: Instructions* Name Dates Details Patient Instructions Indication:Elevated hemoglobin A1c Start:12-Mar-2021 Instruction Type:Provider Instructions for Treatment How to Access Health Informa tion Online using Patient Portal and [employer] Apps Indication:Elevated hemoglobin A1c Start:12-Mar-2021 Instruction Type:Patient Education Patient Instructions Indication:[facility] Start:19-Nov-2020 Instruction Type:Provider Instructions for Treatment How to Access Health Informa tion Online using Patient Portal and [employer] Apps Indication:[facility] Start:19-Nov-2020 Instruction Type:Patient [...] tion Online using Patient Portal and [employer] Apps Indication:Elevated hemoglobin A1c Start:12-Mar-2021 Instruction Type:Patient Education Patient Instructions Indication:[facility] Start:19-Nov-2020 Instruction Type:Provider Instructions for Treatment How to Access Health Informa tion Online using Patient Portal and [employer] Apps Indication:[facility] Start:19-Nov-2020 Instruction Type:Patient [...] tion Online using Patient Portal and [employer] Apps Indication:Elevated hemoglobin A1c Start:12-Mar-2021 Instruction Type:Patient Education Patient Instructions Indication:[facility] Start:19-Nov-2020 Instruction Type:Provider Instructions for Treatment How to Access Health Informa tion Online using Patient Portal and [employer] Apps Indication:[facility] Start:19-Nov-2020 Instruction Type:Patient [...] for Treatment [facility] Work Phone: instructions* Name Dates Details Patient Instructions Indication:Elevated hemoglobin A1c Start:12-Mar-2021 Instruction Type:Provider Instructions for Treatment How to Access Health Informa tion Online using Patient Portal and [employer] Apps Indication:Elevated hemoglobin A1c Start:12-Mar-2021 Instruction Type:Patient Education Patient Instructions Indication:[facility] Start:19-Nov-2020 Instruction Type:Provider Instructions for Treatment How to Access Health Informa tion Online using Patient Portal and [employer] Apps Indication:[facility] Start:19-Nov-2020 Instruction Type:Patient [...] tion Online using Patient Portal and [employer] Apps Indication:Elevated hemoglobin A1c Start:12-Mar-2021 Instruction Type:Patient Education Patient Instructions Indication:[facility] Start:19-Nov-2020 Instruction Type:Provider Instructions for Treatment How to Access Health Informa tion Online using Patient Portal and [employer] Apps Indication:[facility] Start:19-Nov-2020 Instruction Type:Patient [...] tion Online using Patient Portal and [employer] Apps Indication:Elevated hemoglobin A1c Start:12-Mar-2021 Instruction Type:Patient Education Patient Instructions Indication:[facility] Start:19-Nov-2020 Instruction Type:Provider Instructions for Treatment How to Access Health Informa tion Online using Patient Portal and [employer] Apps Indication:[facility] Start:19-Nov-2020 Instruction Type:Patient [...] tion Online using Patient Portal and [employer] Apps Indication:Elevated hemoglobin A1c Start:12-Mar-2021 Instruction Type:Patient Education Patient Instructions Indication:[facility] Start:19-Nov-2020 Instruction Type:Provider Instructions for Treatment How to Access Health Informa tion Online using Patient Portal and [employer] Apps Indication:[facility] Start:19-Nov-2020 Instruction Type:Patient [...] tion Online using Patient Portal and [employer] Apps Indication:Elevated hemoglobin A1c Start:12-Mar-2021 Instruction Type:Patient Education Patient Instructions Indication:[facility] Start:19-Nov-2020 Instruction Type:Provider Instructions for Treatment How to Access Health Informa tion Online using Patient Portal and [employer] Apps Indication:[facility] Start:19-Nov-2020 Instruction Type:Patient [...] tion Online using Patient Portal and [employer] Apps Indication:Elevated hemoglobin A1c Start:12-Mar-2021 Instruction Type:Patient Education Patient Instructions Indication:[facility] Start:19-Nov-2020 Instruction Type:Provider Instructions for Treatment How to Access Health Informa tion Online using Patient Portal and [employer] Apps Indication:[facility] Start:19-Nov-2020 Instruction Type:Patient [...] tion Online using Patient Portal and [employer] Apps Indication:Elevated hemoglobin A1c Start:12-Mar-2021 Instruction Type:Patient Education Patient Instructions Indication:[facility] Start:19-Nov-2020 Instruction Type:Provider Instructions for Treatment How to Access Health Informa tion Online using Patient Portal and [employer] Apps Indication:[facility] Start:19-Nov-2020 Instruction Type:Patient [...] tion Online using Patient Portal and [employer] Apps Indication:BMI 32.0-32.9,adult Start:20-Aug-2022 Instruction Type:Patient Education Patient Instructions Indication:Elevated hemoglobin A1c Start:12-Mar-2021 Instruction Type:Provider Instructions for Treatment How to Access Health Informa tion Online using Patient Portal and [employer] Apps Indication:Elevated hemoglobin A1c Start:12-Mar-2021 Instruction Type:Patient Education Patient Instructions Indication:[facility] Start:19-Nov-2020 Instruction Type:Provider Instructions for Treatment How to Access Health Informa tion Online using Patient Portal and [employer] Apps Indication:[facility] Start:19-Nov-2020 Instruction Type:Patient [...] tion Online using Patient Portal and [employer] Apps Indication:BMI 32.0-32.9,adult Start:20-Aug-2022 Instruction Type:Patient Education Patient Instructions Indication:Elevated hemoglobin A1c Start:12-Mar-2021 Instruction Type:Provider Instructions for Treatment How to Access Health Informa tion Online using Patient Portal and [employer] Apps Indication:Elevated hemoglobin A1c Start:12-Mar-2021 Instruction Type:Patient Education Patient Instructions Indication:[facility] Start:19-Nov-2020 Instruction Type:Provider Instructions for Treatment How to Access Health Informa tion Online using Patient Portal and [employer] Apps Indication:[facility] Start:19-Nov-2020 Instruction Type:Patient [...] tion Online using Patient Portal and [employer] Apps Indication:BMI 32.0-32.9,adult Start:20-Aug-2022 Instruction Type:Patient Education Patient Instructions Indication:Elevated hemoglobin A1c Start:12-Mar-2021 Instruction Type:Provider Instructions for Treatment How to Access Health Informa tion Online using Patient Portal and [employer] Apps Indication:Elevated hemoglobin A1c Start:12-Mar-2021 Instruction Type:Patient Education Patient Instructions Indication:[facility] Start:19-Nov-2020 Instruction Type:Provider Instructions for Treatment How to Access Health Informa tion Online using Patient Portal and [employer] Apps Indication:[facility] Start:19-Nov-2020 Instruction Type:Patient [...] tion Online using Patient Portal and [employer]rd [employer] Apps Indication:BMI 32.0-32.9,adult Start:20-Aug-2022 Instruction Type:Patient Education Patient Instructions Indication:Elevated hemoglobin A1c Start:12-Mar-2021 Instruction Type:Provider Instructions for Treatment How to Access Health Informa tion Online using Patient Portal and [employer]rd [employer] Apps Indication:Elevated hemoglobin A1c Start:12-Mar-2021 Instruction Type:Patient Education Patient Instructions Indication:[facility] Start:19-Nov-2020 Instruction Type:Provider Instructions for Treatment How to Access Health Informa tion Online using Patient Portal and [employer]rd [employer] Apps Indication:[facility] Start:19-Nov-2020 Instruction Type:Patient [...] tion Online using Patient Portal and [employer]rd [employer] Apps Indication:BMI 32.0-32.9,adult Start:20-Aug-2022 Instruction Type:Patient Education Patient Instructions Indication:Elevated hemoglobin A1c Start:12-Mar-2021 Instruction Type:Provider Instructions for Treatment How to Access Health Informa tion Online using Patient Portal and [employer]rd [employer] Apps Indication:Elevated hemoglobin A1c Start:12-Mar-2021 Instruction Type:Patient Education Patient Instructions Indication:[facility] Start:19-Nov-2020 Instruction Type:Provider Instructions for Treatment How to Access Health Informa tion Online using Patient Portal and [employer]rd [employer] Apps Indication:[facility] Start:19-Nov-2020 Instruction Type:Patient [...] tion Online using Patient Portal and [employer]rd [employer] Apps Indication:BMI 32.0-32.9,adult Start:20-Aug-2022 Instruction Type:Patient Education Patient Instructions Indication:Elevated hemoglobin A1c Start:12-Mar-2021 Instruction Type:Provider Instructions for Treatment How to Access Health Informa tion Online using Patient Portal and [employer]rd [employer] Apps Indication:Elevated hemoglobin A1c Start:12-Mar-2021 Instruction Type:Patient Education Patient Instructions Indication:[facility] Start:19-Nov-2020 Instruction Type:Provider Instructions for Treatment How to Access Health Informa tion Online using Patient Portal and [employer]rd [employer] Apps Indication:[facility] Start:19-Nov-2020 Instruction Type:Patient [...] Internal Medicine; [facility] Work Phone: reason for referral (narrative)No reason for referral information availableM[facility] Work Phone: Reason for visit Narrative* Imaging (Routine) - Authorized Specialty Diagnoses / Procedures Referred By Contac t Referred To Contact Radiology Diagnoses Other abnormal glucose Procedures CT cardiac scoring wo IV contrast Dav, Karo Franco, DO [address] [facility] [address] [place] [address] Phone: tel: fax: Referral ID Status Reason Start Date Expiration Date Visits Requested Visits Authorized [id number] Authorized Perform Procedure 09/20/2024 09/20/2025 1 1 [facility] Work Phone: Family History No Family History Records FoundUnknown Family Member Name Dates Details Brother 1 [...] high c holestrol. passed at 79 Status:Active Relationship Condition Age at Onset Recorded Date/T roya mother Neoplasm of brain Unknown Instructions Name Dates Details Nonsmoker : How [...] tion Online using Patient Portal and 3rd [employer] Apps Indication:[facility] Start:19-Nov-2020 Instruction Type:Patient [...] tion Online using Patient Portal and [employer]rd [employer] Apps Indication:[facility] Start:19-Nov-2020 Instruction Type:Patient [...] Instruction Type:Provider Instructions for Treatment Advance Directives No Advanced Directives Records Found Name Dates Details Immunization Registry [place] - Effective on 01/06/2018. Expiration date unspecified Effective:06-Jan-2018 Name Dates Details Immunization Registry [place] - Effective on 01/06/2018. Expiration date unspecified Effective:06-Jan-2018 Name Dates Details Immunization Registry [place] - Effective on 01/06/2018. Expiration date unspecified Effective:06-Jan-2018 Name Dates Details Immunization Registry [place] - Effective on 01/06/2018. Expiration date unspecified Effective:06-Jan-2018 Name Dates Details Immunization Registry [place] - Effective on 01/06/2018. Expiration date unspecified Effective:06-Jan-2018 Name Dates Details Immunization Registry [place] - Effective on 01/06/2018. Expiration date unspecified Effective:06-Jan-2018 Name Dates Details Immunization Registry [place] - Effective on 01/06/2018. Expiration date unspecified Effective:06-Jan-2018 Name Dates Details Immunization Registry [place] - Effective on 01/06/2018. Expiration date unspecified Effective:06-Jan-2018 Name Dates Details Immunization Registry [place] - Effective on 01/06/2018. Expiration date unspecified Effective:06-Jan-2018 Name Dates Details Immunization Registry [place] - Effective on 01/06/2018. Expiration date unspecified Effective:06-Jan-2018 Name Dates Details Immunization Registry [place] - Effective on 01/06/2018. Expiration date unspecified Effective:06-Jan-2018 Name Dates Details Immunization Registry [place] - Effective on 01/06/2018. Expiration date unspecified Effective:06-Jan-2018 Name Dates Details Immunization Registry [place] - Effective on 01/06/2018. Expiration date unspecified Effective:06-Jan-2018 Name Dates Details Immunization Registry [place] - Effective on 01/06/2018. Expiration date unspecified Effective:06-Jan-2018 Name Dates Details Immunization Registry [place] - Effective on 01/06/2018. Expiration date unspecified Effective:06-Jan-2018 Name Dates Details Immunization Registry [place] - Effective on 01/06/2018. Expiration date unspecified Effective:06-Jan-2018 Name Dates Details Immunization Registry [place] - Effective on 01/06/2018. Expiration date unspecified Effective:06-Jan-2018 Name Dates Details Immunization Registry [place] - Effective on 01/06/2018. Expiration date unspecified Effective:06-Jan-2018 Name Dates Details Immunization Registry [place] - Effective on 01/06/2018. Expiration date unspecified Effective:06-Jan-2018 Name Dates Details Immunization Registry [place] - Effective on 01/06/2018. Expiration date unspecified Effective:06-Jan-2018 Name Dates Details Immunization Registry [place] - Effective on 01/06/2018. Expiration date unspecified Effective:06-Jan-2018 Name Dates Details Immunization Registry [place] - Effective on 01/06/2018. Expiration date unspecified Effective:06-Jan-2018 Name Dates Details Immunization Registry [place] - Effective on 01/06/2018. Expiration date unspecified Effective:06-Jan-2018 Name Dates Details Immunization Registry [place] - Effective on 01/06/2018. Expiration date unspecified Effective:06-Jan-2018 Advance Directive Response Recorded Date/ Time Living Will Yes December 31, 2024 3:06pm Power of Regional Training Manager Yes December 31 3:06pm Name of Medical Power of Regional Training Manager December 31, 2024 3:06pm Advance Directive Response Recorded Date/ Time Living Will Yes December 31, 2024 3:06pm Do you have a Healthcare Power of Regional Training Manager? Yes December 31, 2024 3:06pm Name of Medical Power of Regional Training Manager December 31, 2024 3:06pm Chief Complaint and Reason for Visit Chief Complaint EORDER- RIGHT FOOT Chief Complaint EORDER- RIGHT FOOT SCREENING/[place] Chief Complaint EORDER- RIGHT FOOT SCREENING/[place] EORDER Chief Complaint EORDER PAIN IN RT HAND / PT HAS RX Chief Complaint PAIN IN RT HAND / PT HAS RX Chief Complaint SCREENING Chief Complaint establish care, PAP. ref by Dr Patel Reason for Visit Large breasts Osteoporosis Chief Complaint Admit Date SCREENING September 13, 2024 8:12am XRAY September 20, 2024 1 0:58am [place] September 28, 2024 9:21am ABD PAIN December 31, 2024 2:5 4pm Chief Complaint Admit Date XRAY September 20, 2024 1 0:58am [place] September 28, 2024 9:21am ABD PAIN December 31, 2024 2:5 4pm PROLIA January 12, 2025 8:4 5am Chief Complaint Admit Date ABD PAIN December 31, 2024 2:5 4pm PROLIA January 12, 2025 8:4 5am FASTING April 24, 2025 7:01a m Chief Complaint Admit Date FASTING April 24, 2025 7:01a m PROLIA July 25, 2025 9: 01am Summary Purpose Reason for Referral Specialty Diagnoses / Procedures Referred By Contac t Referred To Contact Physical Therapy Diagnoses Osteoporosis of lumbar spine Procedures MS OFFICE/OUTPATIENT NEW HIGH MDM 60-74 MINUTES Arash Baker, BANQUET CAPTAIN - SLURRY BLENDER [address] [place] [address] Referral ID Status Reason Start Date Expiration Date Visits Requested Visits Authorized [id number] Authorized Eval and Treat 12/18/2022 06/16/2023 99 99 Additional Source Comments Goals (unrecognized section and content) Goals may be documented in a n alternate sectionGoals may be documented in an alternate sectionGoals may be documented in an alternate sectionGoals may be documented in an alternate sectionGoals may be documented in an alternate sectionGoals may be documented in an alternate sectionGoals may be documented in an alternate sectionGoals may be documented in an alternate sectionGoals may be documented in an alternate sectionGoals may be documented in an alternate sectionGoals may be documented in an alternate sectionGoals may be documented in an alternate section INFORMATION SOURCE (unrecogn ized section and content) DATE CREATED AUTHOR 08/27/2022 [facility] DATE CREATED AUTHOR AUTHOR'S ORGANIZ ATION 02/16/2023 [facility] DATE CREATED AUTHOR AUTHOR'S ORGANIZ ATION 04/09/2025 [facility] DATE CREATED AUTHOR AUTHOR'S ORGANIZ ATION 08/17/2025 [facility] Reason for Visit (unrecogniz ed section and content) Reason Comments Osteoporosis Reason Comments PT Re-evaluation Specialty Diagnoses / Procedures Referred By Contac t Referred To Contact Physical Therapy Diagnoses Osteoporosis of lumbar spine Procedures MS OFFICE/OUTPATIENT NEW HIGH MDM 60-74 MINUTES Arash Baker, B[employer] CAPTAIN - SLURRY BLENDER [address] [place] [address] [facility] [address] [phone] Referral ID Status Reason Start Date Expiration Date Visits Requested Visits Authorized [id number] Authorized Eval and Treat 12/18/2022 06/16/2023 10 10 Reason Onset Date Comments Appointment Request 12/03/2022 Care Teams (unrecognized sec tion and content) Telephone Clerk Relationship Specialty Start Date End Date Kaor Patel DO [address] [place] [phone] PCP - General Internal Medicine 12/17/22 Team Status: Active Member Role Status Dates Dr. Karo Patel DO Family Provider Active Dr. Karo Patel DO Primary Care Provider Active Team Status: Inactive Member Role Status Dates Dr. Karo Patel DO Primary Care Provide r, Attending Provider, Referring Provider Active Team Status: Active Member Role Status Dates Dr. Karo Patel DO Primary Care Provider Active Dr. Diane Michel MD Attending Provider, Referring Provider Active Team Status: Inactive Member Role Status Dates Dr. Karo Patel DO Primary Care Provider Active OLIVIA ANTOINE Attending Provider, Referring Provi kimberlee Active Telephone Clerk Relationship Specialty Start Date End Date Karo Patel DO [address] [place] [phone] PCP - General Internal Medicine 12/17/22 Team Status: Inactive Member Role Status Dates Dr. Karo Patel DO Primary Care Provider Active Dr. Diane Michel MD Attending Provider, Referring Provider Active Telephone Clerk Relationship Specialty Start Date End Date Karo Patel DO [address] [place] [phone] PCP - General Internal Medicine 12/17/22 Telephone Clerk Relationship Specialty Start Date End Date Karo Patel DO [address] [place] [phone] PCP - General Internal Medicine 12/17/22 Team Status: Active Member Role Status Dates Dr. Karo Patel DO Primary Care Provide r, Attending Provider, Referring Provider Active Team Status: Inactive Member Role Status Dates Dr. Karo Patel DO Primary Care Provider, Referring P rovider Active Lucy Verdugo PROJECTION CAMERA OPERATOR, PROJECTION CAMERA OPERATOR-C Attending Provider Active Team Status: Inactive Member Role Status Dates Dr. Karo Patel DO Primary Care Provider Active Lucy Verdugo PROJECTION CAMERA OPERATOR, PROJECTION CAMERA OPERATOR-C Attending Provider, Referring Provider Active Telephone Clerk Relationship Specialty Start Date End Date Karo Patel DO [address] [facility] [address] [place] [phone] PCP - General Internal Medicine 12/17/22 Telephone Clerk Relationship Specialty Start Date End Date Karo Patel DO [address] [place], [place] [phone] PCP - General Internal Medicine 11/16/24 Team Status: Active Member Role Status Dates Dr. Karo Patel DO Primary Care Provider Active Team Status: Inactive Member Role Status Dates Dr. Karo Patel DO Primary Care Provider Active Start: September 13, 2024 End: September 13, 2024 Dr. Karo Patel DO Attending Provider Active St art: September 13, 2024 End: September 13, 2024 Dr. Karo Patel DO Referring Provider Active St art: September 13, 2024 End: September 13, 2024 Team Status: Inactive Member Role Status Dates Dr. Karo Patel DO Primary Care Provider Active Start: September 20, 2024 End: September 20, 2024 Dr. Abhinav Roberts MD Attending Provider Active S tart: September 20, 2024 End: September 20, 2024 Team Status: Inactive Member Role Status Dates Dr. Karo Patel DO Primary Care Provider Active Start: September 20, 2024 End: September 20, 2024 Dr. Karo Patel DO Attending Provider Active St art: September 20, 2024 End: September 20, 2024 Dr. Karo Patel DO Referring Provider Active St art: September 20, 2024 End: September 20, 2024 Team Status: Inactive Member Role Status Dates Dr. Karo Patel DO Primary Care Provider Active Start: September 28, 2024 End: September 28, 2024 Dr. Karo Patel DO Attending Provider Active St art: September 28, 2024 End: September 28, 2024 Dr. Karo Patel DO Referring Provider Active St art: September 28, 2024 End: September 28, 2024 Team Status: Inactive Member Role Status Dates Dr. Karo Patel DO Primary Care Provider Active Start: December 31, 2024 End: December 31, 2024 Dr. Perfecto Yuan MD Referring Provider Active S tart: December 31, 2024 End: December 31, 2024 Dr. Perfecto Yuan MD Emergency Provider Active S tart: December 31, 2024 End: December 31, 2024 Team Status: Inactive Member Role Status Dates Dr. Karo Patel DO Primary Care Provider Active Start: December 31, 2024 End: December 31, 2024 Dr. Perfecto Yuan MD Attending Provider Active S tart: December 31, 2024 End: December 31, 2024 Dr. Perfecto Yuan MD Referring Provider Active S tart: December 31, 2024 End: December 31, 2024 Dr. Perfecto Yuan MD Emergency Provider Active S tart: December 31, 2024 End: December 31, 2024 Team Status: Inactive Member Role Status Dates Dr. Karo Patel DO Primary Care Provider Active Start: January 12, 2025 End: January 12, 2025 Dr. Karo Patel DO Attending Provider Active St art: January 12, 2025 End: January 12, 2025 Dr. Karo Patel DO Referring Provider Active St art: January 12, 2025 End: January 12, 2025 Team Status: Active Member Role/Relationship Status Dates Dr. Karo Patel DO Primary Care Provider Active Team Status: Inactive Member Role/Relationship Status Dates Dr. Karo Patel DO Primary Care Provider Active Start: December 31, 2024 End: December 31, 2024 Dr. Perfecto Yuan MD Attending Provider Active S tart: December 31, 2024 End: December 31, 2024 Dr. Perfecto Yuan MD Referring Provider Active S tart: December 31, 2024 End: December 31, 2024 Dr. Perfecto Yuan MD Emergency Provider Active S tart: December 31, 2024 End: December 31, 2024 Team Status: Inactive Member Role/Relationship Status Dates Dr. Karo Patel DO Primary Care Provider Active Start: January 12, 2025 End: January 12, 2025 Dr. Karo Patel DO Attending Provider Active St art: January 12, 2025 End: January 12, 2025 Dr. Karo Patel DO Referring Provider Active St art: January 12, 2025 End: January 12, 2025 Team Status: Inactive Member Role/Relationship Status Dates Dr. Karo Patel DO Primary Care Provider Active Start: April 24, 2025 End: April 24, 2025 Dr. Karo Patel DO Attending Provider Active St art: April 24, 2025 End: April 24, 2025 Dr. Karo Patel DO Referring Provider Active St art: April 24, 2025 End: April 24, 2025 Team Status: Active Member Role/Relationship Status Dates Dr. Karo Patel DO Primary care physician Active Team Status: Inactive Member Role/Relationship Status Dates Dr. Karo Patel DO Primary care physician Active Start: April 24, 2025 End: April 24, 2025 Dr. Karo Patel DO Attending physician Active S tart: April 24, 2025 End: April 24, 2025 Dr. Karo Patel DO Referring Provider Active St art: April 24, 2025 End: April 24, 2025 Team Status: Inactive Member Role/Relationship Status Dates Dr. Karo Patel DO Primary care physician Active Start: July 25, 2025 End: July 25, 2025 Dr. Karo Patel DO Attending physician Active S tart: July 25, 2025 End: July 25, 2025 Dr. Karo Patel DO Referring Provider Active St art: July 25, 2025 End: July 25, 2025 FOR RECORDS PERTAINING TO PATIENTS WHO ARE [...] BE BASED ON THE PRIMARY CLINICAL RECORDS. [facility] [employer] [facility]. provides no warranty or guarantee of the accuracy or completeness of information in this document.
== END | disposition home or self-care (01) ==
LOC: OPBI 07:32
PROVIDERS: PCP Internal Medicine; Referring Provider Internal Medicine; Visit Provider Internal Medicine
DX: Z12.31 Encounter for screening mammogram for malignant neoplasm of breast (principal)
CPT/HCPCS: 77063; 77067